=== PATIENT | male | born 1935 | race Caucasian/White ===

== ENCOUNTER 2017-03-29 07:46 | Inpatient (IN) ==
[2017-03-29] MEDS ORDERED: HYDROmorphone 2 MG/ML SYRINGE ONE (08:18)
[2017-03-29] MEDS ORDERED: ONDANSETRON 4 MG/2 ML VIAL ONE (08:19)
--- NOTE | 2017-03-29 08:21 | Emergency Department Note ---
Lower Extremity Injury HPI - General Chief Complaint: Fall Stated Complaint: fall, L hip pain Time Seen by Provider: 03/29/17 08:17 Source: patient, family, EMS Mode of arrival: wheelchair - History of Present Illness HPI Narrative: This patient fell this morning broke his left hip. He has had some dizziness lately. He has chronic Parkinson's disease of the brain stimulator. Recently had bronchitis and apparently does run some low blood pressures at times. The medics thought his systolic blood pressure was in the 70s but here is 125. No other injuries this morning. X-ray shows an intertrochanteric hip fracture without much displacement. complaint: hip injury Onset (ago): minute(s) Injury: Left: hip - Related Data Home Medications Medication Instructions Recorded Confirmed Carbidopa/Levodopa [Carbidopa-Levo 1.5 each PO Q6 06/20/16 03/29/17 25-100 mg Odt] Cholecalciferol (Vitamin D3) 10,000 unit PO DAILY 06/20/16 03/29/17 [Vitamin D3] Entacapone [Comtan] 200 mg PO BID 06/20/16 03/29/17 Gabapentin [Neurontin] 300 mg PO HS 06/20/16 03/29/17 HYDROcodone/ACETAMINOPHEN [Lorcet 1 tab PO TID 06/20/16 03/29/17 Hd 10-325 mg Tablet] Pravastatin [Pravachol] 20 mg PO HS 06/20/16 03/29/17 QUEtiapine [SEROquel] 25 mg PO HS 06/20/16 03/29/17 Silodosin [Rapaflo] 8 mg PO DAILY 06/20/16 03/29/17 Midodrine [Midodrine HCl] 10 mg PO TID@0800,1200,1700 12/09/16 03/29/17 rOPINIRole [Requip] 1 mg PO Q6 12/09/16 03/29/17 clonazePAM [Clonazepam] 0.25 mg SL BID 03/29/17 03/29/17 Previous Rx's Medication Instructions Recorded carBAMazepine [TEGretol] 100 mg PO Q12 #30 tab.chew 11/29/16 Allergies Allergy/AdvReac Type Severity Reaction Status Date / Time No Known Drug Allergies Allergy Verified 03/29/17 07:52 Review of Systems All systems ED: reviewed and negative except as stated. Past Medical History - Past Medical History [facility] Narrative: Medical History (Last Updated 03/11/17 @ 14:07 by Sridhar Cao MD) Dehydration (Acute) Clavicle fracture (Acute) Rib fracture (Acute) Trigeminal neuralgia of left side of face (Acute) Acute vestibular neuronitis (Acute) Orthostatic hypotension (Acute) Viral syndrome (Acute) Pneumonia (Acute) Autonomic dysfunction (Acute) Parkinson disease (Acute) History of aspiration pneumonia (Acute) Medical history: Reports: other (parkinson, trigeminal neuralgia) Surgical history ED: Reports: pacemaker/AICD - Social History Alcohol use: Reports: Rarely Drug use: Reports: none Physical Exam - General Limitations: no limitations General appearance: alert, in no apparent distress - Head Head exam: atraumatic, normocephalic - Eye Eye exam: Present: normal appearance - ENT ENT exam: normal exam - Neck Neck exam: Present: normal inspection - Chest Chest inspection: Present: normal inspection - Respiratory Respiratory exam: Present: normal lung sounds bilaterally - Cardiovascular Cardiovascular exam: Present: regular rate, normal rhythm, normal heart sounds - Abdominal Exam Abdominal exam: Present: soft. Absent: distention, tenderness - Neurological Exam Neurological exam: Present: alert - Psychiatric Psychiatric exam: Present: normal affect, normal mood - Skin Skin exam: Present: warm, dry, intact, normal color Course Vital Signs Temperature 97.8 F 03/29/17 07:47 Pulse Rate 69 03/29/17 07:47 Respiratory Rate 20 03/29/17 07:47 Blood Pressure 112/54 03/29/17 07:47 Pulse Oximetry (%) 95 03/29/17 07:47 Temperature 97.8 F 03/29/17 07:47 Pulse Rate 69 03/29/17 08:23 Respiratory Rate 20 03/29/17 07:47 Blood Pressure 112/54 03/29/17 07:59 Pulse Oximetry (%) 87 L 03/29/17 08:23 Extremity Injury, Lower - MDM Narrative Medical decision making narrative: This patient has a subcapital left hip fracture. Have discussed the case with Dr. Madrigal and Dr. Crowder. Patient will be admitted to the hospital for hip repair. - Radiology Data Radiology results reviewed: Yes I reviewed the patient's radiology results. Disposition Pt seen by THRASHER FEEDER/PA only: No Clinical Impression: Hip fracture, left Disposition: Xfer As Inpt ([facility]) Condition: Good Referrals: Jewels Arambula MD [Primary Care Provider] - Time of Disposition: 08:37
--- NOTE | 2017-03-29 08:27 | XRay Report ---
CLINICAL INFORMATION: Left hip fracture TECHNIQUE: AP supine chest x-ray COMPARISON: Previous chest x-rays dated 03/11/2017 and 01/12/2017 FINDINGS: Lungs are negative. No parenchymal infiltrate or mass. Heart size and vascularity are normal. No pulmonary edema. No pulmonary congestion. Roopa and mediastinum are negative. IMPRESSION: Negative AP, supine chest x-ray Interpreted and Authenticated by: Mitch Beyer 03/29/17
--- NOTE | 2017-03-29 08:27 | XRay Report ---
CLINICAL INFORMATION: Fall. Left hip pain. TECHNIQUE: AP pelvis and bilateral hips. AP and lateral left hip. COMPARISON: Previous AP pelvis and right hip dated 12/04/2009 FINDINGS: Impacted left subcapital hip fracture with mild varus angulation. Pelvis and right hip are negative. IMPRESSION: Left subcapital hip fracture Interpreted and Authenticated by: Mitch Beyer 03/29/17
[2017-03-29] MEDS: HYDROmorphone 2 MG/ML SYRINGE IV PRN ×3 (09:19→10:20)
[2017-03-29 09:33] LABS: Basophils # (Auto) 0 K/mcL (0.0-0.3); Basophils % (Auto) 0.2 % (0.0-2.0); Eosinophils # (Auto) 0.1 K/mcL (0.0-0.7); Eosinophils % (Auto) 0.8 % (0.0-7.0); Granulocytes % (Auto) 84.2 % (38.0-78.0); Lymphocytes % (Auto) 10.7 % (15.5-49.0); Mean Cell Volume 106.9 fL (80.0-100.0); Mean Corpuscular Hemoglobin 36.4 pg (26.0-34.0); Monocytes # (Auto) 0.4 K/mcL (0.1-0.9); Monocytes % (Auto) 4.1 % (1.0-12.0); Platelet Count 207 K/mcL (140-440); RBC 3.02 M/mcL (4.50-5.90); Red Cell Distribution Width 14.8 % (11.5-14.5)
[2017-03-29 09:50] LABS: ALT/SGPT < 5 U/l (0-40); Albumin 3.9 gm/dL (3.2-5.2); Albumin/Globulin Ratio 1.8 (1.0-2.3); Alkaline Phosphatase 74 U/L (39-117); Blood Urea Nitrogen 10 mg/dl (8-23)
[2017-03-29] MEDS ORDERED: HYDROmorphone 2 MG/ML SYRINGE IV PRN ×3 (10:18→17:55)
[2017-03-29] MEDS ORDERED: KETOROLAC 30 MG/ML VIAL IV ONE (10:28)
[2017-03-29] MEDS ORDERED: 0.9 % SODIUM CHLORIDE 1,000 ML IV ONE (10:37)
[2017-03-29] MEDS ORDERED: 0.9 % SODIUM CHLORIDE 1,000 ML IV SCH ×2 (10:45→11:38)
[2017-03-29] MEDS ORDERED: ONDANSETRON 4 MG/2 ML VIAL IV ONE ×2 (10:54→16:30)
[2017-03-29] MEDS ORDERED: cefTRIAXone 2 GM in DEXTROSE 5% IN WATER 50 ML IV SCH (11:38)
[2017-03-29] MEDS ORDERED: traZODone HCL 50 MG TABLET PO PRN (11:38)
[2017-03-29] MEDS ORDERED: ACETAMINOPHEN 1,000 MG/100 ML BOTTLE IV PRN (11:38)
[2017-03-29] MEDS ORDERED: ACETAMINOPHEN 325 MG TABLET PO PRN (11:38)
[2017-03-29] MEDS ORDERED: BISACODYL 10 MG SUPP.RECT PR PRN (11:38)
[2017-03-29] MEDS ORDERED: ONDANSETRON 4 MG/2 ML VIAL IV PRN ×2 (11:38→17:55)
[2017-03-29 13:17] LABS: Appearance,Urine CLEAR; Bilirubin,Urine NEG (NEG); Color,Urine YELLOW; Glucose,Urine (UA) NEGATIVE (NEG); Leukocyte Esterase,Urine NEG /uL (NEG); Nitrate,Urine NEG (NEG); Protein,Urine NEG (NEG); Specific Gravity,Urine 1.011 (1.000-1.035); Urine Blood NEG mg/dL (<0.03); Urobilinogen,Urine NEG (NEG)
[2017-03-29] MEDS ORDERED: 0.9 % SODIUM CHLORIDE 10 ML SYRINGE IV SCH (14:00)
--- NOTE | 2017-03-29 14:21 | Internal Med History&Physical ---
Medical - H&P: [facility] Patient information: Note initiated : 03/29/17 at 2:19 pm Service Date, if different from initiated Date: [] Patient: Oliver Miles 81 y/o M admitted on 03/29/17 for fall, L hip pain. Chief Complaint: fall with left hip injury History of present illness: Mr. Miles is a 81 year old Male comes in to [facility] ER with left hip injury and pain. Patient sustained a trauma after he fell off the bed while attempting to go to the bathroom this morning around 7:15 AM. He was subsequently brought in to [facility] ER. Initial workup was significant for left subcapital hip fracture. Orthopedics was consulted. Patient was scheduled for operative intervention later in the evening. Hospitalist service was consulted for admission and preoperative risk evaluation along with medical issue management. At time examination patient is alert oriented. He is in significant distress from pain at the fracture site. He is accompanied by his . He is under effect of opioids and was unable to provide a detailed history. Per he did not lose consciousness. There is no evidence of incontinence including bladder or bowel. No seizure-like episode. Patient hasn't had a similar even in the past but suffers from debilitating Parkinson's disease with gait instability. He otherwise denies fever chills nausea vomiting headache photophobia diarrhea dysuria or weight loss. 10 point review of system was performed and is negative except for the was discussed above All systems: reviewed and no additional remarkable complaints except as stated Medical - H&P: PMH Medical history: Parkinson's disease hyperlipidemia Anxiety disorder Orthostatic hypotension Family history: reviewed and not pertinent Pertinent family history: nonrelevant given advanced age and presenting symptoms Social history: remote history of smoking but quit 5 years ago. Occasional cigars History of alcoholism No substance abuse and lives in the [place] Functional capacity: uses cane/walker Smoking status: Former smoker Have you smoked in the last 12 months: No Drug use: none Alcohol use: none Medical - H&P: Meds Home Medications Medication Instructions Recorded Confirmed Type Carbidopa/Levodopa [Carbidopa-Levo 1.5 each PO Q6 06/20/16 03/29/17 History 25-100 mg Odt] Cholecalciferol (Vitamin D3) 10,000 unit PO Q48 06/20/16 03/29/17 History [Vitamin D3] Entacapone [Comtan] 200 mg PO BID 06/20/16 03/29/17 History Gabapentin [Neurontin] 300 mg PO HS 06/20/16 03/29/17 History HYDROcodone/ACETAMINOPHEN [Lorcet 1 tab PO BID 06/20/16 03/29/17 History Hd 10-325 mg Tablet] Pravastatin [Pravachol] 20 mg PO DAILY 06/20/16 03/29/17 History QUEtiapine [SEROquel] 25 mg PO HS 06/20/16 03/29/17 History Silodosin [Rapaflo] 8 mg PO DAILY 06/20/16 03/29/17 History carBAMazepine [TEGretol] 100 mg PO Q12 #30 tab.chew 11/29/16 03/29/17 Rx Midodrine [Midodrine HCl] 10 mg PO TID@0800,1200,1700 12/09/16 03/29/17 History rOPINIRole [Requip] 1 mg PO Q6 12/09/16 03/29/17 History Finasteride 5 mg PO DAILY 03/29/17 03/29/17 History Fludrocortisone [Florinef] 0.3 mg PO DAILY 03/29/17 03/29/17 History L.acidoph,Paracasei, B.lactis 1 tab PO DAILY 03/29/17 03/29/17 History [Probiotic] clonazePAM [Clonazepam] 0.25 mg SL BID 03/29/17 03/29/17 History Allergies Allergy/AdvReac Type Severity Reaction Status Date / Time No Known Drug Allergies Allergy Verified 03/29/17 07:52 Medical - H&P: Exam - Constitutional Vitals: Temp Pulse Resp BP Pulse Ox 98.6 F 80 26 H 174/73 91 03/29/17 11:38 03/29/17 11:01 03/29/17 11:38 03/29/17 11:38 03/29/17 11:38 General appearance: average body habitus Exam: Pupils symmetric oral cavity dry No urine was discharge no Lymphadenopathy or bruit S1 and S2 regular rhythm, ESM rate 1 chest clear to auscultation abdomen soft Left lower extremity externally rotated and shortened Pulses normal sedated but no anxiety or agitation Symmetrical upper extremity movement Medical - H&P: Reslt - Labs CBC & Chem 7: 03/29/17 09:07 03/29/17 09:06 Labs: Urine 03/29/17 Range/Units 12:51 Urine Color Yellow Urine Appearance Clear Urine pH 8.0 (5.0-9.0) Ur Specific [place] 1.011 (1.000-1.035) Urine Protein Neg (NEG) mg/dL Urine Glucose (UA) Negative (NEG) mg/dL Medical - H&P: A/P (1) Closed left hip fracture Current visit: Yes Status: Acute * left hip fracture- awaiting operative intervention. Orthopedics consulted. Keep nothing by mouth * pain management on as needed IV opioids * preop risk evaluation-based on RCR I [place] [employer] risk stratification patient would fall under high risk category due to advanced age and history of Parkinson's , poor functional status and surgery specific risk. However anesthesia and surgery specific risks will be discussed by individual care providers. There are no modifiable risk factors at this time and patient can proceed with surgery. Patient and his clearly understands the risk including hemorrhage infection, risk of CVA and acute coronary events * history of Parkinson's disease continue levodopa carbidopa/ropinirole * Orthostatic hypotension continue aggressive PT OT postoperative period * Hyperlipidemia continue statin * Neuropathy Gabapentin * Full CODE STATUS * DVT prophylaxis. Start subcutaneous heparin Plan * review postop * Keep nothing by mouth * Pain management * pre-existing medical condition management as above.
[2017-03-29] MEDS ORDERED: ceFAZolin 1 GM VIAL ONE (16:23)
[2017-03-29] MEDS ORDERED: LIDOCAINE HCL/PF 100 MG/5 ML SYRINGE IV ONE (16:30)
[2017-03-29] MEDS ORDERED: ePHEDrine 50 MG/ML AMPUL IV ONE (16:30)
[2017-03-29] MEDS ORDERED: DEXAMETHASONE 10 MG/ML VIAL IV ONE (16:30)
[2017-03-29] MEDS ORDERED: HETASTARCH 6% 500 ML BAG IV ONE (16:30)
[2017-03-29] MEDS ORDERED: TRANEXAMIC ACID 1,000 MG/10 ML VIAL IV ONE ×2 (16:30→16:42)
[2017-03-29] MEDS ORDERED: ceFAZolin 1 GM VIAL IV SCH (16:30)
[2017-03-29] MEDS ORDERED: fentaNYL 250 MCG/5 ML VIAL IV ONE (16:30)
[2017-03-29] MEDS ORDERED: PROPOFOL 200 MG/20 ML VIAL IV ONE (16:30)
[2017-03-29] MEDS ORDERED: PHENYLEPHRINE 10 MG/ML VIAL IV ONE (16:30)
[2017-03-29] MEDS ORDERED: FLEETS ADULT ENEMA PR PRN (16:42)
[2017-03-29] MEDS ORDERED: MAGNESIUM HYDROXIDE 30 ML ORAL.SUSP PO PRN (16:42)
[2017-03-29] MEDS ORDERED: TEMAZEPAM 15 MG CAPSULE PO PRN (16:42)
[2017-03-29] MEDS ORDERED: BENZOCAINE/MENTHOL 1 LOZENGE PO PRN ×2 (16:42→17:55)
[2017-03-29] MEDS ORDERED: POLYETHYLENE GLYCOL 3350 17 GM PACKET PO PRN (16:42)
--- NOTE | 2017-03-29 16:42 | Brief Operative Note ---
Date of procedure: 03/29/17 Pre-op diagnosis: left hip femoral neck fracture Post-op diagnosis: same Procedure: left hip cemented miryam-arthroplasty Grafts/Implants: Yes Anesthesia: GETA Complications Description: 03/29/17 16:41 none Surgeon: Crispin Roberts [employer] Supervisor: Kevin Abreu Estimated blood loss (cc): 50 Specimens Removed/Pathology: none sent Condition: stable Disposition: PACU
[2017-03-29] MEDS ORDERED: GENTAMICIN SULFATE 800 MG/20 ML VIAL IR ONE (17:11)
[2017-03-29] MEDS ORDERED: METHOCARBAMOL 1,000 MG/10 ML VIAL IV PRN (17:55)
[2017-03-29] MEDS ORDERED: NALOXONE HCL 0.4 MG/ML VIAL IV PRN (17:55)
[2017-03-29] MEDS ORDERED: ePHEDrine 50 MG/ML AMPUL IV PRN (17:55)
[2017-03-29] MEDS ORDERED: FLUMAZENIL 0.1 MG/ML ML IV PRN (17:55)
[2017-03-29] MEDS ORDERED: diphenhydrAMINE 50 MG/ML VIAL IV PRN (17:55)
[2017-03-29] MEDS ORDERED: IPRATROPIUM/ALBUTEROL 3 ML AMPUL.NEB NEB PRN (17:55)
[2017-03-29] MEDS ORDERED: ATROPINE SULFATE 0.4 MG/ML VIAL IV PRN (17:55)
[2017-03-29] MEDS ORDERED: fentaNYL 100 MCG/2 ML VIAL IV PRN (17:55)
[2017-03-29] MEDS ORDERED: METOPROLOL TARTRATE 5 MG/5 ML VIAL IV PRN (17:55)
[2017-03-29] MEDS ORDERED: PROMETHAZINE 25 MG/ML VIAL IV PRN (17:55)
[2017-03-29] MEDS ORDERED: IPRATROPIUM/ALBUTEROL 3 ML AMPUL.NEB NEB ONE (17:58)
[2017-03-29] MEDS ORDERED: LACTATED RINGERS 1,000 ML IV SCH (18:00)
[2017-03-29] MEDS: KETOROLAC 15 MG/ML VIAL IV PRN (18:34)
--- NOTE | 2017-03-29 18:36 | XRay Report ---
CLINICAL INFORMATION: Postsurgical follow-up TECHNIQUE: AP pelvis and bilateral hips. AP and lateral left hip COMPARISON: Previous examination dated 03/29/2017 FINDINGS: Status post left total hip arthroplasty. Acetabular and femoral head complements are in anatomic positions. There is postsurgical soft tissue gas. IMPRESSION: Status post left total hip arthroplasty Interpreted and Authenticated by: Mitch Beyer 03/29/17
[2017-03-29] MEDS: rOPINIRole 1 MG TABLET PO SCH (19:47)
[2017-03-29] MEDS: CARBIDOPA/LEVODOPA 25/100 TABLET PO SCH (19:47)
[2017-03-29] MEDS: 0.45 % SODIUM CHLORIDE 1,000 ML IV SCH ×2 (19:47→19:50)
[2017-03-29] MEDS: MIDODRINE 5 MG TABLET PO SCH (19:50)
[2017-03-29] MEDS ORDERED: SENNOSIDES/DOCUSATE SODIUM 1 TAB TABLET PO SCH (21:00)
[2017-03-29] MEDS ORDERED: DOCUSATE SODIUM 100 MG CAPSULE PO SCH (21:00)
[2017-03-29] MEDS: GABAPENTIN 300 MG CAPSULE PO SCH (21:21)
[2017-03-29] MEDS: ASPIRIN 325 MG ENTERIC COATED TABLET PO SCH (21:21)
[2017-03-29] MEDS: QUEtiapine 25 MG TABLET PO SCH (21:22)
[2017-03-29] MEDS: SIMVASTATIN 10 MG TABLET PO SCH (21:22)
[2017-03-29] MEDS: clonazePAM 0.5 MG TABLET PO SCH (21:22)
[2017-03-29] MEDS: SENNOSIDES 1 TABLET PO SCH (21:23)
[2017-03-29] MEDS: carBAMazepine 100 MG TAB.CHEW PO SCH (21:24)
[2017-03-29] MEDS: ENTACAPONE 200 MG PO SCH (21:54)
[2017-03-29] MEDS: 0.9 % SODIUM CHLORIDE 10 ML SYRINGE IV SCH (21:54)
[2017-03-29] MEDS: ceFAZolin 1 GM VIAL IV SCH (21:54)
[2017-03-30] MEDS: CARBIDOPA/LEVODOPA 25/100 TABLET PO SCH ×4 (00:10→18:08)
[2017-03-30] MEDS: HYDROcodone/APAP 5/325MG TABLET PO PRN ×4 (00:10→23:21)
[2017-03-30] MEDS: rOPINIRole 1 MG TABLET PO SCH ×4 (00:10→18:09)
[2017-03-30] MEDS: 0.45 % SODIUM CHLORIDE 1,000 ML IV SCH ×4 (02:45→18:01)
[2017-03-30] MEDS: 0.9 % SODIUM CHLORIDE 10 ML SYRINGE IV SCH ×3 (04:55→20:02)
[2017-03-30] MEDS: ceFAZolin 1 GM VIAL IV SCH (05:43)
[2017-03-30 06:04] LABS: Mean Cell Volume 110.6 fL (80.0-100.0); Mean Corpuscular HGB Conc 35.1 g/dL (31.0-36.0); Mean Corpuscular Hemoglobin 38.9 pg (26.0-34.0); Platelet Count 158 K/mcL (140-440); RBC 2.36 M/mcL (4.50-5.90); Red Cell Distribution Width 14.4 % (11.5-14.5)
[2017-03-30 06:30] LABS: ALT/SGPT < 5 U/l (0-40); Albumin 2.9 gm/dL (3.2-5.2); Albumin/Globulin Ratio 1.6 (1.0-2.3); Alkaline Phosphatase 56 U/L (39-117); Bilirubin,Direct < 0.2 mg/dL (0.0-0.3); Blood Urea Nitrogen 10 mg/dl (8-23); Gamma Glutamyl Transpeptidase 24 U/L (8-61); Magnesium 2.1 mg/dL (1.6-2.5); Uric Acid 2.2 mg/dL (2.5-8.0)
[2017-03-30] MEDS: MIDODRINE 5 MG TABLET PO SCH ×3 (07:15→18:09)
[2017-03-30] MEDS ORDERED: PANTOPRAZOLE 40 MG TABLET PO SCH (07:30)
--- NOTE | 2017-03-30 07:44 | Orthopedic Progress Note ---
Subjective Patient information: Note initiated : 03/30/17 at 7:43 am Service Date, if different from initiated Date: [] Patient: Oliver Miles 81 y/o M admitted on 03/29/17 for fall, L hip pain. Chief Complaint: [alert with no cp and no sob] Objective Vital signs: Vital Signs Temp Pulse Resp BP Pulse Ox 03/30/17 07:18 98 03/30/17 07:16 97.4 F 67 16 104/60 98 03/30/17 06:00 91 03/30/17 04:15 94 03/30/17 03:25 97.7 F 74 18 130/66 99 03/30/17 02:20 97 03/30/17 00:00 98.7 F 85 18 132/67 94 03/29/17 22:00 91 03/29/17 20:43 96 03/29/17 20:42 96 03/29/17 20:35 92 03/29/17 20:34 72 L 03/29/17 18:44 98.4 F 101 H 16 196/93 87 L 03/29/17 18:40 98.6 F 100 H 17 164/90 92 03/29/17 18:25 98.6 F 101 H 17 169/82 93 03/29/17 18:10 98.6 F 97 H 17 167/78 94 03/29/17 18:05 98.6 F 93 H 16 134/62 94 03/29/17 17:55 98.6 F 92 H 15 113/75 96 03/29/17 17:50 98.6 F 18 130/60 95 03/29/17 16:25 98.6 F 20 163/81 95 03/29/17 11:38 98.6 F 26 H 174/73 91 Intake and Output 03/29/17 03/30/17 03/30/17 21:59 05:59 13:59 Intake Total 771 / 771 1250 / 1250 Output Total 375 / 375 Balance 771 / 771 875 / 875 Intake: IV 271 / 271 1000 / 1000 Sodium Chloride 0.45% 1, 1000 / 1000 000 ml @ 100 mls/hr IV . Q10H [facility] Rx#:[id number] Sodium Chloride 0.9% 1, 271 / 271 000 ml @ 50 mls/hr IV . Q20H [facility] Rx#:[id number] Oral 250 / 250 IV - Manual Only 500 / 500 Output: Urine Catheter Amount 375 / 375 Other: Weight 180 lb Intake & Output: Intake & Output 03/29/17 03/30/17 03/30/17 21:59 05:59 13:59 Intake Total 771 / 771 1250 / 1250 Output Total 375 / 375 Balance 771 / 771 875 / 875 Weight 180 lb Intake: IV 271 / 271 1000 / 1000 Sodium Chloride 0.45% 1, 1000 / 1000 000 ml @ 100 mls/hr IV . Q10H [facility] Rx#:[id number] Sodium Chloride 0.9% 1, 271 / 271 000 ml @ 50 mls/hr IV . Q20H [facility] Rx#:[id number] Oral 250 / 250 IV - Manual Only 500 / 500 Output: Urine Catheter Amount 375 / 375 Incision: Yes healing Incision clean and dry: Yes Dressing: Yes clean Weight bearing status: full Neurological exam IM: Yes altered, Yes oriented X3 Extremities exam IM: Yes Foot pink and warm, Yes neurovascular intact (will need snf or home health) - Labs CBC & BMP: 03/30/17 03:44 03/30/17 03:44 Labs: 03/30/17 03:44 Hgb 9.1 L Hct 26.1 L
--- NOTE | 2017-03-30 07:47 | Internal Med Progress Note ---
Medical - PN: Subj Patient information: Note initiated : 03/30/17 at 7:45 am Service Date, if different from initiated Date: [] Patient: Oliver Miles 81 y/o M admitted on 03/29/17 for fall, L hip pain. Chief Complaint: [] Interval history: 03/29-HPI-Mr. Miles is a 81 year old Male comes in to [place] ER with left hip injury and pain. Patient sustained a trauma after he fell off the bed while attempting to go to the bathroom this morning around 7:15 AM. He was subsequently [facility]. Initial workup was significant for left subcapital hip fracture. Orthopedics was consulted. Patient was scheduled for operative intervention later in the evening. Hospitalist service was consulted for admission and preoperative risk evaluation along with medical issue management. At time examination patient is alert oriented. He is in significant distress from pain at the fracture site. He is accompanied by his . He is under effect of opioids and was unable to provide a detailed history. Per he did not lose consciousness. There is no evidence of incontinence including bladder or bowel. No seizure-like episode. Patient hasn't had a similar even in the past but suffers from debilitating Parkinson's disease with gait instability. He otherwise denies fever chills nausea vomiting headache photophobia diarrhea dysuria or weight loss. 03/30- postop day 2. Patient doing well. No overnight events. Pain well controlled. No fever chills SOB nausea vomiting or bleeding or swelling at surgery site. started physical therapy. Patient has advanced Parkinson's disease limiting his functionality and gait instability. He also carries history of orthostatic hypertension. Continue aggressive physical therapy and and target or male sitting upright in light of high risk Parkinson's related dysphagia. Anticipate SNF transfer in 48 hours. Continue postop management per orthopedics - Constitutional Vitals: Vital Signs Temp Pulse Resp BP Pulse Ox 97.4 F 67 16 104/60 98 03/30/17 07:16 03/30/17 07:16 03/30/17 07:16 03/30/17 07:16 03/30/17 07:18 Period Temp Pulse Resp BP Sys/Garcia Pulse Ox Last 24 Hr 97.4 F-98.7 F 67-101 15-26 104-196/60-93 72-99 Intake and Output 0703/30/17 03/30/17 21:59 05:59 13:59 Intake Total 771 / 771 1250 / 1250 Output Total 375 / 375 Balance 771 / 771 875 / 875 Weight 180 lb Intake & Output: Intake & Output 03/29/17 03/30/17 03/30/17 21:59 05:59 13:59 Intake Total 771 / 771 1250 / 1250 Output Total 375 / 375 Balance 771 / 771 875 / 875 Weight 180 lb Intake: IV 271 / 271 1000 / 1000 Sodium Chloride 0.45% 1, 1000 / 1000 000 ml @ 100 mls/hr IV . Q10H [facility] Rx#:[id number] Sodium Chloride 0.9% 1, 271 / 271 000 ml @ 50 mls/hr IV . Q20H [facility] Rx#:[id number] Oral 250 / 250 IV - Manual Only 500 / 500 Output: Urine Catheter Amount 375 / 375 General appearance: cooperative, no acute distress Exam: advanced Parkinson's Alert and able to verbalize needs nonlabored breathing Left hip covered in sterile dressing Medical - PN: Obj Da - Labs CBC & Chem 7: 03/30/17 03:44 03/30/17 03:44 Labs: Abnormal Lab Results 03/30/17 03/30/17 03:44 03:44 RBC 2.36 L Hgb 9.1 L Hct 26.1 L MCV 110.6 H MCH 38.9 H Glucose 130 H Uric Acid 2.2 L Calcium 7.9 L Total Protein 4.7 L Albumin 2.9 L Globulin 1.8 L Meds: Medications Hydrocodone Bitart/Acetaminophen (Joffre 5/325mg) 0 tab PO Q4HP PRN PRN Reason: Pain Last Admin: 03/30/17 07:24 Dose: 2 tab Aspirin (Ecotrin) 325 mg PO BID [facility] Last Admin: 03/29/17 21:21 Dose: 325 mg Carbamazepine (Tegretol) 100 mg PO Q12 [facility] Last Admin: 03/29/17 21:24 Dose: 100 mg Carbidopa/Levodopa (Sinemet 25/100) 1.5 tab PO Q6 [facility] Last Admin: 03/30/17 05:43 Dose: 1.5 tab Clonazepam (Klonopin) 0.25 mg PO BID [facility] Last Admin: 03/29/17 21:22 Dose: 0.25 mg Finasteride (Proscar) 5 mg PO DAILY [facility] Fludrocortisone Acetate (Florinef) 0.3 mg PO DAILY [facility] Gabapentin (Neurontin) 300 mg PO HS [facility] Last Admin: 03/29/17 21:21 Dose: 300 mg Sodium Chloride (Sodium Chloride 0.45%) 1,000 mls @ 100 mls/hr IV .Q10H [facility] Last Admin: 03/30/17 07:25 Dose: 100 mls/hr Ketorolac Tromethamine (Toradol) 15 mg IV Q6HP PRN PRN Reason: Pain Stop: 03/31/17 16:45 Last Admin: 03/29/17 18:34 Dose: 15 mg Lactobacillus Rhamnosus (Culturelle) 1 cap PO DAILY [facility] Magnesium Hydroxide (Milk Of Magnesia) 30 ml PO BIDP PRN PRN Reason: Constipation Midodrine (Midodrine Hcl) 10 mg PO TID@0800,1200,1700 [facility] Last Admin: 03/30/17 07:15 Dose: Not Given Entacapone [Comtan] (200 Mg) 1 dose PO BID [facility] Last Admin: 03/29/17 21:54 Dose: Not Given Silodosin [Rapaflo] (8 Mg) 1 dose PO DAILY [facility] Polyethylene Glycol (Miralax) 17 gm PO DAILYP PRN PRN Reason: Constipation Quetiapine Fumarate (Seroquel) 25 mg PO [facility] Last Admin: 03/29/17 21:22 Dose: 25 mg Ropinirole HCl (Requip) 1 mg PO Q6 [facility] Last Admin: 03/30/17 05:43 Dose: 1 mg Senna (Senokot) 2 tab PO [facility] Last Admin: 03/29/17 21:23 Dose: 2 tab Simvastatin (Zocor) 10 mg PO [facility] Last Admin: 03/29/17 21:22 Dose: 10 mg Sodium Biphosphate/Sodium Phosphate (Fleets Adult) 1 dose [place] Q3-4DAYS PRN PRN Reason: Constipation Sodium Chloride (Saline Flush) 10 ml IV Q8 [facility] Last Admin: 03/30/17 04:55 Dose: Not Given Temazepam (Restoril) 15 mg PO [facility] PRN PRN Reason: Insomnia Throat Lozenges (Cepacol) 1 lozenge PO PRN PRN PRN Reason: Sore Throat Vitamin D (Vitamin D3) 10,000 unit PO Q48 [facility] Medical - PN: A/P - Time Spent With Patient Total time spent is greater than 50% in coordination of care (as documented) at patient's floor/unit and/or counseling patient: 25 - 35 minutes (1) Closed left hip fracture Status: Acute Current Visit: Yes - Narrative A/P Narrative: * left hip fracture- postop day 2-managed by orthopedics. * pain management well-controlled on as needed IV opioids. Managed by orthopedics issues addressed by hospitalist service * history of Parkinson's disease -Stable on home dose levodopa carbidopa/ ropinirole * Parkinson's related orthostatic hypotension continue aggressive PT OT for gait evaluation and balancing exercise,bed alarms for high risk fall status. * Hyperlipidemia continue statin * Neuropathy Gabapentin * Full CODE STATUS * DVT prophylaxis. start heparin Plan * aggressive PT OT * DVT prophylaxis * pre-existing medical condition management as above * case management to arrange SNF transfer * All meals on chair sitting upright. Patient is a high risk dysphagia * maintain high risk fall status * discontinued Foleys once patient able to transfer to chair
[2017-03-30 07:54] LABS: Band Neutrophils % 2 % (0-10); Lymphocytes % 9 % (15-49); Macrocytosis 3+ (NONE SEEN); Monocytes % (Manual) 1 % (1-12); Platelet Estimate NORMAL (NORMAL); RBC Morphology ABNORM (NORMAL); Segmented Neutrophils % 88 % (38-78)
[2017-03-30] MEDS: clonazePAM 0.5 MG TABLET PO SCH ×2 (07:55→19:59)
[2017-03-30] MEDS: ASPIRIN 325 MG ENTERIC COATED TABLET PO SCH ×2 (07:55→19:59)
[2017-03-30] MEDS: VITAMIN D3 5,000 UNIT CAPSULE PO SCH (07:57)
[2017-03-30] MEDS: FINASTERIDE 5 MG TABLET PO SCH (07:57)
[2017-03-30] MEDS ORDERED: PRAVASTATIN 20 MG TABLET PO SCH (09:00)
[2017-03-30] MEDS ORDERED: MULTIVIT,THER IRON,CA,FA & MIN 1 TABLET PO SCH (09:00)
[2017-03-30] MEDS: carBAMazepine 100 MG TAB.CHEW PO SCH ×2 (09:22→20:01)
[2017-03-30] MEDS: LACTOBACILLUS 1 CAPSULE PO SCH (09:22)
[2017-03-30] MEDS: FLUDROCORTISONE 0.1 MG TABLET PO SCH (09:23)
[2017-03-30] MEDS: ENTACAPONE 200 MG PO SCH ×2 (09:28→19:59)
[2017-03-30] MEDS: KETOROLAC 15 MG/ML VIAL IV PRN (13:36)
[2017-03-30] MEDS: METHOCARBAMOL 500 MG TABLET PO PRN ×2 (14:25→20:02)
[2017-03-30] MEDS: GABAPENTIN 300 MG CAPSULE PO SCH (19:59)
[2017-03-30] MEDS: SENNOSIDES 1 TABLET PO SCH (20:01)
[2017-03-30] MEDS: QUEtiapine 25 MG TABLET PO SCH (20:01)
[2017-03-30] MEDS: SIMVASTATIN 10 MG TABLET PO SCH (20:02)
[2017-03-30] MEDS ORDERED: HEPARIN 5,000 UNIT/ML VIAL SQ SCH (21:00)
[2017-03-30] MEDS ORDERED: LORazepam 2 MG/ML VIAL ONE (23:58)
[2017-03-31] MEDS ORDERED: LORazepam 2 MG/ML VIAL IM PRN (00:04)
[2017-03-31] MEDS: 0.45 % SODIUM CHLORIDE 1,000 ML IV SCH ×3 (00:07→17:06)
[2017-03-31] MEDS: LORazepam 2 MG/ML VIAL ONE ×2 (00:30→04:12)
[2017-03-31] MEDS: rOPINIRole 1 MG TABLET PO SCH ×5 (01:04→23:14)
[2017-03-31] MEDS: CARBIDOPA/LEVODOPA 25/100 TABLET PO SCH ×5 (01:04→23:13)
[2017-03-31] MEDS ORDERED: LORazepam 2 MG/ML VIAL IV PRN (02:19)
[2017-03-31] MEDS ORDERED: HYDROmorphone 2 MG/ML SYRINGE ONE ×2 (02:27→21:22)
--- NOTE | 2017-03-31 04:50 | XRay Report ---
CLINICAL INFORMATION: Fall two days ago with broken hip. No complains of pain in the medial right clavicle TECHNIQUE: Four views of the right clavicle COMPARISON: None. FINDINGS: No right clavicle fracture. The sternoclavicular joint is not well visualized. Apparently there is a question of disruption of this joint. If this is of clinical concern then CT scan would be helpful. Acromioclavicular joint is negative IMPRESSION: No detectable right clavicle fracture Interpreted and Authenticated by: Mitch Beyer 03/31/17
[2017-03-31 05:40] LABS: Mean Cell Volume 110.2 fL (80.0-100.0); Mean Corpuscular HGB Conc 35.1 g/dL (31.0-36.0); Mean Corpuscular Hemoglobin 38.6 pg (26.0-34.0); Platelet Count 163 K/mcL (140-440); RBC 2.61 M/mcL (4.50-5.90); Red Cell Distribution Width 14.8 % (11.5-14.5)
[2017-03-31 06:03] LABS: ALT/SGPT < 5 U/l (0-40); Albumin 3.4 gm/dL (3.2-5.2); Albumin/Globulin Ratio 1.5 (1.0-2.3); Alkaline Phosphatase 69 U/L (39-117); Bilirubin,Direct < 0.2 mg/dL (0.0-0.3); Blood Urea Nitrogen 10 mg/dl (8-23); Gamma Glutamyl Transpeptidase 29 U/L (8-61); Magnesium 2.1 mg/dL (1.6-2.5); Uric Acid 2.8 mg/dL (2.5-8.0)
[2017-03-31] MEDS: 0.9 % SODIUM CHLORIDE 10 ML SYRINGE IV SCH ×3 (07:06→20:36)
[2017-03-31] MEDS: HYDROmorphone 2 MG/ML SYRINGE IV PRN ×5 (07:06→23:22)
--- NOTE | 2017-03-31 07:13 | Internal Med Progress Note ---
Medical - PN: Subj Patient information: Note initiated : 03/31/17 at 7:09 am Service Date, if different from initiated Date: [] Patient: Oliver Miles 81 y/o M admitted on 03/29/17 for Fall, L Hip Pain/ Closed Left Hip Fracture. Chief Complaint: [] Interval history: 03/29-HPI-Mr. Miles is a 81 year old [facility] and pain. Patient sustained a trauma after he fell off the bed while attempting to go to the bathroom this morning around 7:15 AM. He was subsequently brought in to [facility] ER. Initial workup was significant for left subcapital hip fracture. Orthopedics was consulted. Patient was scheduled for operative intervention later in the evening. Hospitalist service was consulted for admission and preoperative risk evaluation along with medical issue management. At time examination patient is alert oriented. He is in significant distress from pain at the fracture site. He is accompanied by his . He is under effect of opioids and was unable to provide a detailed history. Per he did not lose consciousness. There is no evidence of incontinence including bladder or bowel. No seizure-like episode. Patient hasn't had a similar even in the past but suffers from debilitating Parkinson's disease with gait instability. He otherwise denies fever chills nausea vomiting headache photophobia diarrhea dysuria or weight loss. 03/30- postop day 2. Patient doing well. No overnight events. Pain well controlled. No fever chills SOB nausea vomiting or bleeding or swelling at surgery site. started physical therapy. Patient has advanced Parkinson's disease limiting his functionality and gait instability. He also carries history of orthostatic hypertension. Continue aggressive physical therapy and and target or male sitting upright in light of high risk Parkinson's related dysphagia. Anticipate SNF transfer in 48 hours. Continue postop management per orthopedics 03/31: Pt seen examined, acute overnight events noted that patient was more confused and agitated last night, needing use of ativan and some dilaudid, has been refusing his oral medications. Patient this AM was drowsy after the effect of pain meds. The nurse had concern regarding the right clavicle in the patient, it seems that the patient has h/o clavicular fracture (noted on prob list), X ray clavicle is interpreted as negative, but there is an obvious clinical fracture vs dehiscence at the sternoclavicular joint. I called Dr Roberts to evaluate the patient for this and need for any operative intervention. Patient has been placed in the right sling. Will review old CXR images to see if this is new or old injury. Pertinent ROS: unable - Constitutional Vitals: Vital Signs Temp Pulse Resp BP Pulse Ox 98.7 F 83 20 157/61 90 03/31/17 04:00 03/31/17 04:00 03/31/17 04:00 03/31/17 04:00 03/31/17 04:00 Period Temp Pulse Resp BP Sys/Garcia Pulse Ox Last 24 Hr 97.4 F-98.7 F 60-86 16-22 104-189/60-87 87-98 Intake and Output 03/30/17 03/31/17 03/31/17 21:59 05:59 13:59 Intake Total 1000 / 1000 150 / 150 Output Total 450 / 450 1700 / 1700 Balance 550 / 550 -1550 / -1550 Weight 179 lb 8 oz Intake & Output: Intake & Output 03/30/17 03/31/17 03/31/17 21:59 05:59 13:59 Intake Total 1000 / 1000 150 / 150 Output Total 450 / 450 1700 / 1700 Balance 550 / 550 -1550 / -1550 Weight 179 lb 8 oz Intake: IV 1000 / 1000 Sodium Chloride 0.45% 1, 1000 / 1000 000 ml @ 100 mls/hr IV . Q10H [facility] Rx#:[id number] Oral 150 / 150 Output: Urine Catheter Amount 450 / 450 1100 / 1100 Void Amount 600 / 600 Uretheral (Rollins) 600 / 600 Exam: Constitutional; Afebrile,drowsy, not in distress. Eyes- No icterus, , No periorbital swelling Ears- Ext ear normal,. Neck- Midline trachea, supple, right clavicle displaced near the sternoclavicular joint. Respiratory system: Air Entry equal on both sides, No crackles or wheezing, no rhonchi. CVS- Rate rhythm regular, S1,S2 heard, no gallop, no rub. Abdomen- Soft nontender abdomen, no organomegaly, no tenderness, no guarding or rigidity, ACID DIPPER- AOOx0, moving all extremities, no gross focal deficit noted. Medical - PN: Obj Da - Labs CBC & Chem 7: 03/31/17 03:25 03/31/17 03:25 Labs: Abnormal Lab Results 03/31/17 03/31/17 03/30/17 03:25 03:25 03:44 RBC 2.61 L Hgb 10.1 L Hct 28.8 L MCV 110.2 H MCH 38.6 H RDW 14.8 H Seg Neutrophils % Lymphocytes % RBC Morphology Macrocytosis Creatinine 0.6 L Glucose 130 H Uric Acid 2.2 L Calcium 8.5 L 7.9 L Lactate Dehydrogenase 299 H Total Protein 5.6 L 4.7 L Albumin 2.9 L Globulin 1.8 L 03/30/17 03:44 RBC 2.36 L Hgb 9.1 L Hct 26.1 L MCV 110.6 H MCH 38.9 H RDW Seg Neutrophils % 88 H Lymphocytes % 9 L RBC Morphology Abnorm A Macrocytosis 3+ A Creatinine Glucose Uric Acid Calcium Lactate Dehydrogenase Total Protein Albumin Globulin Meds: Medications Hydrocodone Bitart/Acetaminophen ([place] 5/325mg) 0 tab PO Q4HP PRN PRN Reason: Pain Last Admin: 03/30/17 23:21 Dose: 1 tab Aspirin (Ecotrin) 325 mg PO BID [facility] Last Admin: 03/30/17 19:59 Dose: 325 mg Carbamazepine (Tegretol) 100 mg PO Q12 [facility] Last Admin: 03/30/17 20:01 Dose: 100 mg Carbidopa/Levodopa (Sinemet 25/100) 1.5 tab PO Q6 [facility] Last Admin: 03/31/17 01:04 Dose: 1.5 tab Clonazepam (Klonopin) 0.25 mg PO BID [facility] Last Admin: 03/30/17 19:59 Dose: 0.25 mg Finasteride (Proscar) 5 mg PO DAILY [facility] Last Admin: 03/30/17 07:57 Dose: 5 mg Fludrocortisone Acetate (Florinef) 0.3 mg PO DAILY [facility] Last Admin: 03/30/17 09:23 Dose: 0.3 mg Gabapentin (Neurontin) 300 mg PO HS [facility] Last Admin: 03/30/17 19:59 Dose: 300 mg Hydromorphone HCl (Dilaudid) 0.5 - 1 mg IV Q2HP PRN PRN Reason: Pain Last Admin: 03/31/17 07:06 Dose: 0.5 mg Sodium Chloride (Sodium Chloride 0.45%) 1,000 mls @ 100 mls/hr IV .Q10H [facility] Last Admin: 03/31/17 00:07 Dose: Not Given Ketorolac Tromethamine (Toradol) 15 mg IV Q6HP PRN PRN Reason: Pain Stop: 03/31/17 16:45 Last Admin: 03/30/17 13:36 Dose: 15 mg Lactobacillus Rhamnosus (Culturelle) 1 cap PO DAILY [facility] Last Admin: 03/30/17 09:22 Dose: 1 cap Lorazepam (Ativan) 0.5 mg IM Q2HP PRN PRN Reason: Agitation Last Admin: 03/31/17 01:02 Dose: 0.5 mg Lorazepam (Ativan) 0.5 mg IV Q2HP PRN PRN Reason: Agitation Magnesium Hydroxide (Milk Of Magnesia) 30 ml PO BIDP PRN PRN Reason: Constipation Methocarbamol (Robaxin) 500 mg PO TIDP PRN PRN Reason: Muscle Spasm Last Admin: 03/30/17 20:02 Dose: 500 mg Midodrine (Midodrine Hcl) 10 mg PO TID@0800,1200,1700 [facility] Last Admin: 03/30/17 18:09 Dose: 10 mg Entacapone [Comtan] (200 Mg) 1 dose PO BID [facility] Last Admin: 03/30/17 19:59 Dose: 1 dose Silodosin [Rapaflo] (8 Mg) 1 dose PO DAILY [facility] Last Admin: 03/30/17 09:28 Dose: Not Given Polyethylene Glycol (Miralax) 17 gm PO DAILYP PRN PRN Reason: Constipation Quetiapine Fumarate (Seroquel) 25 mg PO [facility] Last Admin: 03/30/17 20:01 Dose: 25 mg Ropinirole HCl (Requip) 1 mg PO Q6 [facility] Last Admin: 03/31/17 01:04 Dose: 1 mg Senna (Senokot) 2 tab PO [facility] Last Admin: 03/30/17 20:01 Dose: 2 tab Simvastatin (Zocor) 10 mg PO [facility] Last Admin: 03/30/17 20:02 Dose: 10 mg Sodium Biphosphate/Sodium Phosphate (Fleets Adult) 1 dose NV Q3-4DAYS PRN PRN Reason: Constipation Sodium Chloride (Saline Flush) 10 ml IV Q8 [facility] Last Admin: 03/31/17 07:06 Dose: 10 ml Temazepam (Restoril) 15 mg PO [facility] PRN PRN Reason: Insomnia Throat Lozenges (Cepacol) 1 lozenge PO PRN PRN PRN Reason: Sore Throat Vitamin D (Vitamin D3) 10,000 unit PO Q48 [facility] Last Admin: 03/30/17 07:57 Dose: 10,000 unit Medical - PN: A/P - Time Spent With Patient Total time spent is greater than 50% in coordination of care (as documented) at patient's floor/unit and/or counseling patient: - Narrative A/P Narrative: A/P Left Hip Fracture: post op day 3 today, Continue PT/ OT as tolerated. Post Op Pain: on prn hydrocodone, pt intermittently delirious and therefore not taking po meds at times. IV diladid prn has been ordered. Delirium: Due to Post op status, pain, likely etiology. Medical management now, ativan prn, dilaudid prn for now. Clavicular fracture Vs Sternoclavicular dislocation: Based on my limited review of CXR done previously, this seems an old injury, will have Dr Roberts evaluate this today to see if any intervention is warranted, patient placed in right arm sling for now. Parkinsons disease: Resumed home doses of levodopa, carbidopa, ropinarole, unfortunately pt misses does due to being delirious and refusing meds. HLD on statin Full Code DVT prophylaxis. ASA 325 BID as per Ortho protocol.
[2017-03-31 08:03] LABS: Band Neutrophils % 5 % (0-10); Eosinophils % (Manual) 4 % (0-7); Lymphocytes % 4 % (15-49); Platelet Estimate NORMAL (NORMAL); RBC Morphology ABNORM (NORMAL); Segmented Neutrophils % 87 % (38-78)
[2017-03-31] MEDS: FLUDROCORTISONE 0.1 MG TABLET PO SCH (11:17)
[2017-03-31] MEDS: LACTOBACILLUS 1 CAPSULE PO SCH (11:17)
[2017-03-31] MEDS: MIDODRINE 5 MG TABLET PO SCH ×3 (11:17→17:22)
[2017-03-31] MEDS: ASPIRIN 325 MG ENTERIC COATED TABLET PO SCH ×2 (11:17→20:21)
[2017-03-31] MEDS: clonazePAM 0.5 MG TABLET PO SCH ×3 (11:18→20:34)
[2017-03-31] MEDS: FINASTERIDE 5 MG TABLET PO SCH (11:18)
[2017-03-31] MEDS: ENTACAPONE 200 MG PO SCH ×2 (11:18→20:20)
[2017-03-31] MEDS: carBAMazepine 100 MG TAB.CHEW PO SCH ×2 (11:18→20:20)
--- NOTE | 2017-03-31 14:44 | Orthopedic Progress Note ---
Subjective Patient information: Note initiated : 03/31/17 at 2:42 pm Service Date, if different from initiated Date: [] Patient: Oliver Miles 81 y/o M admitted on 03/29/17 for Fall, L Hip Pain/ Closed Left Hip Fracture. Chief Complaint: confused and will need to stop narcotics to allow him to clear [] Objective Vital signs: Vital Signs Temp Pulse Pulse Resp BP Pulse Ox 03/31/17 13:57 90 03/31/17 12:00 98.2 F 20 150/84 90 03/31/17 08:00 98.1 F 20 152/77 90 03/31/17 04:00 98.7 F 83 20 157/61 90 03/31/17 02:43 90 03/31/17 00:00 22 189/87 03/30/17 22:00 87 L 03/30/17 20:39 91 03/30/17 20:38 91 03/30/17 20:00 98.0 F 86 20 186/82 90 03/30/17 15:54 64 03/30/17 15:53 91 03/30/17 15:52 98.3 F 79 16 158/78 91 Intake and Output 03/31/17 03/31/17 03/31/17 05:59 13:59 21:59 Intake Total 150 / 150 Output Total 1700 / 1700 Balance -1550 / -1550 Intake: Oral 150 / 150 Output: Urine Catheter Amount 1100 / 1100 Void Amount 600 / 600 Uretheral (Rollins) 600 / 600 Other: Weight 179 lb 8 oz Patient Weight 04/01/17 05:59 Weight 179 lb 8 oz Intake & Output: Intake & Output 03/31/17 03/31/17 03/31/17 05:59 13:59 21:59 Intake Total 150 / 150 Output Total 1700 / 1700 Balance -1550 / -1550 Weight 179 lb 8 oz Intake: Oral 150 / 150 Output: Urine Catheter Amount 1100 / 1100 Void Amount 600 / 600 Uretheral (Rollins) 600 / 600 Incision: Yes healing Incision clean and dry: Yes Dressing: Yes clean Weight bearing status: full Neurological exam IM: Yes abnormal gait Extremities exam IM: Yes Foot pink and warm, Yes neurovascular intact - Labs CBC & BMP: 03/31/17 03:25 03/31/17 03:25 Labs: 03/31/17 03/30/17 03:25 03:44 Hgb 10.1 L 9.1 L Hct 28.8 L 26.1 L
[2017-03-31] MEDS: KETOROLAC 15 MG/ML VIAL IV PRN (16:35)
[2017-03-31] MEDS: METHOCARBAMOL 500 MG TABLET PO PRN (20:20)
[2017-03-31] MEDS: QUEtiapine 25 MG TABLET PO SCH (20:21)
[2017-03-31] MEDS: SIMVASTATIN 10 MG TABLET PO SCH (20:21)
[2017-03-31] MEDS: SENNOSIDES 1 TABLET PO SCH (20:21)
[2017-03-31] MEDS: GABAPENTIN 300 MG CAPSULE PO SCH (20:21)
[2017-04-01] MEDS: HYDROmorphone 2 MG/ML SYRINGE IV PRN ×2 (01:59→04:45)
[2017-04-01] MEDS: 0.45 % SODIUM CHLORIDE 1,000 ML IV SCH ×2 (04:09→17:13)
[2017-04-01] MEDS: 0.9 % SODIUM CHLORIDE 10 ML SYRINGE IV SCH ×4 (05:33→23:09)
[2017-04-01 06:39] LABS: ALT/SGPT 10 U/l (0-40); Albumin 3.3 gm/dL (3.2-5.2); Albumin/Globulin Ratio 1.4 (1.0-2.3); Alkaline Phosphatase 65 U/L (39-117); Bilirubin,Direct < 0.2 mg/dL (0.0-0.3); Blood Urea Nitrogen 12 mg/dl (8-23); Gamma Glutamyl Transpeptidase 31 U/L (8-61); Uric Acid 3.3 mg/dL (2.5-8.0)
[2017-04-01] MEDS: clonazePAM 0.5 MG TABLET PO SCH (08:04)
[2017-04-01] MEDS: ASPIRIN 325 MG ENTERIC COATED TABLET PO SCH ×2 (08:05→22:15)
[2017-04-01] MEDS: VITAMIN D3 5,000 UNIT CAPSULE PO SCH (08:05)
[2017-04-01] MEDS: MIDODRINE 5 MG TABLET PO SCH ×3 (08:05→18:04)
[2017-04-01] MEDS: FINASTERIDE 5 MG TABLET PO SCH (08:06)
[2017-04-01] MEDS: CARBIDOPA/LEVODOPA 25/100 TABLET PO SCH ×3 (08:09→18:04)
[2017-04-01] MEDS: rOPINIRole 1 MG TABLET PO SCH ×3 (08:10→18:04)
[2017-04-01 08:15] LABS: Mean Cell Volume 110.2 fL (80.0-100.0); Mean Corpuscular HGB Conc 35.1 g/dL (31.0-36.0); Mean Corpuscular Hemoglobin 38.6 pg (26.0-34.0); Platelet Count 152 K/mcL (140-440); Red Cell Distribution Width 14.4 % (11.5-14.5)
[2017-04-01 08:23] LABS: Band Neutrophils % 3 % (0-10); Eosinophils % (Manual) 9 % (0-7); Lymphocytes % 17 % (15-49); Macrocytosis 3+ (NONE SEEN); Monocytes % (Manual) 8 % (1-12); Platelet Estimate NORMAL (NORMAL); RBC Morphology ABNORM (NORMAL); Segmented Neutrophils % 63 % (38-78)
--- NOTE | 2017-04-01 08:47 | XRay Report ---
CLINICAL INFORMATION: Left hip fracture. Status post total hip arthroplasty. TECHNIQUE: AP portable chest x-ray COMPARISON: Previous chest x-rays dated 03/29/2017, 03/11/2017, 01/12/2017 FINDINGS: Mild bilateral, bibasilar pulmonary parenchymal density. Findings may be secondary to volume loss but pneumonia is possible. Clinical correlation and follow-up radiograph recommended. No change in heart size or vascularity. IMPRESSION: Mild bibasilar parenchymal density as above. Follow-up radiographs recommended. Interpreted and Authenticated by: Mitch Beyer 04/01/17
[2017-04-01] MEDS ORDERED: VANCOMYCIN PER PHARMACY IV SCH (09:28)
[2017-04-01] MEDS ORDERED: HALOPERIDOL LACTATE 5 MG/ML VIAL ONE (10:20)
[2017-04-01] MEDS ORDERED: HALOPERIDOL LACTATE 5 MG/ML VIAL IM ONE (10:20)
[2017-04-01] MEDS ORDERED: LORazepam 2 MG/ML VIAL IV ONE (10:23)
[2017-04-01] MEDS ORDERED: LORazepam 2 MG/ML VIAL ONE (10:30)
[2017-04-01] MEDS ORDERED: HALOPERIDOL LACTATE 5 MG/ML VIAL IV PRN (10:33)
--- NOTE | 2017-04-01 13:11 | Internal Med Progress Note ---
Medical - PN: Subj Patient information: Note initiated : 04/01/17 at 1:08 pm Service Date, if different from initiated Date: [] Patient: Oliver Miles 81 y/o M admitted on 03/29/17 for Fall, L Hip Pain/ Closed Left Hip Fracture. Chief Complaint: [] Interval history: 03/29-HPI-Mr. Miles is a 81 year old [facility] and pain. Patient sustained a trauma after he fell off the bed while attempting to go to the bathroom this morning around 7:15 AM. He was subsequently brought in to [facility] ER. Initial workup was significant for left subcapital hip fracture. Orthopedics was consulted. Patient was scheduled for operative intervention later in the evening. Hospitalist service was consulted for admission and preoperative risk evaluation along with medical issue management. At time examination patient is alert oriented. He is in significant distress from pain at the fracture site. He is accompanied by his . He is under effect of opioids and was unable to provide a detailed history. Per he did not lose consciousness. There is no evidence of incontinence including bladder or bowel. No seizure-like episode. Patient hasn't had a similar even in the past but suffers from debilitating Parkinson's disease with gait instability. He otherwise denies fever chills nausea vomiting headache photophobia diarrhea dysuria or weight loss. 03/30- postop day 2. Patient doing well. No overnight events. Pain well controlled. No fever chills SOB nausea vomiting or bleeding or swelling at surgery site. started physical therapy. Patient has advanced Parkinson's disease limiting his functionality and gait instability. He also carries history of orthostatic hypertension. Continue aggressive physical therapy and and target or male sitting upright in light of high risk Parkinson's related dysphagia. Anticipate SNF transfer in 48 hours. Continue postop management per orthopedics 03/31: Pt seen examined, acute overnight events noted that patient was more confused and agitated last night, needing use of ativan and some dilaudid, has been refusing his oral medications. Patient this AM was drowsy after the effect of pain meds. The nurse had concern regarding the right clavicle in the patient, it seems that the patient has h/o clavicular fracture (noted on prob list), X ray clavicle is interpreted as negative, but there is an obvious clinical fracture vs dehiscence at the sternoclavicular joint. I called Dr Roberts to evaluate the patient for this and need for any operative intervention. Patient has been placed in the right sling. Will review old CXR images to see if this is new or old injury. 04/01: Pt seen examined, overnight was agitated again needing 1:1 supervision, dilaudid was held by ortho was resumed for pain management. This AM dialaudid and ativan was held. The patient this AM was doing well, but later in the morning became paranoid and agitated, trying to get out of bed and take a swing at the nurses, case management and myself. He was given ativan 0.5mg and 2mg IV haldol to calm him down. the right clavicle fracture is an old fracture wit no active management needed. sling discontinued. Patient has had increased oxygen needs CXR shows possible pna, blood cx and vanco and zosyn started. His dose of seroquel increased to 50mg at bed time. IV tylenol for pain management for now. Pertinent ROS: unable. - Constitutional Vitals: Vital Signs Temp Pulse Resp BP Pulse Ox 98.9 F 74 20 176/81 91 04/01/17 11:56 04/01/17 08:00 04/01/17 11:56 04/01/17 11:56 04/01/17 11:56 Period Temp Pulse Resp BP Sys/Garcia Pulse Ox Last 24 Hr 98.0 F-99.3 F 74-88 16-24 135-176/71-85 90-94 Intake and Output 03/31/17 04/01/17 04/01/17 21:59 05:59 13:59 Intake Total 150 / 150 Output Total Balance -2 / -2 Weight 178 lb 8 oz Intake & Output: Intake & Output 03/31/17 04/01/17 04/01/17 21:59 05:59 13:59 Intake Total 150 / 150 Output Total Balance -2 / -2 Weight 178 lb 8 oz Intake: Oral 150 / 150 Output: Void Amount 50 / 50 # of times incontinent of 2 / 2 urine Other: Meal Lunch Percent of Meal Consumed 25% Feeding Ability Total Assistance # Voids 1 # of times incontinent of 2 Bowels Exam: Constitutional; Afebrile, angry and uncooperative. Eyes- No icterus, , No periorbital swelling Ears- Ext ear normal, hearing hard to converstaion. Neck- Midline trachea, supple Respiratory system: Air Entry equal on both sides, No crackles or wheezing, no rhonchi. CVS- Rate rhythm regular, S1,S2 heard, no gallop, no rub. 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 Medical - PN: Obj Da - Labs CBC & Chem 7: 04/01/17 03:48 04/01/17 03:48 Labs: Abnormal Lab Results 04/01/17 04/01/17 03/31/17 03:48 03:48 03:25 RBC 2.70 L Hgb 10.4 L Hct 29.7 L MCV 110.2 H MCH 38.6 H RDW Seg Neutrophils % Lymphocytes % Eosinophils % (Manual) 9 H RBC Morphology Abnorm A Microcytosis Macrocytosis 3+ A Creatinine 0.6 L 0.6 L Glucose Uric Acid Calcium 8.5 L 8.5 L AST 45 H Lactate Dehydrogenase 328 H 299 H Total Protein 5.6 L 5.6 L Albumin Globulin 03/31/17 03/30/17 03/30/17 03:25 03:44 03:44 RBC 2.61 L 2.36 L Hgb 10.1 L 9.1 L Hct 28.8 L 26.1 L MCV 110.2 H 110.6 H MCH 38.6 H 38.9 H RDW 14.8 H Seg Neutrophils % 87 H 88 H Lymphocytes % 4 L 9 L Eosinophils % (Manual) RBC Morphology Abnorm A Abnorm A Microcytosis 3+ A Macrocytosis 3+ A Creatinine Glucose 130 H Uric Acid 2.2 L Calcium 7.9 L AST Lactate Dehydrogenase Total Protein 4.7 L Albumin 2.9 L Globulin 1.8 L Meds: Medications Aspirin (Ecotrin) 325 mg PO BID [facility] Last Admin: 04/01/17 08:05 Dose: 325 mg Carbamazepine (Tegretol) 100 mg PO Q12 [facility] Last Admin: 03/31/17 20:20 Dose: 100 mg Carbidopa/Levodopa (Sinemet 25/100) 1.5 tab PO Q6 [facility] Last Admin: 04/01/17 12:22 Dose: 1.5 tab Clonazepam (Klonopin) 0.25 mg PO BID [facility] Last Admin: 04/01/17 08:04 Dose: 0.25 mg Finasteride (Proscar) 5 mg PO DAILY [facility] Last Admin: 04/01/17 08:06 Dose: 5 mg Fludrocortisone Acetate (Florinef) 0.3 mg PO DAILY [facility] Last Admin: 03/31/17 11:17 Dose: Not Given Gabapentin (Neurontin) 300 mg PO HS [facility] Last Admin: 03/31/17 20:21 Dose: 300 mg Haloperidol Lactate (Haldol) 2 mg IV Q4HP PRN PRN Reason: ANXIETY/SEDATION Sodium Chloride (Sodium Chloride 0.45%) 1,000 mls @ 100 mls/hr IV .Q10H [facility] Last Admin: 04/01/17 04:09 Dose: Not Given Acetaminophen (Ofirmev) 650 mg in 65 mls @ 130 mls/hr IV Q6HP [facility] Piperacillin Sod/Tazobactam (Sod 3.375 gm/ Dextrose) 50 mls @ 100 mls/hr IV Q6H [facility] Vancomycin HCl 1,000 mg/ (Sodium Chloride) 250 mls @ 250 mls/hr IV Q12H [facility] Lactobacillus Rhamnosus (Culturelle) 1 cap PO DAILY [facility] Last Admin: 03/31/17 11:17 Dose: Not Given Magnesium Hydroxide (Milk Of Magnesia) 30 ml PO BIDP PRN PRN Reason: Constipation Methocarbamol (Robaxin) 500 mg PO TIDP PRN PRN Reason: Muscle Spasm Last Admin: 03/31/17 20:20 Dose: 500 mg Midodrine (Midodrine Hcl) 10 mg PO TID@0800,1200,1700 [facility] Last Admin: 04/01/17 12:23 Dose: 10 mg Entacapone [Comtan] (200 Mg) 1 dose PO BID [facility] Last Admin: 03/31/17 20:20 Dose: 1 dose Silodosin [Rapaflo] (8 Mg) 1 dose PO DAILY [facility] Last Admin: 03/31/17 11:18 Dose: Not Given Polyethylene Glycol (Miralax) 17 gm PO DAILYP PRN PRN Reason: Constipation Quetiapine Fumarate (Seroquel) 50 mg PO HS [facility] Ropinirole HCl (Requip) 1 mg PO Q6 [facility] Last Admin: 04/01/17 12:23 Dose: 1 mg Senna (Senokot) 2 tab PO HS [facility] Last Admin: 03/31/17 20:21 Dose: 2 tab Simvastatin (Zocor) 10 mg PO HS [facility] Last Admin: 03/31/17 20:21 Dose: 10 mg Sodium Biphosphate/Sodium Phosphate (Fleets Adult) 1 dose [place] Q3-4DAYS PRN PRN Reason: Constipation Sodium Chloride (Saline Flush) 10 ml IV Q8 [facility] Last Admin: 04/01/17 05:33 Dose: 10 ml Temazepam (Restoril) 15 mg PO HSP PRN PRN Reason: Insomnia Throat Lozenges (Cepacol) 1 lozenge PO PRN PRN PRN Reason: Sore Throat Vancomycin HCl (Vancomycin Per Pharmacy) 1 order IV UD [facility] Vitamin D (Vitamin D3) 10,000 unit PO Q48 [facility] Last Admin: 04/01/17 08:05 Dose: 10,000 unit Medical - PN: A/P - Time Spent With Patient Total time spent is greater than 50% in coordination of care (as documented) at patient's floor/unit and/or counseling patient: - Narrative A/P Narrative: A/P Left Hip Fracture: post op day 3 today, Continue PT/ OT as tolerated. Post Op Pain: on [facility] tylenol for now to see if opiates is responsible for delirum, will consider toradol if pain not controlled. Delirium: Due to Post op status, pain, likely etiology. Medical management now, increase seroquel to 50, haldol 2mg q4hrs prn for now. Clavicular fracture Vs Sternoclavicular dislocation: Old injury, appreciate ortho input Parkinsons disease: Resumed home doses of levodopa, carbidopa, ropinarole, unfortunately pt misses does due to being delirious and refusing meds intermittently. PNA: Likely aspirational pna, Cover as health care associated Pneumonia with vanco and zosyn HLD on statin Full Code DVT prophylaxis. ASA 325 BID as per Ortho protocol.
[2017-04-01] MEDS: LACTOBACILLUS 1 CAPSULE PO SCH (14:07)
[2017-04-01] MEDS: ENTACAPONE 200 MG PO SCH (14:08)
[2017-04-01] MEDS: carBAMazepine 100 MG TAB.CHEW PO SCH (14:08)
[2017-04-01] MEDS: FLUDROCORTISONE 0.1 MG TABLET PO SCH (14:08)
[2017-04-01] MEDS: VANCOMYCIN 1,000 MG in 0.9 % SODIUM CHLORIDE 250 ML IV SCH ×2 (14:09→22:00)
[2017-04-01] MEDS: PIPERACILLIN SODIUM/TAZOBACTAM 3.375 GM in DEXTROSE 5% IN WATER 50 ML IV SCH ×3 (14:12→18:04)
[2017-04-01] MEDS: HALOPERIDOL LACTATE 5 MG/ML VIAL IV PRN ×2 (19:45→21:50)
[2017-04-01] MEDS: ACETAMINOPHEN 650 MG/65 ML BOTTLE IV SCH (19:58)
[2017-04-01] MEDS ORDERED: OLANZapine 2.5 MG TABLET PO SCH (21:00)
[2017-04-01] MEDS: SIMVASTATIN 10 MG TABLET PO SCH (22:16)
[2017-04-02] MEDS: PIPERACILLIN SODIUM/TAZOBACTAM 3.375 GM in DEXTROSE 5% IN WATER 50 ML IV SCH ×4 (00:18→17:54)
[2017-04-02] MEDS: GABAPENTIN 300 MG CAPSULE PO SCH ×2 (00:21→21:41)
[2017-04-02] MEDS: clonazePAM 0.5 MG TABLET PO SCH ×3 (00:21→21:33)
[2017-04-02] MEDS: SENNOSIDES 1 TABLET PO SCH ×2 (00:21→21:41)
[2017-04-02] MEDS: ENTACAPONE 200 MG PO SCH ×3 (00:21→21:32)
[2017-04-02] MEDS: QUEtiapine 25 MG TABLET PO SCH ×2 (00:22→21:32)
[2017-04-02] MEDS: carBAMazepine 100 MG TAB.CHEW PO SCH ×3 (00:22→23:02)
[2017-04-02] MEDS: CARBIDOPA/LEVODOPA 25/100 TABLET PO SCH ×4 (00:22→17:24)
[2017-04-02] MEDS: rOPINIRole 1 MG TABLET PO SCH ×4 (00:22→17:24)
[2017-04-02] MEDS: 0.45 % SODIUM CHLORIDE 1,000 ML IV SCH ×2 (00:44→16:22)
[2017-04-02] MEDS: HALOPERIDOL LACTATE 5 MG/ML VIAL IV PRN ×4 (00:50→13:32)
[2017-04-02] MEDS: ACETAMINOPHEN 650 MG/65 ML BOTTLE IV SCH (01:27)
[2017-04-02] MEDS ORDERED: metroNIDAZOLE 0 MG/0 ML BAG IV ONE (04:52)
[2017-04-02] MEDS ORDERED: PIPERACILLIN SODIUM/TAZOBACTAM 3.375 GM VIAL IV ONE (04:52)
[2017-04-02] MEDS: 0.9 % SODIUM CHLORIDE 10 ML SYRINGE IV SCH ×3 (05:53→23:02)
[2017-04-02 06:21] LABS: Mean Cell Volume 110.9 fL (80.0-100.0); Mean Corpuscular HGB Conc 35.4 g/dL (31.0-36.0); Mean Corpuscular Hemoglobin 39.3 pg (26.0-34.0); Platelet Count 169 K/mcL (140-440); RBC 2.56 M/mcL (4.50-5.90); Red Cell Distribution Width 14.2 % (11.5-14.5)
[2017-04-02] MEDS: MIDODRINE 5 MG TABLET PO SCH ×3 (07:12→17:24)
[2017-04-02 07:15] LABS: ALT/SGPT 18 U/l (0-40); Albumin 3.4 gm/dL (3.2-5.2); Albumin/Globulin Ratio 1.4 (1.0-2.3); Alkaline Phosphatase 63 U/L (39-117); Bilirubin,Direct 0.2 mg/dL (0.0-0.3); Blood Urea Nitrogen 11 mg/dl (8-23); Gamma Glutamyl Transpeptidase 28 U/L (8-61); Magnesium 2.1 mg/dL (1.6-2.5); Uric Acid 2.4 mg/dL (2.5-8.0)
[2017-04-02] MEDS ORDERED: KETOROLAC 15 MG/ML VIAL IV ONE (07:32)
[2017-04-02 07:38] LABS: Band Neutrophils % 6 % (0-10); Eosinophils % (Manual) 8 % (0-7); Lymphocytes % 22 % (15-49); Macrocytosis 3+ (NONE SEEN); Monocytes % (Manual) 9 % (1-12); Platelet Estimate NORMAL (NORMAL); RBC Morphology ABNORM (NORMAL); Segmented Neutrophils % 57 % (38-78)
--- NOTE | 2017-04-02 08:51 | XRay Report ---
CLINICAL INFORMATION: Status post left hip arthroplasty. Left hip pain TECHNIQUE: AP and crosstable lateral left hip COMPARISON: 03/29/2017 FINDINGS: Prosthetic left femoral head is dislocated superiorly. No detectable acute fracture. IMPRESSION: Acute left hip dislocation. No detectable fracture Interpreted and Authenticated by: Mitch Beyer 04/02/17
[2017-04-02] MEDS: ACETAMINOPHEN 650 MG/65 ML BOTTLE IV PRN (09:43)
[2017-04-02] MEDS: VANCOMYCIN 1,000 MG in 0.9 % SODIUM CHLORIDE 250 ML IV SCH ×2 (10:03→21:41)
[2017-04-02] MEDS ORDERED: LORazepam 2 MG/ML VIAL IV ONE ×2 (10:36)
[2017-04-02] MEDS ORDERED: HYDROmorphone 2 MG/ML SYRINGE IM ONE (11:13)
[2017-04-02] MEDS: HYDROmorphone 2 MG/ML SYRINGE IV PRN ×4 (11:32→23:58)
[2017-04-02] MEDS: LACTOBACILLUS 1 CAPSULE PO SCH (11:38)
[2017-04-02] MEDS: ASPIRIN 325 MG ENTERIC COATED TABLET PO SCH ×2 (11:39→21:41)
[2017-04-02] MEDS: FLUDROCORTISONE 0.1 MG TABLET PO SCH (11:39)
[2017-04-02] MEDS: FINASTERIDE 5 MG TABLET PO SCH (11:39)
[2017-04-02] MEDS ORDERED: PROPOFOL 200 MG/20 ML VIAL IV ONE (11:55)
[2017-04-02] MEDS ORDERED: fentaNYL 100 MCG/2 ML VIAL IV PRN (12:08)
[2017-04-02] MEDS ORDERED: METHOCARBAMOL 1,000 MG/10 ML VIAL IV PRN (12:08)
[2017-04-02] MEDS ORDERED: IPRATROPIUM/ALBUTEROL 3 ML AMPUL.NEB NEB PRN (12:08)
[2017-04-02] MEDS ORDERED: BENZOCAINE/MENTHOL 1 LOZENGE PO PRN (12:08)
[2017-04-02] MEDS ORDERED: ONDANSETRON 4 MG/2 ML VIAL IV PRN (12:08)
[2017-04-02] MEDS ORDERED: ACETAMINOPHEN 1,000 MG/100 ML BOTTLE IV ONE (12:08)
--- NOTE | 2017-04-02 12:14 | Brief Operative Note ---
Date of procedure: 04/02/17 Pre-op diagnosis: Left hip posterior dislocation Post-op diagnosis: same Procedure: left hip closed reduction with anaesthesia Grafts/Implants: Yes Anesthesia: GETA Findings: posterior dislocation Surgeon: Crispin Roberts Specimens Removed/Pathology: none sent Condition: stable Disposition: PACU
--- NOTE | 2017-04-02 13:10 | XRay Report ---
CLINICAL INFORMATION: Post reduction left hip TECHNIQUE: AP and lateral left hip COMPARISON: Prereduction examination dated 04/02/2017 FINDINGS: Anatomic reduction of prosthetic left hip. Femoral head is now in anatomic position with respect to the acetabulum. No acute fracture. IMPRESSION: Anatomic reduction of superior dislocation of prosthetic left femoral head Interpreted and Authenticated by: Mitch Beyer 04/02/17
--- NOTE | 2017-04-02 15:15 | Internal Med Progress Note ---
Medical - PN: Subj Patient information: Note initiated : 04/02/17 at 3:09 pm Service Date, if different from initiated Date: [] Patient: Oliver Miles 81 y/o M admitted on 03/29/17 for Fall, L Hip Pain/ Closed Left Hip Fracture. Chief Complaint: [] Interval history: 03/29-HPI-Mr. Miles is a 81 year old Male [facility] with left hip injury and pain. Patient sustained a trauma after he fell off the bed while attempting to go to the bathroom this morning around 7:15 AM. He was subsequently brought in to [facility] ER. Initial workup was significant for left subcapital hip fracture. Orthopedics was consulted. Patient was scheduled for operative intervention later in the evening. Hospitalist service was consulted for admission and preoperative risk evaluation along with medical issue management. At time examination patient is alert oriented. He is in significant distress from pain at the fracture site. He is accompanied by his . He is under effect of opioids and was unable to provide a detailed history. Per he did not lose consciousness. There is no evidence of incontinence including bladder or bowel. No seizure-like episode. Patient hasn't had a similar even in the past but suffers from debilitating Parkinson's disease with gait instability. He otherwise denies fever chills nausea vomiting headache photophobia diarrhea dysuria or weight loss. 03/30- postop day 2. Patient doing well. No overnight events. Pain well controlled. No fever chills SOB nausea vomiting or bleeding or swelling at surgery site. started physical therapy. Patient has advanced Parkinson's disease limiting his functionality and gait instability. He also carries history of orthostatic hypertension. Continue aggressive physical therapy and and target or male sitting upright in light of high risk Parkinson's related dysphagia. Anticipate SNF transfer in 48 hours. Continue postop management per orthopedics 03/31: Pt seen examined, acute overnight events noted that patient was more confused and agitated last night, needing use of ativan and some dilaudid, has been refusing his oral medications. Patient this AM was drowsy after the effect of pain meds. The nurse had concern regarding the right clavicle in the patient, it seems that the patient has h/o clavicular fracture (noted on prob list), X ray clavicle is interpreted as negative, but there is an obvious clinical fracture vs dehiscence at the sternoclavicular joint. I called Dr Roberts to evaluate the patient for this and need for any operative intervention. Patient has been placed in the right sling. Will review old CXR images to see if this is new or old injury. 04/01: Pt seen examined, overnight was agitated again needing 1:1 supervision, dilaudid was held by ortho was resumed for pain management. This AM dialaudid and ativan was held. The patient this AM was doing well, but later in the morning became paranoid and agitated, trying to get out of bed and take a swing at the nurses, case management and myself. He was given ativan 0.5mg and 2mg IV haldol to calm him down. the right clavicle fracture is an old fracture wit no active management needed. sling discontinued. Patient has had increased oxygen needs CXR shows possible pna, blood cx and vanco and zosyn started. His dose of seroquel increased to 50mg at bed time. IV tylenol for pain management for now. 04/02: Patient seen examined, in restrains with mittens to prevent removal of iv acces, has removed 4-5 so far, aggressive towards nursing and care providers, speech is dysarthric. 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 Ortho made aware I spent 15 mins with family, daughter in law and the , explaining the preset situation. Patient mental condition does not seem to be improving. he remains delirious and aggressive towards care providers. Unable to keep a good IV to maintain hydration nor adequate po intake, pt spits out medications. He remains of D2 of vanco and Zosyn for now. Discussed need for CT head to evaluate if any IC process ongoing If patient does not respond to conservative measures, then it will be difficult to place him, also if he continues to refuse to eat and removes IV access hydration will also be an issue. Over all he has very poor prognosis. Pertinent ROS: unable - Constitutional Vitals: Vital Signs Temp Pulse Resp BP Pulse Ox 98.7 F 77 18 126/60 93 04/02/17 13:15 04/02/17 13:15 04/02/17 13:15 04/02/17 13:15 04/02/17 13:15 Period Temp Pulse Resp BP Sys/Garcia Pulse Ox Last 24 Hr 97.3 F-99.9 F 64-88 16-24 122-181/54-103 85-99 Intake and Output 04/02/17 04/02/17 04/02/17 05:59 13:59 21:59 Intake Total 365 / 365 350 / 350 Output Total Balance 363 / 363 349 / 349 Weight 180 lb Patient Weight 04/03/17 05:59 Weight 180 lb Intake & Output: Intake & Output 04/02/17 04/02/17 04/02/17 05:59 13:59 21:59 Intake Total 365 / 365 350 / 350 Output Total Balance 363 / 363 349 / 349 Weight 180 lb Intake: IV 365 / 365 350 / 350 Zosyn 3.375 gm In 50 / 50 50 / 50 Dextrose 5% in Water 50 ml @ 100 mls/hr IV Q6H [facility] Rx#:[id number] Vancomycin 1,000 mg In 250 / 250 Sodium Chloride 0.9% 250 ml @ 250 mls/hr IV Q12H [facility] Rx#:[id number] Output: # of times incontinent of urine Exam: Constitutional; Afebrile, awake, non cooperative and aggresive. Eyes- No icterus, , No periorbital swelling Ears- Ext ear normal, Neck- Midline trachea, supple Respiratory system: Air Entry equal on both sides, No crackles or wheezing, no rhonchi. CVS- Rate rhythm regular, S1,S2 heard, no gallop, no rub. Abdomen- Soft nontender abdomen, no organomegaly, no tenderness, no guarding or rigidity, [employer]- AOOx1 (self), moving all extremities, no gross focal deficit noted. Medical - PN: Obj Da - Labs CBC & Chem 7: 04/02/17 04:15 04/02/17 04:15 Labs: Abnormal Lab Results 04/02/17 04/02/17 04/01/17 04:15 04:15 03:48 RBC 2.56 L Hgb 10.0 L Hct 28.4 L MCV 110.9 H MCH 39.3 H RDW Seg Neutrophils % Lymphocytes % Eosinophils % (Manual) 8 H RBC Morphology Abnorm A Microcytosis Macrocytosis 3+ A Creatinine 0.6 L Uric Acid 2.4 L Calcium 8.5 L Total Bilirubin 1.1 H AST 74 H 45 H Lactate Dehydrogenase 481 H 328 H Total Protein 5.8 L 5.6 L 04/01/17 03/31/17 03/31/17 03:48 03:25 03:25 RBC 2.70 L 2.61 L Hgb 10.4 L 10.1 L Hct 29.7 L 28.8 L MCV 110.2 H 110.2 H MCH 38.6 H 38.6 H RDW 14.8 H Seg Neutrophils % 87 H Lymphocytes % 4 L Eosinophils % (Manual) 9 H RBC Morphology Abnorm A Abnorm A Microcytosis 3+ A Macrocytosis 3+ A Creatinine 0.6 L Uric Acid Calcium 8.5 L Total Bilirubin AST Lactate Dehydrogenase 299 H Total Protein 5.6 L Meds: Medications Aspirin (Ecotrin) 325 mg PO BID [facility] Last Admin: 04/02/17 11:39 Dose: Not Given Carbamazepine (Tegretol) 100 mg PO Q12 [facility] Last Admin: 04/02/17 00:22 Dose: Not Given Carbidopa/Levodopa (Sinemet 25/100) 1.5 tab PO Q6 [facility] Last Admin: 04/02/17 07:07 Dose: 1.5 tab Clonazepam (Klonopin) 0.25 mg PO BID [facility] Last Admin: 04/02/17 11:39 Dose: Not Given Finasteride (Proscar) 5 mg PO DAILY [facility] Last Admin: 04/02/17 11:39 Dose: Not Given Fludrocortisone Acetate (Florinef) 0.3 mg PO DAILY [facility] Last Admin: 04/02/17 11:39 Dose: Not Given Gabapentin (Neurontin) 300 mg PO HS [facility] Last Admin: 04/02/17 00:21 Dose: Not Given Haloperidol Lactate (Haldol) 2 mg IV Q2HP PRN PRN Reason: ANXIETY/SEDATION Last Admin: 04/02/17 13:32 Dose: 2 mg Hydromorphone HCl (Dilaudid) 0.5 mg IV Q2HP PRN PRN Reason: Pain Last Admin: 04/02/17 13:17 Dose: 0.5 mg Sodium Chloride (Sodium Chloride 0.45%) 1,000 mls @ 100 mls/hr IV .Q10H [facility] Last Admin: 04/02/17 00:44 Dose: Not Given Piperacillin Sod/Tazobactam (Sod 3.375 gm/ Dextrose) 50 mls @ 100 mls/hr IV Q6H [facility] Last Admin: 04/02/17 13:00 Dose: 100 mls/hr Vancomycin HCl 1,000 mg/ (Sodium Chloride) 250 mls @ 250 mls/hr IV Q12H [facility] Last Admin: 04/02/17 10:03 Dose: 250 mls/hr Acetaminophen (Ofirmev) 650 mg in 65 mls @ 130 mls/hr IV Q6HP PRN PRN Reason: Pain Last Admin: 04/02/17 09:43 Dose: 130 mls/hr Lactobacillus Rhamnosus (Culturelle) 1 cap PO DAILY [facility] Last Admin: 04/02/17 11:38 Dose: Not Given Magnesium Hydroxide (Milk Of Magnesia) 30 ml PO BIDP PRN PRN Reason: Constipation Methocarbamol (Robaxin) 500 mg PO TIDP PRN PRN Reason: Muscle Spasm Last Admin: 03/31/17 20:20 Dose: 500 mg Midodrine (Midodrine Hcl) 10 mg PO TID@0800,1200,1700 [facility] Last Admin: 04/02/17 07:12 Dose: 10 mg Entacapone [Comtan] (200 Mg) 1 dose PO BID [facility] Last Admin: 04/02/17 11:39 Dose: Not Given Silodosin [Rapaflo] (8 Mg) 1 dose PO DAILY [facility] Last Admin: 04/01/17 14:08 Dose: Not Given Polyethylene Glycol (Miralax) 17 gm PO DAILYP PRN PRN Reason: Constipation Quetiapine Fumarate (Seroquel) [address] [facility] Last Admin: 04/02/17 00:22 Dose: Not Given Ropinirole HCl (Requip) 1 mg PO Q6 [facility] Last Admin: 04/02/17 07:06 Dose: 1 mg Senna (Senokot) [address] [facility] Last Admin: 04/02/17 00:21 Dose: Not Given Simvastatin (Zocor) [address] [facility] Last Admin: 04/01/17 22:16 Dose: Not Given Sodium Biphosphate/Sodium Phosphate (Fleets Adult) 1 dose [place] Q3-4DAYS PRN PRN Reason: Constipation Sodium Chloride (Saline Flush) 10 ml IV Q8 [facility] Last Admin: 04/02/17 05:53 Dose: 10 ml Temazepam (Restoril) 15 mg PO [facility] PRN PRN Reason: Insomnia Throat Lozenges (Cepacol) 1 lozenge PO PRN PRN PRN Reason: Sore Throat Vancomycin HCl (Vancomycin Per Pharmacy) 1 order IV UD [facility] Vitamin D (Vitamin D3) 10,000 unit PO Q48 [facility] Last Admin: 04/01/17 08:05 Dose: 10,000 unit Medical - PN: A/P - Time Spent With Patient Total time spent is greater than 50% in coordination of care (as documented) at patient's floor/unit and/or counseling patient: - Narrative A/P Narrative: A/P Left Hip Fracture: post op day 3 today, Continue PT/ OT as tolerated. Left hip dislocation: Ortho to follow up and try to reposition. Post Op Pain: on [facility] tylenol , seems that this is not helping, reorder dilaudid for now for pain management. Delirium: Due to Post op status, pain, likely etiology. Medical management now, pt not taking orals, iv haldol for now, CT head to evaluate any IC process Clavicular fracture Vs Sternoclavicular dislocation: Old injury, appreciate ortho input Parkinsons disease: Resumed home doses of levodopa, carbidopa, ropinirole, unfortunately pt misses does due to being delirious and refusing Meds intermittently. PNA: Likely aspirational pna, Cover as health care associated Pneumonia with vanco and zosyn D2 today. HLD on statin Full Code DVT prophylaxis. ASA 325 BID as per Ortho protocol. Discussed with family the overall poor prognosis.
--- NOTE | 2017-04-02 15:47 | Cat Scan Report ---
CLINICAL INFORMATION: Fall. Head injury. COMPARISON: Previous head CT scan dated 11/05/2015 TECHNIQUE: Axial noncontrast-enhanced images through the brain. FINDINGS: No acute intracranial hemorrhage. No subdural hematoma. No subarachnoid hemorrhage. No intra-axial hematoma. No focal attenuation abnormality. No mass effect or midline shift. There are deep brain stimulator leads in place. No calvarial fracture. No lytic lesion. IMPRESSION: No acute abnormality. Interpreted and Authenticated by: Mitch Beyer 04/02/17
[2017-04-02] MEDS: SIMVASTATIN 10 MG TABLET PO SCH (21:41)
[2017-04-03] MEDS: PIPERACILLIN SODIUM/TAZOBACTAM 3.375 GM in DEXTROSE 5% IN WATER 50 ML IV SCH ×5 (00:12→23:42)
[2017-04-03] MEDS: CARBIDOPA/LEVODOPA 25/100 TABLET PO SCH ×6 (00:12→21:34)
[2017-04-03] MEDS: rOPINIRole 1 MG TABLET PO SCH ×5 (00:12→21:32)
[2017-04-03] MEDS: 0.45 % SODIUM CHLORIDE 1,000 ML IV SCH ×4 (00:13→22:33)
[2017-04-03] MEDS: HYDROmorphone 2 MG/ML SYRINGE IV PRN ×5 (04:37→23:48)
[2017-04-03 05:37] LABS: Mean Cell Volume 109.9 fL (80.0-100.0); Mean Corpuscular HGB Conc 35.6 g/dL (31.0-36.0); Mean Corpuscular Hemoglobin 39.2 pg (26.0-34.0); Platelet Count 184 K/mcL (140-440); RBC 2.51 M/mcL (4.50-5.90); Red Cell Distribution Width 14.4 % (11.5-14.5)
[2017-04-03 05:58] LABS: ALT/SGPT 10 U/l (0-40); Albumin 3.2 gm/dL (3.2-5.2); Albumin/Globulin Ratio 1.5 (1.0-2.3); Alkaline Phosphatase 59 U/L (39-117); Bilirubin,Direct < 0.2 mg/dL (0.0-0.3); Blood Urea Nitrogen 10 mg/dl (8-23); Gamma Glutamyl Transpeptidase 27 U/L (8-61); Uric Acid 2.1 mg/dL (2.5-8.0)
[2017-04-03] MEDS: 0.9 % SODIUM CHLORIDE 10 ML SYRINGE IV SCH ×3 (06:06→23:06)
[2017-04-03 09:17] LABS: Band Neutrophils % 3 % (0-10); Eosinophils % (Manual) 13 % (0-7); Lymphocytes % 15 % (15-49); Macrocytosis 2+ (NONE SEEN); Monocytes % (Manual) 7 % (1-12); Platelet Estimate NORMAL (NORMAL); RBC Morphology ABNORM (NORMAL); Segmented Neutrophils % 62 % (38-78)
[2017-04-03] MEDS: MIDODRINE 5 MG TABLET PO SCH ×3 (10:11→17:15)
[2017-04-03] MEDS: VITAMIN D3 5,000 UNIT CAPSULE PO SCH (10:12)
[2017-04-03] MEDS: LACTOBACILLUS 1 CAPSULE PO SCH (10:12)
[2017-04-03] MEDS: ENTACAPONE 200 MG PO SCH ×2 (10:12→21:35)
[2017-04-03] MEDS: carBAMazepine 100 MG TAB.CHEW PO SCH ×2 (10:12→21:36)
[2017-04-03] MEDS: FINASTERIDE 5 MG TABLET PO SCH (10:12)
[2017-04-03] MEDS: clonazePAM 0.5 MG TABLET PO SCH ×2 (10:12→21:33)
[2017-04-03] MEDS: FLUDROCORTISONE 0.1 MG TABLET PO SCH (10:12)
[2017-04-03] MEDS: VANCOMYCIN 1,000 MG in 0.9 % SODIUM CHLORIDE 250 ML IV SCH ×2 (10:12→21:12)
[2017-04-03] MEDS: ASPIRIN 325 MG ENTERIC COATED TABLET PO SCH ×2 (10:13→21:32)
--- NOTE | 2017-04-03 12:17 | Internal Med Progress Note ---
Medical - PN: Subj Patient information: Note initiated : 04/03/17 at 12:15 pm Service Date, if different from initiated Date: [] Patient: Oliver Miles 81 y/o M admitted on 03/29/17 for Fall, L Hip Pain/ Closed Left Hip Fracture. Chief Complaint: confusion Interval history: 03/29-HPI-Mr. Miles is a 81 year old Male comes in to [place] ER with left hip injury and pain. Patient sustained a trauma after he fell off the bed while attempting to go to the bathroom this morning around 7:15 AM. [facility]. Initial workup was significant for left subcapital hip fracture. Orthopedics was consulted. Patient was scheduled for operative intervention later in the evening. Hospitalist service was consulted for admission and preoperative risk evaluation along with medical issue management. At time examination patient is alert oriented. He is in significant distress from pain at the fracture site. He is accompanied by his . He is under effect of opioids and was unable to provide a detailed history. Per he did not lose consciousness. There is no evidence of incontinence including bladder or bowel. No seizure-like episode. Patient hasn't had a similar even in the past but suffers from debilitating Parkinson's disease with gait instability. He otherwise denies fever chills nausea vomiting headache photophobia diarrhea dysuria or weight loss. 03/30- postop day 2. Patient doing well. No overnight events. Pain well controlled. No fever chills SOB nausea vomiting or bleeding or swelling at surgery site. started physical therapy. Patient has advanced Parkinson's disease limiting his functionality and gait instability. He also carries history of orthostatic hypertension. Continue aggressive physical therapy and and target or male sitting upright in light of high risk Parkinson's related dysphagia. Anticipate SNF transfer in 48 hours. Continue postop management per orthopedics 03/31: Pt seen examined, acute overnight events noted that patient was more confused and agitated last night, needing use of ativan and some dilaudid, has been refusing his oral medications. Patient this AM was drowsy after the effect of pain meds. The nurse had concern regarding the right clavicle in the patient, it seems that the patient has h/o clavicular fracture (noted on prob list), X ray clavicle is interpreted as negative, but there is an obvious clinical fracture vs dehiscence at the sternoclavicular joint. I called Dr Jeffries to evaluate the patient for this and need for any operative intervention. Patient has been placed in the right sling. Will review old CXR images to see if this is new or old injury. 04/01: Pt seen examined, overnight was agitated again needing 1:1 supervision, dilaudid was held by ortho was resumed for pain management. This AM dialaudid and ativan was held. The patient this AM was doing well, but later in the morning became paranoid and agitated, trying to get out of bed and take a swing at the nurses, case management and myself. He was given ativan 0.5mg and 2mg IV haldol to calm him down. the right clavicle fracture is an old fracture wit no active management needed. sling discontinued. Patient has had increased oxygen needs CXR shows possible pna, blood cx and vanco and zosyn started. His dose of seroquel increased to 50mg at bed time. IV tylenol for pain management for now. 04/02: Patient seen examined, in restrains with mittens to prevent removal of iv acces, has removed 4-5 so far, aggressive towards nursing and care providers, speech is dysarthric. 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 Ortho made aware Dr. Shukla spent 15 mins with family, daughter in law and the , explaining the preset situation. Patient mental condition does not seem to be improving. he remains delirious and aggressive towards care providers. Unable to keep a good IV to maintain hydration nor adequate po intake, pt spits out medications. He remains of D2 of vanco and Zosyn for now. Discussed need for CT head to evaluate if any IC process ongoing If patient does not respond to conservative measures, then it will be difficult to place him, also if he continues to refuse to eat and removes IV access hydration will also be an issue. Over all he has very poor prognosis. 04/03: Taken to OR yesterday for relocation of hip prosthesis. Head CT neg for acute process. He has dysarthric speech today but is able to have some simple conversations. Stood at EOB with PT while bed was changed. K low and is replaced today. Will adjust Sinemet and Requip dosing schedules today to ensure he is getting them. - Constitutional Vitals: Vital Signs Temp Pulse Resp BP Pulse Ox 98.2 F 76 16 142/75 93 04/03/17 11:32 04/03/17 04:00 04/03/17 11:32 04/03/17 11:32 04/03/17 11:32 Period Temp Pulse Resp BP Sys/Garcia Pulse Ox Last 24 Hr 97.3 F-98.7 F 66-77 14-21 122-181/54-86 93-99 Intake and Output 04/02/17 04/03/17 04/03/17 21:59 05:59 13:59 Intake Total 50 / 50 1350 / 1350 Output Total 2 / 2 2 / 2 52 / 52 Balance 48 / 48 1348 / 1348 -52 / -52 Weight 186 lb Intake & Output: Intake & Output 04/02/17 04/03/17 04/03/17 21:59 05:59 13:59 Intake Total 50 / 50 1350 / 1350 Output Total 2 / 2 2 / 2 52 / 52 Balance 48 / 48 1348 / 1348 -52 / -52 Weight 186 lb Intake: IV 50 / 50 1300 / 1300 Sodium Chloride 0.45% 1, 1000 / 1000 000 ml @ 100 mls/hr IV . Q10H [facility] Rx#:[id number] Zosyn 3.375 gm In 50 / 50 50 / 50 Dextrose 5% in Water 50 ml @ 100 mls/hr IV Q6H [facility] Rx#:[id number] Vancomycin 1,000 mg In 250 / 250 Sodium Chloride 0.9% 250 ml @ 250 mls/hr IV Q12H [facility] Rx#:[id number] Oral 0 / 0 50 / 50 Output: Void Amount 50 / 50 # of times incontinent of 2 / 2 2 / 2 2 / 2 urine Other: Meal Dinner Chocolate Pudding Percent of Meal Consumed 10% 50% Feeding Ability Total Assistance # Bowel Movements 0 Exam: Sleeping, awakens to voice. NAD. - Head Head exam: Present: atraumatic, normal inspection - ENT ENT exam: Present: mucous membranes dry - Respiratory Respiratory exam: Present: normal respiratory exam, CTAB. Absent: respiratory distress - Cardiovascular Cardiovascular exam: Present: normal rate and rhythm, systolic murmur - GI/Abdominal GI/Abdominal exam: Present: normal bowel sounds, soft. Absent: tenderness - Extremities Exam Extremities exam: Present: normal inspection, neurovascular intact - Neurological Exam Additional comments: somnolent, but awakens to voice. Speech is dysarthric but improves with increasing mouth moisture. Requests to sit up more in bed. - Skin Additional comments: scattered ecchymoses Medical - PN: Obj Da - Labs CBC & Chem 7: 04/03/17 04:48 04/03/17 04:48 Labs: Abnormal Lab Results 04/03/17 04/03/17 04/02/17 04:48 04:48 04:15 RBC 2.51 L Hgb 9.8 L Hct 27.6 L MCV 109.9 H MCH 39.2 H Eosinophils % (Manual) 13 H RBC Morphology Abnorm A Macrocytosis 2+ A Potassium 3.2 L Creatinine 0.6 L Uric Acid 2.1 L 2.4 L Calcium 8.3 L Total Bilirubin 1.1 H AST 48 H 74 H Lactate Dehydrogenase 351 H 481 H Total Protein 5.4 L 5.8 L 04/02/17 04/01/17 04/01/17 04:15 03:48 03:48 RBC 2.56 L 2.70 L Hgb 10.0 L 10.4 L Hct 28.4 L 29.7 L MCV 110.9 H 110.2 H MCH 39.3 H 38.6 H Eosinophils % (Manual) 8 H 9 H RBC Morphology Abnorm A Abnorm A Macrocytosis 3+ A 3+ A Potassium Creatinine 0.6 L Uric Acid Calcium 8.5 L Total Bilirubin AST 45 H Lactate Dehydrogenase 328 H Total Protein 5.6 L Meds: Medications Aspirin (Ecotrin) 325 mg PO BID [facility] Last Admin: 04/03/17 10:13 Dose: 325 mg Carbamazepine (Tegretol) 100 mg PO Q12 [facility] Last Admin: 04/03/17 10:12 Dose: 100 mg Carbidopa/Levodopa (Sinemet 25/100) 1.5 tab PO QIDP [facility] Clonazepam (Klonopin) 0.25 mg PO BID [facility] Last Admin: 04/03/17 10:12 Dose: 0.25 mg Finasteride (Proscar) 5 mg PO DAILY [facility] Last Admin: 04/03/17 10:12 Dose: 5 mg Fludrocortisone Acetate (Florinef) 0.3 mg PO DAILY [facility] Last Admin: 04/03/17 10:12 Dose: 0.3 mg Gabapentin (Neurontin) 300 mg PO HS [facility] Last Admin: 04/02/17 21:41 Dose: 300 mg Haloperidol Lactate (Haldol) 2 mg IV Q2HP PRN PRN Reason: ANXIETY/SEDATION Last Admin: 04/02/17 13:32 Dose: 2 mg Hydromorphone HCl (Dilaudid) 0.5 mg IV Q2HP PRN PRN Reason: Pain Last Admin: 04/03/17 07:30 Dose: 0.5 mg Sodium Chloride (Sodium Chloride 0.45%) 1,000 mls @ 100 mls/hr IV .Q10H [facility] Last Admin: 04/03/17 04:33 Dose: 100 mls/hr Piperacillin Sod/Tazobactam (Sod 3.375 gm/ Dextrose) 50 mls @ 100 mls/hr IV Q6H [facility] Last Admin: 04/03/17 06:06 Dose: 100 mls/hr Vancomycin HCl 1,000 mg/ (Sodium Chloride) 250 mls @ 250 mls/hr IV Q12H [facility] Last Admin: 04/03/17 10:12 Dose: 250 mls/hr Acetaminophen (Ofirmev) 650 mg in 65 mls @ 130 mls/hr IV Q6HP PRN PRN Reason: Pain Last Infusion: 04/02/17 10:15 Dose: Infused Potassium Chloride 40 meq/ (Dextrose) 520 mls @ 130 mls/hr IV ONCE ONE Stop: 04/03/17 16:07 Lactobacillus Rhamnosus (Culturelle) 1 cap PO DAILY [facility] Last Admin: 04/03/17 10:12 Dose: 1 cap Magnesium Hydroxide (Milk Of Magnesia) 30 ml PO BIDP PRN PRN Reason: Constipation Methocarbamol (Robaxin) 500 mg PO TIDP PRN PRN Reason: Muscle Spasm Last Admin: 03/31/17 20:20 Dose: 500 mg Midodrine (Midodrine Hcl) 10 mg PO TID@0800,1200,1700 [facility] Last Admin: 04/03/17 10:11 Dose: 10 mg Entacapone [Comtan] (200 Mg) 1 dose PO BID [facility] Last Admin: 04/03/17 10:12 Dose: 1 dose Silodosin [Rapaflo] (8 Mg) 1 dose PO DAILY [facility] Last Admin: 04/03/17 10:13 Dose: Not Given Polyethylene Glycol (Miralax) 17 gm PO DAILYP PRN PRN Reason: Constipation Quetiapine Fumarate (Seroquel) 50 mg PO [facility] Last Admin: 04/02/17 21:32 Dose: 50 mg Senna (Senokot) 2 tab PO HS [facility] Last Admin: 04/02/17 21:41 Dose: 2 tab Simvastatin (Zocor) 10 mg PO [facility] Last Admin: 04/02/17 21:41 Dose: 10 mg Sodium Biphosphate/Sodium Phosphate (Fleets Adult) 1 dose [place] Q3-4DAYS PRN PRN Reason: Constipation Sodium Chloride (Saline Flush) 10 ml IV Q8 [facility] Last Admin: 04/03/17 06:06 Dose: 10 ml Temazepam (Restoril) 15 mg PO [facility] PRN PRN Reason: Insomnia Throat Lozenges (Cepacol) 1 lozenge PO PRN PRN PRN Reason: Sore Throat Vancomycin HCl (Vancomycin Per Pharmacy) 1 order IV UD [facility] Vitamin D (Vitamin D3) 10,000 unit PO Q48 [facility] Last Admin: 04/03/17 10:12 Dose: 10,000 unit Medical - PN: A/P - Time Spent With Patient Total time spent is greater than 50% in coordination of care (as documented) at patient's floor/unit and/or counseling patient: 25 - 35 minutes - Narrative A/P Narrative: A/P Left Hip Fracture: post op day 4 today, Continue PT/ OT as tolerated. Left hip dislocation: s/p reduction 04/[address] jeffries Post Op Pain: on [facility] tylenol , seems that this is not helping, cont PRN dilaudid for now for pain management. Delirium: Due to Post op status, pain, likely etiology. Medical management now, pt not consistently taking orals, iv haldol for now, CT head to evaluate any IC process Clavicular fracture Vs Sternoclavicular dislocation: Old injury, appreciate ortho input Parkinsons disease: Resumed home doses of levodopa, carbidopa, ropinirole, unfortunately pt misses does due to being delirious and refusing Meds intermittently. Will change schedule from Q6H to QID and TID to help w sx. PNA: Likely aspirational pna, Cover as health care associated Pneumonia with vanco and zosyn D3 today. Not hypoxic, no leukocytosis. Consider narrowing if cont to improve. Speech eval ordered HLD on statin HypoK--replace IV. Mg normal. Likely 2/2 poor po intake Full Code DVT prophylaxis. ASA 325 BID as per Ortho protocol. Discussed with family the overall poor prognosis 04/02.
[2017-04-03] MEDS ORDERED: POTASSIUM CHLORIDE 40 MEQ in DEXTROSE 5% IN WATER 500 ML IV ONE (13:30)
[2017-04-03] MEDS ORDERED: ACETAMINOPHEN 650 MG/65 ML BOTTLE IV ONE (16:45)
[2017-04-03] MEDS: QUEtiapine 25 MG TABLET PO SCH (21:32)
[2017-04-03] MEDS: GABAPENTIN 300 MG CAPSULE PO SCH (21:32)
[2017-04-03] MEDS: SENNOSIDES 1 TABLET PO SCH (21:39)
[2017-04-03] MEDS: SIMVASTATIN 10 MG TABLET PO SCH (21:39)
[2017-04-04] MEDS: ACETAMINOPHEN 650 MG/65 ML BOTTLE IV PRN (00:35)
[2017-04-04] MEDS: 0.45 % SODIUM CHLORIDE 1,000 ML IV SCH ×3 (02:33→22:30)
[2017-04-04] MEDS: PIPERACILLIN SODIUM/TAZOBACTAM 3.375 GM in DEXTROSE 5% IN WATER 50 ML IV SCH ×4 (05:32→23:40)
[2017-04-04 06:09] LABS: Basophils # (Auto) 0 K/mcL (0.0-0.3); Basophils % (Auto) 0.4 % (0.0-2.0); Eosinophils # (Auto) 0.4 K/mcL (0.0-0.7); Eosinophils % (Auto) 6.4 % (0.0-7.0); Granulocytes % (Auto) 72.8 % (38.0-78.0); Lymphocytes # (Auto) 0.6 K/mcL (1.5-4.8); Lymphocytes % (Auto) 11.2 % (15.5-49.0); Mean Cell Volume 108.1 fL (80.0-100.0); Mean Corpuscular HGB Conc 34.8 g/dL (31.0-36.0); Mean Corpuscular Hemoglobin 37.6 pg (26.0-34.0); Monocytes # (Auto) 0.5 K/mcL (0.1-0.9); Monocytes % (Auto) 9.2 % (1.0-12.0); Platelet Count 205 K/mcL (140-440); RBC 2.53 M/mcL (4.50-5.90); Red Cell Distribution Width 14.3 % (11.5-14.5)
[2017-04-04] MEDS: 0.9 % SODIUM CHLORIDE 10 ML SYRINGE IV SCH ×3 (06:12→23:01)
[2017-04-04 06:55] LABS: Blood Urea Nitrogen 7 mg/dl (8-23)
[2017-04-04] MEDS: MIDODRINE 5 MG TABLET PO SCH ×4 (07:29→17:01)
--- NOTE | 2017-04-04 08:00 | Internal Med Progress Note ---
Medical - PN: Subj Patient information: Note initiated : 04/04/17 at 7:53 am Service Date, if different from initiated Date: [] Patient: Oliver Miles 81 y/o M admitted on 03/29/17 for Fall, L Hip Pain/ Closed Left Hip Fracture. Chief Complaint: delirium Interval history: 03/29-HPI-Mr. Miles is a 81 year old Male comes in to [place] ER with left hip injury and pain. Patient sustained a trauma after he fell off the bed while attempting to go to the bathroom this morning around 7:15 AM. He was subsequently brought in to [facility] ER. Initial workup was significant for left subcapital hip fracture. Orthopedics was consulted. Patient was scheduled for operative intervention later in the evening. Hospitalist service was consulted for admission and preoperative risk evaluation along with medical issue management. At time examination patient is alert oriented. He is in significant distress from pain at the fracture site. He is accompanied by his . He is under effect of opioids and was unable to provide a detailed history. Per he did not lose consciousness. There is no evidence of incontinence including bladder or bowel. No seizure-like episode. Patient hasn't had a similar even in the past but suffers from debilitating Parkinson's disease with gait instability. He otherwise denies fever chills nausea vomiting headache photophobia diarrhea dysuria or weight loss. 03/30- postop day 2. Patient doing well. No overnight events. Pain well controlled. No fever chills SOB nausea vomiting or bleeding or swelling at surgery site. started physical therapy. Patient has advanced Parkinson's disease limiting his functionality and gait instability. He also carries history of orthostatic hypertension. Continue aggressive physical therapy and and target or male sitting upright in light of high risk Parkinson's related dysphagia. Anticipate SNF transfer in 48 hours. Continue postop management per orthopedics 03/31: Pt seen examined, acute overnight events noted that patient was more confused and agitated last night, needing use of ativan and some dilaudid, has been refusing his oral medications. Patient this AM was drowsy after the effect of pain meds. The nurse had concern regarding the right clavicle in the patient, it seems that the patient has h/o clavicular fracture (noted on prob list), X ray clavicle is interpreted as negative, but there is an obvious clinical fracture vs dehiscence at the sternoclavicular joint. I called Dr Jeffries to evaluate the patient for this and need for any operative intervention. Patient has been placed in the right sling. Will review old CXR images to see if this is new or old injury. 04/01: Pt seen examined, overnight was agitated again needing 1:1 supervision, dilaudid was held by ortho was resumed for pain management. This AM dialaudid and ativan was held. The patient this AM was doing well, but later in the morning became paranoid and agitated, trying to get out of bed and take a swing at the nurses, case management and myself. He was given ativan 0.5mg and 2mg IV haldol to calm him down. the right clavicle fracture is an old fracture wit no active management needed. sling discontinued. Patient has had increased oxygen needs CXR shows possible pna, blood cx and vanco and zosyn started. His dose of seroquel increased to 50mg at bed time. IV tylenol for pain management for now. 04/02: Patient seen examined, in restrains with mittens to prevent removal of iv acces, has removed 4-5 so far, aggressive towards nursing and care providers, speech is dysarthric. 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 Ortho made aware Dr. Shukla spent 15 mins with family, daughter in law and the , explaining the preset situation. Patient mental condition does not seem to be improving. he remains delirious and aggressive towards care providers. Unable to keep a good IV to maintain hydration nor adequate po intake, pt spits out medications. He remains of D2 of vanco and Zosyn for now. Discussed need for CT head to evaluate if any IC process ongoing If patient does not respond to conservative measures, then it will be difficult to place him, also if he continues to refuse to eat and removes IV access hydration will also be an issue. Over all he has very poor prognosis. 04/03: Taken to OR yesterday for relocation of hip prosthesis. Head CT neg for acute process. He has dysarthric speech today but is able to have some simple conversations. Stood at EOB with PT while bed was changed. K low and is replaced today. Will adjust Sinemet and Requip dosing schedules today to ensure he is getting them. 04/04: Walked with PT today. Still uncooperative; tried to leave and is still requiring hand mitts as restraints. Having supine hypertension with BP 188 last night--on midodrine and Florinef for OH. K still low at 3.2 despite replacement yesterday. Eating a little better today and complaining of hip pain that is unrelieved by Tylenol or dilaudid. Will try Tramadol and increase Seroquel to 100 HS. Had long discussion with at bedside regarding goals of care and prognosis. She is aware that any future insult to his body will result in likely severe delirium with paranoia and combative behavior as he has had this admission and that, at best, he will likely need SNF care long-term. With his slow but steady progress over the weekend, she would like to continue current care but voices interest in pursuing comfort measures only if he worsens. Pertinent ROS: No fevers. Pt complains of hip pain. - Constitutional Vitals: Vital Signs Temp Pulse Resp BP Pulse Ox 97.5 F 71 20 165/74 93 04/04/17 07:34 04/04/17 07:34 04/04/17 07:34 04/04/17 07:34 04/04/17 07:34 Period Temp Pulse Resp BP Sys/Garcia Pulse Ox Last 24 Hr 97.4 F-98.2 F 71-77 16-20 142-188/71-84 91-94 Intake and Output 04/03/17 04/04/17 04/04/17 21:59 05:59 13:59 Intake Total 1050 / 1050 100 / 100 Output Total 53 / 53 202 / 202 Balance 997 / 997 -102 / -102 Weight 184 lb Intake & Output: Intake & Output 04/03/17 04/04/17 04/04/17 21:59 05:59 13:59 Intake Total 1050 / 1050 100 / 100 Output Total 53 / 53 202 / 202 Balance 997 / 997 -102 / -102 Weight 184 lb Intake: IV 1050 / 1050 50 / 50 Sodium Chloride 0.45% 1, 1000 / 1000 000 ml @ 100 mls/hr IV . Q10H [facility] Rx#:[id number] Zosyn 3.375 gm In 50 / 50 50 / 50 Dextrose 5% in Water 50 ml @ 100 mls/hr IV Q6H [facility] Rx#:[id number] Oral 50 / 50 Output: Void Amount 50 / 50 200 / 200 # of times incontinent of 3 / 3 2 / 2 urine Other: Meal Nourishment/Supplement Percent of Meal Consumed Pudding # Voids 1 General appearance: no acute distress - Head Head exam: Present: atraumatic, normal inspection - Respiratory Respiratory exam: Present: normal respiratory exam, CTAB - Cardiovascular Cardiovascular exam: Present: normal rate and rhythm, systolic murmur - GI/Abdominal GI/Abdominal exam: Present: soft, hypoactive bowel sounds. Absent: tenderness - Extremities Exam Additional comments: no c/c/e - Neurological Exam Additional comments: alert. dysarthric speech. Able to tell me he is in the hospital and that his hip hurts but speech is still very difficult to understand. Once while eating pudding, he coughed after a bite. No focal deficits. - Psychiatric Psychiatric exam: Present: agitated Medical - PN: Obj Da - Labs CBC & Chem 7: 04/04/17 04:30 04/04/17 04:30 Labs: Abnormal Lab Results 04/04/17 04/04/17 04/03/17 04:30 04:30 04:48 RBC 2.53 L Hgb 9.5 L Hct 27.3 L MCV 108.1 H MCH 37.6 H Lymph % (Auto) 11.2 L Lymph # (Auto) 0.6 L Eosinophils % (Manual) RBC Morphology Macrocytosis Potassium 3.2 L 3.2 L BUN 7 L Creatinine 0.6 L Uric Acid 2.1 L Calcium 8.3 L 8.3 L Total Bilirubin AST 48 H Lactate Dehydrogenase 351 H Total Protein 5.4 L 04/03/17 04/02/17 04/02/17 04:48 04:15 04:15 RBC 2.51 L 2.56 L Hgb 9.8 L 10.0 L Hct 27.6 L 28.4 L MCV 109.9 H 110.9 H MCH 39.2 H 39.3 H Lymph % (Auto) Lymph # (Auto) Eosinophils % (Manual) 13 H 8 H RBC Morphology Abnorm A Abnorm A Macrocytosis 2+ A 3+ A Potassium BUN Creatinine Uric Acid 2.4 L Calcium Total Bilirubin 1.1 H AST 74 H Lactate Dehydrogenase 481 H Total Protein 5.8 L 04/01/17 03:48 RBC 2.70 L Hgb 10.4 L Hct 29.7 L MCV 110.2 H MCH 38.6 H Lymph % (Auto) Lymph # (Auto) Eosinophils % (Manual) 9 H RBC Morphology Abnorm A Macrocytosis 3+ A Potassium BUN Creatinine Uric Acid Calcium Total Bilirubin AST Lactate Dehydrogenase Total Protein Meds: Medications Aspirin (Ecotrin) 325 mg PO BID [facility] Last Admin: 04/03/17 21:32 Dose: 325 mg Carbamazepine (Tegretol) 100 mg PO Q12 [facility] Last Admin: 04/03/17 21:36 Dose: 100 mg Carbidopa/Levodopa (Sinemet 25/100) 1.5 tab PO QID [facility] Last Admin: 04/03/17 21:34 Dose: 1.5 tab Clonazepam (Klonopin) 0.25 mg PO BID [facility] Last Admin: 04/03/17 21:33 Dose: 0.25 mg Finasteride (Proscar) 5 mg PO DAILY [facility] Last Admin: 04/03/17 10:12 Dose: 5 mg Fludrocortisone Acetate (Florinef) 0.3 mg PO DAILY [facility] Last Admin: 04/03/17 10:12 Dose: 0.3 mg Gabapentin (Neurontin) 300 mg PO HS [facility] Last Admin: 04/03/17 21:32 Dose: 300 mg Haloperidol Lactate (Haldol) 2 mg IV Q2HP PRN PRN Reason: ANXIETY/SEDATION Last Admin: 04/02/17 13:32 Dose: 2 mg Hydromorphone HCl (Dilaudid) 0.5 mg IV Q2HP PRN PRN Reason: Pain Last Admin: 04/03/17 23:48 Dose: 0.5 mg Sodium Chloride (Sodium Chloride 0.45%) 1,000 mls @ 100 mls/hr IV .Q10H [facility] Last Admin: 04/04/17 02:33 Dose: 100 mls/hr Piperacillin Sod/Tazobactam (Sod 3.375 gm/ Dextrose) 50 mls @ 100 mls/hr IV Q6H [facility] Last Admin: 04/04/17 05:32 Dose: 100 mls/hr Vancomycin HCl 1,000 mg/ (Sodium Chloride) 250 mls @ 250 mls/hr IV Q12H [facility] Last Admin: 04/03/17 21:12 Dose: 250 mls/hr Acetaminophen (Ofirmev) 650 mg in 65 mls @ 130 mls/hr IV Q6HP PRN PRN Reason: Pain Last Admin: 04/04/17 00:35 Dose: 130 mls/hr Lactobacillus Rhamnosus (Culturelle) 1 cap PO DAILY [facility] Last Admin: 04/03/17 10:12 Dose: 1 cap Magnesium Hydroxide (Milk Of Magnesia) 30 ml PO BIDP PRN PRN Reason: Constipation Methocarbamol (Robaxin) 500 mg PO TIDP PRN PRN Reason: Muscle Spasm Last Admin: 03/31/17 20:20 Dose: 500 mg Midodrine (Midodrine Hcl) 10 mg PO TID@0800,1200,1700 [facility] Last Admin: 04/04/17 07:29 Dose: Not Given Entacapone [Comtan] (200 Mg) 1 dose PO BID [facility] Last Admin: 04/03/17 21:35 Dose: 1 dose Silodosin [Rapaflo] (8 Mg) 1 dose PO DAILY [facility] Last Admin: 04/03/17 10:13 Dose: Not Given Polyethylene Glycol (Miralax) 17 gm PO DAILYP PRN PRN Reason: Constipation Quetiapine Fumarate (Seroquel) 50 mg PO HS [facility] Last Admin: 04/03/17 21:32 Dose: 50 mg Ropinirole HCl (Requip) 1 mg PO TID [facility] Last Admin: 04/03/17 21:32 Dose: 1 mg Senna (Senokot) 2 tab PO HS [facility] Last Admin: 04/03/17 21:39 Dose: 2 tab Simvastatin (Zocor) 10 mg PO HS [facility] Last Admin: 04/03/17 21:39 Dose: 10 mg Sodium Biphosphate/Sodium Phosphate (Fleets Adult) 1 dose MA Q3-4DAYS PRN PRN Reason: Constipation Sodium Chloride (Saline Flush) 10 ml IV Q8 [facility] Last Admin: 04/04/17 06:12 Dose: Not Given Temazepam (Restoril) 15 mg PO HSP PRN PRN Reason: Insomnia Throat Lozenges (Cepacol) 1 lozenge PO PRN PRN PRN Reason: Sore Throat Vancomycin HCl (Vancomycin Per Pharmacy) 1 order IV [facility] [place] Vitamin D (Vitamin D3) 10,000 unit PO Q48 [facility] Last Admin: 04/03/17 10:12 Dose: 10,000 unit Medical - PN: A/P - Time Spent With Patient Total time spent is greater than 50% in coordination of care (as documented) at patient's floor/unit and/or counseling patient: Greater than 35 minutes - Narrative A/P Narrative: A/P Left Hip Fracture: post op day 4 today, Continue PT/ OT as tolerated. Left hip dislocation: s/p reduction 04/[address] jeffries Post Op Pain: on neela tylenol , seems that this is not helping, cont PRN dilaudid for now for pain management. Add tramadol. No h/o seizure. Watch BG given possible sulfonylurea effect w tramadol. Delirium: Due to Post op status, pain, likely etiology. Medical management now, pt not consistently taking orals, IV haldol D/C'd 04/01, CT head neg for acute process. Still requiring hand mitts as restraints. Goals of care: see subjective note from 04/04. Cont current tx plan, but if declines, would likely choose comfort measures only. Clavicular fracture Vs Sternoclavicular dislocation: Old injury, appreciate ortho input Parkinsons disease: Resumed home doses of levodopa, carbidopa, ropinirole, unfortunately pt misses does due to being delirious and refusing Meds intermittently. Changed schedule from Q6H to QID and TID to help w sx. Orthostatic hypotension: on midodrine and Florinef at home. Now w supine HTN; decreased midodrine to 5 TID with hold parameters. This will need to be titrated up as he increases mobility. PNA: Likely aspirational pna, Cover as health care associated Pneumonia with vanco and zosyn D3 today. Not hypoxic, no leukocytosis. Consider narrowing if cont to improve. Speech eval ordered HLD on statin HypoK--replace IV again today. Mg normal. Likely 2/2 poor po intake Full Code DVT prophylaxis. ASA 325 BID as per Ortho protocol. Discussed with family the overall poor prognosis 04/02.
[2017-04-04] MEDS ORDERED: POTASSIUM CHLORIDE 40 MEQ in DEXTROSE 5% IN WATER 500 ML IV ONE (08:01)
[2017-04-04] MEDS: CARBIDOPA/LEVODOPA 25/100 TABLET PO SCH ×5 (09:41→20:02)
[2017-04-04] MEDS: clonazePAM 0.5 MG TABLET PO SCH ×2 (09:41→19:57)
[2017-04-04] MEDS: ENTACAPONE 200 MG PO SCH ×2 (09:41→20:25)
[2017-04-04] MEDS: rOPINIRole 1 MG TABLET PO SCH ×3 (09:45→20:02)
[2017-04-04] MEDS: FINASTERIDE 5 MG TABLET PO SCH (09:45)
[2017-04-04] MEDS: ASPIRIN 325 MG ENTERIC COATED TABLET PO SCH ×2 (09:45→20:22)
[2017-04-04] MEDS: carBAMazepine 100 MG TAB.CHEW PO SCH ×2 (09:46→20:02)
[2017-04-04] MEDS: LACTOBACILLUS 1 CAPSULE PO SCH (09:46)
[2017-04-04] MEDS: VANCOMYCIN 1,000 MG in 0.9 % SODIUM CHLORIDE 250 ML IV SCH ×2 (09:46→21:12)
[2017-04-04] MEDS: FLUDROCORTISONE 0.1 MG TABLET PO SCH (09:46)
[2017-04-04] MEDS: GABAPENTIN 300 MG CAPSULE PO SCH (19:58)
[2017-04-04] MEDS: QUEtiapine 100 MG TABLET PO SCH (19:58)
[2017-04-04] MEDS: SENNOSIDES 1 TABLET PO SCH (20:21)
[2017-04-04] MEDS: SIMVASTATIN 10 MG TABLET PO SCH (20:24)
[2017-04-05] MEDS: PIPERACILLIN SODIUM/TAZOBACTAM 3.375 GM in DEXTROSE 5% IN WATER 50 ML IV SCH ×3 (05:26→18:02)
[2017-04-05] MEDS: 0.9 % SODIUM CHLORIDE 10 ML SYRINGE IV SCH ×3 (05:34→23:55)
[2017-04-05 05:55] LABS: Basophils # (Auto) 0 K/mcL (0.0-0.3); Basophils % (Auto) 0.8 % (0.0-2.0); Blood Urea Nitrogen 6 mg/dl (8-23); Eosinophils # (Auto) 0.4 K/mcL (0.0-0.7); Eosinophils % (Auto) 7.8 % (0.0-7.0); Granulocytes % (Auto) 58.8 % (38.0-78.0); Lymphocytes # (Auto) 1.1 K/mcL (1.5-4.8); Lymphocytes % (Auto) 22.9 % (15.5-49.0); Mean Cell Volume 107.7 fL (80.0-100.0); Mean Corpuscular HGB Conc 35.7 g/dL (31.0-36.0); Mean Corpuscular Hemoglobin 38.4 pg (26.0-34.0); Monocytes # (Auto) 0.5 K/mcL (0.1-0.9); Monocytes % (Auto) 9.7 % (1.0-12.0); Platelet Count 222 K/mcL (140-440); RBC 2.37 M/mcL (4.50-5.90); Red Cell Distribution Width 13.6 % (11.5-14.5)
[2017-04-05] MEDS: MIDODRINE 5 MG TABLET PO SCH ×3 (07:21→18:01)
[2017-04-05] MEDS: 0.45 % SODIUM CHLORIDE 1,000 ML IV SCH ×3 (07:49→23:53)
[2017-04-05] MEDS: VANCOMYCIN 1,000 MG in 0.9 % SODIUM CHLORIDE 250 ML IV SCH ×2 (10:30→10:48)
[2017-04-05] MEDS: rOPINIRole 1 MG TABLET PO SCH ×3 (11:08→20:32)
[2017-04-05] MEDS: FINASTERIDE 5 MG TABLET PO SCH (11:08)
[2017-04-05] MEDS: clonazePAM 0.5 MG TABLET PO SCH ×2 (11:08→20:32)
[2017-04-05] MEDS: CARBIDOPA/LEVODOPA 25/100 TABLET PO SCH ×4 (11:09→20:33)
[2017-04-05] MEDS: VITAMIN D3 5,000 UNIT CAPSULE PO SCH (11:09)
[2017-04-05] MEDS: ASPIRIN 325 MG ENTERIC COATED TABLET PO SCH ×2 (11:10→20:32)
[2017-04-05] MEDS: carBAMazepine 100 MG TAB.CHEW PO SCH ×2 (11:11→21:05)
[2017-04-05] MEDS: FLUDROCORTISONE 0.1 MG TABLET PO SCH (11:12)
[2017-04-05] MEDS: LACTOBACILLUS 1 CAPSULE PO SCH (11:12)
[2017-04-05] MEDS: ENTACAPONE 200 MG PO SCH ×2 (11:17→20:35)
--- NOTE | 2017-04-05 11:52 | Internal Med Progress Note ---
Medical - PN: Subj Patient information: Note initiated : 04/05/17 at 11:45 am Service Date, if different from initiated Date: [] Patient: Oliver Miles 81 y/o M admitted on 03/29/17 for Fall, L Hip Pain/ Closed Left Hip Fracture. Chief Complaint: [] Interval history: 03/29-HPI-Mr. Miles is a 81 year old Male [facility] with left hip injury and pain. Patient sustained a trauma after he fell off the bed while attempting to go to the bathroom this morning around 7:15 AM. He was subsequently brought in to [facility] ER. Initial workup was significant for left subcapital hip fracture. Orthopedics was consulted. Patient was scheduled for operative intervention later in the evening. Hospitalist service was consulted for admission and preoperative risk evaluation along with medical issue management. At time examination patient is alert oriented. He is in significant distress from pain at the fracture site. He is accompanied by his . He is under effect of opioids and was unable to provide a detailed history. Per he did not lose consciousness. There is no evidence of incontinence including bladder or bowel. No seizure-like episode. Patient hasn't had a similar even in the past but suffers from debilitating Parkinson's disease with gait instability. He otherwise denies fever chills nausea vomiting headache photophobia diarrhea dysuria or weight loss. 03/30- postop day 2. Patient doing well. No overnight events. Pain well controlled. No fever chills SOB nausea vomiting or bleeding or swelling at surgery site. started physical therapy. Patient has advanced Parkinson's disease limiting his functionality and gait instability. He also carries history of orthostatic hypertension. Continue aggressive physical therapy and and target or male sitting upright in light of high risk Parkinson's related dysphagia. Anticipate SNF transfer in 48 hours. Continue postop management per orthopedics 03/31: Pt seen examined, acute overnight events noted that patient was more confused and agitated last night, needing use of ativan and some dilaudid, has been refusing his oral medications. Patient this AM was drowsy after the effect of pain meds. The nurse had concern regarding the right clavicle in the patient, it seems that the patient has h/o clavicular fracture (noted on prob list), X ray clavicle is interpreted as negative, but there is an obvious clinical fracture vs dehiscence at the sternoclavicular joint. I called Dr Jeffries to evaluate the patient for this and need for any operative intervention. Patient has been placed in the right sling. Will review old CXR images to see if this is new or old injury. 04/01: Pt seen examined, overnight was agitated again needing 1:1 supervision, dilaudid was held by ortho was resumed for pain management. This AM dialaudid and ativan was held. The patient this AM was doing well, but later in the morning became paranoid and agitated, trying to get out of bed and take a swing at the nurses, case management and myself. He was given ativan 0.5mg and 2mg IV haldol to calm him down. the right clavicle fracture is an old fracture wit no active management needed. sling discontinued. Patient has had increased oxygen needs CXR shows possible pna, blood cx and vanco and zosyn started. His dose of seroquel increased to 50mg at bed time. IV tylenol for pain management for now. 04/02: Patient seen examined, in restrains with mittens to prevent removal of iv acces, has removed 4-5 so far, aggressive towards nursing and care providers, speech is dysarthric. 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 Ortho made aware Dr. Shukla spent 15 mins with family, daughter in law and the , explaining the preset situation. Patient mental condition does not seem to be improving. he remains delirious and aggressive towards care providers. Unable to keep a good IV to maintain hydration nor adequate po intake, pt spits out medications. He remains of D2 of vanco and Zosyn for now. Discussed need for CT head to evaluate if any IC process ongoing If patient does not respond to conservative measures, then it will be difficult to place him, also if he continues to refuse to eat and removes IV access hydration will also be an issue. Over all he has very poor prognosis. 04/03: Taken to OR yesterday for relocation of hip prosthesis. Head CT neg for acute process. He has dysarthric speech today but is able to have some simple conversations. Stood at EOB with PT while bed was changed. K low and is replaced today. Will adjust Sinemet and Requip dosing schedules today to ensure he is getting them. 04/04: Walked with PT today. Still uncooperative; tried to leave and is still requiring hand mitts as restraints. Having supine hypertension with BP 188 last night--on midodrine and Florinef for OH. K still low at 3.2 despite replacement yesterday. Eating a little better today and complaining of hip pain that is unrelieved by Tylenol or dilaudid. Will try Tramadol and increase Seroquel to 100 HS. Had long discussion with at bedside regarding goals of care and prognosis. She is aware that any future insult to his body will result in likely severe delirium with paranoia and combative behavior as he has had this admission and that, at best, he will likely need SNF care long-term. With his slow but steady progress over the weekend, she would like to continue current care but voices interest in pursuing comfort measures only if he worsens. 04/05: Patient seen examined this AM, was more cooperative today, had stable night, his speech remains garbled but at baseline does not have good speech. He is not aggressive today, and did seem to follow commands and ask some appropriate questions. did not need haldol yesterday, will d/c hand mittens today and see how he does. Hopefully he will continue to improve. He will likely need to be 24 hrs without restraints before he can be safely discharged. Pertinent ROS: unable , speech garbled. - Constitutional Vitals: Vital Signs Temp Pulse Resp BP Pulse Ox 97.3 F 73 20 167/81 92 04/05/17 10:58 04/05/17 08:27 04/05/17 10:58 04/05/17 10:58 04/05/17 10:58 Period Temp Pulse Resp BP Sys/Garcia Pulse Ox Last 24 Hr 97.3 F-98.9 F 71-88 18-24 120-170/59-89 89-93 Intake and Output 04/04/17 04/05/17 04/05/17 21:59 05:59 13:59 Intake Total 1250 / 1250 300 / 300 1030 / 1030 Output Total 1 / 1 2 / 2 2 / 2 Balance 1249 / 1249 298 / 298 1028 / 1028 Weight 186 lb 186 lb Patient Weight 04/06/17 05:59 Weight 186 lb Intake & Output: Intake & Output 04/04/17 04/05/17 04/05/17 21:59 05:59 13:59 Intake Total 1250 / 1250 300 / 300 1030 / 1030 Output Total 1 / 1 2 / 2 2 / 2 Balance 1249 / 1249 298 / 298 1028 / 1028 Weight 186 lb 186 lb Intake: IV 1050 / 1050 300 / 300 1000 / 1000 Sodium Chloride 0.45% 1, 1000 / 1000 1000 / 1000 000 ml @ 100 mls/hr IV . Q10H [facility] Rx#:[id number] Zosyn 3.375 gm In 50 / 50 50 / 50 Dextrose 5% in Water 50 ml @ 100 mls/hr IV Q6H [facility] Rx#:[id number] Vancomycin 1,000 mg In 250 / 250 Sodium Chloride 0.9% 250 ml @ 250 mls/hr IV Q12H [facility] Rx#:[id number] Oral 200 / 200 30 / 30 Output: # of times incontinent of 1 / 1 2 / 2 2 / 2 urine Other: Meal Breakfast Percent of Meal Consumed 25% Feeding Ability Total Assistance # Voids 2 1 # Bowel Movements 1 # of times incontinent of 1 Bowels Exam: Constitutional; Afebrile, cooperative, not in distress, awake Eyes- No icterus, , No periorbital swelling Ears- Ext ear normal, hearing hard to converstation. Neck- Midline trachea, supple Respiratory system: Air Entry equal on both sides, No crackles or wheezing, no rhonchi. CVS- Rate rhythm regular, S1,S2 heard, no gallop, no rub. Abdomen- Soft nontender abdomen, no organomegaly, no tenderness, no guarding or rigidity, [employer]- AOOx1, moving all extremities, no gross focal deficit noted. Medical - PN: Obj Da - Labs CBC & Chem 7: 04/05/17 04:30 04/05/17 04:30 Labs: Abnormal Lab Results 04/05/17 04/05/17 04/05/17 08:04 04:30 04:30 RBC 2.37 L Hgb 9.1 L Hct 25.5 L MCV 107.7 H MCH 38.4 H Lymph % (Auto) Eos % (Auto) 7.8 H Lymph # (Auto) 1.1 L Eosinophils % (Manual) RBC Morphology Macrocytosis Potassium BUN 6 L Creatinine Uric Acid Calcium 8.1 L AST Lactate Dehydrogenase Total Protein Vancomycin Trough 16.5 H 04/04/17 04/04/17 04/03/17 04:30 04:30 04:48 RBC 2.53 L Hgb 9.5 L Hct 27.3 L MCV 108.1 H MCH 37.6 H Lymph % (Auto) 11.2 L Eos % (Auto) Lymph # (Auto) 0.6 L Eosinophils % (Manual) RBC Morphology Macrocytosis Potassium 3.2 L 3.2 L BUN 7 L Creatinine 0.6 L Uric Acid 2.1 L Calcium 8.3 L 8.3 L AST 48 H Lactate Dehydrogenase 351 H Total Protein 5.4 L Vancomycin Trough 04/03/17 04:48 RBC 2.51 L Hgb 9.8 L Hct 27.6 L MCV 109.9 H MCH 39.2 H Lymph % (Auto) Eos % (Auto) Lymph # (Auto) Eosinophils % (Manual) 13 H RBC Morphology Abnorm A Macrocytosis 2+ A Potassium BUN Creatinine Uric Acid Calcium AST Lactate Dehydrogenase Total Protein Vancomycin Trough Meds: Medications Aspirin (Ecotrin) 325 mg PO BID [facility] Last Admin: 04/05/17 11:10 Dose: 325 mg Carbamazepine (Tegretol) 100 mg PO Q12 [facility] Last Admin: 04/05/17 11:11 Dose: 100 mg Carbidopa/Levodopa (Sinemet 25/100) 1.5 tab PO QID [facility] Last Admin: 04/05/17 11:09 Dose: 1.5 tab Clonazepam (Klonopin) 0.25 mg PO BID [facility] Last Admin: 04/05/17 11:08 Dose: 0.25 mg Finasteride (Proscar) 5 mg PO DAILY [facility] Last Admin: 04/05/17 11:08 Dose: 5 mg Fludrocortisone Acetate (Florinef) 0.3 mg PO DAILY [facility] Last Admin: 04/05/17 11:12 Dose: 0.3 mg Gabapentin (Neurontin) 300 mg PO HS [facility] Last Admin: 04/04/17 19:58 Dose: 300 mg Sodium Chloride (Sodium Chloride 0.45%) 1,000 mls @ 100 mls/hr IV .Q10H [facility] Last Admin: 04/05/17 11:40 Dose: 100 mls/hr Piperacillin Sod/Tazobactam (Sod 3.375 gm/ Dextrose) 50 mls @ 100 mls/hr IV Q6H [facility] Last Admin: 04/05/17 05:26 Dose: 100 mls/hr Vancomycin HCl 1,000 mg/ (Sodium Chloride) 250 mls @ 250 mls/hr IV Q12H [facility] Stop: 04/05/17 11:59 Last Admin: 04/05/17 10:48 Dose: 250 mls/hr Acetaminophen (Ofirmev) 650 mg in 65 mls @ 130 mls/hr IV Q6HP PRN PRN Reason: Pain Last Admin: 04/04/17 00:35 Dose: 130 mls/hr Vancomycin HCl 1,500 mg/ (Sodium Chloride) 500 mls @ 333.3 mls/hr IV Q24H [facility] Lactobacillus Rhamnosus (Culturelle) 1 cap PO DAILY [facility] Last Admin: 04/05/17 11:12 Dose: 1 cap Magnesium Hydroxide (Milk Of Magnesia) 30 ml PO BIDP PRN PRN Reason: Constipation Last Admin: 04/04/17 08:21 Dose: 30 ml Methocarbamol (Robaxin) 500 mg PO TIDP PRN PRN Reason: Muscle Spasm Last Admin: 03/31/17 20:20 Dose: 500 mg Midodrine (Midodrine Hcl) 5 mg PO TID@0800,1200,1700 [facility] Last Admin: 04/05/17 07:21 Dose: Not Given Entacapone [Comtan] (200 Mg) 1 dose PO BID [facility] Last Admin: 04/05/17 11:17 Dose: 1 dose Silodosin [Rapaflo] (8 Mg) 1 dose PO DAILY [facility] Last Admin: 04/05/17 11:14 Dose: Not Given Polyethylene Glycol (Miralax) 17 gm PO DAILYP PRN PRN Reason: Constipation Quetiapine Fumarate (Seroquel) 100 mg PO HS [facility] Last Admin: 04/04/17 19:58 Dose: 100 mg Ropinirole HCl (Requip) 1 mg PO TID [facility] Last Admin: 04/05/17 11:08 Dose: 1 mg Senna (Senokot) 2 tab PO [facility] Last Admin: 04/04/17 20:21 Dose: 2 tab Simvastatin (Zocor) 10 mg PO [facility] Last Admin: 04/04/17 20:24 Dose: 10 mg Sodium Biphosphate/Sodium Phosphate (Fleets Adult) 1 dose PA Q3-4DAYS PRN PRN Reason: Constipation Sodium Chloride (Saline Flush) 10 ml IV Q8 [facility] Last Admin: 04/05/17 05:34 Dose: Not Given Throat Lozenges (Cepacol) 1 lozenge PO PRN PRN PRN Reason: Sore Throat Tramadol HCl (Ultram) 50 mg PO Q6HP PRN PRN Reason: Pain Vancomycin HCl (Vancomycin Per Pharmacy) 1 order IV UD [facility] Vitamin D (Vitamin D3) 10,000 unit PO Q48 [facility] Last Admin: 04/05/17 11:09 Dose: 10,000 unit Medical - PN: A/P - Time Spent With Patient Total time spent is greater than 50% in coordination of care (as documented) at patient's floor/unit and/or counseling patient: - Narrative A/P Narrative: A/P Left Hip Fracture: post op day 4 today, Continue PT/ OT as tolerated. Left hip dislocation: s/p reduction 04/[address] jeffries Post Op Pain: on [facility] tylenol , seems that this is not helping, cont PRN dilaudid for now for pain management. Add tramadol. No h/o seizure. Watch BG given possible sulfonylurea effect w tramadol. Delirium: Due to Post op status, pain, likely etiology. Medical management now, pt not consistently taking orals, IV haldol D/C'd 04/01, CT head neg for acute process. D/C Hand mittens today. Goals of care: see subjective note from 04/04. Cont current tx plan, but if declines, would likely choose comfort measures only. Clavicular fracture Vs Sternoclavicular dislocation: Old injury, appreciate ortho input Parkinsons disease: Resumed home doses of levodopa, carbidopa, ropinirole, unfortunately pt misses does due to being delirious and refusing Meds intermittently. Changed schedule from Q6H to QID and TID to help w sx. Orthostatic hypotension: on midodrine and Florinef at home. Now w supine HTN; decreased midodrine to 5 TID with hold parameters. This will need to be titrated up as he increases mobility. PNA: Likely aspirational pna, Cover as health care associated Pneumonia with vanco and zosyn D4 today. Not hypoxic, no leukocytosis. Consider narrowing if cont to improve. Speech eval ordered HLD on statin HypoK--replace IV again today. Mg normal. Likely 2/2 poor po intake Full Code DVT prophylaxis. ASA 325 BID as per Ortho protocol.
--- NOTE | 2017-04-05 17:04 | Orthopedic Progress Note ---
Subjective Patient information: Note initiated : 04/05/17 at 5:01 pm Service Date, if different from initiated Date: [] Patient: Oliver Miles 81 y/o M admitted on 03/29/17 for Fall, L Hip Pain/ Closed Left Hip Fracture. Chief Complaint: [walking better but has had problems with confusion but even this has improved and ok to dc per ortho hip problem] Objective Vital signs: Vital Signs Temp Pulse Pulse Resp BP Pulse Ox 04/05/17 15:34 97.1 F 20 162/80 93 04/05/17 10:58 97.3 F 20 167/81 92 04/05/17 08:27 73 92 04/05/17 08:13 98.5 F 20 168/77 92 04/05/17 07:22 75 168/77 04/05/17 04:00 98.7 F 71 20 160/89 93 04/04/17 23:35 98.6 F 72 18 120/59 89 L 04/04/17 20:00 98.9 F 88 18 152/80 92 Intake and Output 04/05/17 04/05/17 04/05/17 05:59 13:59 21:59 Intake Total 350 / 350 1150 / 1150 100 / 100 Output Total 2 / 2 2 / 2 Balance 348 / 348 1148 / 1148 99 / 99 Intake: IV 350 / 350 1000 / 1000 Sodium Chloride 0.45% 1, 1000 / 1000 000 ml @ 100 mls/hr IV . Q10H [facility] Rx#:[id number] Zosyn 3.375 gm In 100 / 100 Dextrose 5% in Water 50 ml @ 100 mls/hr IV Q6H [facility] Rx#:[id number] Vancomycin 1,000 mg In 250 / 250 Sodium Chloride 0.9% 250 ml @ 250 mls/hr IV Q12H [facility] Rx#:[id number] Oral 150 / 150 100 / 100 Output: # of times incontinent of 2 / 2 2 / 2 urine Other: Meal Lunch Percent of Meal Consumed 100% Feeding Ability Total Assistance # Voids 2 1 # Bowel Movements 1 # of times incontinent of 1 Bowels Weight 186 lb Patient Weight 04/06/17 05:59 Weight 186 lb Intake & Output: Intake & Output 04/05/17 04/05/17 04/05/17 05:59 13:59 21:59 Intake Total 350 / 350 1150 / 1150 100 / 100 Output Total 2 / 2 2 / 2 Balance 348 / 348 1148 / 1148 99 / 99 Weight 186 lb Intake: IV 350 / 350 1000 / 1000 Sodium Chloride 0.45% 1, 1000 / 1000 000 ml @ 100 mls/hr IV . Q10H [facility] Rx#:[id number] Zosyn 3.375 gm In 100 / 100 Dextrose 5% in Water 50 ml @ 100 mls/hr IV Q6H [facility] Rx#:[id number] Vancomycin 1,000 mg In 250 / 250 Sodium Chloride 0.9% 250 ml @ 250 mls/hr IV Q12H [facility] Rx#:[id number] Oral 150 / 150 100 / 100 Output: # of times incontinent of 2 / 2 2 / 2 urine Other: Meal Lunch Percent of Meal Consumed 100% Feeding Ability Total Assistance # Voids 2 1 # Bowel Movements 1 # of times incontinent of 1 Bowels Incision: Yes healing Incision clean and dry: Yes Dressing: Yes clean Weight bearing status: full Extremities exam IM: Yes normal inspection (walking better and may dc to care center as needed and pt. weight bearing as tolerated), Yes Foot pink and warm - Labs CBC & BMP: 04/05/17 04:30 04/05/17 04:30 Labs: 04/05/17 04/04/17 04/03/17 04:30 04:30 04:48 Hgb 9.1 L 9.5 L 9.8 L Hct 25.5 L 27.3 L 27.6 L 04/02/17 04/01/17 03/31/17 04:15 03:48 03:25 Hgb 10.0 L 10.4 L 10.1 L Hct 28.4 L 29.7 L 28.8 L 03/30/17 03:44 Hgb 9.1 L Hct 26.1 L
[2017-04-05] MEDS: traMADol 50 MG TABLET PO PRN (19:37)
[2017-04-05] MEDS: SENNOSIDES 1 TABLET PO SCH (20:32)
[2017-04-05] MEDS: QUEtiapine 100 MG TABLET PO SCH (20:32)
[2017-04-05] MEDS: GABAPENTIN 300 MG CAPSULE PO SCH (20:33)
[2017-04-05] MEDS: SIMVASTATIN 10 MG TABLET PO SCH (20:33)
[2017-04-06] MEDS: PIPERACILLIN SODIUM/TAZOBACTAM 3.375 GM in DEXTROSE 5% IN WATER 50 ML IV SCH ×4 (00:05→19:00)
[2017-04-06] MEDS: traMADol 50 MG TABLET PO PRN ×2 (00:59→20:47)
[2017-04-06] MEDS: 0.45 % SODIUM CHLORIDE 1,000 ML IV SCH ×2 (05:09→16:23)
[2017-04-06] MEDS: 0.9 % SODIUM CHLORIDE 10 ML SYRINGE IV SCH ×3 (05:10→23:32)
[2017-04-06 07:03] LABS: Basophils # (Auto) 0 K/mcL (0.0-0.3); Basophils % (Auto) 0.6 % (0.0-2.0); Eosinophils # (Auto) 0.2 K/mcL (0.0-0.7); Eosinophils % (Auto) 4.5 % (0.0-7.0); Granulocytes % (Auto) 66.1 % (38.0-78.0); Lymphocytes % (Auto) 18.2 % (15.5-49.0); Mean Cell Volume 109.5 fL (80.0-100.0); Mean Corpuscular HGB Conc 34.9 g/dL (31.0-36.0); Mean Corpuscular Hemoglobin 38.3 pg (26.0-34.0); Monocytes # (Auto) 0.6 K/mcL (0.1-0.9); Monocytes % (Auto) 10.6 % (1.0-12.0); Platelet Count 240 K/mcL (140-440); Red Cell Distribution Width 14.8 % (11.5-14.5)
[2017-04-06 07:49] LABS: Blood Urea Nitrogen 11 mg/dl (8-23)
[2017-04-06] MEDS: MIDODRINE 5 MG TABLET PO SCH ×3 (08:33→18:26)
[2017-04-06] MEDS ORDERED: 0.9 % SODIUM CHLORIDE 1,000 ML IV ONE (08:33)
[2017-04-06] MEDS: rOPINIRole 1 MG TABLET PO SCH ×3 (09:03→20:48)
[2017-04-06] MEDS: clonazePAM 0.5 MG TABLET PO SCH ×2 (09:03→20:46)
[2017-04-06] MEDS: ASPIRIN 325 MG ENTERIC COATED TABLET PO SCH ×2 (09:04→21:23)
[2017-04-06] MEDS: CARBIDOPA/LEVODOPA 25/100 TABLET PO SCH ×4 (09:04→20:51)
[2017-04-06] MEDS: carBAMazepine 100 MG TAB.CHEW PO SCH ×2 (09:05→20:59)
[2017-04-06] MEDS: FLUDROCORTISONE 0.1 MG TABLET PO SCH (09:06)
[2017-04-06] MEDS: ENTACAPONE 200 MG PO SCH ×2 (09:06→21:13)
[2017-04-06] MEDS: FINASTERIDE 5 MG TABLET PO SCH (09:07)
[2017-04-06] MEDS: LACTOBACILLUS 1 CAPSULE PO SCH (09:07)
[2017-04-06] MEDS: VANCOMYCIN 1,500 MG in 0.9 % SODIUM CHLORIDE 500 ML IV SCH (10:00)
[2017-04-06 14:25] LABS: Blood Urea Nitrogen 11 mg/dl (8-23)
--- NOTE | 2017-04-06 14:35 | Internal Med Progress Note ---
Medical - PN: Subj Patient information: Note initiated : 04/06/17 at 2:33 pm Service Date, if different from initiated Date: [] Patient: Oliver Miles 81 y/o M admitted on 03/29/17 for Fall, L Hip Pain/ Closed Left Hip Fracture. Chief Complaint: [] Interval history: 03/29-HPI-Mr. Miles is a 81 year old Male [facility] with left hip injury and pain. Patient sustained a trauma after he fell off the bed while attempting to go to the bathroom this morning around 7:15 AM. He was subsequently brought in to [facility] ER. Initial workup was significant for left subcapital hip fracture. Orthopedics was consulted. Patient was scheduled for operative intervention later in the evening. Hospitalist service was consulted for admission and preoperative risk evaluation along with medical issue management. At time examination patient is alert oriented. He is in significant distress from pain at the fracture site. He is accompanied by his . He is under effect of opioids and was unable to provide a detailed history. Per he did not lose consciousness. There is no evidence of incontinence including bladder or bowel. No seizure-like episode. Patient hasn't had a similar even in the past but suffers from debilitating Parkinson's disease with gait instability. He otherwise denies fever chills nausea vomiting headache photophobia diarrhea dysuria or weight loss. 03/30- postop day 2. Patient doing well. No overnight events. Pain well controlled. No fever chills SOB nausea vomiting or bleeding or swelling at surgery site. started physical therapy. Patient has advanced Parkinson's disease limiting his functionality and gait instability. He also carries history of orthostatic hypertension. Continue aggressive physical therapy and and target or male sitting upright in light of high risk Parkinson's related dysphagia. Anticipate SNF transfer in 48 hours. Continue postop management per orthopedics 03/31: Pt seen examined, acute overnight events noted that patient was more confused and agitated last night, needing use of ativan and some dilaudid, has been refusing his oral medications. Patient this AM was drowsy after the effect of pain meds. The nurse had concern regarding the right clavicle in the patient, it seems that the patient has h/o clavicular fracture (noted on prob list), X ray clavicle is interpreted as negative, but there is an obvious clinical fracture vs dehiscence at the sternoclavicular joint. I called Dr Jeffries to evaluate the patient for this and need for any operative intervention. Patient has been placed in the right sling. Will review old CXR images to see if this is new or old injury. 04/01: Pt seen examined, overnight was agitated again needing 1:1 supervision, dilaudid was held by ortho was resumed for pain management. This AM dialaudid and ativan was held. The patient this AM was doing well, but later in the morning became paranoid and agitated, trying to get out of bed and take a swing at the nurses, case management and myself. He was given ativan 0.5mg and 2mg IV haldol to calm him down. the right clavicle fracture is an old fracture wit no active management needed. sling discontinued. Patient has had increased oxygen needs CXR shows possible pna, blood cx and vanco and zosyn started. His dose of seroquel increased to 50mg at bed time. IV tylenol for pain management for now. 04/02: Patient seen examined, in restrains with mittens to prevent removal of iv acces, has removed 4-5 so far, aggressive towards nursing and care providers, speech is dysarthric. 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 Ortho made aware Dr. Shukla spent 15 mins with family, daughter in law and the , explaining the preset situation. Patient mental condition does not seem to be improving. he remains delirious and aggressive towards care providers. Unable to keep a good IV to maintain hydration nor adequate po intake, pt spits out medications. He remains of D2 of vanco and Zosyn for now. Discussed need for CT head to evaluate if any IC process ongoing If patient does not respond to conservative measures, then it will be difficult to place him, also if he continues to refuse to eat and removes IV access hydration will also be an issue. Over all he has very poor prognosis. 04/03: Taken to OR yesterday for relocation of hip prosthesis. Head CT neg for acute process. He has dysarthric speech today but is able to have some simple conversations. Stood at EOB with PT while bed was changed. K low and is replaced today. Will adjust Sinemet and Requip dosing schedules today to ensure he is getting them. 04/04: Walked with PT today. Still uncooperative; tried to leave and is still requiring hand mitts as restraints. Having supine hypertension with BP 188 last night--on midodrine and Florinef for OH. K still low at 3.2 despite replacement yesterday. Eating a little better today and complaining of hip pain that is unrelieved by Tylenol or dilaudid. Will try Tramadol and increase Seroquel to 100 HS. Had long discussion with at bedside regarding goals of care and prognosis. She is aware that any future insult to his body will result in likely severe delirium with paranoia and combative behavior as he has had this admission and that, at best, he will likely need SNF care long-term. With his slow but steady progress over the weekend, she would like to continue current care but voices interest in pursuing comfort measures only if he worsens. 04/05: Patient seen examined this AM, was more cooperative today, had stable night, his speech remains garbled but at baseline does not have good speech. He is not aggressive today, and did seem to follow commands and ask some appropriate questions. did not need haldol yesterday, will d/c hand mittens today and see how he does. Hopefully he will continue to improve. He will likely need to be 24 hrs without restraints before he can be safely discharged. 04/06 patient seen examined he was somewhat confused at night, but otherwise no acute issues, speech garbled, but seems to be at baseline. He did not need any haldol and is donig well without restrains, unfortunately his renal function is worse today, creat jumped rom 0.6 to 1.4, he received 1L salien bolus and his creat still went up to 1.6, At this time, will initiate workup for renal failure , ua, urine lyes, eosinophil levels and renal sonogram, continue gentle hydration and monitor renal function, consider renal consult if patient kidney function worsens. Pertinent ROS: unable - Constitutional Vitals: Vital Signs Temp Pulse Resp BP Pulse Ox 98.4 F 72 20 185/89 91 04/06/17 11:50 04/06/17 13:00 04/06/17 11:50 04/06/17 11:50 04/06/17 11:50 Period Temp Pulse Resp BP Sys/Garcia Pulse Ox Last 24 Hr 97.1 F-98.4 F 64-77 18-24 127-189/63-89 91-96 Intake and Output 04/06/17 04/06/17 04/06/17 05:59 13:59 21:59 Intake Total 300 / 300 Output Total Balance 300 / 300 -1 / -1 Intake & Output: Intake & Output 04/06/17 04/06/17 04/06/17 05:59 13:59 21:59 Intake Total 300 / 300 Output Total Balance 300 / 300 -1 / -1 Intake: IV 100 / 100 Zosyn 3.375 gm In 100 / 100 Dextrose 5% in Water 50 ml @ 100 mls/hr IV Q6H [facility] Rx#:[id number] Oral 200 / 200 Output: # of times incontinent of urine Exam: Constitutional; Afebrile, cooperative, awake Eyes- No icterus, , No periorbital swelling Ears- Ext ear normal, hearing moderate hard to conversation. Neck- Midline trachea, supple Respiratory system: Air Entry equal on both sides, No crackles or wheezing, no rhonchi. CVS- Rate rhythm regular, S1,S2 heard, no gallop, no rub. Abdomen- Soft nontender abdomen, no organomegaly, no tenderness, no guarding or rigidity, C++ PROFESSOR- AOOx1, moving all extremities, no gross focal deficit noted. Medical - PN: Obj Da - Labs CBC & Chem 7: 04/06/17 04:07 04/06/17 13:40 Labs: Abnormal Lab Results 04/06/17 04/06/17 04/06/17 13:40 04:07 04:07 RBC 2.40 L Hgb 9.2 L Hct 26.3 L MCV 109.5 H MCH 38.3 H RDW 14.8 H Lymph % (Auto) Eos % (Auto) Lymph # (Auto) 1.0 L Sodium 146 H Potassium BUN Creatinine 1.6 H 1.4 H Glucose 137 H Calcium 8.2 L 8.4 L Vancomycin Trough 04/05/17 04/05/17 04/05/17 08:04 04:30 04:30 RBC 2.37 L Hgb 9.1 L Hct 25.5 L MCV 107.7 H MCH 38.4 H RDW Lymph % (Auto) Eos % (Auto) 7.8 H Lymph # (Auto) 1.1 L Sodium Potassium BUN 6 L Creatinine Glucose Calcium 8.1 L Vancomycin Trough 16.5 H 04/04/17 04/04/17 04:30 04:30 RBC 2.53 L Hgb 9.5 L Hct 27.3 L MCV 108.1 H MCH 37.6 H RDW Lymph % (Auto) 11.2 L Eos % (Auto) Lymph # (Auto) 0.6 L Sodium Potassium 3.2 L BUN 7 L Creatinine Glucose Calcium 8.3 L Vancomycin Trough Meds: Medications Aspirin (Ecotrin) 325 mg PO BID [facility] Last Admin: 04/06/17 09:04 Dose: 325 mg Carbamazepine (Tegretol) 100 mg PO Q12 [facility] Last Admin: 04/06/17 09:05 Dose: 100 mg Carbidopa/Levodopa (Sinemet 25/100) 1.5 tab PO QID [facility] Last Admin: 04/06/17 12:23 Dose: 1.5 tab Clonazepam (Klonopin) 0.25 mg PO BID [facility] Last Admin: 04/06/17 09:03 Dose: 0.25 mg Finasteride (Proscar) 5 mg PO DAILY [facility] Last Admin: 04/06/17 09:07 Dose: 5 mg Fludrocortisone Acetate (Florinef) 0.3 mg PO DAILY [facility] Last Admin: 04/06/17 09:06 Dose: 0.3 mg Gabapentin (Neurontin) 300 mg PO HS [facility] Last Admin: 04/05/17 20:33 Dose: 300 mg Sodium Chloride (Sodium Chloride 0.45%) 1,000 mls @ 100 mls/hr IV .Q10H [facility] Last Admin: 04/06/17 05:09 Dose: Not Given Piperacillin Sod/Tazobactam (Sod 3.375 gm/ Dextrose) 50 mls @ 100 mls/hr IV Q6H [facility] Last Admin: 04/06/17 12:24 Dose: 100 mls/hr Acetaminophen (Ofirmev) 650 mg in 65 mls @ 130 mls/hr IV Q6HP PRN PRN Reason: Pain Last Admin: 04/04/17 00:35 Dose: 130 mls/hr Vancomycin HCl 1,500 mg/ (Sodium Chloride) 500 mls @ 333.3 mls/hr IV Q24H [facility] Last Admin: 04/06/17 10:00 Dose: 333.3 mls/hr Lactobacillus Rhamnosus (Culturelle) 1 cap PO DAILY [facility] Last Admin: 04/06/17 09:07 Dose: 1 cap Magnesium Hydroxide (Milk Of Magnesia) 30 ml PO BIDP PRN PRN Reason: Constipation Last Admin: 04/04/17 08:21 Dose: 30 ml Methocarbamol (Robaxin) 500 mg PO TIDP PRN PRN Reason: Muscle Spasm Last Admin: 03/31/17 20:20 Dose: 500 mg Midodrine (Midodrine Hcl) 5 mg PO TID@0800,1200,1700 [facility] Last Admin: 04/06/17 12:23 Dose: 5 mg Entacapone [Comtan] (200 Mg) 1 dose PO BID [facility] Last Admin: 04/06/17 09:06 Dose: 1 dose Silodosin [Rapaflo] (8 Mg) 1 dose PO DAILY [facility] Last Admin: 04/06/17 09:22 Dose: Not Given Polyethylene Glycol (Miralax) 17 gm PO DAILYP PRN PRN Reason: Constipation Last Admin: 04/05/17 20:43 Dose: 17 gm Quetiapine Fumarate (Seroquel) 100 mg PO HS [facility] Last Admin: 04/05/17 20:32 Dose: 100 mg Ropinirole HCl (Requip) 1 mg PO TID [facility] Last Admin: 04/06/17 09:03 Dose: 1 mg Senna (Senokot) 2 tab PO HS [facility] Last Admin: 04/05/17 20:32 Dose: 2 tab Simvastatin (Zocor) 10 mg PO HS [facility] Last Admin: 04/05/17 20:33 Dose: 10 mg Sodium Biphosphate/Sodium Phosphate (Fleets Adult) 1 dose [place] Q3-4DAYS PRN PRN Reason: Constipation Sodium Chloride (Saline Flush) 10 ml IV Q8 [facility] Last Admin: 04/06/17 05:10 Dose: Not Given Throat Lozenges (Cepacol) 1 lozenge PO PRN PRN PRN Reason: Sore Throat Tramadol HCl (Ultram) 50 mg PO Q6HP PRN PRN Reason: Pain Last Admin: 04/06/17 00:59 Dose: 50 mg Vancomycin HCl (Vancomycin Per Pharmacy) 1 order [place] [facility] [place] D (Vitamin D3) 10,000 unit PO Q48 [facility] Last Admin: 04/05/17 11:09 Dose: 10,000 unit Medical - PN: A/P - Time Spent With Patient Total time spent is greater than 50% in coordination of care (as documented) at patient's floor/unit and/or counseling patient: - Narrative A/P Narrative: A/P Left Hip Fracture: , Continue PT/ OT as tolerated. Left hip dislocation: s/p reduction 04/[address] jeffries , pt doing well at present Post Op Pain: tramadol prn, methacarbamol prn, doing well so far with same. Delirium: improving, still has some ing, but better than before, off restrains since yesterday. Goals of care: see subjective note from 04/04. Cont current tx plan, but if declines, would likely choose comfort measures only. Clavicular fracture Vs Sternoclavicular dislocation: Old injury, appreciate ortho input Parkinsons disease: Resumed home doses of levodopa, carbidopa, ropinirole, unfortunately pt misses does due to being delirious and refusing Meds intermittently. Changed schedule from Q6H to QID and TID to help w sx. Orthostatic hypotension: on midodrine and Florinef at home. Now w supine HTN; decreased midodrine to 5 TID with hold parameters. This will need to be titrated up as he increases mobility. PNA: Likely aspirational pna, Cover as health care associated Pneumonia with vanco and zosyn D4 today. Not hypoxic, no leukocytosis. Consider narrowing if cont to improve. Speech eval appreciatd, regular diet with thin liq ordered Acute kidney injury: etiology: renal scan negative, no hydro, ua neg, monitor for now, if worsens get nephrology opinion. HLD on statin Full Code DVT prophylaxis. ASA 325 BID as per Ortho protocol.
[2017-04-06 15:01] LABS: Vancomycin,Random 38.8 ug/ml
[2017-04-06 16:27] LABS: Appearance,Urine CLEAR; Bacteria,Urine 0 /hpf (0); Bilirubin,Urine NEG (NEG); Color,Urine YELLOW; Glucose,Urine (UA) NEGATIVE (NEG); Leukocyte Esterase,Urine NEG /uL (NEG); Mucus,Urine FEW /hpf (0); Nitrate,Urine NEG (NEG); Protein,Urine NEG (NEG); Specific Gravity,Urine 1.006 (1.000-1.035); Urine Blood 0.03 mg/dL (<0.03); Urine RBC 1 /hpf (0-1); Urine Squamous Epithelial Cell 0 /hpf (0-4); Urine WBC 1 /hpf (0-4); Urobilinogen,Urine NEG (NEG)
--- NOTE | 2017-04-06 17:01 | Ultrasound Report ---
History: Renal failure Findings: The right kidney is normal and measures 5.0 x 6.5 x 12.3 cm. The cortex is normal in thickness and echogenicity and there is no hydronephrosis. Left kidney was more difficult to visualize since the patient has a recent hip fracture and was unable to roll and was also having labored breathing. Left kidney is 6.2 x 6.2 x 13.0 cm. There may be mild increased echogenicity of the cortex in the left kidney. Based upon a prior CT done in 2010 there are two simple cysts in the left kidney. These cannot be clearly identified on today's ultrasound. There is no hydronephrosis in the left kidney and there is also no evidence of a solid mass or calculus. There is prominence of the renal sinus fat. Doppler shows good blood flow to both kidneys. The patient had emptied his bladder prior to the examination. Therefore we were unable to document flow of urine through either ureter into the bladder. Prostate appears normal in size. Impression: Anatomically normal right kidney. Mildly echogenic cortex in the left kidney which may be due to chronic medical renal disease. No acute abnormality is seen in either kidney. Interpreted and Authenticated by: Dennis Beckford 04/06/17
[2017-04-06] MEDS ORDERED: LORazepam 2 MG/ML VIAL ONE (19:35)
[2017-04-06] MEDS: QUEtiapine 100 MG TABLET PO SCH (20:52)
[2017-04-06] MEDS: GABAPENTIN 300 MG CAPSULE PO SCH (21:00)
[2017-04-06] MEDS: TAMSULOSIN 0.4 MG CAPSULE PO SCH (21:14)
[2017-04-06] MEDS: SIMVASTATIN 10 MG TABLET PO SCH (21:14)
[2017-04-06] MEDS: SENNOSIDES 1 TABLET PO SCH (21:23)
[2017-04-07] MEDS: 0.45 % SODIUM CHLORIDE 1,000 ML IV SCH ×4 (00:47→23:58)
[2017-04-07] MEDS: PIPERACILLIN SODIUM/TAZOBACTAM 3.375 GM in DEXTROSE 5% IN WATER 50 ML IV SCH ×4 (00:48→18:13)
[2017-04-07] MEDS: 0.9 % SODIUM CHLORIDE 10 ML SYRINGE IV SCH ×3 (05:29→20:33)
--- NOTE | 2017-04-07 08:01 | XRay Report ---
HISTORY: Reason for Exam:hip pain, ? dislocation after recurrent fall FINDINGS: Patient has a well-positioned left hip prosthesis. There is no dislocation or fracture. The alignment is unchanged since 04/02/17. There are surgical skin chris lateral to the hip. IMPRESSION: No fracture or dislocation Interpreted and Authenticated by: Dennis Beckford 04/07/17
[2017-04-07 08:20] LABS: Basophils # (Auto) 0 K/mcL (0.0-0.3); Basophils % (Auto) 0.1 % (0.0-2.0); Eosinophils # (Auto) 0 K/mcL (0.0-0.7); Eosinophils % (Auto) 0.1 % (0.0-7.0); Granulocytes % (Auto) 90.4 % (38.0-78.0); Lymphocytes # (Auto) 0.6 K/mcL (1.5-4.8); Lymphocytes % (Auto) 5.4 % (15.5-49.0); Mean Cell Volume 105.4 fL (80.0-100.0); Mean Corpuscular HGB Conc 33.8 g/dL (31.0-36.0); Mean Corpuscular Hemoglobin 35.6 pg (26.0-34.0); Monocytes # (Auto) 0.5 K/mcL (0.1-0.9); Platelet Count 245 K/mcL (140-440); RBC 2.23 M/mcL (4.50-5.90); Red Cell Distribution Width 14.8 % (11.5-14.5)
[2017-04-07] MEDS: PANTOPRAZOLE 40 MG VIAL IV SCH (08:27)
[2017-04-07 08:39] LABS: ALT/SGPT < 5 U/l (0-40); Albumin 2.7 gm/dL (3.2-5.2); Albumin/Globulin Ratio 1.4 (1.0-2.3); Alkaline Phosphatase 60 U/L (39-117); Bilirubin,Direct < 0.2 mg/dL (0.0-0.3); Blood Urea Nitrogen 13 mg/dl (8-23); Gamma Glutamyl Transpeptidase 30 U/L (8-61); Uric Acid 3.4 mg/dL (2.5-8.0)
[2017-04-07] MEDS ORDERED: GLYCERIN, ADULT 1 SUPP.RECT PR ONE (08:58)
--- NOTE | 2017-04-07 09:42 | XRay Report ---
HISTORY: Reason for Exam:pneumonia FINDINGS: There is a moderate-sized alveolar infiltrate in the left lower lobe which has enlarged since 04/01/17. There is a milder infiltrate medially in the right lower lobe which is unchanged. Mildly prominent increased interstitial lung markings are present in the right upper lobe. No pleural effusion is detected. The heart size is normal. IMPRESSION: Worsening pneumonia in the left lower lobe Interpreted and Authenticated by: Dennis Beckford 04/07/17
--- NOTE | 2017-04-07 09:43 | XRay Report ---
HISTORY: Reason for Exam:abdominal pain/ constipation FINDINGS: The bowel pattern is normal without evidence of obstruction, ileus or fecal impaction. There is no free intra-abdominal air. No abnormal soft tissue calcification is present. There is a well-positioned left hip prosthesis. Alveolar infiltrate is noted in the left lower lobe. Arthritis is seen in the thoracic and lumbar spine at multiple levels. IMPRESSION: Normal bowel pattern Interpreted and Authenticated by: Dennis Beckford 04/07/17
[2017-04-07] MEDS: VITAMIN D3 5,000 UNIT CAPSULE PO SCH (09:48)
[2017-04-07] MEDS: rOPINIRole 1 MG TABLET PO SCH ×3 (09:48→20:31)
[2017-04-07] MEDS: clonazePAM 0.5 MG TABLET PO SCH ×2 (09:48→20:32)
[2017-04-07] MEDS: TAMSULOSIN 0.4 MG CAPSULE PO SCH ×2 (09:48→20:34)
[2017-04-07] MEDS: CARBIDOPA/LEVODOPA 25/100 TABLET PO SCH ×4 (09:48→20:31)
[2017-04-07] MEDS: FINASTERIDE 5 MG TABLET PO SCH (09:48)
[2017-04-07] MEDS: ASPIRIN 325 MG ENTERIC COATED TABLET PO SCH ×2 (09:49→20:36)
[2017-04-07] MEDS: THIAMINE 100 MG in 0.9 % SODIUM CHLORIDE 50 ML IV SCH (09:49)
[2017-04-07] MEDS: LACTOBACILLUS 1 CAPSULE PO SCH (09:49)
[2017-04-07] MEDS: FLUDROCORTISONE 0.1 MG TABLET PO SCH (09:49)
[2017-04-07] MEDS: carBAMazepine 100 MG TAB.CHEW PO SCH ×2 (09:49→20:38)
[2017-04-07] MEDS: ENTACAPONE 200 MG PO SCH ×2 (09:49→20:40)
[2017-04-07] MEDS: MIDODRINE 5 MG TABLET PO SCH ×3 (09:53→18:09)
[2017-04-07] MEDS: HYDROcodone/APAP 5/325MG TABLET PO PRN ×2 (10:27→20:36)
--- NOTE | 2017-04-07 10:34 | Internal Med Progress Note ---
Medical - PN: Subj Patient information: Note initiated : 04/07/17 at 10:29 am Service Date, if different from initiated Date: [] Patient: Oliver Miles 81 y/o M admitted on 03/29/17 for Fall, L Hip Pain/ Closed Left Hip Fracture. Chief Complaint: [] Interval history: 03/29-HPI-Mr. Miles is a 81 year old Male [facility] with left hip injury and pain. Patient sustained a trauma after he fell off the bed while attempting to go to the bathroom this morning around 7:15 AM. He was subsequently brought in to [facility] ER. Initial workup was significant for left subcapital hip fracture. Orthopedics was consulted. Patient was scheduled for operative intervention later in the evening. Hospitalist service was consulted for admission and preoperative risk evaluation along with medical issue management. At time examination patient is alert oriented. He is in significant distress from pain at the fracture site. He is accompanied by his . He is under effect of opioids and was unable to provide a detailed history. Per he did not lose consciousness. There is no evidence of incontinence including bladder or bowel. No seizure-like episode. Patient hasn't had a similar even in the past but suffers from debilitating Parkinson's disease with gait instability. He otherwise denies fever chills nausea vomiting headache photophobia diarrhea dysuria or weight loss. 03/30- postop day 2. Patient doing well. No overnight events. Pain well controlled. No fever chills SOB nausea vomiting or bleeding or swelling at surgery site. started physical therapy. Patient has advanced Parkinson's disease limiting his functionality and gait instability. He also carries history of orthostatic hypertension. Continue aggressive physical therapy and and target or male sitting upright in light of high risk Parkinson's related dysphagia. Anticipate SNF transfer in 48 hours. Continue postop management per orthopedics 03/31: Pt seen examined, acute overnight events noted that patient was more confused and agitated last night, needing use of ativan and some dilaudid, has been refusing his oral medications. Patient this AM was drowsy after the effect of pain meds. The nurse had concern regarding the right clavicle in the patient, it seems that the patient has h/o clavicular fracture (noted on prob list), X ray clavicle is interpreted as negative, but there is an obvious clinical fracture vs dehiscence at the sternoclavicular joint. I called Dr Jeffries to evaluate the patient for this and need for any operative intervention. Patient has been placed in the right sling. Will review old CXR images to see if this is new or old injury. 04/01: Pt seen examined, overnight was agitated again needing 1:1 supervision, dilaudid was held by ortho was resumed for pain management. This AM dialaudid and ativan was held. The patient this AM was doing well, but later in the morning became paranoid and agitated, trying to get out of bed and take a swing at the nurses, case management and myself. He was given ativan 0.5mg and 2mg IV haldol to calm him down. the right clavicle fracture is an old fracture wit no active management needed. sling discontinued. Patient has had increased oxygen needs CXR shows possible pna, blood cx and vanco and zosyn started. His dose of seroquel increased to 50mg at bed time. IV tylenol for pain management for now. 04/02: Patient seen examined, in restrains with mittens to prevent removal of iv acces, has removed 4-5 so far, aggressive towards nursing and care providers, speech is dysarthric. 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 Ortho made aware Dr. Shukla spent 15 mins with family, daughter in law and the , explaining the preset situation. Patient mental condition does not seem to be improving. he remains delirious and aggressive towards care providers. Unable to keep a good IV to maintain hydration nor adequate po intake, pt spits out medications. He remains of D2 of vanco and Zosyn for now. Discussed need for CT head to evaluate if any IC process ongoing If patient does not respond to conservative measures, then it will be difficult to place him, also if he continues to refuse to eat and removes IV access hydration will also be an issue. Over all he has very poor prognosis. 04/03: Taken to OR yesterday for relocation of hip prosthesis. Head CT neg for acute process. He has dysarthric speech today but is able to have some simple conversations. Stood at EOB with PT while bed was changed. K low and is replaced today. Will adjust Sinemet and Requip dosing schedules today to ensure he is getting them. 04/04: Walked with PT today. Still uncooperative; tried to leave and is still requiring hand mitts as restraints. Having supine hypertension with BP 188 last night--on midodrine and Florinef for OH. K still low at 3.2 despite replacement yesterday. Eating a little better today and complaining of hip pain that is unrelieved by Tylenol or dilaudid. Will try Tramadol and increase Seroquel to 100 HS. Had long discussion with at bedside regarding goals of care and prognosis. She is aware that any future insult to his body will result in likely severe delirium with paranoia and combative behavior as he has had this admission and that, at best, he will likely need SNF care long-term. With his slow but steady progress over the weekend, she would like to continue current care but voices interest in pursuing comfort measures only if he worsens. 04/05: Patient seen examined this AM, was more cooperative today, had stable night, his speech remains garbled but at baseline does not have good speech. He is not aggressive today, and did seem to follow commands and ask some appropriate questions. did not need haldol yesterday, will d/c hand mittens today and see how he does. Hopefully he will continue to improve. He will likely need to be 24 hrs without restraints before he can be safely discharged. 04/06 patient seen examined he was somewhat confused at night, but otherwise no acute issues, speech garbled, but seems to be at baseline. He did not need any haldol and is donig well without restrains, unfortunately his renal function is worse today, creat jumped rom 0.6 to 1.4, he received 1L salien bolus and his creat still went up to 1.6, At this time, will initiate workup for renal failure , ua, urine lyes, eosinophil levels and renal sonogram, continue gentle hydration and monitor renal function, consider renal consult if patient kidney function worsens. 04/07: patient seen and examined, he was acutely confused yesterday evening with aggressive behavior, was given Ativan with resolution of symptoms. Since around 9:00 yesterday. He has not had any issues. His speech is garbled, but does obey commands, responding. His labs show worsening WBC count worsening renal function with a creatinine of 1.7 he is still making urine. His bladder scan shows urine of around 230 mL, any side effect diapers. His urine studies and renal sonogram have been reviewed Nephrology has been consulted for evaluation of acute kidney injury. Pertinent ROS: unable - Constitutional Vitals: Vital Signs Temp Pulse Resp BP Pulse Ox 98.6 F 78 24 H 107/56 90 04/07/17 07:50 04/07/17 07:50 04/07/17 07:50 04/07/17 04:00 04/07/17 07:50 Period Temp Pulse Resp BP Sys/Garcia Pulse Ox Last 24 Hr 97.6 F-98.9 F 72-92 16-28 107-185/56-96 90-95 Intake and Output 04/06/17 04/07/17 04/07/17 21:59 05:59 13:59 Intake Total 1090 / 1090 1090 / 1090 Output Total 803 / 803 1 Balance 287 / 287 1089 / 1089 Weight 186 lb Intake & Output: Intake & Output 04/06/17 04/07/17 04/07/17 21:59 05:59 13:59 Intake Total 1090 / 1090 1090 / 1090 Output Total 803 / 803 Balance 287 / 287 1089 / 1089 Weight 186 lb Intake: IV 50 / 50 890 / 890 Sodium Chloride 0.45% 1, 840 / 840 000 ml @ 100 mls/hr IV . Q10H [facility] Rx#:[id number] Zosyn 3.375 gm In 50 / 50 50 / 50 Dextrose 5% in Water 50 ml @ 100 mls/hr IV Q6H [facility] Rx#:[id number] Oral 1040 / 1040 200 / 200 Output: Urine Catheter Amount 400 / 400 Void Amount 400 / 400 Straight 400 / 400 # of times incontinent of 3 / 3 urine Other: Meal jello cup Percent of Meal Consumed 100% Feeding Ability Needs Supervision # Bowel Movements 1 Exam: Constitutional; Afebrile, cooperative awake Eyes- No icterus, , No periorbital swelling Ears- Ext ear normal, hearing normal to conversation. Neck- Midline trachea, supple Respiratory system: Air Entry equal on both sides, No crackles or wheezing, no rhonchi. (ant exam) CVS- Rate rhythm regular, S1,S2 heard, no gallop, no rub. Abdomen- Soft nontender abdomen, no organomegaly, no tenderness, no guarding or rigidity, CLOTH REELER- AOOx1, moving all extremities, no gross focal deficit noted. Medical - PN: Obj Da - Labs CBC & Chem 7: 04/07/17 07:36 04/07/17 07:36 Labs: Abnormal Lab Results 04/07/17 04/07/17 04/06/17 07:36 07:36 16:02 WBC 11.2 H RBC 2.23 L Hgb 7.9 L Hct 23.5 L MCV 105.4 H MCH 35.6 H RDW 14.8 H Gran % 90.4 H Lymph % (Auto) 5.4 L Eos % (Auto) Gran # 10.1 H Lymph # (Auto) 0.6 L Sodium Potassium 3.2 L BUN Creatinine 1.7 H Glucose Calcium 7.8 L Lactate Dehydrogenase 302 H Total Protein 4.6 L Albumin 2.7 L Globulin 1.9 L Urine Occult Blood U [place] Prot/Creat Ratio 0.53 H Vancomycin Trough 04/06/17 04/06/17 04/06/17 16:01 13:40 04:07 WBC RBC Hgb Hct MCV MCH RDW Gran % Lymph % (Auto) Eos % (Auto) Gran # Lymph # (Auto) Sodium 146 H Potassium BUN Creatinine 1.6 H 1.4 H Glucose 137 H Calcium 8.2 L 8.4 L Lactate Dehydrogenase Total Protein Albumin Globulin Urine Occult Blood 0.03 A U [place] Prot/Creat Ratio Vancomycin Trough 04/06/17 04/05/17 04/05/17 04:07 08:04 04:30 WBC RBC 2.40 L Hgb 9.2 L Hct 26.3 L MCV 109.5 H MCH 38.3 H RDW 14.8 H Gran % Lymph % (Auto) Eos % (Auto) Gran # Lymph # (Auto) 1.0 L Sodium Potassium BUN 6 L Creatinine Glucose Calcium 8.1 L Lactate Dehydrogenase Total Protein Albumin Globulin Urine Occult Blood U [place] Prot/Creat Ratio Vancomycin Trough 16.5 H 04/05/17 04:30 WBC RBC 2.37 L Hgb 9.1 L Hct 25.5 L MCV 107.7 H MCH 38.4 H RDW Gran % Lymph % (Auto) Eos % (Auto) 7.8 H Gran # Lymph # (Auto) 1.1 L Sodium Potassium BUN Creatinine Glucose Calcium Lactate Dehydrogenase Total Protein Albumin Globulin Urine Occult Blood U [place] Prot/Creat Ratio Vancomycin Trough Meds: Medications Hydrocodone Bitart/Acetaminophen ([place] 5/325mg) 1 tab PO Q4-6HP PRN PRN Reason: Pain Last Admin: 04/07/17 10:27 Dose: 1 tab Aspirin (Ecotrin) 325 mg PO BID [facility] Last Admin: 04/07/17 09:49 Dose: 325 mg Carbamazepine (Tegretol) 100 mg PO Q12 [facility] Last Admin: 04/07/17 09:49 Dose: 100 mg Carbidopa/Levodopa (Sinemet 25/100) 1.5 tab PO QID [facility] Last Admin: 04/07/17 09:48 Dose: 1.5 tab Clonazepam (Klonopin) 0.25 mg PO BID [facility] Last Admin: 04/07/17 09:48 Dose: 0.25 mg Finasteride (Proscar) 5 mg PO DAILY [facility] Last Admin: 04/07/17 09:48 Dose: 5 mg Fludrocortisone Acetate (Florinef) 0.3 mg PO DAILY [facility] Last Admin: 04/07/17 09:49 Dose: 0.3 mg Gabapentin (Neurontin) 300 mg PO HS [facility] Last Admin: 04/06/17 21:00 Dose: 300 mg Hydromorphone HCl (Dilaudid) 1 mg IV Q4-6HP PRN PRN Reason: Pain Sodium Chloride (Sodium Chloride 0.45%) 1,000 mls @ 100 mls/hr IV .Q10H [facility] Last Admin: 04/07/17 00:47 Dose: 100 mls/hr Piperacillin Sod/Tazobactam (Sod 3.375 gm/ Dextrose) 50 mls @ 100 mls/hr IV Q6H [facility] Last Admin: 04/07/17 05:29 Dose: 100 mls/hr Acetaminophen (Ofirmev) 650 mg in 65 mls @ 130 mls/hr IV Q6HP PRN PRN Reason: Pain Last Admin: 04/04/17 00:35 Dose: 130 mls/hr Vancomycin HCl 1,500 mg/ (Sodium Chloride) 500 mls @ 333.3 mls/hr IV Q24H [facility] Last Admin: 04/06/17 10:00 Dose: 333.3 mls/hr Thiamine HCl 100 mg/ Sodium (Chloride) 51 mls @ 50 mls/hr IV DAILY [facility] Stop: 04/09/17 10:02 Last Admin: 04/07/17 09:49 Dose: 50 mls/hr Lactobacillus Rhamnosus (Culturelle) 1 cap PO DAILY [facility] Last Admin: 04/07/17 09:49 Dose: 1 cap Lorazepam (Ativan) 1 mg IV Q2HP PRN PRN Reason: ANXIETY/SEDATION Magnesium Hydroxide (Milk Of Magnesia) 30 ml PO BIDP PRN PRN Reason: Constipation Last Admin: 04/04/17 08:21 Dose: 30 ml Methocarbamol (Robaxin) 500 mg PO TIDP PRN PRN Reason: Muscle Spasm Last Admin: 03/31/17 20:20 Dose: 500 mg Midodrine (Midodrine Hcl) 5 mg PO TID@0800,1200,1700 [facility] Last Admin: 04/07/17 09:53 Dose: 5 mg Pantoprazole Sodium (Protonix) 40 mg IV QAMAC [facility] Last Admin: 04/07/17 08:27 Dose: 40 mg Entacapone [Comtan] (200 Mg) 1 dose PO BID [facility] Last Admin: 04/07/17 09:49 Dose: 1 dose Silodosin [Rapaflo] (8 Mg) 1 dose PO DAILY [facility] Last Admin: 04/07/17 09:50 Dose: Not Given Polyethylene Glycol (Miralax) 17 gm PO DAILYP PRN PRN Reason: Constipation Last Admin: 04/05/17 20:43 Dose: 17 gm Potassium [facility] ([facility]Con) [facility] Quetiapine Fumarate (Seroquel) 100 mg PO [facility] Ropinirole HCl (Requip) 1 mg PO TID [facility] Last Admin: 04/07/17 09:48 Dose: 1 mg Senna (Senokot) 2 tab PO [facility] Last Admin: 04/06/17 21:23 Dose: Not Given Simvastatin (Zocor) 10 mg PO [facility] Last Admin: 04/06/17 21:14 Dose: Not Given Sodium Biphosphate/Sodium Phosphate (Fleets Adult) 1 dose SD Q3-4DAYS PRN PRN Reason: Constipation Sodium Chloride (Saline Flush) 10 ml IV Q8 [facility] Last Admin: 04/07/17 05:29 Dose: Not Given Tamsulosin HCl (Flomax) 0.4 mg PO BID [facility] Last Admin: 04/07/17 09:48 Dose: 0.4 mg Throat Lozenges (Cepacol) 1 lozenge PO PRN PRN PRN Reason: Sore Throat Tramadol HCl (Ultram) 50 mg PO Q6HP PRN PRN Reason: Pain Last Admin: 04/06/17 20:47 Dose: 50 mg Vancomycin HCl (Vancomycin Per Pharmacy) 1 order IV UD [facility] Vitamin D (Vitamin D3) 10,000 unit PO Q48 [facility] Last Admin: 04/07/17 09:48 Dose: 10,000 unit Medical - PN: A/P - Time Spent With Patient Total time spent is greater than 50% in coordination of care (as documented) at patient's floor/unit and/or counseling patient: - Narrative A/P Narrative: A/P Left Hip Fracture: , Continue PT/ OT as tolerated. Left hip dislocation: s/p reduction 04/[address] jeffries , pt doing well at present , repeat X ray 04/06 is normal Post Op Pain: tramadol prn, methacarbamol prn, added hydrocodone as his home dose. Delirium: improving, still has some sundowning, waxing and waning situation, IV thiamine added. Anemia: drop in hb, not sure if dilutional, anemia workup sent, iron studies, vit b12 and folate. Monitor for now, Goals of care: see subjective note from 04/04. Cont current tx plan, but if declines, would likely choose comfort measures only. Clavicular fracture Vs Sternoclavicular dislocation: Old injury, appreciate ortho input Parkinsons disease: Resumed home doses of levodopa, carbidopa, ropinirole, unfortunately pt misses does due to being delirious and refusing Meds intermittently. Changed schedule from Q6H to QID and TID to help w sx. Orthostatic hypotension: on midodrine and Florinef at home. Now w supine HTN; decreased midodrine to 5 TID with hold parameters. This will need to be titrated up as he increases mobility. PNA: Likely aspirational pna, continue vanco and zosyn, repeat CXR shows worsening pna. Acute kidney injury: etiology: renal scan negative, no hydro, ua neg, fena is 2.5, patient is making urine, nephrology consulted. CK is normal , likely ATN due to BP fluctuations? vs PNA / sepsis related ATN vs Vanco toxicity, check vanco trough today, due to nsaids? on ASA 325 BID? HLD on statin Full Code DVT prophylaxis. ASA 325 BID as per Ortho protocol.
[2017-04-07] MEDS: LORazepam 2 MG/ML VIAL IV PRN (10:42)
[2017-04-07 11:04] LABS: Iron 26 mcg/dl (61-157); Transferrin % Saturation 17 % (20-50); Unsaturated Iron Binding 124 mcg/dL (112-346)
[2017-04-07] MEDS: VANCOMYCIN 1,500 MG in 0.9 % SODIUM CHLORIDE 500 ML IV SCH (11:05)
[2017-04-07 11:16] LABS: Ferritin 484.2 ng/ml (30-400)
[2017-04-07 11:23] LABS: Vitamin B12 574.8 pg/ml (243-894)
[2017-04-07] MEDS: QUEtiapine 100 MG TABLET PO SCH (14:34)
[2017-04-07] MEDS ORDERED: QUEtiapine 100 MG TABLET PO SCH ×2 (15:00→16:30)
--- NOTE | 2017-04-07 17:25 | Nephrology Consult Note ---
History of Present Illness - Reason for Consult Patient information: Note initiated : 04/07/17 at 5:22 pm Service Date, if different from initiated Date: [] Patient: Oliver Miles 81 y/o M admitted on 03/29/17 for Fall, L Hip Pain/ Closed Left Hip Fracture. Chief Complaint: [] - Chief Complaint Patient confused, unable to report any complaints - History of Present Illness 81 years old male, s/p reduction of hip fracture about 1 week back. I was asked to see him for ARF/SOPHIE. Baseline SCr was 0.6-0.7 mg/dl at time of admission. He has been receiving IV Vancomycin and IV Zosyn. Review of available data showed normal CK and evidence of urinary retention or obstructive uropathy. Notably, his BP has fluctuated widely over last few days. Nursing staff reported that he incontinent of urine. SCr was noted to be 1.4-1.6 on 04-06-17 and 1.7 mg/dl today. He is receiving IV hydration with 0.45 saline 100 ml/hr. Serum vancomycin trough level was just over 16 on last check, level is pending for today. Also noted to have mild hypokalemia. he is not on NSAIDs, ACEI, ARB, diuretics Review of Systems ROS unobtainable: due to mental status Past History Past medical history: Parkinson's. Orthostatic hypotension Past social history: Remote h/o smoking and alcohol use. No known h/o drug abuse. Medications and Allergies Home Medications Medication Instructions Recorded Confirmed Type Carbidopa/Levodopa [Carbidopa-Levo 1.5 each PO Q6 06/20/16 03/29/17 History 25-100 mg Odt] Cholecalciferol (Vitamin D3) 10,000 unit PO Q48 06/20/16 03/29/17 History [Vitamin D3] Entacapone [Comtan] 200 mg PO BID 06/20/16 03/29/17 History Gabapentin [Neurontin] 300 mg PO HS 06/20/16 03/29/17 History HYDROcodone/ACETAMINOPHEN [[place] 1 tab PO BID 06/20/16 03/29/17 History Hd 10-325 mg Tablet] Pravastatin [Pravachol] 20 mg PO DAILY 06/20/16 03/29/17 History QUEtiapine [SEROquel] 25 mg PO HS 06/20/16 03/29/17 History Silodosin [Rapaflo] 8 mg PO DAILY 06/20/16 03/29/17 History carBAMazepine [TEGretol] 100 mg PO Q12 #30 tab.chew 11/29/16 03/29/17 Rx Midodrine [Midodrine HCl] 10 mg PO TID@0800,1200,1700 12/09/16 03/29/17 History rOPINIRole [Requip] 1 mg PO Q6 12/09/16 03/29/17 History Finasteride 5 mg PO DAILY 03/29/17 03/29/17 History Fludrocortisone [Florinef] 0.3 mg PO DAILY 03/29/17 03/29/17 History L.acidoph,Paracasei, B.lactis 1 tab PO DAILY 03/29/17 03/29/17 History [Probiotic] clonazePAM [Clonazepam] 0.25 mg SL BID 03/29/17 03/29/17 History Allergies Allergy/AdvReac Type Severity Reaction Status Date / Time No Known Drug Allergies Allergy Verified 03/29/17 07:52 Exam - Vital Signs Vital signs: Temp Pulse Resp BP Pulse Ox 98.6 F 73 24 H 111/58 94 04/07/17 07:50 04/07/17 14:13 04/07/17 12:00 04/07/17 12:00 04/07/17 12:00 Results - Lab Results 04/07/17 07:36 04/07/17 07:36 Most recent lab results Calcium 7.8 mg/dl (8.6-10.4) L 04/07/17 07:36 Phosphorus 4.4 mg/dL (2.7-4.5) 04/07/17 07:36 Magnesium 2.0 mg/dL (1.6-2.5) 04/07/17 07:36 Assessment and Plan (1) SOPHIE (acute kidney injury) SOPHIE/ARF, non-oliguric, likely hemodynamic injury due to relative hypotension. There are reports of higher incidence of SOPHIE/ARF with concomitant use of Vancomycin and Zosyn. Follow serum Vancomycin trough level to guide dosing. Reasonable to pursue gentle IV hydration. Follow urine output. Avoid nephrotoxins. Potassium repletion prn. Follow BMP Status: Acute
[2017-04-07] MEDS: IPRATROPIUM/ALBUTEROL 3 ML AMPUL.NEB NEB SCH (18:02)
[2017-04-07] MEDS: GABAPENTIN 300 MG CAPSULE PO SCH (20:34)
[2017-04-07] MEDS: SIMVASTATIN 10 MG TABLET PO SCH (20:39)
[2017-04-07] MEDS: SENNOSIDES 1 TABLET PO SCH (20:40)
[2017-04-08] MEDS: PIPERACILLIN SODIUM/TAZOBACTAM 3.375 GM in DEXTROSE 5% IN WATER 50 ML IV SCH ×4 (00:10→17:12)
[2017-04-08] MEDS: IPRATROPIUM/ALBUTEROL 3 ML AMPUL.NEB NEB SCH ×4 (00:11→19:32)
[2017-04-08] MEDS: 0.45 % SODIUM CHLORIDE 1,000 ML IV SCH ×3 (04:45→21:28)
[2017-04-08] MEDS: 0.9 % SODIUM CHLORIDE 10 ML SYRINGE IV SCH ×3 (05:16→20:32)
[2017-04-08 08:00] LABS: Basophils # (Auto) 0 K/mcL (0.0-0.3); Basophils % (Auto) 0.8 % (0.0-2.0); Eosinophils # (Auto) 0.2 K/mcL (0.0-0.7); Eosinophils % (Auto) 4.2 % (0.0-7.0); Granulocytes % (Auto) 71.6 % (38.0-78.0); Lymphocytes # (Auto) 0.8 K/mcL (1.5-4.8); Lymphocytes % (Auto) 14.9 % (15.5-49.0); Mean Cell Volume 107.5 fL (80.0-100.0); Mean Corpuscular HGB Conc 33.9 g/dL (31.0-36.0); Mean Corpuscular Hemoglobin 36.5 pg (26.0-34.0); Monocytes # (Auto) 0.5 K/mcL (0.1-0.9); Monocytes % (Auto) 8.5 % (1.0-12.0); Platelet Count 269 K/mcL (140-440); RBC 2.55 M/mcL (4.50-5.90); Red Cell Distribution Width 15.1 % (11.5-14.5)
[2017-04-08 08:20] LABS: Vancomycin,Random 15.7 ug/ml
[2017-04-08] MEDS: POTASSIUM CHLORIDE 20 MEQ PACKET PO SCH (08:21)
[2017-04-08] MEDS: PANTOPRAZOLE 40 MG VIAL IV SCH (08:21)
[2017-04-08] MEDS: MIDODRINE 5 MG TABLET PO SCH ×3 (08:25→17:12)
[2017-04-08 08:27] LABS: ALT/SGPT < 5 U/l (0-40); Albumin/Globulin Ratio 1.3 (1.0-2.3); Alkaline Phosphatase 64 U/L (39-117); Bilirubin,Direct < 0.2 mg/dL (0.0-0.3); Blood Urea Nitrogen 14 mg/dl (8-23); Gamma Glutamyl Transpeptidase 32 U/L (8-61); Magnesium 2.2 mg/dL (1.6-2.5); Uric Acid 3.1 mg/dL (2.5-8.0)
--- NOTE | 2017-04-08 09:15 | Nephrology Progress Note ---
Subjective Patient information: Note initiated : 04/08/17 at 9:10 am Service Date, if different from initiated Date: [] Patient: Oliver Miles 81 y/o M admitted on 03/29/17 for Fall, L Hip Pain/ Closed Left Hip Fracture. Chief Complaint: [] Interval history: Oliver appears more alert. Speech is still incomprehensible. He does appear to be in distress. Objective - Vital Signs Vital signs: Vital Signs Temp Pulse Pulse Resp BP Pulse Ox 04/08/17 07:49 74 16 92 04/08/17 07:47 76 16 04/08/17 07:12 97.3 F 20 168/83 95 04/08/17 04:00 97.5 F 67 20 153/78 94 04/08/17 00:00 97.4 F 74 24 H 160/84 95 04/07/17 20:00 98.1 F 74 18 142/62 94 04/07/17 18:10 72 24 H 91 04/07/17 16:00 96.8 F L 20 101/52 92 04/07/17 14:13 73 04/07/17 12:00 69 24 H 111/58 94 04/07/17 10:00 82 Intake and Output 04/07/17 04/08/17 04/08/17 21:59 05:59 13:59 Intake Total 70 / 70 1150 / 1150 360 / 360 Output Total 3 / 3 2 / 2 Balance 1150 / 1150 358 / 358 Intake: IV 50 / 50 1050 / 1050 Sodium Chloride 0.45% 1, 1000 / 1000 000 ml @ 100 mls/hr IV . Q10H [facility] Rx#:[id number] Zosyn 3.375 gm In 50 / 50 50 / 50 Dextrose 5% in Water 50 ml @ 100 mls/hr IV Q6H [facility] Rx#:[id number] Oral 20 / 20 100 / 100 360 / 360 Output: # of times incontinent of 3 / 3 2 / 2 urine Other: Meal Nourishment/Supplement Percent of Meal Consumed 75% # of times incontinent of 1 Bowels Weight 187 lb 8 oz Intake & Output: Intake & Output 04/07/17 04/08/17 04/08/17 21:59 05:59 13:59 Intake Total 70 / 70 1150 / 1150 360 / 360 Output Total 3 / 3 2 / 2 Balance 67 / 67 1150 / 1150 358 / 358 Weight 187 lb 8 oz Intake: IV 50 / 50 1050 / 1050 Sodium Chloride 0.45% 1, 1000 / 1000 000 ml @ 100 mls/hr IV . Q10H [facility] Rx#:[id number] Zosyn 3.375 gm In 50 / 50 50 / 50 Dextrose 5% in Water 50 ml @ 100 mls/hr IV Q6H [facility] Rx#:[id number] Oral 20 / 20 100 / 100 360 / 360 Output: # of times incontinent of 3 / 3 2 / 2 urine Other: Meal Nourishment/Supplement Percent of Meal Consumed 75% # of times incontinent of 1 Bowels - Lab 04/08/17 07:20 04/08/17 07:20 Most recent lab results Calcium 8.5 mg/dl (8.6-10.4) L 04/08/17 07:20 Phosphorus 4.2 mg/dL (2.7-4.5) 04/08/17 07:20 Magnesium 2.2 mg/dL (1.6-2.5) 04/08/17 07:20 Assessment and Plan (1) SOPHIE (acute kidney injury) SOPHIE/ARF - likely hemodynamic injury, non-oliguric, no evidence of urinary obstruction. SCr has stabilized. Keep intake and output even. Dose IV Vancomycin for trough 15-20, consider stopping if deemed to have received sufficient doses over the past few days. Expect renal function to gradually recover to baseline. Follow I/O, BMP Blood pressure has been variable, higher this am. IV hydralazine could be used prn if SBP persistently over 160 mmHg baseline SCr 0.6-0.7 mg/dl Status: Acute
[2017-04-08] MEDS: carBAMazepine 100 MG TAB.CHEW PO SCH ×2 (10:37→20:30)
[2017-04-08] MEDS: CARBIDOPA/LEVODOPA 25/100 TABLET PO SCH ×4 (10:37→20:29)
[2017-04-08] MEDS: FINASTERIDE 5 MG TABLET PO SCH (10:39)
[2017-04-08] MEDS: LACTOBACILLUS 1 CAPSULE PO SCH (10:39)
[2017-04-08] MEDS: THIAMINE 100 MG in 0.9 % SODIUM CHLORIDE 50 ML IV SCH (10:39)
[2017-04-08] MEDS: ASPIRIN 325 MG ENTERIC COATED TABLET PO SCH ×2 (10:39→20:31)
[2017-04-08] MEDS: ENTACAPONE 200 MG PO SCH ×2 (10:39→20:31)
[2017-04-08] MEDS: TAMSULOSIN 0.4 MG CAPSULE PO SCH ×2 (10:39→20:31)
[2017-04-08] MEDS: FLUDROCORTISONE 0.1 MG TABLET PO SCH (10:40)
[2017-04-08] MEDS: rOPINIRole 1 MG TABLET PO SCH ×3 (10:44→20:31)
[2017-04-08] MEDS: clonazePAM 0.5 MG TABLET PO SCH ×2 (10:44→20:30)
--- NOTE | 2017-04-08 11:57 | Internal Med Progress Note ---
Medical - PN: Subj Patient information: Note initiated : 04/08/17 at 11:55 am Service Date, if different from initiated Date: [] Patient: Oliver Miles 81 y/o M admitted on 03/29/17 for Fall, L Hip Pain/ Closed Left Hip Fracture. Chief Complaint: [] Interval history: 03/29-HPI-Mr. Miles is a 81 year old Male [facility] with left hip injury and pain. Patient sustained a trauma after he fell off the bed while attempting to go to the bathroom this morning around 7:15 AM. He was subsequently brought in to [facility] ER. Initial workup was significant for left subcapital hip fracture. Orthopedics was consulted. Patient was scheduled for operative intervention later in the evening. Hospitalist service was consulted for admission and preoperative risk evaluation along with medical issue management. At time examination patient is alert oriented. He is in significant distress from pain at the fracture site. He is accompanied by his . He is under effect of opioids and was unable to provide a detailed history. Per he did not lose consciousness. There is no evidence of incontinence including bladder or bowel. No seizure-like episode. Patient hasn't had a similar even in the past but suffers from debilitating Parkinson's disease with gait instability. He otherwise denies fever chills nausea vomiting headache photophobia diarrhea dysuria or weight loss. 03/30- postop day 2. Patient doing well. No overnight events. Pain well controlled. No fever chills SOB nausea vomiting or bleeding or swelling at surgery site. started physical therapy. Patient has advanced Parkinson's disease limiting his functionality and gait instability. He also carries history of orthostatic hypertension. Continue aggressive physical therapy and and target or male sitting upright in light of high risk Parkinson's related dysphagia. Anticipate SNF transfer in 48 hours. Continue postop management per orthopedics 03/31: Pt seen examined, acute overnight events noted that patient was more confused and agitated last night, needing use of ativan and some dilaudid, has been refusing his oral medications. Patient this AM was drowsy after the effect of pain meds. The nurse had concern regarding the right clavicle in the patient, it seems that the patient has h/o clavicular fracture (noted on prob list), X ray clavicle is interpreted as negative, but there is an obvious clinical fracture vs dehiscence at the sternoclavicular joint. I called Dr Jeffries to evaluate the patient for this and need for any operative intervention. Patient has been placed in the right sling. Will review old CXR images to see if this is new or old injury. 04/01: Pt seen examined, overnight was agitated again needing 1:1 supervision, dilaudid was held by ortho was resumed for pain management. This AM dialaudid and ativan was held. The patient this AM was doing well, but later in the morning became paranoid and agitated, trying to get out of bed and take a swing at the nurses, case management and myself. He was given ativan 0.5mg and 2mg IV haldol to calm him down. the right clavicle fracture is an old fracture wit no active management needed. sling discontinued. Patient has had increased oxygen needs CXR shows possible pna, blood cx and vanco and zosyn started. His dose of seroquel increased to 50mg at bed time. IV tylenol for pain management for now. 04/02: Patient seen examined, in restrains with mittens to prevent removal of iv acces, has removed 4-5 so far, aggressive towards nursing and care providers, speech is dysarthric. 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 Ortho made aware Dr. Shukla spent 15 mins with family, daughter in law and the , explaining the preset situation. Patient mental condition does not seem to be improving. he remains delirious and aggressive towards care providers. Unable to keep a good IV to maintain hydration nor adequate po intake, pt spits out medications. He remains of D2 of vanco and Zosyn for now. Discussed need for CT head to evaluate if any IC process ongoing If patient does not respond to conservative measures, then it will be difficult to place him, also if he continues to refuse to eat and removes IV access hydration will also be an issue. Over all he has very poor prognosis. 04/03: Taken to OR yesterday for relocation of hip prosthesis. Head CT neg for acute process. He has dysarthric speech today but is able to have some simple conversations. Stood at EOB with PT while bed was changed. K low and is replaced today. Will adjust Sinemet and Requip dosing schedules today to ensure he is getting them. 04/04: Walked with PT today. Still uncooperative; tried to leave and is still requiring hand mitts as restraints. Having supine hypertension with BP 188 last night--on midodrine and Florinef for OH. K still low at 3.2 despite replacement yesterday. Eating a little better today and complaining of hip pain that is unrelieved by Tylenol or dilaudid. Will try Tramadol and increase Seroquel to 100 HS. Had long discussion with at bedside regarding goals of care and prognosis. She is aware that any future insult to his body will result in likely severe delirium with paranoia and combative behavior as he has had this admission and that, at best, he will likely need SNF care long-term. With his slow but steady progress over the weekend, she would like to continue current care but voices interest in pursuing comfort measures only if he worsens. 04/05: Patient seen examined this AM, was more cooperative today, had stable night, his speech remains garbled but at baseline does not have good speech. He is not aggressive today, and did seem to follow commands and ask some appropriate questions. did not need haldol yesterday, will d/c hand mittens today and see how he does. Hopefully he will continue to improve. He will likely need to be 24 hrs without restraints before he can be safely discharged. 04/06 patient seen examined he was somewhat confused at night, but otherwise no acute issues, speech garbled, but seems to be at baseline. He did not need any haldol and is donig well without restrains, unfortunately his renal function is worse today, creat jumped rom 0.6 to 1.4, he received 1L salien bolus and his creat still went up to 1.6, At this time, will initiate workup for renal failure , ua, urine lyes, eosinophil levels and renal sonogram, continue gentle hydration and monitor renal function, consider renal consult if patient kidney function worsens. 04/07: patient seen and examined, he was acutely confused yesterday evening with aggressive behavior, was given Ativan with resolution of symptoms. Since around 9:00 yesterday. He has not had any issues. His speech is garbled, but does obey commands, responding. His labs show worsening WBC count worsening renal function with a creatinine of 1.7 he is still making urine. His bladder scan shows urine of around 230 mL, any side effect diapers. His urine studies and renal sonogram have been reviewed Nephrology has been consulted for evaluation of acute kidney injury. 04/08: Pt seen examined, no acute overnight events. He did not have any episode of sundowning last night. It seems that the dose of Seroquel given late in the afternoon has helped. The patient's kidney function is more stable now. Is still making urine. The blood pressure remains high in the supine position. But he has history of orthostatic hypotension and he is on midodrine as well as fludrocort for same. or now, continue IV antibiotics. Given that the x-ray showed worsening pneumonia. The patient likely has aspiration pneumonia given his clinical picture. Microbiology is negative so far. the patient may likely be changed to oral antibiotics. If continues to improve. this morning when I saw him, he was sitting in his bed comfortably, wearing glasses, and trying to read magazine His speech is still garbled but it seems this is baseline. Pertinent ROS: unable. - Constitutional Vitals: Vital Signs Temp Pulse Resp BP Pulse Ox 97.9 F 74 20 163/81 95 04/08/17 11:52 04/08/17 07:49 04/08/17 11:52 04/08/17 11:52 04/08/17 11:52 Period Temp Pulse Resp BP Sys/Garcia Pulse Ox Last 24 Hr 96.8 F-98.1 F 67-76 16-24 101-168/52-84 91-95 Intake and Output 04/07/17 04/08/17 04/08/17 21:59 05:59 13:59 Intake Total 70 / 70 1200 / 1200 600 / 600 Output Total 3 / 3 2 / 2 Balance 1200 / 1200 598 / 598 Weight 187 lb 8 oz 187 lb 8 oz Patient Weight 04/09/17 05:59 Weight 187 lb 8 oz Intake & Output: Intake & Output 04/07/17 04/08/17 04/08/17 21:59 05:59 13:59 Intake Total 70 / 70 1200 / 1200 600 / 600 Output Total 3 / 3 2 / 2 Balance 1200 / 1200 598 / 598 Weight 187 lb 8 oz 187 lb 8 oz Intake: IV 50 / 50 1100 / 1100 Sodium Chloride 0.45% 1, 1000 / 1000 000 ml @ 100 mls/hr IV . Q10H [facility] Rx#:[id number] Zosyn 3.375 gm In 50 / 50 100 / 100 Dextrose 5% in Water 50 ml @ 100 mls/hr IV Q6H [facility] Rx#:[id number] Oral 20 / 20 100 / 100 600 / 600 Output: # of times incontinent of 3 / 3 2 / 2 urine Other: Meal Nourishment/Supplement Breakfast Percent of Meal Consumed 75% 50% Feeding Ability Assist with Tray Set Up # of times incontinent of 1 Bowels Exam: Constitutional; Afebrile, cooperative, awake Eyes- No icterus, , No periorbital swelling Ears- Ext ear normal, hearing normal to conversation. Neck- Midline trachea, supple Respiratory system: Air Entry equal on both sides, No crackles or wheezing, no rhonchi. CVS- Rate rhythm regular, S1,S2 heard, no gallop, no rub. Abdomen- Soft nontender abdomen, no organomegaly, no tenderness, no guarding or rigidity, DRAFTER DIRECTIONAL SURVEY- AOOx1, moving all extremities, no gross focal deficit noted. Medical - PN: Obj Da - Labs CBC & Chem 7: 04/08/17 07:20 04/08/17 07:20 Labs: Abnormal Lab Results 04/08/17 04/08/17 04/07/17 07:20 07:20 09:50 WBC RBC 2.55 L Hgb 9.3 L Hct 27.4 L MCV 107.5 H MCH 36.5 H RDW 15.1 H MPV 7.3 L Gran % Lymph % (Auto) 14.9 L Gran # Lymph # (Auto) 0.8 L Sodium Potassium Creatinine 1.6 H Glucose Calcium 8.5 L Iron TIBC Transferrin % Sat Ferritin Lactate Dehydrogenase 304 H Total Protein 5.4 L Albumin 3.0 L Globulin Urine Occult Blood U Cornelius Prot/Creat Ratio Vancomycin Trough 21.5 H* 04/07/17 04/07/17 04/07/17 09:50 07:36 07:36 WBC 11.2 H RBC 2.23 L Hgb 7.9 L Hct 23.5 L MCV 105.4 H MCH 35.6 H RDW 14.8 H MPV Gran % 90.4 H Lymph % (Auto) 5.4 L Gran # 10.1 H Lymph # (Auto) 0.6 L Sodium Potassium 3.2 L Creatinine 1.7 H Glucose Calcium 7.8 L Iron 26 L TIBC 150 L Transferrin % Sat 17 L Ferritin 484.2 H Lactate Dehydrogenase 302 H Total Protein 4.6 L Albumin 2.7 L Globulin 1.9 L Urine Occult Blood U Cornelius Prot/Creat Ratio Vancomycin Trough 04/06/17 04/06/17 04/06/17 16:02 16:01 13:40 WBC RBC Hgb Hct MCV MCH RDW MPV Gran % Lymph % (Auto) Gran # Lymph # (Auto) Sodium Potassium Creatinine 1.6 H Glucose 137 H Calcium 8.2 L Iron TIBC Transferrin % Sat Ferritin Lactate Dehydrogenase Total Protein Albumin Globulin Urine Occult Blood 0.03 A U Cornelius Prot/Creat Ratio 0.53 H Vancomycin Trough 04/06/17 04/06/17 04:07 04:07 WBC RBC 2.40 L Hgb 9.2 L Hct 26.3 L MCV 109.5 H MCH 38.3 H RDW 14.8 H MPV Gran % Lymph % (Auto) Gran # Lymph # (Auto) 1.0 L Sodium 146 H Potassium Creatinine 1.4 H Glucose Calcium 8.4 L Iron TIBC Transferrin % Sat Ferritin Lactate Dehydrogenase Total Protein Albumin Globulin Urine Occult Blood U Cornelius Prot/Creat Ratio Vancomycin Trough Meds: Medications Hydrocodone Bitart/Acetaminophen ([place] 5/325mg) 1 tab PO Q4-6HP PRN PRN Reason: Pain Last Admin: 04/07/17 20:36 Dose: 1 tab Albuterol/Ipratropium (Duoneb) 3 ml NEB Q6HRT [facility] Last Admin: 04/08/17 07:10 Dose: 3 ml Aspirin (Ecotrin) 325 mg PO BID [facility] Last Admin: 04/08/17 10:39 Dose: 325 mg Carbamazepine (Tegretol) 100 mg PO Q12 [facility] Last Admin: 04/08/17 10:37 Dose: 100 mg Carbidopa/Levodopa (Sinemet 25/100) 1.5 tab PO QID [facility] Last Admin: 04/08/17 10:37 Dose: 1.5 tab Clonazepam (Klonopin) 0.25 mg PO BID [facility] Last Admin: 04/08/17 10:44 Dose: 0.25 mg Finasteride (Proscar) 5 mg PO DAILY [facility] Last Admin: 04/08/17 10:39 Dose: 5 mg Fludrocortisone Acetate (Florinef) 0.3 mg PO DAILY [facility] Last Admin: 04/08/17 10:40 Dose: 0.3 mg Gabapentin (Neurontin) 300 mg PO HS [facility] Last Admin: 04/07/17 20:34 Dose: 300 mg Hydromorphone HCl (Dilaudid) 1 mg IV Q4-6HP PRN PRN Reason: Pain Sodium Chloride (Sodium Chloride 0.45%) 1,000 mls @ 100 mls/hr IV .Q10H [facility] Last Admin: 04/08/17 04:45 Dose: 100 mls/hr Piperacillin Sod/Tazobactam (Sod 3.375 gm/ Dextrose) 50 mls @ 100 mls/hr IV Q6H [facility] Last Admin: 04/08/17 11:47 Dose: 100 mls/hr Acetaminophen (Ofirmev) 650 mg in 65 mls @ 130 mls/hr IV Q6HP PRN PRN Reason: Pain Last Admin: 04/04/17 00:35 Dose: 130 mls/hr Thiamine HCl 100 mg/ Sodium (Chloride) 51 mls @ 50 mls/hr IV DAILY [facility] Stop: 04/09/17 10:02 Last Admin: 04/08/17 10:39 Dose: 50 mls/hr Vancomycin HCl 1,500 mg/ (Sodium Chloride) 500 mls @ 333.3 mls/hr IV Q48H [facility] Lactobacillus Rhamnosus (Culturelle) 1 cap PO DAILY [facility] Last Admin: 04/08/17 10:39 Dose: 1 cap Lorazepam (Ativan) 1 mg IV Q2HP PRN PRN Reason: ANXIETY/SEDATION Last Admin: 04/07/17 10:42 Dose: 1 mg Magnesium Hydroxide (Milk Of Magnesia) 30 ml PO BIDP PRN PRN Reason: Constipation Last Admin: 04/04/17 08:21 Dose: 30 ml Methocarbamol (Robaxin) 500 mg PO TIDP PRN PRN Reason: Muscle Spasm Last Admin: 03/31/17 20:20 Dose: 500 mg Midodrine (Midodrine Hcl) 5 mg PO TID@0800,1200,1700 [facility] Last Admin: 04/08/17 08:25 Dose: Not Given Pantoprazole Sodium (Protonix) 40 mg IV QAMAC [facility] Last Admin: 04/08/17 08:21 Dose: 40 mg Entacapone [Comtan] (200 Mg) 1 dose PO BID [facility] Last Admin: 04/08/17 10:39 Dose: 1 dose Silodosin [Rapaflo] (8 Mg) 1 dose PO DAILY [facility] Last Admin: 04/07/17 09:50 Dose: Not Given Polyethylene Glycol (Miralax) 17 gm PO DAILYP PRN PRN Reason: Constipation Last Admin: 04/05/17 20:43 Dose: 17 gm Potassium Chloride (Klor-Con) 40 meq PO QAC [facility] Last Admin: 04/08/17 08:21 Dose: 40 meq Quetiapine Fumarate (Seroquel) 100 mg PO DAILY@1500 [facility] Last Admin: 04/07/17 14:34 Dose: 100 mg Ropinirole HCl (Requip) 1 mg PO TID [facility] Last Admin: 04/08/17 10:44 Dose: 1 mg Senna (Senokot) 2 tab PO [facility] Last Admin: 04/07/17 20:40 Dose: 2 tab Simvastatin (Zocor) 10 mg PO [facility] Last Admin: 04/07/17 20:39 Dose: 10 mg Sodium Biphosphate/Sodium Phosphate (Fleets Adult) 1 dose MT Q3-4DAYS PRN PRN Reason: Constipation Sodium Chloride (Saline Flush) 10 ml IV Q8 [facility] Last Admin: 04/08/17 05:16 Dose: Not Given Tamsulosin HCl (Flomax) 0.4 mg PO BID [facility] Last Admin: 04/08/17 10:39 Dose: 0.4 mg Throat Lozenges (Cepacol) 1 lozenge PO PRN PRN PRN Reason: Sore Throat Tramadol HCl (Ultram) 50 mg PO Q6HP PRN PRN Reason: Pain Last Admin: 04/06/17 20:47 Dose: 50 mg Vancomycin HCl (Vancomycin Per Pharmacy) 1 order IV [facility] Vitamin D (Vitamin D3) 10,000 unit PO Q48 [facility] Last Admin: 04/07/17 09:48 Dose: 10,000 unit Medical - PN: A/P - Time Spent With Patient Total time spent is greater than 50% in coordination of care (as documented) at patient's floor/unit and/or counseling patient: - Narrative A/P Narrative: A/P Left Hip Fracture: , Continue PT/ OT as tolerated. Left hip dislocation: s/p reduction 04/[address] jeffries , pt doing well at present , repeat X ray 04/06 is normal Post Op Pain: tramadol prn, methacarbamol prn, added hydrocodone aand dilaudid prn for now. Delirium: improving, still has some sundowning, waxing and waning situation, IV thiamine added for 3 doses, today is day 2 Anemia: seems chr, hb back to baseline today. wbc improved again. Clavicular fracture Vs Sternoclavicular dislocation: Old injury, appreciate ortho input Parkinsons disease: Resumed home doses of levodopa, carbidopa, ropinirole, unfortunately pt misses does due to being delirious and refusing Meds intermittently. Changed schedule from Q6H to QID and TID to help w sx. Orthostatic hypotension: on midodrine and Florinef at home. Now w supine HTN; decreased midodrine to 5 TID with hold parameters. This will need to be titrated up as he increases mobility.for now I am accepting the supine hypertension to avoid significant postural drop. PNA: Likely aspirational pna, continue vanco and zosyn, repeat CXR shows worsening pna. clnically stable, consider switching to augmentin at discharge. Acute kidney injury: etiology: nephrolgoy input appreciated, creat stable at 1.6 , making urine. monitor forn ow. HLD on statin Full Code DVT prophylaxis. ASA 325 BID as per Ortho protocol.
[2017-04-08] MEDS: VANCOMYCIN 1,500 MG in 0.9 % SODIUM CHLORIDE 500 ML IV SCH (12:14)
[2017-04-08] MEDS: QUEtiapine 100 MG TABLET PO SCH (15:32)
[2017-04-08] MEDS: HYDROcodone/APAP 5/325MG TABLET PO PRN (15:34)
[2017-04-08] MEDS: GABAPENTIN 300 MG CAPSULE PO SCH (20:31)
[2017-04-08] MEDS: SIMVASTATIN 10 MG TABLET PO SCH (20:32)
[2017-04-08] MEDS: SENNOSIDES 1 TABLET PO SCH (20:32)
[2017-04-08] MEDS: traMADol 50 MG TABLET PO PRN (22:05)
[2017-04-08] MEDS: LORazepam 2 MG/ML VIAL IV PRN (22:53)
[2017-04-09] MEDS: PIPERACILLIN SODIUM/TAZOBACTAM 3.375 GM in DEXTROSE 5% IN WATER 50 ML IV SCH ×4 (00:25→20:13)
[2017-04-09] MEDS: HYDROmorphone 2 MG/ML SYRINGE IV PRN ×3 (01:32→20:11)
[2017-04-09] MEDS: IPRATROPIUM/ALBUTEROL 3 ML AMPUL.NEB NEB SCH ×4 (01:32→19:48)
[2017-04-09] MEDS: 0.45 % SODIUM CHLORIDE 1,000 ML IV SCH ×2 (05:35→11:35)
[2017-04-09] MEDS: 0.9 % SODIUM CHLORIDE 10 ML SYRINGE IV SCH ×2 (05:36→13:37)
[2017-04-09 06:15] LABS: ALT/SGPT < 5 U/l (0-40); Albumin 2.8 gm/dL (3.2-5.2); Albumin/Globulin Ratio 1.3 (1.0-2.3); Alkaline Phosphatase 57 U/L (39-117); Bilirubin,Direct < 0.2 mg/dL (0.0-0.3); Blood Urea Nitrogen 13 mg/dl (8-23); Gamma Glutamyl Transpeptidase 27 U/L (8-61); Magnesium 2.1 mg/dL (1.6-2.5); Uric Acid 3.2 mg/dL (2.5-8.0)
[2017-04-09 06:37] LABS: Basophils # (Auto) 0 K/mcL (0.0-0.3); Basophils % (Auto) 0.5 % (0.0-2.0); Eosinophils # (Auto) 0.3 K/mcL (0.0-0.7); Eosinophils % (Auto) 3.4 % (0.0-7.0); Granulocytes % (Auto) 80.5 % (38.0-78.0); Lymphocytes # (Auto) 0.7 K/mcL (1.5-4.8); Mean Corpuscular HGB Conc 35.4 g/dL (31.0-36.0); Mean Corpuscular Hemoglobin 37.6 pg (26.0-34.0); Monocytes # (Auto) 0.5 K/mcL (0.1-0.9); Monocytes % (Auto) 6.6 % (1.0-12.0); Platelet Count 281 K/mcL (140-440); RBC 2.33 M/mcL (4.50-5.90); Red Cell Distribution Width 13.8 % (11.5-14.5)
[2017-04-09] MEDS: PANTOPRAZOLE 40 MG VIAL IV SCH (09:52)
[2017-04-09] MEDS: LACTOBACILLUS 1 CAPSULE PO SCH (09:53)
[2017-04-09] MEDS: MIDODRINE 5 MG TABLET PO SCH ×4 (10:24→17:29)
[2017-04-09] MEDS: TAMSULOSIN 0.4 MG CAPSULE PO SCH (10:24)
[2017-04-09] MEDS: clonazePAM 0.5 MG TABLET PO SCH (10:24)
[2017-04-09] MEDS: FLUDROCORTISONE 0.1 MG TABLET PO SCH (10:24)
[2017-04-09] MEDS: POTASSIUM CHLORIDE 20 MEQ PACKET PO SCH ×2 (10:24→17:29)
[2017-04-09] MEDS: ASPIRIN 325 MG ENTERIC COATED TABLET PO SCH ×2 (10:24→11:32)
[2017-04-09] MEDS: ENTACAPONE 200 MG PO SCH (10:25)
[2017-04-09] MEDS: FINASTERIDE 5 MG TABLET PO SCH ×2 (10:47→11:32)
[2017-04-09] MEDS: rOPINIRole 1 MG TABLET PO SCH ×2 (10:47→17:04)
[2017-04-09] MEDS: CARBIDOPA/LEVODOPA 25/100 TABLET PO SCH ×7 (10:47→17:04)
[2017-04-09] MEDS: carBAMazepine 100 MG TAB.CHEW PO SCH (10:47)
[2017-04-09] MEDS: VITAMIN D3 5,000 UNIT CAPSULE PO SCH ×2 (10:48→11:32)
[2017-04-09] MEDS: THIAMINE 100 MG in 0.9 % SODIUM CHLORIDE 50 ML IV SCH ×2 (10:48→15:11)
--- NOTE | 2017-04-09 13:53 | Internal Med Progress Note ---
Medical - PN: Subj Patient information: Note initiated : 04/09/17 at 1:52 pm Service Date, if different from initiated Date: [] Patient: Oliver Miles 81 y/o M admitted on 03/29/17 for Fall, L Hip Pain/ Closed Left Hip Fracture. Chief Complaint: [] Interval history: 03/29-HPI-Mr. Miles is a 81 year old Male comes in [facility] ER with left hip injury and pain. Patient sustained a trauma after he fell off the bed while attempting to go to the bathroom this morning around 7:15 AM. He was subsequently brought in to [facility] ER. Initial workup was significant for left subcapital hip fracture. Orthopedics was consulted. Patient was scheduled for operative intervention later in the evening. Hospitalist service was consulted for admission and preoperative risk evaluation along with medical issue management. He otherwise denies fever chills nausea vomiting headache photophobia diarrhea dysuria or weight loss. 03/30- postop day 2. Patient doing well. No overnight events. Pain well controlled. No fever chills SOB nausea vomiting or bleeding or swelling at surgery site. started physical therapy. Patient has advanced Parkinson's disease limiting his functionality and gait instability. He also carries history of orthostatic hypertension. Continue aggressive physical therapy and and target or male sitting upright in light of high risk Parkinson's related dysphagia. Anticipate SNF transfer in 48 hours. Continue postop management per orthopedics 03/31: Pt seen examined, acute overnight events noted that patient was more confused and agitated last night, needing use of ativan and some dilaudid, has been refusing his oral medications. Patient this AM was drowsy after the effect of pain meds. The nurse had concern regarding the right clavicle in the patient, it seems that the patient has h/o clavicular fracture (noted on prob list), X ray clavicle is interpreted as negative, but there is an obvious clinical fracture vs dehiscence at the sternoclavicular joint. I called Dr Jeffries to evaluate the patient for this and need for any operative intervention. Patient has been placed in the right sling. Will review old CXR images to see if this is new or old injury. 04/01: Pt seen examined, overnight was agitated again needing 1:1 supervision, dilaudid was held by ortho was resumed for pain management. This AM dialaudid and ativan was held. The patient this AM was doing well, but later in the morning became paranoid and agitated, trying to get out of bed and take a swing at the nurses, case management and myself. He was given ativan 0.5mg and 2mg IV haldol to calm him down. the right clavicle fracture is an old fracture wit no active management needed. sling discontinued. Patient has had increased oxygen needs CXR shows possible pna, blood cx and vanco and zosyn started. His dose of seroquel increased to 50mg at bed time. IV tylenol for pain management for now. 04/02: Patient seen examined, in restrains with mittens to prevent removal of iv acces, has removed 4-5 so far, aggressive towards nursing and care providers, speech is dysarthric. 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 Ortho made aware Dr. Shukla spent 15 mins with family, daughter in law and the , explaining the preset situation. Patient mental condition does not seem to be improving. he remains delirious and aggressive towards care providers. Unable to keep a good IV to maintain hydration nor adequate po intake, pt spits out medications. He remains of D2 of vanco and Zosyn for now. Discussed need for CT head to evaluate if any IC process ongoing If patient does not respond to conservative measures, then it will be difficult to place him, also if he continues to refuse to eat and removes IV access hydration will also be an issue. Over all he has very poor prognosis. 04/03: Taken to OR yesterday for relocation of hip prosthesis. Head CT neg for acute process. He has dysarthric speech today but is able to have some simple conversations. Stood at EOB with PT while bed was changed. K low and is replaced today. Will adjust Sinemet and Requip dosing schedules today to ensure he is getting them. 04/04: Walked with PT today. Still uncooperative; tried to leave and is still requiring hand mitts as restraints. Having supine hypertension with BP 188 last night--on midodrine and Florinef for OH. K still low at 3.2 despite replacement yesterday. Eating a little better today and complaining of hip pain that is unrelieved by Tylenol or dilaudid. Will try Tramadol and increase Seroquel to 100 HS. Had long discussion with at bedside regarding goals of care and prognosis. She is aware that any future insult to his body will result in likely severe delirium with paranoia and combative behavior as he has had this admission and that, at best, he will likely need SNF care long-term. With his slow but steady progress over the weekend, she would like to continue current care but voices interest in pursuing comfort measures only if he worsens. 04/05: Patient seen examined this AM, was more cooperative today, had stable night, his speech remains garbled but at baseline does not have good speech. He is not aggressive today, and did seem to follow commands and ask some appropriate questions. did not need haldol yesterday, will d/c hand mittens today and see how he does. Hopefully he will continue to improve. He will likely need to be 24 hrs without restraints before he can be safely discharged. 04/06 patient seen examined he was somewhat confused at night, but otherwise no acute issues, speech garbled, but seems to be at baseline. He did not need any haldol and is donig well without restrains, unfortunately his renal function is worse today, creat jumped rom 0.6 to 1.4, he received 1L salien bolus and his creat still went up to 1.6, At this time, will initiate workup for renal failure , ua, urine lyes, eosinophil levels and renal sonogram, continue gentle hydration and monitor renal function, consider renal consult if patient kidney function worsens. 04/07: patient seen and examined, he was acutely confused yesterday evening with aggressive behavior, was given Ativan with resolution of symptoms. Since around 9:00 yesterday. He has not had any issues. His speech is garbled, but does obey commands, responding. His labs show worsening WBC count worsening renal function with a creatinine of 1.7 he is still making urine. His bladder scan shows urine of around 230 mL, any side effect diapers. His urine studies and renal sonogram have been reviewed Nephrology has been consulted for evaluation of acute kidney injury. 04/08: Pt seen examined, no acute overnight events. He did not have any episode of sundowning last night. It seems that the dose of Seroquel given late in the afternoon has helped. The patient's kidney function is more stable now. Is still making urine. The blood pressure remains high in the supine position. But he has history of orthostatic hypotension and he is on midodrine as well as fludrocort for same. or now, continue IV antibiotics. Given that the x-ray showed worsening pneumonia. The patient likely has aspiration pneumonia given his clinical picture. Microbiology is negative so far. the patient may likely be changed to oral antibiotics. If continues to improve. this morning when I saw him, he was sitting in his bed comfortably, wearing glasses, and trying to read magazine His speech is still garbled but it seems this is baseline. April 09: -Today, the patient is awake, although was somewhat sleepy when I first saw him this morning. This afternoon he is more alert. He was able to work with speech therapy a little this morning, and speech is somewhat improved. However , he is still rather difficult to understand. His is in the room with him this afternoon. He denies significant pain, although did apparently have some hip pain last night, for which she received Dilaudid. He denies fever or chills, chest pain or shortness of breath, abdominal pain, but it is not entirely clear how reliable his history is. -He did dislocate his hip, and closed reduction was required. We believe he has not dislocated it again since then. -He carries a diagnosis of pneumonia, but at this time remains afebrile, with normal white blood cell count. -Potassium is rather low today. He remains quite anemic. Creatinine is gradually improving. -Iron studies showed low iron and low TIBC, with low transferrin saturation - Constitutional Vitals: Vital Signs Temp Pulse Resp BP Pulse Ox 97.6 F 71 18 157/76 92 04/09/17 11:38 04/09/17 04:00 04/09/17 11:38 04/09/17 11:38 04/09/17 11:38 Period Temp Pulse Resp BP Sys/Garcia Pulse Ox Last 24 Hr 97.1 F-98.5 F 70-78 14-24 120-157/56-81 89-96 Intake and Output 04/08/17 04/09/17 04/09/17 21:59 05:59 13:59 Intake Total 1370 / 1370 150 / 150 1000 / 1000 Output Total 77 / 77 201 / 201 2 / 2 Balance 1293 / 1293 -51 / -51 998 / 998 Weight 192 lb 8 oz Intake & Output: Intake & Output 04/08/17 04/09/17 04/09/17 21:59 05:59 13:59 Intake Total 1370 / 1370 150 / 150 1000 / 1000 Output Total 77 / 77 201 / 201 2 / 2 Balance 1293 / 1293 -51 / -51 998 / 998 Weight 192 lb 8 oz Intake: IV 1050 / 1050 50 / 50 1000 / 1000 Sodium Chloride 0.45% 1, 1000 / 1000 1000 / 1000 000 ml @ 100 mls/hr IV . Q10H [facility] Rx#:[id number] Zosyn 3.375 gm In 50 / 50 50 / 50 Dextrose 5% in Water 50 ml @ 100 mls/hr IV Q6H [facility] Rx#:[id number] Oral 320 / 320 100 / 100 Output: Void Amount 75 / 75 200 / 200 # of times incontinent of 2 / 2 1 / 1 2 / 2 urine Other: Meal Dinner Percent of Meal Consumed Bites Feeding Ability Needs Supervision # Bowel Movements 1 # of times incontinent of 1 Bowels Patient is awake and alert, but speech remains difficult to understand. His therapy says he needs to be reminded to use his tongue while forming sounds. Neck appears supple, without lymphadenopathy or JVD. Cardiac exam shows regular rate and rhythm. Lungs: Clear to auscultation. Abdomen is soft and nontender. Extremities: Upper extremities have numerous bruises from various blood draws and IVs he has pulled out. Left thigh is still fairly heavily bruised, but overall legs have no significant edema. Neurologic exam: The patient is awake, and is able to follow some commands, but continues to be confused at times, and pull at lines, IVs, etc. He apparently has been eating reasonably well. Medical - PN: Obj Da - Labs CBC & Chem 7: 04/09/17 04:52 04/09/17 04:52 Labs: Abnormal Lab Results 04/09/17 04/09/17 04/08/17 04:52 04:52 07:20 WBC RBC 2.33 L Hgb 8.7 L Hct 24.7 L MCV 106.0 H MCH 37.6 H RDW MPV Gran % 80.5 H Lymph % (Auto) 9.0 L Gran # Lymph # (Auto) 0.7 L Potassium 3.2 L Creatinine 1.5 H 1.6 H Glucose Calcium 8.2 L 8.5 L Iron TIBC Transferrin % Sat Ferritin Lactate Dehydrogenase 321 H 304 H Total Protein 4.9 L 5.4 L Albumin 2.8 L 3.0 L Globulin 2.1 L Urine Occult Blood U [place] Prot/Creat Ratio Vancomycin Trough 04/08/17 04/07/17 04/07/17 07:20 09:50 09:50 WBC RBC 2.55 L Hgb 9.3 L Hct 27.4 L MCV 107.5 H MCH 36.5 H RDW 15.1 H MPV 7.3 L Gran % Lymph % (Auto) 14.9 L Gran # Lymph # (Auto) 0.8 L Potassium Creatinine Glucose Calcium Iron 26 L TIBC 150 L Transferrin % Sat 17 L Ferritin 484.2 H Lactate Dehydrogenase Total Protein Albumin Globulin Urine Occult Blood U [place] Prot/Creat Ratio Vancomycin Trough 21.5 H* 04/07/17 04/07/17 04/06/17 07:36 07:36 16:02 WBC 11.2 H RBC 2.23 L Hgb 7.9 L Hct 23.5 L MCV 105.4 H MCH 35.6 H RDW 14.8 H MPV Gran % 90.4 H Lymph % (Auto) 5.4 L Gran # 10.1 H Lymph # (Auto) 0.6 L Potassium 3.2 L Creatinine 1.7 H Glucose Calcium 7.8 L Iron TIBC Transferrin % Sat Ferritin Lactate Dehydrogenase 302 H Total Protein 4.6 L Albumin 2.7 L Globulin 1.9 L Urine Occult Blood U [place] Prot/Creat Ratio 0.53 H Vancomycin Trough 04/06/17 04/06/17 16:01 13:40 WBC RBC Hgb Hct MCV MCH RDW MPV Gran % Lymph % (Auto) Gran # Lymph # (Auto) Potassium Creatinine 1.6 H Glucose 137 H Calcium 8.2 L Iron TIBC Transferrin % Sat Ferritin Lactate Dehydrogenase Total Protein Albumin Globulin Urine Occult Blood 0.03 A U [place] Prot/Creat Ratio Vancomycin Trough April 07: Moderate sized infiltrate in the left lower lobe, larger than on April 01, 2017. Milder infiltrate medially in the right lower lobe which is unchanged. Abdominal x-ray: Normal. Next April 06: Left hip x-ray: No fracture or dislocation P Renal ultrasound: Shows anatomically normal right kidney. Left kidney has mildly echogenic cortex possibly due to medical renal disease. April 02: Head CT: Shows no acute abnormality. Deep brain stimulator leads are in place. Meds: Medications Hydrocodone Bitart/Acetaminophen ([place] 5/325mg) 1 tab PO Q4-6HP PRN PRN Reason: Pain Last Admin: 04/08/17 15:34 Dose: 1 tab Albuterol/Ipratropium (Duoneb) 3 ml NEB Q6HRT [facility] Last Admin: 04/09/17 01:32 Dose: 3 ml Aspirin (Ecotrin) 325 mg PO BID [facility] Last Admin: 04/09/17 11:32 Dose: 325 mg Carbamazepine (Tegretol) 100 mg PO Q12 [facility] Last Admin: 04/09/17 10:47 Dose: Not Given Carbidopa/Levodopa (Sinemet 25/100) 1.5 tab PO QID [facility] Last Admin: 04/09/17 11:36 Dose: Not Given Clonazepam (Klonopin) 0.25 mg PO BID [facility] Last Admin: 04/09/17 10:24 Dose: 0.25 mg Finasteride (Proscar) 5 mg PO DAILY [facility] Last Admin: 04/09/17 11:32 Dose: 5 mg Fludrocortisone Acetate (Florinef) 0.3 mg PO DAILY [facility] Last Admin: 04/09/17 10:24 Dose: 0.3 mg Gabapentin (Neurontin) 300 mg PO HS [facility] Last Admin: 04/08/17 20:31 Dose: 300 mg Hydromorphone HCl (Dilaudid) 1 mg IV Q4-6HP PRN PRN Reason: Pain Last Admin: 04/09/17 04:59 Dose: 1 mg Sodium Chloride (Sodium Chloride 0.45%) 1,000 mls @ 100 mls/hr IV .Q10H [facility] Last Admin: 04/09/17 11:35 Dose: 100 mls/hr Piperacillin Sod/Tazobactam (Sod 3.375 gm/ Dextrose) 50 mls @ 100 mls/hr IV Q6H [facility] Last Admin: 04/09/17 05:36 Dose: 100 mls/hr Acetaminophen (Ofirmev) 650 mg in 65 mls @ 130 mls/hr IV Q6HP PRN PRN Reason: Pain Last Admin: 04/04/17 00:35 Dose: 130 mls/hr Vancomycin HCl 1,500 mg/ (Sodium Chloride) 500 mls @ 333.3 mls/hr IV Q48H [facility] Last Admin: 04/08/17 12:14 Dose: 333.3 mls/hr Lactobacillus Rhamnosus (Culturelle) 1 cap PO DAILY [facility] Last Admin: 04/09/17 09:53 Dose: Not Given Lorazepam (Ativan) 1 mg IV Q2HP PRN PRN Reason: ANXIETY/SEDATION Last Admin: 04/08/17 22:53 Dose: 1 mg Magnesium Hydroxide (Milk Of Magnesia) 30 ml PO BIDP PRN PRN Reason: Constipation Last Admin: 04/04/17 08:21 Dose: 30 ml Methocarbamol (Robaxin) 500 mg PO TIDP PRN PRN Reason: Muscle Spasm Last Admin: 03/31/17 20:20 Dose: 500 mg Midodrine (Midodrine Hcl) 5 mg PO TID@0800,1200,1700 [facility] Last Admin: 04/09/17 13:37 Dose: Not Given [facility]oprazole [facility] ([facility]ix) [facility] Admin: 04/09/17 09:52 Dose: 40 mg Entacapone [Comtan] (200 Mg) 1 dose PO BID [facility] Last Admin: 04/09/17 10:25 Dose: Not Given Silodosin [Rapaflo] (8 Mg) 1 dose PO DAILY [facility] Last Admin: 04/09/17 10:47 Dose: Not Given Polyethylene Glycol (Miralax) 17 gm PO DAILYP PRN PRN Reason: Constipation Last Admin: 04/05/17 20:43 Dose: 17 gm Potassium [facility] ([facility]-Con) [facility] Admin: 04/09/17 10:24 Dose: Not Given Quetiapine Fumarate (Seroquel) 100 mg PO DAILY@1500 [facility] Last Admin: 04/08/17 15:32 Dose: 100 mg Ropinirole HCl (Requip) 1 mg PO TID [facility] Last Admin: 04/09/17 10:47 Dose: Not Given Senna (Senokot) 2 tab PO [facility] Last Admin: 04/08/17 20:32 Dose: Not Given Simvastatin (Zocor) 10 mg PO [facility] Last Admin: 04/08/17 20:32 Dose: 10 mg Sodium Biphosphate/Sodium Phosphate (Fleets Adult) 1 dose UT Q3-4DAYS PRN PRN Reason: Constipation Sodium Chloride (Saline Flush) 10 ml IV Q8 [facility] Last Admin: 04/09/17 13:37 Dose: Not Given Tamsulosin HCl (Flomax) 0.4 mg PO BID [facility] Last Admin: 04/09/17 10:24 Dose: Not Given Throat Lozenges (Cepacol) 1 lozenge PO PRN PRN PRN Reason: Sore Throat Tramadol HCl (Ultram) 50 mg PO Q6HP PRN PRN Reason: Pain Last Admin: 04/08/17 22:05 Dose: 50 mg Vancomycin HCl (Vancomycin Per Pharmacy) 1 order IV UD [facility] Vitamin D (Vitamin D3) 10,000 unit PO Q48 [facility] Last Admin: 04/09/17 11:32 Dose: 10,000 unit Medical - PN: A/P - Time Spent With Patient Total time spent is greater than 50% in coordination of care (as documented) at patient's floor/unit and/or counseling patient: Greater than 35 minutes - Narrative A/P Narrative: A/P #1. Orthopedic. -Left Hip Fracture: , Continue PT/ OT as tolerated. -Left hip dislocation: s/p reduction 04/[address] jeffries , pt doing well at present , repeat X ray 04/06 is normal -Clavicular fracture Vs Sternoclavicular dislocation: Old injury, appreciate ortho input #2. Post Op Pain: tramadol prn, methacarbamol prn, added hydrocodone and dilaudid prn for now. Hopefully needed for pain medication will keep declining , as this may be affecting his mental status. #3. Neurologic. Delirium: improving, still has some sundowning, waxing and waning situation, IV thiamine added for 3 doses,. -Parkinsons disease: Resumed home doses of levodopa, carbidopa, ropinirole, unfortunately pt misses does due to being delirious and refusing Meds intermittently. Changed schedule from Q6H to QID and TID to help w sx. #4. Anemia: seems chr, hb back to baseline today. wbc improved again. #5. Cardiac. -Orthostatic hypotension: on midodrine and Florinef at home. Now w supine HTN; decreased midodrine to 5 TID with hold parameters. This will need to be titrated up as he increases mobility.for now I am accepting the supine hypertension to avoid significant postural drop. #6. Infectious disease. PNA: Likely aspirational pna, continue vanco and zosyn, repeat CXR shows worsening pna. clnically stable, consider switching to augmentin at discharge. #7. Renal. -Acute kidney injury: etiology: nephrology input appreciated, creat stable at 1.6, making urine. monitor for now. -Potassium is low today. Replace. #8. HLD on statin #9. CODE STATUS: Full Code #10. DVT prophylaxis. ASA 325 BID as per Ortho protocol. Approximately 35 minutes has been spent so far today, reviewing the patient's chart and test results, interviewing and examining the patient twice, reviewing plan of care with his , and writing orders. Addendum The patient again became more confused and agitated this afternoon, and pulled out his IV. Nurses note they really cannot seem to keep a line in him, because he just wants to pull on it. We will try switching him over to oral Augmentin.
[2017-04-09] MEDS: QUEtiapine 100 MG TABLET PO SCH (17:04)
[2017-04-09] MEDS: DEXTROSE 5%-1/2NS W/40MEQ KCL 1,000 ML IV SCH (20:15)
[2017-04-10] MEDS: HYDROmorphone 2 MG/ML SYRINGE IV PRN ×4 (00:08→15:05)
[2017-04-10] MEDS: ASPIRIN 325 MG ENTERIC COATED TABLET PO SCH ×4 (01:15→20:05)
[2017-04-10] MEDS: clonazePAM 0.5 MG TABLET PO SCH ×4 (01:15→20:05)
[2017-04-10] MEDS: TAMSULOSIN 0.4 MG CAPSULE PO SCH ×4 (01:15→20:05)
[2017-04-10] MEDS: SIMVASTATIN 10 MG TABLET PO SCH ×3 (01:16→20:06)
[2017-04-10] MEDS: ENTACAPONE 200 MG PO SCH ×3 (01:16→19:02)
[2017-04-10] MEDS: CARBIDOPA/LEVODOPA 25/100 TABLET PO SCH ×6 (01:16→20:06)
[2017-04-10] MEDS: GABAPENTIN 300 MG CAPSULE PO SCH ×3 (01:16→20:06)
[2017-04-10] MEDS: 0.9 % SODIUM CHLORIDE 10 ML SYRINGE IV SCH ×4 (01:16→20:06)
[2017-04-10] MEDS: SENNOSIDES 1 TABLET PO SCH ×3 (01:16→20:06)
[2017-04-10] MEDS: rOPINIRole 1 MG TABLET PO SCH ×5 (01:16→20:06)
[2017-04-10] MEDS: carBAMazepine 100 MG TAB.CHEW PO SCH ×3 (01:16→19:02)
[2017-04-10] MEDS: PIPERACILLIN SODIUM/TAZOBACTAM 3.375 GM in DEXTROSE 5% IN WATER 50 ML IV SCH ×4 (01:19→21:41)
[2017-04-10] MEDS: IPRATROPIUM/ALBUTEROL 3 ML AMPUL.NEB NEB SCH ×4 (01:34→19:05)
[2017-04-10 07:14] LABS: Basophils # (Auto) 0.1 K/mcL (0.0-0.3); Basophils % (Auto) 1.2 % (0.0-2.0); Eosinophils # (Auto) 0.3 K/mcL (0.0-0.7); Eosinophils % (Auto) 5.3 % (0.0-7.0); Granulocytes % (Auto) 71.4 % (38.0-78.0); Lymphocytes # (Auto) 0.7 K/mcL (1.5-4.8); Lymphocytes % (Auto) 14.8 % (15.5-49.0); Mean Cell Volume 109.9 fL (80.0-100.0); Mean Corpuscular HGB Conc 34.5 g/dL (31.0-36.0); Mean Corpuscular Hemoglobin 37.9 pg (26.0-34.0); Monocytes # (Auto) 0.4 K/mcL (0.1-0.9); Monocytes % (Auto) 7.3 % (1.0-12.0); Platelet Count 308 K/mcL (140-440); RBC 2.12 M/mcL (4.50-5.90); Red Cell Distribution Width 14.7 % (11.5-14.5)
[2017-04-10] MEDS: PANTOPRAZOLE 40 MG VIAL IV SCH (07:43)
[2017-04-10] MEDS: FLUDROCORTISONE 0.1 MG TABLET PO SCH (07:44)
[2017-04-10] MEDS: LACTOBACILLUS 1 CAPSULE PO SCH (07:44)
[2017-04-10] MEDS: POTASSIUM CHLORIDE 20 MEQ PACKET PO SCH ×2 (07:47→15:46)
[2017-04-10] MEDS: FINASTERIDE 5 MG TABLET PO SCH (07:48)
[2017-04-10] MEDS: MIDODRINE 5 MG TABLET PO SCH ×3 (07:50→15:46)
[2017-04-10 07:55] LABS: ALT/SGPT < 5 U/l (0-40); Albumin/Globulin Ratio 1.4 (1.0-2.3); Alkaline Phosphatase 64 U/L (39-117); Bilirubin,Direct < 0.2 mg/dL (0.0-0.3); Blood Urea Nitrogen 10 mg/dl (8-23); Gamma Glutamyl Transpeptidase 29 U/L (8-61); Uric Acid 3.7 mg/dL (2.5-8.0)
[2017-04-10] MEDS ORDERED: AMOXICILLIN/POTASSIUM CLAV 875 MG TABLET PO SCH (08:00)
[2017-04-10] MEDS: VANCOMYCIN 1,500 MG in 0.9 % SODIUM CHLORIDE 500 ML IV SCH (09:07)
[2017-04-10] MEDS: DEXTROSE 5%-1/2NS W/40MEQ KCL 1,000 ML IV SCH ×3 (09:18→20:04)
[2017-04-10 11:12] LABS: Blood Urea Nitrogen 9 mg/dl (8-23)
--- NOTE | 2017-04-10 11:30 | Orthopedic Progress Note ---
Subjective Patient information: Note initiated : 04/10/17 at 11:29 am Service Date, if different from initiated Date: [] Patient: Oliver Miles 81 y/o M admitted on 03/29/17 for Fall, L Hip Pain/ Closed Left Hip Fracture. Chief Complaint: [less pain but some confusion continues] Objective Vital signs: Vital Signs Temp Pulse Pulse Resp BP Pulse Ox 04/10/17 10:00 78 04/10/17 08:00 78 04/10/17 07:33 98.2 F 20 174/82 94 04/10/17 04:00 97.9 F 78 20 144/71 95 04/10/17 00:00 97.9 F 62 20 158/73 95 04/09/17 20:00 22 04/09/17 19:49 78 20 04/09/17 17:14 71 04/09/17 15:11 97.9 F 20 166/76 93 04/09/17 14:00 71 04/09/17 11:38 97.6 F 18 157/76 92 Intake and Output 04/09/17 04/10/17 04/10/17 21:59 05:59 13:59 Intake Total 290 / 290 1029 / 1029 Output Total 4 / 4 2 / 2 Balance 286 / 286 -2 / -2 1028 / 1028 Intake: IV 50 / 50 1029 / 1029 Dextrose 5%-1/2Ns W/40Meq 979 / 979 KCl 1,000 ml @ 75 mls/hr IV .[id number] [facility] Rx#: [id number] Zosyn 3.375 gm In 50 / 50 50 / 50 Dextrose 5% in Water 50 ml @ 100 mls/hr IV Q8H [facility] Rx#:[id number] Oral 240 / 240 Output: # of times incontinent of 4 / 4 2 / 2 urine Other: Meal Lunch Percent of Meal Consumed Bites Feeding Ability Total Assistance Weight 189 lb 8 oz Intake & Output: Intake & Output 04/09/17 04/10/17 04/10/17 21:59 05:59 13:59 Intake Total 290 / 290 1029 / 1029 Output Total 4 / 4 2 / 2 Balance 286 / 286 -2 / -2 1028 / 1028 Weight 189 lb 8 oz Intake: IV 50 / 50 1029 / 1029 Dextrose 5%-1/2Ns W/40Meq 979 / 979 KCl 1,000 ml @ 75 mls/hr IV .[id number] [facility] Rx#: [id number] Zosyn 3.375 gm In 50 / 50 50 / 50 Dextrose 5% in Water 50 ml @ 100 mls/hr IV Q8H [facility] Rx#:[id number] Oral 240 / 240 Output: # of times incontinent of 4 / 4 2 / 2 / urine Other: Meal Lunch Percent of Meal Consumed Bites Feeding Ability Total Assistance Incision: Yes healing Incision clean and dry: Yes Dressing: Yes clean Weight bearing status: full Neurological exam IM: Yes altered - Labs CBC & BMP: 04/10/17 04:25 04/10/17 10:05 Labs: 04/10/17 04/09/17 04/08/17 04:25 04:52 07:20 Hgb 8.1 L 8.7 L 9.3 L Hct 23.3 L 24.7 L 27.4 L 04/07/17 04/06/17 04/05/17 07:36 04:07 04:30 Hgb 7.9 L 9.2 L 9.1 L Hct 23.5 L 26.3 L 25.5 L 04/04/17 04/03/17 04/02/17 04:30 04:48 04:15 Hgb 9.5 L 9.8 L 10.0 L Hct 27.3 L 27.6 L 28.4 L 04/01/17 03/31/17 03/30/17 03:48 03:25 03:44 Hgb 10.4 L 10.1 L 9.1 L Hct 29.7 L 28.8 L 26.1 L
--- NOTE | 2017-04-10 13:20 | Internal Med Progress Note ---
Medical - PN: Subj Patient information: Note initiated : 04/10/17 at 1:20 pm Service Date, if different from initiated Date: [] Patient: Oliver Miles 81 y/o M admitted on 03/29/17 for Fall, L Hip Pain/ Closed Left Hip Fracture. Chief Complaint: [] Interval history: 03/29-HPI-Mr. Miles is a 81 year old Male comes in to [facility] ER with left hip injury and pain. Patient sustained a trauma after he fell off the bed while attempting to go to the bathroom this morning around 7:15 AM. He was subsequently brought in to [facility] ER. Initial workup was significant for left subcapital hip fracture. Orthopedics was consulted. Patient was scheduled for operative intervention later in the evening. Hospitalist service was consulted for admission and preoperative risk evaluation along with medical issue management. He otherwise denies fever chills nausea vomiting headache photophobia diarrhea dysuria or weight loss. 03/30- postop day 2. Patient doing well. No overnight events. Pain well controlled. No fever chills SOB nausea vomiting or bleeding or swelling at surgery site. started physical therapy. Patient has advanced Parkinson's disease limiting his functionality and gait instability. He also carries history of orthostatic hypertension. Continue aggressive physical therapy and and target or male sitting upright in light of high risk Parkinson's related dysphagia. Anticipate SNF transfer in 48 hours. Continue postop management per orthopedics 03/31: Pt seen examined, acute overnight events noted that patient was more confused and agitated last night, needing use of ativan and some dilaudid, has been refusing his oral medications. Patient this AM was drowsy after the effect of pain meds. The nurse had concern regarding the right clavicle in the patient, it seems that the patient has h/o clavicular fracture (noted on prob list), X ray clavicle is interpreted as negative, but there is an obvious clinical fracture vs dehiscence at the sternoclavicular joint. I called Dr Jeffries to evaluate the patient for this and need for any operative intervention. Patient has been placed in the right sling. Will review old CXR images to see if this is new or old injury. 04/01: Pt seen examined, overnight was agitated again needing 1:1 supervision, dilaudid was held by ortho was resumed for pain management. This AM dialaudid and ativan was held. The patient this AM was doing well, but later in the morning became paranoid and agitated, trying to get out of bed and take a swing at the nurses, case management and myself. He was given ativan 0.5mg and 2mg IV haldol to calm him down. the right clavicle fracture is an old fracture wit no active management needed. sling discontinued. Patient has had increased oxygen needs CXR shows possible pna, blood cx and vanco and zosyn started. His dose of seroquel increased to 50mg at bed time. IV tylenol for pain management for now. 04/02: Patient seen examined, in restrains with mittens to prevent removal of iv acces, has removed 4-5 so far, aggressive towards nursing and care providers, speech is dysarthric. 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 Ortho made aware Dr. Shukla spent 15 mins with family, daughter in law and the , explaining the preset situation. Patient mental condition does not seem to be improving. he remains delirious and aggressive towards care providers. Unable to keep a good IV to maintain hydration nor adequate po intake, pt spits out medications. He remains of D2 of vanco and Zosyn for now. Discussed need for CT head to evaluate if any IC process ongoing If patient does not respond to conservative measures, then it will be difficult to place him, also if he continues to refuse to eat and removes IV access hydration will also be an issue. Over all he has very poor prognosis. 04/03: Taken to OR yesterday for relocation of hip prosthesis. Head CT neg for acute process. He has dysarthric speech today but is able to have some simple conversations. Stood at EOB with PT while bed was changed. K low and is replaced today. Will adjust Sinemet and Requip dosing schedules today to ensure he is getting them. 04/04: Walked with PT today. Still uncooperative; tried to leave and is still requiring hand mitts as restraints. Having supine hypertension with BP 188 last night--on midodrine and Florinef for OH. K still low at 3.2 despite replacement yesterday. Eating a little better today and complaining of hip pain that is unrelieved by Tylenol or dilaudid. Will try Tramadol and increase Seroquel to 100 HS. Had long discussion with at bedside regarding goals of care and prognosis. She is aware that any future insult to his body will result in likely severe delirium with paranoia and combative behavior as he has had this admission and that, at best, he will likely need SNF care long-term. With his slow but steady progress over the weekend, she would like to continue current care but voices interest in pursuing comfort measures only if he worsens. 04/05: Patient seen examined this AM, was more cooperative today, had stable night, his speech remains garbled but at baseline does not have good speech. He is not aggressive today, and did seem to follow commands and ask some appropriate questions. did not need haldol yesterday, will d/c hand mittens today and see how he does. Hopefully he will continue to improve. He will likely need to be 24 hrs without restraints before he can be safely discharged. 04/06 patient seen examined he was somewhat confused at night, but otherwise no acute issues, speech garbled, but seems to be at baseline. He did not need any haldol and is donig well without restrains, unfortunately his renal function is worse today, creat jumped rom 0.6 to 1.4, he received 1L salien bolus and his creat still went up to 1.6, At this time, will initiate workup for renal failure , ua, urine lyes, eosinophil levels and renal sonogram, continue gentle hydration and monitor renal function, consider renal consult if patient kidney function worsens. 04/07: patient seen and examined, he was acutely confused yesterday evening with aggressive behavior, was given Ativan with resolution of symptoms. Since around 9:00 yesterday. He has not had any issues. His speech is garbled, but does obey commands, responding. His labs show worsening WBC count worsening renal function with a creatinine of 1.7 he is still making urine. His bladder scan shows urine of around 230 mL, any side effect diapers. His urine studies and renal sonogram have been reviewed Nephrology has been consulted for evaluation of acute kidney injury. 04/08: Pt seen examined, no acute overnight events. He did not have any episode of sundowning last night. It seems that the dose of Seroquel given late in the afternoon has helped. The patient's kidney function is more stable now. Is still making urine. The blood pressure remains high in the supine position. But he has history of orthostatic hypotension and he is on midodrine as well as fludrocort for same. or now, continue IV antibiotics. Given that the x-ray showed worsening pneumonia. The patient likely has aspiration pneumonia given his clinical picture. Microbiology is negative so far. the patient may likely be changed to oral antibiotics. If continues to improve. this morning when I saw him, he was sitting in his bed comfortably, wearing glasses, and trying to read magazine His speech is still garbled but it seems this is baseline. April 09: -Today, the patient is awake, although was somewhat sleepy when I first saw him this morning. This afternoon he is more alert. He was able to work with speech therapy a little this morning, and speech is somewhat improved. However , he is still rather difficult to understand. His is in the room with him this afternoon. He denies significant pain, although did apparently have some hip pain last night, for which she received Dilaudid. He denies fever or chills, chest pain or shortness of breath, abdominal pain, but it is not entirely clear how reliable his history is. -He did dislocate his hip, and closed reduction was required. We believe he has not dislocated it again since then. -He carries a diagnosis of pneumonia, but at this time remains afebrile, with normal white blood cell count. -Potassium is rather low today. He remains quite anemic. Creatinine is gradually improving. -Iron studies showed low iron and low TIBC, with low transferrin saturation April 10: The patient continues to have episodes of confusion, consistent with delirium. He pulled out his IV again last night, even though it was wrapped. They replaced one high up in his arm, and put hand mitts on, so that he would be less likely to pull that out. He needs continued IV antibiotics for his pneumonia. He also needs IV fluids, as p.o. intake has been poor, due to his confusion. This morning, he continues to seem mildly agitated, but he does stop and look at me if I talk to him. He is able to follow some commands, but his speech is mostly unintelligible. He gets very upset when the nurses have to change his depends. He seems to indicate he is not having pain or shortness of breath, but history is likely unreliable. - Constitutional Vitals: Vital Signs Temp Pulse Resp BP Pulse Ox 98.0 F 78 20 169/78 95 04/10/17 12:00 04/10/17 10:00 04/10/17 12:00 04/10/17 12:00 04/10/17 12:00 Period Temp Pulse Resp BP Sys/Garcia Pulse Ox Last 24 Hr 97.9 F-98.2 F 62-78 20-22 144-174/71-82 93-95 Intake and Output 04/09/17 04/10/17 04/10/17 21:59 05:59 13:59 Intake Total 290 / 290 2529 / 2529 Output Total 4 / 4 2 / 2 2 / 2 Balance 286 / 286 -2 / -2 2527 / 2527 Weight 189 lb 8 oz Intake & Output: Intake & Output 04/09/17 04/10/17 04/10/17 21:59 05:59 13:59 Intake Total 290 / 290 2529 / 2529 Output Total 4 / 4 2 / 2 2 / 2 Balance 286 / 286 -2 / -2 2527 / 2527 Weight 189 lb 8 oz Intake: IV 50 / 50 2529 / 2529 Dextrose 5%-1/2Ns W/40Meq 1978 KCl 1,000 ml @ 75 mls/hr IV .[id number] [facility] Rx#: [id number] Zosyn 3.375 gm In 50 / 50 50 / 50 Dextrose 5% in Water 50 ml @ 100 mls/hr IV Q8H [facility] Rx#:[id number] Vancomycin 1,500 mg In 500 / 500 Sodium Chloride 0.9% 500 ml @ 333.3 mls/hr IV Q48H [facility] Rx#:[id number] Oral 240 / 240 Output: # of times incontinent of 4 / 4 2 / 2 2 / 2 urine Other: Meal Lunch Percent of Meal Consumed Bites Feeding Ability Total Assistance Patient is awake , but speech remains difficult to understand. . Neck appears supple, without lymphadenopathy or JVD. Cardiac exam shows regular rate and rhythm. Lungs: Clear to auscultation. Abdomen is soft and nontender. Extremities: Upper extremities have numerous bruises from various blood draws and IVs he has pulled out. Left thigh is still fairly heavily bruised, but overall legs have no significant edema. Neurologic exam: The patient is awake, and is able to follow some commands, but continues to be confused at times, and pull at lines, IVs, etc. Medical - PN: Obj Da - Labs CBC & Chem 7: 04/10/17 04:25 04/10/17 10:05 Labs: Abnormal Lab Results 04/10/17 04/10/17 04/10/17 10:05 04:25 04:25 RBC 2.12 L Hgb 8.1 L Hct 23.3 L MCV 109.9 H MCH 37.9 H RDW 14.7 H MPV Gran % Lymph % (Auto) 14.8 L Lymph # (Auto) 0.7 L Sodium 146 H 147 H Potassium 3.2 L Creatinine 1.3 H 1.3 H Calcium 8.5 L 8.4 L Lactate Dehydrogenase 300 H Total Protein 5.1 L Albumin 3.0 L Globulin 2.1 L 04/09/17 04/09/17 04/08/17 04:52 04:52 07:20 RBC 2.33 L Hgb 8.7 L Hct 24.7 L MCV 106.0 H MCH 37.6 H RDW MPV Gran % 80.5 H Lymph % (Auto) 9.0 L Lymph # (Auto) 0.7 L Sodium Potassium 3.2 L Creatinine 1.5 H 1.6 H Calcium 8.2 L 8.5 L Lactate Dehydrogenase 321 H 304 H Total Protein 4.9 L 5.4 L Albumin 2.8 L 3.0 L Globulin 2.1 L 04/08/17 07:20 RBC 2.55 L Hgb 9.3 L Hct 27.4 L MCV 107.5 H MCH 36.5 H RDW 15.1 H MPV 7.3 L Gran % Lymph % (Auto) 14.9 L Lymph # (Auto) 0.8 L Sodium Potassium Creatinine Calcium Lactate Dehydrogenase Total Protein Albumin Globulin April 07: Chest x-ray: Moderate sized infiltrate in the left lower lobe, larger than on April 01, 2017. Milder infiltrate medially in the right lower lobe which is unchanged. Abdominal x-ray: Normal. April 06: Left hip x-ray: No fracture or dislocation P Renal ultrasound: Shows anatomically normal right kidney. Left kidney has mildly echogenic cortex possibly due to medical renal disease. April 02: Head CT: Shows no acute abnormality. Deep brain stimulator leads are in place. April 01: Blood cultures: Negative. Meds: Medications Hydrocodone Bitart/Acetaminophen ([place] 5/325mg) 1 tab PO Q4-6HP PRN PRN Reason: Pain Last Admin: 04/08/17 15:34 Dose: 1 tab Albuterol/Ipratropium (Duoneb) 3 ml NEB Q6HRT [facility] Last Admin: 04/10/17 07:51 Dose: Not Given Aspirin (Ecotrin) 325 mg PO BID [facility] Last Admin: 04/10/17 07:46 Dose: 325 mg Carbamazepine (Tegretol) 100 mg PO Q12 [facility] Last Admin: 04/10/17 07:45 Dose: 100 mg Carbidopa/Levodopa (Sinemet 25/100) 1.5 tab PO QID [facility] Last Admin: 04/10/17 07:47 Dose: 1.5 tab Clonazepam (Klonopin) 0.25 mg PO BID [facility] Last Admin: 04/10/17 07:46 Dose: 0.25 mg Finasteride (Proscar) 5 mg PO DAILY [facility] Last Admin: 04/10/17 07:48 Dose: 5 mg Fludrocortisone Acetate (Florinef) 0.3 mg PO DAILY [facility] Last Admin: 04/10/17 07:44 Dose: 0.3 mg Gabapentin (Neurontin) 300 mg PO HS [facility] Last Admin: 04/10/17 01:16 Dose: Not Given Hydromorphone HCl (Dilaudid) 1 mg IV Q4-6HP PRN PRN Reason: Pain Last Admin: 04/10/17 09:14 Dose: 1 mg Acetaminophen (Ofirmev) 650 mg in 65 mls @ 130 mls/hr IV Q6HP PRN PRN Reason: Pain Last Admin: 04/04/17 00:35 Dose: 130 mls/hr Vancomycin HCl 1,500 mg/ (Sodium Chloride) 500 mls @ 333.3 mls/hr IV Q48H [facility] Last Infusion: 04/10/17 12:07 Dose: Infused Potassium Chloride/Dextrose/Sod Cl (Dextrose 5%-1/2ns W/40meq Kcl) 1,000 mls @ 75 mls/hr IV .[id number] [facility] Last Admin: 04/10/17 12:15 Dose: 75 mls/hr Piperacillin Sod/Tazobactam (Sod 3.375 gm/ Dextrose) 50 mls @ 100 mls/hr IV Q8H [facility] Last Infusion: 04/10/17 06:34 Dose: Infused Lactobacillus Rhamnosus (Culturelle) 1 cap PO DAILY [facility] Last Admin: 04/10/17 07:44 Dose: 1 cap Lorazepam (Ativan) 1 mg IV Q2HP PRN PRN Reason: ANXIETY/SEDATION Last Admin: 04/08/17 22:53 Dose: 1 mg Magnesium Hydroxide (Milk Of Magnesia) 30 ml PO BIDP PRN PRN Reason: Constipation Last Admin: 04/04/17 08:21 Dose: 30 ml Methocarbamol (Robaxin) 500 mg PO TIDP PRN PRN Reason: Muscle Spasm Last Admin: 03/31/17 20:20 Dose: 500 mg Midodrine (Midodrine Hcl) 5 mg PO TID@0800,1200,1700 [facility] Last Admin: 04/10/17 07:50 Dose: Not Given Pantoprazole Sodium (Protonix) 40 mg IV QAMAC [facility] Last Admin: 04/10/17 07:43 Dose: 40 mg Entacapone [Comtan] (200 Mg) 1 dose PO BID [facility] Last Admin: 04/10/17 07:43 Dose: 1 dose Silodosin [Rapaflo] (8 Mg) 1 dose PO DAILY [facility] Last Admin: 04/10/17 07:49 Dose: Not Given Polyethylene Glycol (Miralax) 17 gm PO DAILYP PRN PRN Reason: Constipation Last Admin: 04/05/17 20:43 Dose: 17 gm Potassium Chloride (Klor-Con) 40 meq PO BIDCC [facility] Last Admin: 04/10/17 07:47 Dose: 40 meq Quetiapine Fumarate (Seroquel) 100 mg PO DAILY@1500 [facility] Last Admin: 04/09/17 17:04 Dose: 100 mg Ropinirole HCl (Requip) 1 mg PO TID [facility] Last Admin: 04/10/17 07:48 Dose: 1 mg Senna (Senokot) 2 tab PO [facility] Last Admin: 04/10/17 01:16 Dose: Not Given Simvastatin (Zocor) 10 mg PO HS [facility] Last Admin: 04/10/17 01:16 Dose: Not Given Sodium Chloride (Saline Flush) 10 ml IV Q8 [facility] Last Admin: 04/10/17 06:04 Dose: Not Given Tamsulosin HCl (Flomax) 0.4 mg PO BID [facility] Last Admin: 04/10/17 07:46 Dose: 0.4 mg Throat Lozenges (Cepacol) 1 lozenge PO PRN PRN PRN Reason: Sore Throat Tramadol HCl (Ultram) 50 mg PO Q6HP PRN PRN Reason: Pain Last Admin: 04/08/17 22:05 Dose: 50 mg Vitamin D (Vitamin D3) 10,000 unit PO Q48 [facility] Last Admin: 04/09/17 11:32 Dose: 10,000 unit Medical - PN: A/P - Time Spent With Patient Total time spent is greater than 50% in coordination of care (as documented) at patient's floor/unit and/or counseling patient: 25 - 35 minutes - Narrative A/P Narrative: A/P #1. Orthopedic. -Left Hip Fracture: , Continue PT/ OT as tolerated. -Left hip dislocation: s/p reduction 04/[address] jeffries , pt doing well at present , repeat X ray 04/06 is normal -Clavicular fracture Vs Sternoclavicular dislocation: Old injury, appreciate ortho input #2. Post Op Pain: He has been on tramadol prn, methacarbamol prn, added hydrocodone and dilaudid prn for now. Because his mental status is not clearing, I will discontinue most of these, and just go with IV Tylenol as needed. #3. Neurologic. Delirium: improving, still has some sundowning, waxing and waning situation, IV thiamine added for 3 doses,. -Parkinsons disease: Resumed home doses of levodopa, carbidopa, ropinirole, unfortunately pt misses does due to being delirious and refusing Meds intermittently. Changed schedule from Q6H to QID and TID to help w sx. He did take most of his morning medications today. -I have discontinued most of his as needed pain medications and muscle relaxers , to see if this will help mental status improved #4. Hematologic. Anemia: seems chr, hb back to baseline today. wbc improved again. #5. Cardiac. -Orthostatic hypotension: on midodrine and Florinef at home. Now w supine HTN; decreased midodrine to 5 TID with hold parameters. This will need to be titrated up as he increases mobility.for now I am accepting the supine hypertension to avoid significant postural drop. #6. Infectious disease. PNA: Likely aspiration pna, continue vanco and zosyn, repeat CXR shows worsening pna. clnically stable, consider switching to augmentin at discharge. #7. Renal. -Acute kidney injury: etiology: nephrology input appreciated, creat is improving , now at 1.3., making urine. monitor for now. -Potassium is proved today. -Sodium is running high, and IV fluids were changed to half-normal saline yesterday. Continue to monitor. #8. HLD on statin #9. CODE STATUS: Full Code #10. DVT prophylaxis. ASA 325 BID as per Ortho protocol. Approximately 30 minutes has been spent so far today, reviewing the patient's chart and test results, interviewing and examining the patient twice, reviewing plan of care with his , and writing orders.
[2017-04-10] MEDS: HYDROcodone/APAP 5/325MG TABLET PO PRN (14:52)
[2017-04-10] MEDS: QUEtiapine 100 MG TABLET PO SCH (14:52)
[2017-04-10] MEDS: traMADol 50 MG TABLET PO PRN ×2 (18:46→23:51)
--- NOTE | 2017-04-10 20:11 | Nephrology Progress Note ---
Subjective Patient information: Note initiated : 04/10/17 at 8:09 pm Service Date, if different from initiated Date: [] Patient: Oliver Miles 81 y/o M admitted on 03/29/17 for Fall, L Hip Pain/ Closed Left Hip Fracture. Chief Complaint: [] Principal diagnosis: hip fracture Interval history: Patient seen today he has been delirious and agitated today no other significant events reported patient unable to provide any history Pertinent ROS: unable to obtain Objective - Vital Signs Vital signs: Vital Signs Temp Pulse Pulse Resp BP Pulse Ox 04/10/17 19:58 99.8 F H 87 20 192/89 97 04/10/17 19:07 73 21 94 04/10/17 19:06 74 20 04/10/17 16:28 78 04/10/17 15:47 20 179/86 92 04/10/17 14:00 78 04/10/17 13:54 74 20 04/10/17 12:00 98.0 F 20 169/78 95 04/10/17 10:00 78 04/10/17 08:00 78 04/10/17 07:33 98.2 F 20 174/82 94 04/10/17 04:00 97.9 F 78 20 144/71 95 04/10/17 00:00 97.9 F 62 20 158/73 95 Intake and Output 04/10/17 04/10/17 04/10/17 05:59 13:59 21:59 Intake Total 2528 Output Total 2 / 2 2 / 2 4 / 4 Balance -2 / -2 2526 Intake: IV 2528 Dextrose 5%-1/2Ns W/40Meq 1978 KCl 1,000 ml @ 75 mls/hr IV .[id number] [facility] Rx#: [id number] Zosyn 3.375 gm In 50 / 50 Dextrose 5% in Water 50 ml @ 100 mls/hr IV Q8H [facility] Rx#:[id number] Vancomycin 1,500 mg In 500 / 500 Sodium Chloride 0.9% 500 ml @ 333.3 mls/hr IV Q48H [facility] Rx#:[id number] Output: # of times incontinent of 2 / 2 2 / 2 4 / 4 urine Other: Meal Lunch Percent of Meal Consumed Refused Intake & Output: Intake & Output 07/29/17 07/29/17 07/29/17 05:59 13:59 21:59 Intake Total 2528 Output Total 2 / 2 2 / 2 4 / Balance -2 / -2 2526 Intake: IV 2528 Dextrose 5%-1/2Ns W/40Meq 1978 KCl 1,000 ml @ 75 mls/hr IV .[id number] [facility] Rx#: [id number] Zosyn 3.375 gm In 50 / 50 Dextrose 5% in Water 50 ml @ 100 mls/hr IV Q8H [facility] Rx#:[id number] Vancomycin 1,500 mg In 500 / 500 Sodium Chloride 0.9% 500 ml @ 333.3 mls/hr IV Q48H [facility] Rx#:[id number] Output: # of times incontinent of 2 / 2 2 / 2 4 / 4 urine Other: Meal Lunch Percent of Meal Consumed Refused - General Appearance General appearance: appears started age, chronically ill EENT: mucous membranes moist Neck: no JVD Respiratory: clear Cardiology: no rub, edema (on sacral and thigh region), normal S1, normal S2 Gastrointestinal: no tenderness Integumentary: warm and dry Neurologic: confused, disoriented Musculoskeletal: no erythema, no cyanosis Psychiatric: agitated - Lab 04/10/17 04:25 04/10/17 10:05 Most recent lab results Calcium 8.5 mg/dl (8.6-10.4) L 04/10/17 10:05 Phosphorus 3.3 mg/dL (2.7-4.5) 04/10/17 04:25 Magnesium 2.0 mg/dL (1.6-2.5) 04/10/17 04:25 Assessment and Plan (1) SOPHIE (acute kidney injury) renal function is improving, SOPHIE likely secondary to hemodynamic changes non oliguric will monitor Hypernatremia from lack of free water intake, now on d5 with half normal saline , will follow the rend and switch to only 5dw if hypernatremia worsens hypokalemia from use of fludrocortisone and poor po intake HTN: uncontrolled BP today patient has supine hypertension from use of midodrine, dose already cut back will cut back on IVF to prevent fluidoverload will also cut back on fludrocortisone also to see if helps improve BP, hypokalemia and fluid retention, [pt is recumbent due to his medical issues so hopefully he should be fine, will resume 0.3mg po dose once stable and ready for PT Encourage free water intake, instruction given to nurse avoid nephrotoxic agents monitor labs will follow Status: Acute
[2017-04-10] MEDS: ACETAMINOPHEN 650 MG/65 ML BOTTLE IV PRN (20:54)
[2017-04-11] MEDS: IPRATROPIUM/ALBUTEROL 3 ML AMPUL.NEB NEB SCH ×4 (01:17→19:34)
[2017-04-11] MEDS: DEXTROSE 5%-1/2NS W/40MEQ KCL 1,000 ML IV SCH ×3 (03:19→23:42)
[2017-04-11] MEDS: ACETAMINOPHEN 650 MG/65 ML BOTTLE IV PRN ×3 (03:37→19:07)
[2017-04-11] MEDS: 0.9 % SODIUM CHLORIDE 10 ML SYRINGE IV SCH ×3 (04:49→22:09)
[2017-04-11 05:30] LABS: Basophils # (Auto) 0 K/mcL (0.0-0.3); Basophils % (Auto) 0.6 % (0.0-2.0); Eosinophils # (Auto) 0.2 K/mcL (0.0-0.7); Eosinophils % (Auto) 3.6 % (0.0-7.0); Lymphocytes # (Auto) 0.7 K/mcL (1.5-4.8); Lymphocytes % (Auto) 11.7 % (15.5-49.0); Mean Cell Volume 109.8 fL (80.0-100.0); Mean Corpuscular HGB Conc 34.2 g/dL (31.0-36.0); Mean Corpuscular Hemoglobin 37.6 pg (26.0-34.0); Monocytes # (Auto) 0.5 K/mcL (0.1-0.9); Monocytes % (Auto) 9.1 % (1.0-12.0); Platelet Count 289 K/mcL (140-440); RBC 2.28 M/mcL (4.50-5.90); Red Cell Distribution Width 15.1 % (11.5-14.5)
[2017-04-11] MEDS: PIPERACILLIN SODIUM/TAZOBACTAM 3.375 GM in DEXTROSE 5% IN WATER 50 ML IV SCH ×3 (05:52→22:09)
[2017-04-11] MEDS: traMADol 50 MG TABLET PO PRN ×2 (05:52→11:37)
[2017-04-11 05:59] LABS: ALT/SGPT < 5 U/l (0-40); Albumin 3.2 gm/dL (3.2-5.2); Albumin/Globulin Ratio 1.4 (1.0-2.3); Alkaline Phosphatase 70 U/L (39-117); Bilirubin,Direct < 0.2 mg/dL (0.0-0.3); Blood Urea Nitrogen 7 mg/dl (8-23); Gamma Glutamyl Transpeptidase 38 U/L (8-61); Magnesium 1.9 mg/dL (1.6-2.5); Uric Acid 2.9 mg/dL (2.5-8.0)
[2017-04-11] MEDS: CARBIDOPA/LEVODOPA 25/100 TABLET PO SCH ×5 (09:09→19:15)
[2017-04-11] MEDS: carBAMazepine 100 MG TAB.CHEW PO SCH ×3 (09:10→19:17)
[2017-04-11] MEDS: rOPINIRole 1 MG TABLET PO SCH ×4 (09:10→19:15)
[2017-04-11] MEDS: clonazePAM 0.5 MG TABLET PO SCH ×3 (09:13→19:15)
[2017-04-11] MEDS: VITAMIN D3 5,000 UNIT CAPSULE PO SCH (09:14)
[2017-04-11] MEDS: ASPIRIN 325 MG ENTERIC COATED TABLET PO SCH ×3 (09:15→19:15)
[2017-04-11] MEDS: LACTOBACILLUS 1 CAPSULE PO SCH (09:16)
[2017-04-11] MEDS: FINASTERIDE 5 MG TABLET PO SCH (09:16)
[2017-04-11] MEDS: ENTACAPONE 200 MG PO SCH ×3 (09:17→19:17)
[2017-04-11] MEDS: POTASSIUM CHLORIDE 20 MEQ PACKET PO SCH ×2 (09:18→17:19)
[2017-04-11] MEDS: MIDODRINE 5 MG TABLET PO SCH ×3 (09:18→17:15)
[2017-04-11] MEDS: TAMSULOSIN 0.4 MG CAPSULE PO SCH ×3 (09:18→19:15)
[2017-04-11] MEDS: PANTOPRAZOLE 40 MG VIAL IV SCH (09:20)
[2017-04-11] MEDS: FLUDROCORTISONE 0.1 MG TABLET PO SCH (09:44)
--- NOTE | 2017-04-11 13:57 | Internal Med Progress Note ---
Medical - PN: Subj Patient information: Note initiated : 04/11/17 at 1:57 pm Service Date, if different from initiated Date: [] Patient: Oliver Miles 81 y/o M admitted on 03/29/17 for Fall, L Hip Pain/ Closed Left Hip Fracture. Chief Complaint: [] Interval history: 03/29-HPI-Mr. Miles is a 81 year old Male [facility] with left hip injury and pain. Patient sustained a trauma after he fell off the bed while attempting to go to the bathroom this morning around 7:15 AM. He was subsequently brought in to [facility] ER. Initial workup was significant for left subcapital hip fracture. Orthopedics was consulted. Patient was scheduled for operative intervention later in the evening. Hospitalist service was consulted for admission and preoperative risk evaluation along with medical issue management. He otherwise denies fever chills nausea vomiting headache photophobia diarrhea dysuria or weight loss. 03/30- postop day 2. Patient doing well. No overnight events. Pain well controlled. No fever chills SOB nausea vomiting or bleeding or swelling at surgery site. started physical therapy. Patient has advanced Parkinson's disease limiting his functionality and gait instability. He also carries history of orthostatic hypertension. Continue aggressive physical therapy and and target or male sitting upright in light of high risk Parkinson's related dysphagia. Anticipate SNF transfer in 48 hours. Continue postop management per orthopedics 03/31: Pt seen examined, acute overnight events noted that patient was more confused and agitated last night, needing use of ativan and some dilaudid, has been refusing his oral medications. Patient this AM was drowsy after the effect of pain meds. The nurse had concern regarding the right clavicle in the patient, it seems that the patient has h/o clavicular fracture (noted on prob list), X ray clavicle is interpreted as negative, but there is an obvious clinical fracture vs dehiscence at the sternoclavicular joint. I called Dr Jeffries to evaluate the patient for this and need for any operative intervention. Patient has been placed in the right sling. Will review old CXR images to see if this is new or old injury. 04/01: Pt seen examined, overnight was agitated again needing 1:1 supervision, dilaudid was held by ortho was resumed for pain management. This AM dialaudid and ativan was held. The patient this AM was doing well, but later in the morning became paranoid and agitated, trying to get out of bed and take a swing at the nurses, case management and myself. He was given ativan 0.5mg and 2mg IV haldol to calm him down. the right clavicle fracture is an old fracture wit no active management needed. sling discontinued. Patient has had increased oxygen needs CXR shows possible pna, blood cx and vanco and zosyn started. His dose of seroquel increased to 50mg at bed time. IV tylenol for pain management for now. 04/02: Patient seen examined, in restrains with mittens to prevent removal of iv acces, has removed 4-5 so far, aggressive towards nursing and care providers, speech is dysarthric. 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 Ortho made aware Dr. Shukla spent 15 mins with family, daughter in law and the , explaining the preset situation. Patient mental condition does not seem to be improving. he remains delirious and aggressive towards care providers. Unable to keep a good IV to maintain hydration nor adequate po intake, pt spits out medications. He remains of D2 of vanco and Zosyn for now. Discussed need for CT head to evaluate if any IC process ongoing If patient does not respond to conservative measures, then it will be difficult to place him, also if he continues to refuse to eat and removes IV access hydration will also be an issue. Over all he has very poor prognosis. 04/03: Taken to OR yesterday for relocation of hip prosthesis. Head CT neg for acute process. He has dysarthric speech today but is able to have some simple conversations. Stood at EOB with PT while bed was changed. K low and is replaced today. Will adjust Sinemet and Requip dosing schedules today to ensure he is getting them. 04/04: Walked with PT today. Still uncooperative; tried to leave and is still requiring hand mitts as restraints. Having supine hypertension with BP 188 last night--on midodrine and Florinef for OH. K still low at 3.2 despite replacement yesterday. Eating a little better today and complaining of hip pain that is unrelieved by Tylenol or dilaudid. Will try Tramadol and increase Seroquel to 100 HS. Had long discussion with at bedside regarding goals of care and prognosis. She is aware that any future insult to his body will result in likely severe delirium with paranoia and combative behavior as he has had this admission and that, at best, he will likely need SNF care long-term. With his slow but steady progress over the weekend, she would like to continue current care but voices interest in pursuing comfort measures only if he worsens. 04/05: Patient seen examined this AM, was more cooperative today, had stable night, his speech remains garbled but at baseline does not have good speech. He is not aggressive today, and did seem to follow commands and ask some appropriate questions. did not need haldol yesterday, will d/c hand mittens today and see how he does. Hopefully he will continue to improve. He will likely need to be 24 hrs without restraints before he can be safely discharged. 04/06 patient seen examined he was somewhat confused at night, but otherwise no acute issues, speech garbled, but seems to be at baseline. He did not need any haldol and is donig well without restrains, unfortunately his renal function is worse today, creat jumped rom 0.6 to 1.4, he received 1L salien bolus and his creat still went up to 1.6, At this time, will initiate workup for renal failure , ua, urine lyes, eosinophil levels and renal sonogram, continue gentle hydration and monitor renal function, consider renal consult if patient kidney function worsens. 04/07: patient seen and examined, he was acutely confused yesterday evening with aggressive behavior, was given Ativan with resolution of symptoms. Since around 9:00 yesterday. He has not had any issues. His speech is garbled, but does obey commands, responding. His labs show worsening WBC count worsening renal function with a creatinine of 1.7 he is still making urine. His bladder scan shows urine of around 230 mL, any side effect diapers. His urine studies and renal sonogram have been reviewed Nephrology has been consulted for evaluation of acute kidney injury. 04/08: Pt seen examined, no acute overnight events. He did not have any episode of sundowning last night. It seems that the dose of Seroquel given late in the afternoon has helped. The patient's kidney function is more stable now. Is still making urine. The blood pressure remains high in the supine position. But he has history of orthostatic hypotension and he is on midodrine as well as fludrocort for same. or now, continue IV antibiotics. Given that the x-ray showed worsening pneumonia. The patient likely has aspiration pneumonia given his clinical picture. Microbiology is negative so far. the patient may likely be changed to oral antibiotics. If continues to improve. this morning when I saw him, he was sitting in his bed comfortably, wearing glasses, and trying to read magazine His speech is still garbled but it seems this is baseline. April 09: -Today, the patient is awake, although was somewhat sleepy when I first saw him this morning. This afternoon he is more alert. He was able to work with speech therapy a little this morning, and speech is somewhat improved. However , he is still rather difficult to understand. His is in the room with him this afternoon. He denies significant pain, although did apparently have some hip pain last night, for which she received Dilaudid. He denies fever or chills, chest pain or shortness of breath, abdominal pain, but it is not entirely clear how reliable his history is. -He did dislocate his hip, and closed reduction was required. We believe he has not dislocated it again since then. -He carries a diagnosis of pneumonia, but at this time remains afebrile, with normal white blood cell count. -Potassium is rather low today. He remains quite anemic. Creatinine is gradually improving. -Iron studies showed low iron and low TIBC, with low transferrin saturation April 10: The patient continues to have episodes of confusion, consistent with delirium. He pulled out his IV again last night, even though it was wrapped. They replaced one high up in his arm, and put hand mitts on, so that he would be less likely to pull that out. He needs continued IV antibiotics for his pneumonia. He also needs IV fluids, as p.o. intake has been poor, due to his confusion. This morning, he continues to seem mildly agitated, but he does stop and look at me if I talk to him. He is able to follow some commands, but his speech is mostly unintelligible. He gets very upset when the nurses have to change his depends. He seems to indicate he is not having pain or shortness of breath, but history is likely unreliable. April 11: The patient has been a little less confused today, and has been able to take some food and medications. His meds have been off most of the morning. However , when I went into the room, he was sort of tugging on his IV in his left hand. He does seem more alert. His speech is slightly less garbled. He was able to tell me that he was having some pain in his left hip. He seems to otherwise indicate that he is not having fever or chills, chest pain or shortness of breath, abdominal pain, but speech is very difficult to understand, and he does not seem completely alert. Nurses know he was quite alert early this morning, and has become less so as the day has gone on. He really is not been able to drink or eat much today. His incision continues to look quite good. Was given tramadol and Tylenol for pain control, but I would like to maybe back off on the tramadol to see if that improves his alertness. He did walk a few steps with physical therapy today, but is still extremely limited. - Constitutional Vitals: Vital Signs Temp Pulse Resp BP Pulse Ox 97.4 F 74 20 138/74 94 04/11/17 11:07 04/11/17 12:33 04/11/17 12:33 04/11/17 11:07 04/11/17 11:59 Period Temp Pulse Resp BP Sys/Garcia Pulse Ox Last 24 Hr 97.4 F-99.8 F 69-87 18-21 138-182/74-89 92-97 Intake and Output 04/10/17 04/11/17 04/11/17 21:59 05:59 13:59 Intake Total 115 / 115 475 / 475 25 / 25 Output Total 5 / 5 4 / 4 2 / 2 Balance 110 / 110 471 / 471 Weight 189 lb 5 oz Intake & Output: Intake & Output 04/10/17 04/11/17 04/11/17 21:59 05:59 13:59 Intake Total 115 / 115 475 / 475 25 / 25 Output Total 5 / 5 4 / 4 2 / 2 Balance 110 / 110 471 / 471 Weight 189 lb 5 oz Intake: IV 115 / 115 115 / 115 Zosyn 3.375 gm In 50 / 50 50 / 50 Dextrose 5% in Water 50 ml @ 100 mls/hr IV Q8H [facility] Rx#:[id number] Oral 360 / 360 Output: # of times incontinent of 5 / 5 4 / 4 2 / 2 urine Other: Meal Lunch applesauce Lunch Percent of Meal Consumed Refused 100% 25% Feeding Ability Total Assistance Total Assistance # Voids 1 # of times incontinent of 1 Bowels Patient is awake , but speech remains difficult to understand. . T max is 99.2 at around 330 this morning. Systolic blood pressure is quite variable, ranging from 130s-170s. Neck appears supple, without lymphadenopathy or JVD. Cardiac exam shows regular rate and rhythm. Lungs: Clear to auscultation. Abdomen is soft and nontender. Extremities: Upper extremities have numerous bruises from various blood draws and IVs he has pulled out. Left thigh is still fairly heavily bruised, but overall legs have no significant edema. Neurologic exam: The patient is awake, and is able to follow some commands, but continues to be confused at times, and pull at lines, IVs, etc. he was able to point his left hip when asked where he was having pain. He seems to answer no to other questions on review of systems, but he is not reliably understandable. He did follow some commands, such as trying to deep breathe on command. Medical - PN: Obj Da - Labs CBC & Chem 7: 04/11/17 04:20 04/11/17 04:20 Labs: Abnormal Lab Results 04/11/17 04/11/17 04/10/17 04:20 04:20 10:05 RBC 2.28 L Hgb 8.6 L Hct 25.0 L MCV 109.8 H MCH 37.6 H RDW 15.1 H Gran % Lymph % (Auto) 11.7 L Lymph # (Auto) 0.7 L Sodium 146 H Potassium BUN 7 L Creatinine 1.3 H Calcium 8.5 L 8.5 L Lactate Dehydrogenase 321 H Total Protein 5.5 L Albumin Globulin 04/10/17 04/10/17 04/09/17 04:25 04:25 04:52 RBC 2.12 L Hgb 8.1 L Hct 23.3 L MCV 109.9 H MCH 37.9 H RDW 14.7 H Gran % Lymph % (Auto) 14.8 L Lymph # (Auto) 0.7 L Sodium 147 H Potassium 3.2 L 3.2 L BUN Creatinine 1.3 H 1.5 H Calcium 8.4 L 8.2 L Lactate Dehydrogenase 300 H 321 H Total Protein 5.1 L 4.9 L Albumin 3.0 L 2.8 L Globulin 2.1 L 2.1 L 04/09/17 04:52 RBC 2.33 L Hgb 8.7 L Hct 24.7 L MCV 106.0 H MCH 37.6 H RDW Gran % 80.5 H Lymph % (Auto) 9.0 L Lymph # (Auto) 0.7 L Sodium Potassium BUN Creatinine Calcium Lactate Dehydrogenase Total Protein Albumin Globulin April 07: Chest x-ray: Moderate sized infiltrate in the left lower lobe, larger than on April 01, 2017. Milder infiltrate medially in the right lower lobe which is unchanged. Abdominal x-ray: Normal. April 06: Left hip x-ray: No fracture or dislocation P Renal ultrasound: Shows anatomically normal right kidney. Left kidney has mildly echogenic cortex possibly due to medical renal disease. April 02: Head CT: Shows no acute abnormality. Deep brain stimulator leads are in place. April 01: Blood cultures: Negative. Meds: Medications Albuterol/Ipratropium (Duoneb) 3 ml NEB Q6HRT [facility] Last Admin: 04/11/17 12:33 Dose: 3 ml Aspirin (Ecotrin) 325 mg PO BID [facility] Last Admin: 04/11/17 09:15 Dose: 325 mg Carbamazepine (Tegretol) 100 mg PO Q12 [facility] Last Admin: 04/11/17 09:10 Dose: 100 mg Carbidopa/Levodopa (Sinemet 25/100) 1.5 tab PO QID [facility] Last Admin: 04/11/17 09:09 Dose: 1.5 tab Clonazepam (Klonopin) 0.25 mg PO BID [facility] Last Admin: 04/11/17 09:13 Dose: 0.25 mg Finasteride (Proscar) 5 mg PO DAILY [facility] Last Admin: 04/11/17 09:16 Dose: 5 mg Fludrocortisone Acetate (Florinef) 0.1 mg PO DAILY [facility] Last Admin: 04/11/17 09:44 Dose: 0.1 mg Gabapentin (Neurontin) 300 mg PO HS [facility] Last Admin: 04/10/17 20:06 Dose: Not Given Acetaminophen (Ofirmev) 650 mg in 65 mls @ 130 mls/hr IV Q6HP PRN PRN Reason: Pain Last Admin: 04/11/17 09:43 Dose: 130 mls/hr Vancomycin HCl 1,500 mg/ (Sodium Chloride) 500 mls @ 333.3 mls/hr IV Q48H [facility] Last Infusion: 04/10/17 12:07 Dose: Infused Piperacillin Sod/Tazobactam (Sod 3.375 gm/ Dextrose) 50 mls @ 100 mls/hr IV Q8H [facility] Last Admin: 04/11/17 05:52 Dose: 100 mls/hr Potassium Chloride/Dextrose/Sod Cl (Dextrose 5%-1/2ns W/40meq Kcl) 1,000 mls @ 50 mls/hr IV .Q20H [facility] Last Admin: 04/11/17 03:19 Dose: 50 mls/hr Lactobacillus Rhamnosus (Culturelle) 1 cap PO DAILY [facility] Last Admin: 04/11/17 09:16 Dose: 1 cap Lorazepam (Ativan) 1 mg IV Q2HP PRN PRN Reason: ANXIETY/SEDATION Last Admin: 04/08/17 22:53 Dose: 1 mg Magnesium Hydroxide (Milk Of Magnesia) 30 ml PO BIDP PRN PRN Reason: Constipation Last Admin: 04/04/17 08:21 Dose: 30 ml Midodrine (Midodrine Hcl) 5 mg PO TID@0800,1200,1700 [facility] Last Admin: 04/11/17 11:37 Dose: 5 mg Pantoprazole Sodium (Protonix) 40 mg IV QAMAC [facility] Last Admin: 04/11/17 09:20 Dose: 40 mg Entacapone [Comtan] (200 Mg) 1 dose PO BID [facility] Last Admin: 04/11/17 09:17 Dose: 1 dose Silodosin [Rapaflo] (8 Mg) 1 dose PO DAILY [facility] Last Admin: 04/11/17 09:16 Dose: Not Given Polyethylene Glycol (Miralax) 17 gm PO DAILYP PRN PRN Reason: Constipation Last Admin: 04/05/17 20:43 Dose: 17 gm Potassium Chloride (Klor-Con) 40 meq PO BIDCC [facility] Last Admin: 04/11/17 09:18 Dose: 40 meq Quetiapine Fumarate (Seroquel) 75 mg PO DAILY@1500 [facility] Ropinirole HCl (Requip) 1 mg PO TID [facility] Last Admin: 04/11/17 09:10 Dose: 1 mg Senna (Senokot) 2 tab PO [facility] Last Admin: 04/10/17 20:06 Dose: Not Given Simvastatin (Zocor) 10 mg PO HS [facility] Last Admin: 04/10/17 20:06 Dose: Not Given Sodium Chloride (Saline Flush) 10 ml IV Q8 [facility] Last Admin: 04/11/17 04:49 Dose: Not Given Tamsulosin HCl (Flomax) 0.4 mg PO BID [facility] Last Admin: 04/11/17 09:18 Dose: 0.4 mg Throat Lozenges (Cepacol) 1 lozenge PO PRN PRN PRN Reason: Sore Throat Tramadol HCl (Ultram) 50 mg PO Q6HP PRN PRN Reason: Pain Last Admin: 04/11/17 11:37 Dose: 50 mg Vitamin D (Vitamin D3) 10,000 unit PO Q48 [facility] Last Admin: 04/11/17 09:14 Dose: 10,000 unit Medical - PN: A/P - Time Spent With Patient Total time spent is greater than 50% in coordination of care (as documented) at patient's floor/unit and/or counseling patient: 25 - 35 minutes - Narrative A/P Narrative: #1. Orthopedic. -Left Hip Fracture: , Continue PT/ OT as tolerated. -Left hip dislocation: s/p reduction 04/[address] jeffries , pt doing well at present , repeat X ray 04/06 is normal -Clavicular fracture Vs Sternoclavicular dislocation: Old injury, appreciate ortho input #2. Post Op Pain: He has been on tramadol prn, methacarbamol prn, hydrocodone and dilaudid .. Because his mental status is not clearing, I will discontinue most of these, and just go with IV Tylenol as needed. DC tramadol. #3. Neurologic. Delirium: improving, still has some sundowning, waxing and waning situation, IV thiamine added for 3 doses,. CBC continues to show elevated MCV and RDW. I will add a B complex supplement empirically. -Parkinsons disease: Resumed home doses of levodopa, carbidopa, ropinirole. He seems to be getting his oral medications more consistently now. -I have discontinued most of his as needed pain medications and muscle relaxers , to see if this will help mental status improved #4. Hematologic. Anemia: seems chr, hb back to baseline today. wbc improved again. B complex added. #5. Cardiac. -Orthostatic hypotension: on midodrine and Florinef at home. Now w supine HTN; decreased midodrine to 5 TID with hold parameters. This will need to be titrated up as he increases mobility.for now I am accepting the supine hypertension to avoid significant postural drop. #6. Infectious disease. PNA: Likely aspiration pna, continue vanco and zosyn. clnically stable, consider switching to augmentin at discharge. #7. Renal. -Acute kidney injury: etiology: nephrology input appreciated, creat is improving , now at 1.3., making urine. monitor for now. -Potassium normal today. -Sodium was running high, and IV fluids were changed to half-normal saline, and this looks a little better today. #8. HLD on statin #9. CODE STATUS: Full Code #10. DVT prophylaxis. ASA 325 BID as per Ortho protocol. Approximately 30 minutes has been spent so far today, reviewing the patient's chart and test results, interviewing and examining the patient twice, reviewing plan of care with his , and writing orders.
[2017-04-11] MEDS ORDERED: QUEtiapine 25 MG TABLET PO SCH (15:00)
[2017-04-11] MEDS: VITAMIN B COMPLEX 1 CAPSULE PO SCH ×2 (19:10→23:26)
[2017-04-11] MEDS: GABAPENTIN 300 MG CAPSULE PO SCH ×2 (19:10→19:15)
[2017-04-11] MEDS: SENNOSIDES 1 TABLET PO SCH ×2 (19:11→19:15)
[2017-04-11] MEDS: SIMVASTATIN 10 MG TABLET PO SCH ×2 (19:11→19:15)
[2017-04-11] MEDS: LORazepam 2 MG/ML VIAL IV PRN (23:28)
[2017-04-12] MEDS: IPRATROPIUM/ALBUTEROL 3 ML AMPUL.NEB NEB SCH ×4 (01:33→19:35)
[2017-04-12] MEDS: PIPERACILLIN SODIUM/TAZOBACTAM 3.375 GM in DEXTROSE 5% IN WATER 50 ML IV SCH ×3 (05:41→23:27)
[2017-04-12] MEDS: 0.9 % SODIUM CHLORIDE 10 ML SYRINGE IV SCH ×3 (05:42→23:27)
[2017-04-12 06:04] LABS: Basophils # (Auto) 0 K/mcL (0.0-0.3); Basophils % (Auto) 0.4 % (0.0-2.0); Eosinophils # (Auto) 0.3 K/mcL (0.0-0.7); Eosinophils % (Auto) 4.1 % (0.0-7.0); Granulocytes % (Auto) 73.3 % (38.0-78.0); Lymphocytes % (Auto) 13.3 % (15.5-49.0); Mean Cell Volume 110.8 fL (80.0-100.0); Mean Corpuscular HGB Conc 34.5 g/dL (31.0-36.0); Mean Corpuscular Hemoglobin 38.3 pg (26.0-34.0); Monocytes # (Auto) 0.7 K/mcL (0.1-0.9); Monocytes % (Auto) 8.9 % (1.0-12.0); Platelet Count 341 K/mcL (140-440); RBC 2.24 M/mcL (4.50-5.90); Red Cell Distribution Width 15.3 % (11.5-14.5)
[2017-04-12] MEDS: DEXTROSE 5%-1/2NS W/40MEQ KCL 1,000 ML IV SCH ×2 (07:49→11:58)
[2017-04-12] MEDS: PANTOPRAZOLE 40 MG VIAL IV SCH (09:20)
[2017-04-12 09:48] LABS: ALT/SGPT < 5 U/l (0-40); Albumin 3.5 gm/dL (3.2-5.2); Albumin/Globulin Ratio 1.7 (1.0-2.3); Alkaline Phosphatase 74 U/L (39-117); Bilirubin,Direct < 0.2 mg/dL (0.0-0.3); Blood Urea Nitrogen 9 mg/dl (8-23); Gamma Glutamyl Transpeptidase 40 U/L (8-61); Magnesium 1.8 mg/dL (1.6-2.5); Uric Acid 2.9 mg/dL (2.5-8.0)
[2017-04-12] MEDS: POTASSIUM CHLORIDE 20 MEQ PACKET PO SCH ×2 (10:09→17:12)
[2017-04-12] MEDS: MIDODRINE 5 MG TABLET PO SCH ×3 (10:09→17:12)
[2017-04-12] MEDS: TAMSULOSIN 0.4 MG CAPSULE PO SCH ×2 (10:09→20:16)
[2017-04-12] MEDS: FINASTERIDE 5 MG TABLET PO SCH (10:09)
[2017-04-12] MEDS: clonazePAM 0.5 MG TABLET PO SCH ×2 (10:09→20:12)
[2017-04-12] MEDS: rOPINIRole 1 MG TABLET PO SCH ×3 (10:09→20:16)
[2017-04-12] MEDS: LACTOBACILLUS 1 CAPSULE PO SCH (10:09)
[2017-04-12] MEDS: CARBIDOPA/LEVODOPA 25/100 TABLET PO SCH ×4 (10:09→20:14)
[2017-04-12] MEDS: FLUDROCORTISONE 0.1 MG TABLET PO SCH (10:09)
[2017-04-12] MEDS: ASPIRIN 325 MG ENTERIC COATED TABLET PO SCH ×2 (10:09→20:16)
[2017-04-12] MEDS: ENTACAPONE 200 MG PO SCH ×2 (10:09→20:24)
[2017-04-12] MEDS: carBAMazepine 100 MG TAB.CHEW PO SCH ×2 (10:10→20:24)
[2017-04-12] MEDS: VITAMIN B COMPLEX 1 CAPSULE PO SCH ×2 (10:10→20:18)
[2017-04-12] MEDS: VANCOMYCIN 1,500 MG in 0.9 % SODIUM CHLORIDE 500 ML IV SCH (11:53)
--- NOTE | 2017-04-12 13:59 | Internal Med Progress Note ---
Medical - PN: Subj Patient information: Note initiated : 04/12/17 at 1:58 pm Service Date, if different from initiated Date: [] Patient: Oliver Miles 81 y/o M admitted on 03/29/17 for Fall, L Hip Pain/ Closed Left Hip Fracture. Chief Complaint: [] Interval history: 03/29-HPI-Mr. Miles is a 81 year old Male comes in to [facility] ER with left hip injury and pain. Patient sustained a trauma after he fell off the bed while attempting to go to the bathroom this morning around 7:15 AM. He was subsequently brought in to [facility] ER. Initial workup was significant for left subcapital hip fracture. Orthopedics was consulted. Patient was scheduled for operative intervention later in the evening. Hospitalist service was consulted for admission and preoperative risk evaluation along with medical issue management. He otherwise denies fever chills nausea vomiting headache photophobia diarrhea dysuria or weight loss. 03/30- postop day 2. Patient doing well. No overnight events. Pain well controlled. No fever chills SOB nausea vomiting or bleeding or swelling at surgery site. started physical therapy. Patient has advanced Parkinson's disease limiting his functionality and gait instability. He also carries history of orthostatic hypertension. Continue aggressive physical therapy and and target or male sitting upright in light of high risk Parkinson's related dysphagia. Anticipate SNF transfer in 48 hours. Continue postop management per orthopedics 03/31: Pt seen examined, acute overnight events noted that patient was more confused and agitated last night, needing use of ativan and some dilaudid, has been refusing his oral medications. Patient this AM was drowsy after the effect of pain meds. The nurse had concern regarding the right clavicle in the patient, it seems that the patient has h/o clavicular fracture (noted on prob list), X ray clavicle is interpreted as negative, but there is an obvious clinical fracture vs dehiscence at the sternoclavicular joint. I called Dr Jeffries to evaluate the patient for this and need for any operative intervention. Patient has been placed in the right sling. Will review old CXR images to see if this is new or old injury. 04/01: Pt seen examined, overnight was agitated again needing 1:1 supervision, dilaudid was held by ortho was resumed for pain management. This AM dialaudid and ativan was held. The patient this AM was doing well, but later in the morning became paranoid and agitated, trying to get out of bed and take a swing at the nurses, case management and myself. He was given ativan 0.5mg and 2mg IV haldol to calm him down. the right clavicle fracture is an old fracture wit no active management needed. sling discontinued. Patient has had increased oxygen needs CXR shows possible pna, blood cx and vanco and zosyn started. His dose of seroquel increased to 50mg at bed time. IV tylenol for pain management for now. 04/02: Patient seen examined, in restrains with mittens to prevent removal of iv acces, has removed 4-5 so far, aggressive towards nursing and care providers, speech is dysarthric. 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 Ortho made aware Dr. Shukla spent 15 mins with family, daughter in law and the , explaining the preset situation. Patient mental condition does not seem to be improving. he remains delirious and aggressive towards care providers. Unable to keep a good IV to maintain hydration nor adequate po intake, pt spits out medications. He remains of D2 of vanco and Zosyn for now. Discussed need for CT head to evaluate if any IC process ongoing If patient does not respond to conservative measures, then it will be difficult to place him, also if he continues to refuse to eat and removes IV access hydration will also be an issue. Over all he has very poor prognosis. 04/03: Taken to OR yesterday for relocation of hip prosthesis. Head CT neg for acute process. He has dysarthric speech today but is able to have some simple conversations. Stood at EOB with PT while bed was changed. K low and is replaced today. Will adjust Sinemet and Requip dosing schedules today to ensure he is getting them. 04/04: Walked with PT today. Still uncooperative; tried to leave and is still requiring hand mitts as restraints. Having supine hypertension with BP 188 last night--on midodrine and Florinef for OH. K still low at 3.2 despite replacement yesterday. Eating a little better today and complaining of hip pain that is unrelieved by Tylenol or dilaudid. Will try Tramadol and increase Seroquel to 100 HS. Had long discussion with at bedside regarding goals of care and prognosis. She is aware that any future insult to his body will result in likely severe delirium with paranoia and combative behavior as he has had this admission and that, at best, he will likely need SNF care long-term. With his slow but steady progress over the weekend, she would like to continue current care but voices interest in pursuing comfort measures only if he worsens. 04/05: Patient seen examined this AM, was more cooperative today, had stable night, his speech remains garbled but at baseline does not have good speech. He is not aggressive today, and did seem to follow commands and ask some appropriate questions. did not need haldol yesterday, will d/c hand mittens today and see how he does. Hopefully he will continue to improve. He will likely need to be 24 hrs without restraints before he can be safely discharged. 04/06 patient seen examined he was somewhat confused at night, but otherwise no acute issues, speech garbled, but seems to be at baseline. He did not need any haldol and is donig well without restrains, unfortunately his renal function is worse today, creat jumped rom 0.6 to 1.4, he received 1L salien bolus and his creat still went up to 1.6, At this time, will initiate workup for renal failure , ua, urine lyes, eosinophil levels and renal sonogram, continue gentle hydration and monitor renal function, consider renal consult if patient kidney function worsens. 04/07: patient seen and examined, he was acutely confused yesterday evening with aggressive behavior, was given Ativan with resolution of symptoms. Since around 9:00 yesterday. He has not had any issues. His speech is garbled, but does obey commands, responding. His labs show worsening WBC count worsening renal function with a creatinine of 1.7 he is still making urine. His bladder scan shows urine of around 230 mL, any side effect diapers. His urine studies and renal sonogram have been reviewed Nephrology has been consulted for evaluation of acute kidney injury. 04/08: Pt seen examined, no acute overnight events. He did not have any episode of sundowning last night. It seems that the dose of Seroquel given late in the afternoon has helped. The patient's kidney function is more stable now. Is still making urine. The blood pressure remains high in the supine position. But he has history of orthostatic hypotension and he is on midodrine as well as fludrocort for same. or now, continue IV antibiotics. Given that the x-ray showed worsening pneumonia. The patient likely has aspiration pneumonia given his clinical picture. Microbiology is negative so far. the patient may likely be changed to oral antibiotics. If continues to improve. this morning when I saw him, he was sitting in his bed comfortably, wearing glasses, and trying to read magazine His speech is still garbled but it seems this is baseline. April 09: -Today, the patient is awake, although was somewhat sleepy when I first saw him this morning. This afternoon he is more alert. He was able to work with speech therapy a little this morning, and speech is somewhat improved. However , he is still rather difficult to understand. His is in the room with him this afternoon. He denies significant pain, although did apparently have some hip pain last night, for which she received Dilaudid. He denies fever or chills, chest pain or shortness of breath, abdominal pain, but it is not entirely clear how reliable his history is. -He did dislocate his hip, and closed reduction was required. We believe he has not dislocated it again since then. -He carries a diagnosis of pneumonia, but at this time remains afebrile, with normal white blood cell count. -Potassium is rather low today. He remains quite anemic. Creatinine is gradually improving. -Iron studies showed low iron and low TIBC, with low transferrin saturation April 10: The patient continues to have episodes of confusion, consistent with delirium. He pulled out his IV again last night, even though it was wrapped. They replaced one high up in his arm, and put hand mitts on, so that he would be less likely to pull that out. He needs continued IV antibiotics for his pneumonia. He also needs IV fluids, as p.o. intake has been poor, due to his confusion. This morning, he continues to seem mildly agitated, but he does stop and look at me if I talk to him. He is able to follow some commands, but his speech is mostly unintelligible. He gets very upset when the nurses have to change his depends. He seems to indicate he is not having pain or shortness of breath, but history is likely unreliable. April 11: The patient has been a little less confused today, and has been able to take some food and medications. His meds have been off most of the morning. However , when I went into the room, he was sort of tugging on his IV in his left hand. He does seem more alert. His speech is slightly less garbled. He was able to tell me that he was having some pain in his left hip. He seems to otherwise indicate that he is not having fever or chills, chest pain or shortness of breath, abdominal pain, but speech is very difficult to understand, and he does not seem completely alert. Nurses know he was quite alert early this morning, and has become less so as the day has gone on. He really is not been able to drink or eat much today. His incision continues to look quite good. Was given tramadol and Tylenol for pain control, but I would like to maybe back off on the tramadol to see if that improves his alertness. He did walk a few steps with physical therapy today, but is still extremely limited. April 12: The patient had a difficult night. He developed increasing agitation over the course of the evening. He was given Ativan and morphine, but these did not really seem to relax him. Staff has noted that he becomes much more agitated after his family visits. I met with his this morning, and she agrees with that assessment. Everyone seems to think that the patient expects they will take him home, and when they leave without him he becomes very upset. He also remains paranoid about why he is being kept here. His also mentions that in the past she has had trouble with urinary retention. We did scan his bladder several times today, and the last bladder scan showed greater than 400 mL of urine in his bladder. I am now wondering if that is why he has been so agitated, as he may have retention that is causing him discomfort, and this may actually be aggravated by the morphine we are giving him. We elected to place a Rollins catheter. However, given his tendency to pull everything out, the hand mitts will be replaced. I would like to give him the whole night with bladder decompression, to see if he seems to remain more comfortable. -Also discussed with his the possibility of having family not visit for the next couple of days, to see if he remains calmer without them here. He does seem to do well in the morning when the nurses and physical therapist are working with him, but gets more agitated after his family comes. However, he was apparently complaining of pain in his hip last night. We are still trying to balance giving him pain medications versus the side effects the medicine seem to have for him. - Constitutional Vitals: Vital Signs Temp Pulse Resp BP Pulse Ox 98.9 F 80 20 157/69 95 04/12/17 06:58 04/12/17 13:43 04/12/17 13:43 04/12/17 11:24 04/12/17 11:24 Period Temp Pulse Resp BP Sys/Garcia Pulse Ox Last 24 Hr 97 F-98.9 F 69-87 16-21 155-189/69-95 92-97 Intake and Output 04/11/17 04/12/17 04/12/17 21:59 05:59 13:59 Intake Total 75 / 75 1050 / 1050 456 / 456 Output Total 2 / 2 2 / 2 3 / 3 Balance 73 / 73 1048 / 1048 453 / 453 Weight 185 lb 8 oz 185 lb 8 oz Patient Weight 04/13/17 05:59 Weight 185 lb 8 oz Intake & Output: Intake & Output 04/11/17 04/12/17 04/12/17 21:59 05:59 13:59 Intake Total 75 / 75 1050 / 1050 456 / 456 Output Total 2 / 2 2 / 2 3 / 3 Balance 73 / 73 1048 / 1048 453 / 453 Weight 185 lb 8 oz 185 lb 8 oz Intake: IV 50 / 50 1050 / 1050 406 / 406 Dextrose 5%-1/2Ns W/40Meq 1000 / 1000 406 / 406 KCl 1,000 ml @ 50 mls/hr IV .Q20H [facility] Rx#: [id number] Zosyn 3.375 gm In 50 / 50 50 / 50 Dextrose 5% in Water 50 ml @ 100 mls/hr IV Q8H [facility] Rx#:[id number] Oral 25 / 25 50 / 50 Output: # of times incontinent of 2 / 2 2 / 2 3 / 3 urine Other: Meal Dinner Lunch Percent of Meal Consumed a few bite 25% Feeding Ability Total Assistance # of times incontinent of 1 Bowels The patient is awake when I see him this morning. He does attempt to follow some commands, but speech is still mostly unintelligible. Neck appears supple, without lymphadenopathy or JVD. Cardiac exam shows regular rate and rhythm. Lungs: Clear to auscultation. Abdomen is soft and nontender. Extremities: Upper extremities have numerous bruises from various blood draws and IVs he has pulled out. Left thigh is still fairly heavily bruised, but overall legs have no significant edema. Neurologic exam: The patient is awake, and is able to follow some commands, but continues to be confused at times, and pull at lines, IVs, etc. Medical - PN: Obj Da - Labs CBC & Chem 7: 04/12/17 04:35 04/12/17 09:07 Labs: Abnormal Lab Results 04/12/17 04/12/17 04/11/17 09:07 04:35 04:20 RBC 2.24 L Hgb 8.6 L Hct 24.8 L MCV 110.8 H MCH 38.3 H RDW 15.3 H Lymph % (Auto) 13.3 L Lymph # (Auto) 1.0 L Sodium 146 H Potassium BUN 7 L Creatinine Calcium 8.5 L Phosphorus 2.5 L Lactate Dehydrogenase 334 H 321 H Total Protein 5.6 L 5.5 L Albumin Globulin 2.1 L 04/11/17 04/10/17 04/10/17 04:20 10:05 04:25 RBC 2.28 L Hgb 8.6 L Hct 25.0 L MCV 109.8 H MCH 37.6 H RDW 15.1 H Lymph % (Auto) 11.7 L Lymph # (Auto) 0.7 L Sodium 146 H 147 H Potassium 3.2 L BUN Creatinine 1.3 H 1.3 H Calcium 8.5 L 8.4 L Phosphorus Lactate Dehydrogenase 300 H Total Protein 5.1 L Albumin 3.0 L Globulin 2.1 L 04/10/17 04:25 RBC 2.12 L Hgb 8.1 L Hct 23.3 L MCV 109.9 H MCH 37.9 H RDW 14.7 H Lymph % (Auto) 14.8 L Lymph # (Auto) 0.7 L Sodium Potassium BUN Creatinine Calcium Phosphorus Lactate Dehydrogenase Total Protein Albumin Globulin April 12: Bladder scan at 1800 shows greater than 400 mL. April 07: Chest x-ray: Moderate sized infiltrate in the left lower lobe, larger than on April 01, 2017. Milder infiltrate medially in the right lower lobe which is unchanged. Abdominal x-ray: Normal. April 06: Left hip x-ray: No fracture or dislocation P Renal ultrasound: Shows anatomically normal right kidney. Left kidney has mildly echogenic cortex possibly due to medical renal disease. April 02: Head CT: Shows no acute abnormality. Deep brain stimulator leads are in place. April 01: Blood cultures: Negative. Meds: Medications Albuterol/Ipratropium (Duoneb) 3 ml NEB Q6HRT [facility] Last Admin: 04/12/17 13:42 Dose: 3 ml Aspirin (Ecotrin) 325 mg PO BID [facility] Last Admin: 04/12/17 10:09 Dose: Not Given Carbamazepine (Tegretol) 100 mg PO Q12 [facility] Last Admin: 04/12/17 10:10 Dose: Not Given Carbidopa/Levodopa (Sinemet 25/100) 1.5 tab PO QID [facility] Last Admin: 04/12/17 10:09 Dose: Not Given Clonazepam (Klonopin) 0.25 mg PO BID [facility] Last Admin: 04/12/17 10:09 Dose: Not Given Finasteride (Proscar) 5 mg PO DAILY [facility] Last Admin: 04/12/17 10:09 Dose: Not Given Fludrocortisone Acetate (Florinef) 0.1 mg PO DAILY [facility] Last Admin: 04/12/17 10:09 Dose: Not Given Gabapentin (Neurontin) 300 mg PO HS [facility] Last Admin: 04/11/17 19:15 Dose: Not Given Acetaminophen (Ofirmev) 650 mg in 65 mls @ 130 mls/hr IV Q6HP PRN PRN Reason: Pain Last Admin: 04/11/17 19:07 Dose: 130 mls/hr Vancomycin HCl 1,500 mg/ (Sodium Chloride) 500 mls @ 333.3 mls/hr IV Q48H [facility] Last Admin: 04/12/17 11:53 Dose: 333.3 mls/hr Piperacillin Sod/Tazobactam (Sod 3.375 gm/ Dextrose) 50 mls @ 100 mls/hr IV Q8H [facility] Last Admin: 04/12/17 05:41 Dose: 100 mls/hr Potassium Chloride/Dextrose/Sod Cl (Dextrose 5%-1/2ns W/40meq Kcl) 1,000 mls @ 50 mls/hr IV .Q20H [facility] Last Admin: 04/12/17 11:58 Dose: Not Given Lactobacillus Rhamnosus (Culturelle) 1 cap PO DAILY [facility] Last Admin: 04/12/17 10:09 Dose: Not Given Lorazepam (Ativan) 1 mg IV Q2HP PRN PRN Reason: ANXIETY/SEDATION Last Admin: 04/11/17 23:28 Dose: 1 mg Magnesium Hydroxide (Milk Of Magnesia) 30 ml PO BIDP PRN PRN Reason: Constipation Last Admin: 04/04/17 08:21 Dose: 30 ml Midodrine (Midodrine Hcl) 5 mg PO TID@0800,1200,1700 [facility] Last Admin: 04/12/17 11:56 Dose: 5 mg Morphine Sulfate (Morphine) 2 mg IV Q3HP PRN PRN Reason: Pain Last Admin: 04/12/17 13:56 Dose: 2 mg Pantoprazole Sodium (Protonix) 40 mg IV QAMAC [facility] Last Admin: 04/12/17 09:20 Dose: Not Given Entacapone [Comtan] (200 Mg) 1 dose PO BID [facility] Last Admin: 04/12/17 10:09 Dose: Not Given Polyethylene Glycol (Miralax) 17 gm PO DAILYP PRN PRN Reason: Constipation Last Admin: 04/05/17 20:43 Dose: 17 gm Potassium Chloride (Klor-Con) 40 meq PO BIDCC [facility] Last Admin: 04/12/17 10:09 Dose: Not Given Quetiapine Fumarate (Seroquel) 50 mg PO DAILY@1500 [facility] Ropinirole HCl (Requip) 1 mg PO TID [facility] Last Admin: 04/12/17 10:09 Dose: Not Given Senna (Senokot) 2 tab PO HS [facility] Last Admin: 04/11/17 19:15 Dose: Not Given Simvastatin (Zocor) 10 mg PO HS [facility] Last Admin: 04/11/17 19:15 Dose: Not Given Sodium Chloride (Saline Flush) 10 ml IV Q8 [facility] Last Admin: 04/12/17 05:42 Dose: 10 ml Tamsulosin HCl (Flomax) 0.4 mg PO BID [facility] Last Admin: 04/12/17 10:09 Dose: Not Given Throat Lozenges (Cepacol) 1 lozenge PO PRN PRN PRN Reason: Sore Throat Vitamin B Complex (Vitamin B Complex) 1 cap PO BID [facility] Last Admin: 04/12/17 10:10 Dose: Not Given Vitamin D (Vitamin D3) 10,000 unit PO Q48 [facility] Last Admin: 04/11/17 09:14 Dose: 10,000 unit Medical - PN: A/P - Time Spent With Patient Total time spent is greater than 50% in coordination of care (as documented) at patient's floor/unit and/or counseling patient: Greater than 35 minutes - Narrative A/P Narrative: #1. Orthopedic. -Left Hip Fracture: , Continue PT/ OT as tolerated. -Left hip dislocation: s/p reduction 04/[address] jeffries , pt doing well at present , repeat X ray 04/06 is normal -Clavicular fracture Vs Sternoclavicular dislocation: Old injury, appreciate ortho input #2. Post Op Pain: He was on tramadol prn, methacarbamol prn, hydrocodone and dilaudid .. Because his mental status is not clearing, I discontinued most of these, and just went with IV Tylenol as needed. However he seemed to have more pain last night. He was then given IV Ativan and IV morphine, with what appeared to be only moderate relief. -Oral pain medications are a problem, because he intermittently will not swallow them or will spit them out. #3. Neurologic. Delirium: improving, still has some sundowning, waxing and waning situation, IV thiamine added for 3 doses,. CBC continues to show elevated MCV and RDW. I added a B complex supplement empirically. -Parkinsons disease: Resumed home doses of levodopa, carbidopa, ropinirole. He seems to be getting his oral medications more consistently now. -I have discontinued most of his as needed pain medications and muscle relaxers , to see if this will help mental status improved. However mental status continues to wax and wane. We are now wondering if urine retention might be playing a role in his discomfort. Rollins catheter has been placed, and we will watch to see how he does with bladder decompression. He admits were replaced, to prevent him from pulling out his IV again, and also from pulling out the Rollins catheter with the balloon up. #4. Hematologic. Anemia: seems chr, hb back to baseline today. wbc improved again. B complex added. #5. Cardiac. -Orthostatic hypotension: on midodrine and Florinef at home. Now w supine HTN; decreased midodrine to 5 TID with hold parameters. This will need to be titrated up as he increases mobility.for now I am accepting the supine hypertension to avoid significant postural drop. #6. Infectious disease. PNA: Likely aspiration pna, continue vanco and zosyn. I believe today is day 5 of antibiotics, and we can hopefully discontinue these in another day or 2, or switch to oral. clnically stable, consider switching to augmentin at discharge. #7. Renal. -Acute kidney injury: etiology: nephrology input appreciated, creat is improving , now at 1.3., making urine. monitor for now. -Potassium normal today. -Sodium was running high, and IV fluids were changed to half-normal saline, and this looks a little better today. #8. HLD on statin #9. CODE STATUS: Full Code #10. DVT prophylaxis. ASA 325 BID as per Ortho protocol. I met with his for quite a while today, to review current course of care, and some of the challenges we have had. She is also very frustrated that he is not making quicker improvement. She agrees that having the family stay away for a couple of days might help the patient to stay calm. This situation is very upsetting for all of them. We continue to work on getting his pain control, as well as getting him mobilized with physical therapy. Getting him to maintain hydration orally has been a challenge, and therefore we have continued IV fluids. We will continue to work with him on this. Approximately 40 minutes has been spent so far today, reviewing the patient's chart and test results, interviewing and examining the patient twice, reviewing plan of care with his , and writing orders.
[2017-04-12] MEDS: QUEtiapine 25 MG TABLET PO SCH ×2 (15:22→20:11)
[2017-04-12] MEDS: GABAPENTIN 300 MG CAPSULE PO SCH (20:14)
[2017-04-12] MEDS: SENNOSIDES 1 TABLET PO SCH (20:18)
[2017-04-12] MEDS: SIMVASTATIN 10 MG TABLET PO SCH (20:20)
[2017-04-13] MEDS: IPRATROPIUM/ALBUTEROL 3 ML AMPUL.NEB NEB SCH ×4 (00:58→19:31)
[2017-04-13] MEDS: 0.9 % SODIUM CHLORIDE 10 ML SYRINGE IV SCH ×3 (05:06→22:10)
[2017-04-13] MEDS: PIPERACILLIN SODIUM/TAZOBACTAM 3.375 GM in DEXTROSE 5% IN WATER 50 ML IV SCH ×3 (05:10→22:09)
[2017-04-13] MEDS: DEXTROSE 5%-1/2NS W/40MEQ KCL 1,000 ML IV SCH ×2 (05:22→09:46)
[2017-04-13 06:54] LABS: ALT/SGPT < 5 U/l (0-40); Albumin 3.2 gm/dL (3.2-5.2); Albumin/Globulin Ratio 1.4 (1.0-2.3); Alkaline Phosphatase 75 U/L (39-117); Bilirubin,Direct < 0.2 mg/dL (0.0-0.3); Blood Urea Nitrogen 9 mg/dl (8-23); Gamma Glutamyl Transpeptidase 41 U/L (8-61); Magnesium 1.9 mg/dL (1.6-2.5); Uric Acid 2.8 mg/dL (2.5-8.0)
[2017-04-13] MEDS: PANTOPRAZOLE 40 MG VIAL IV SCH (07:52)
[2017-04-13] MEDS: POTASSIUM CHLORIDE 20 MEQ PACKET PO SCH ×2 (08:44→17:12)
[2017-04-13] MEDS: CARBIDOPA/LEVODOPA 25/100 TABLET PO SCH ×4 (08:46→19:58)
[2017-04-13] MEDS: TAMSULOSIN 0.4 MG CAPSULE PO SCH ×2 (08:47→19:57)
[2017-04-13] MEDS: VITAMIN B COMPLEX 1 CAPSULE PO SCH ×2 (08:47→19:58)
[2017-04-13] MEDS: clonazePAM 0.5 MG TABLET PO SCH ×2 (08:48→19:58)
[2017-04-13] MEDS: rOPINIRole 1 MG TABLET PO SCH ×3 (08:49→19:59)
[2017-04-13] MEDS: ASPIRIN 325 MG ENTERIC COATED TABLET PO SCH ×2 (08:50→19:58)
[2017-04-13] MEDS: FINASTERIDE 5 MG TABLET PO SCH (08:50)
[2017-04-13] MEDS: LACTOBACILLUS 1 CAPSULE PO SCH (08:57)
[2017-04-13] MEDS: MIDODRINE 5 MG TABLET PO SCH ×3 (09:02→17:12)
[2017-04-13 09:24] LABS: Basophils # (Auto) 0 K/mcL (0.0-0.3); Basophils % (Auto) 0.2 % (0.0-2.0); Eosinophils # (Auto) 0.5 K/mcL (0.0-0.7); Eosinophils % (Auto) 6.1 % (0.0-7.0); Granulocytes % (Auto) 70.1 % (38.0-78.0); Lymphocytes # (Auto) 1.3 K/mcL (1.5-4.8); Mean Cell Volume 110.9 fL (80.0-100.0); Mean Corpuscular Hemoglobin 38.8 pg (26.0-34.0); Monocytes # (Auto) 0.6 K/mcL (0.1-0.9); Monocytes % (Auto) 7.6 % (1.0-12.0); Platelet Count 290 K/mcL (140-440); RBC 2.37 M/mcL (4.50-5.90); Red Cell Distribution Width 15.5 % (11.5-14.5)
[2017-04-13] MEDS: FLUDROCORTISONE 0.1 MG TABLET PO SCH (09:28)
[2017-04-13] MEDS: VITAMIN D3 5,000 UNIT CAPSULE PO SCH (09:28)
[2017-04-13] MEDS: ENTACAPONE 200 MG PO SCH ×2 (09:28→20:08)
[2017-04-13] MEDS: carBAMazepine 100 MG TAB.CHEW PO SCH ×2 (09:29→20:08)
--- NOTE | 2017-04-13 13:59 | Internal Med Progress Note ---
Medical - PN: Subj Patient information: Note initiated : 04/13/17 at 1:56 pm Service Date, if different from initiated Date: [] Patient: Oliver Miles 81 y/o M admitted on 03/29/17 for Fall, L Hip Pain/ Closed Left Hip Fracture. Chief Complaint: [] Interval history: 03/29-HPI-Mr. Miles is a 81 year old Male comes in to [facility] ER with left hip injury and pain. Patient sustained a trauma after he fell off the bed while attempting to go to the bathroom this morning around 7:15 AM. He was subsequently brought in to [facility] ER. Initial workup was significant for left subcapital hip fracture. Orthopedics was consulted. Patient was scheduled for operative intervention later in the evening. Hospitalist service was consulted for admission and preoperative risk evaluation along with medical issue management. He otherwise denies fever chills nausea vomiting headache photophobia diarrhea dysuria or weight loss. 03/30- postop day 2. Patient doing well. No overnight events. Pain well controlled. No fever chills SOB nausea vomiting or bleeding or swelling at surgery site. started physical therapy. Patient has advanced Parkinson's disease limiting his functionality and gait instability. He also carries history of orthostatic hypertension. Continue aggressive physical therapy and and target or male sitting upright in light of high risk Parkinson's related dysphagia. Anticipate SNF transfer in 48 hours. Continue postop management per orthopedics 03/31: Pt seen examined, acute overnight events noted that patient was more confused and agitated last night, needing use of ativan and some dilaudid, has been refusing his oral medications. Patient this AM was drowsy after the effect of pain meds. The nurse had concern regarding the right clavicle in the patient, it seems that the patient has h/o clavicular fracture (noted on prob list), X ray clavicle is interpreted as negative, but there is an obvious clinical fracture vs dehiscence at the sternoclavicular joint. I called Dr Jeffries to evaluate the patient for this and need for any operative intervention. Patient has been placed in the right sling. Will review old CXR images to see if this is new or old injury. 04/01: Pt seen examined, overnight was agitated again needing 1:1 supervision, dilaudid was held by ortho was resumed for pain management. This AM dialaudid and ativan was held. The patient this AM was doing well, but later in the morning became paranoid and agitated, trying to get out of bed and take a swing at the nurses, case management and myself. He was given ativan 0.5mg and 2mg IV haldol to calm him down. the right clavicle fracture is an old fracture wit no active management needed. sling discontinued. Patient has had increased oxygen needs CXR shows possible pna, blood cx and vanco and zosyn started. His dose of seroquel increased to 50mg at bed time. IV tylenol for pain management for now. 04/02: Patient seen examined, in restrains with mittens to prevent removal of iv acces, has removed 4-5 so far, aggressive towards nursing and care providers, speech is dysarthric. 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 Ortho made aware Dr. Shukla spent 15 mins with family, daughter in law and the , explaining the preset situation. Patient mental condition does not seem to be improving. he remains delirious and aggressive towards care providers. Unable to keep a good IV to maintain hydration nor adequate po intake, pt spits out medications. He remains of D2 of vanco and Zosyn for now. Discussed need for CT head to evaluate if any IC process ongoing If patient does not respond to conservative measures, then it will be difficult to place him, also if he continues to refuse to eat and removes IV access hydration will also be an issue. Over all he has very poor prognosis. 04/03: Taken to OR yesterday for relocation of hip prosthesis. Head CT neg for acute process. He has dysarthric speech today but is able to have some simple conversations. Stood at EOB with PT while bed was changed. K low and is replaced today. Will adjust Sinemet and Requip dosing schedules today to ensure he is getting them. 04/04: Walked with PT today. Still uncooperative; tried to leave and is still requiring hand mitts as restraints. Having supine hypertension with BP 188 last night--on midodrine and Florinef for OH. K still low at 3.2 despite replacement yesterday. Eating a little better today and complaining of hip pain that is unrelieved by Tylenol or dilaudid. Will try Tramadol and increase Seroquel to 100 HS. Had long discussion with at bedside regarding goals of care and prognosis. She is aware that any future insult to his body will result in likely severe delirium with paranoia and combative behavior as he has had this admission and that, at best, he will likely need SNF care long-term. With his slow but steady progress over the weekend, she would like to continue current care but voices interest in pursuing comfort measures only if he worsens. 04/05: Patient seen examined this AM, was more cooperative today, had stable night, his speech remains garbled but at baseline does not have good speech. He is not aggressive today, and did seem to follow commands and ask some appropriate questions. did not need haldol yesterday, will d/c hand mittens today and see how he does. Hopefully he will continue to improve. He will likely need to be 24 hrs without restraints before he can be safely discharged. 04/06 patient seen examined he was somewhat confused at night, but otherwise no acute issues, speech garbled, but seems to be at baseline. He did not need any haldol and is donig well without restrains, unfortunately his renal function is worse today, creat jumped rom 0.6 to 1.4, he received 1L salien bolus and his creat still went up to 1.6, At this time, will initiate workup for renal failure , ua, urine lyes, eosinophil levels and renal sonogram, continue gentle hydration and monitor renal function, consider renal consult if patient kidney function worsens. 04/07: patient seen and examined, he was acutely confused yesterday evening with aggressive behavior, was given Ativan with resolution of symptoms. Since around 9:00 yesterday. He has not had any issues. His speech is garbled, but does obey commands, responding. His labs show worsening WBC count worsening renal function with a creatinine of 1.7 he is still making urine. His bladder scan shows urine of around 230 mL, any side effect diapers. His urine studies and renal sonogram have been reviewed Nephrology has been consulted for evaluation of acute kidney injury. 04/08: Pt seen examined, no acute overnight events. He did not have any episode of sundowning last night. It seems that the dose of Seroquel given late in the afternoon has helped. The patient's kidney function is more stable now. Is still making urine. The blood pressure remains high in the supine position. But he has history of orthostatic hypotension and he is on midodrine as well as fludrocort for same. or now, continue IV antibiotics. Given that the x-ray showed worsening pneumonia. The patient likely has aspiration pneumonia given his clinical picture. Microbiology is negative so far. the patient may likely be changed to oral antibiotics. If continues to improve. this morning when I saw him, he was sitting in his bed comfortably, wearing glasses, and trying to read magazine His speech is still garbled but it seems this is baseline. April 09: -Today, the patient is awake, although was somewhat sleepy when I first saw him this morning. This afternoon he is more alert. He was able to work with speech therapy a little this morning, and speech is somewhat improved. However , he is still rather difficult to understand. His is in the room with him this afternoon. He denies significant pain, although did apparently have some hip pain last night, for which she received Dilaudid. He denies fever or chills, chest pain or shortness of breath, abdominal pain, but it is not entirely clear how reliable his history is. -He did dislocate his hip, and closed reduction was required. We believe he has not dislocated it again since then. -He carries a diagnosis of pneumonia, but at this time remains afebrile, with normal white blood cell count. -Potassium is rather low today. He remains quite anemic. Creatinine is gradually improving. -Iron studies showed low iron and low TIBC, with low transferrin saturation April 10: The patient continues to have episodes of confusion, consistent with delirium. He pulled out his IV again last night, even though it was wrapped. They replaced one high up in his arm, and put hand mitts on, so that he would be less likely to pull that out. He needs continued IV antibiotics for his pneumonia. He also needs IV fluids, as p.o. intake has been poor, due to his confusion. This morning, he continues to seem mildly agitated, but he does stop and look at me if I talk to him. He is able to follow some commands, but his speech is mostly unintelligible. He gets very upset when the nurses have to change his depends. He seems to indicate he is not having pain or shortness of breath, but history is likely unreliable. April 11: The patient has been a little less confused today, and has been able to take some food and medications. His meds have been off most of the morning. However , when I went into the room, he was sort of tugging on his IV in his left hand. He does seem more alert. His speech is slightly less garbled. He was able to tell me that he was having some pain in his left hip. He seems to otherwise indicate that he is not having fever or chills, chest pain or shortness of breath, abdominal pain, but speech is very difficult to understand, and he does not seem completely alert. Nurses know he was quite alert early this morning, and has become less so as the day has gone on. He really is not been able to drink or eat much today. His incision continues to look quite good. Was given tramadol and Tylenol for pain control, but I would like to maybe back off on the tramadol to see if that improves his alertness. He did walk a few steps with physical therapy today, but is still extremely limited. April 12: The patient had a difficult night. He developed increasing agitation over the course of the evening. He was given Ativan and morphine, but these did not really seem to relax him. Staff has noted that he becomes much more agitated after his family visits. I met with his this morning, and she agrees with that assessment. Everyone seems to think that the patient expects they will take him home, and when they leave without him he becomes very upset. He also remains paranoid about why he is being kept here. His also mentions that in the past she has had trouble with urinary retention. We did scan his bladder several times today, and the last bladder scan showed greater than 400 mL of urine in his bladder. I am now wondering if that is why he has been so agitated, as he may have retention that is causing him discomfort, and this may actually be aggravated by the morphine we are giving him. We elected to place a Rollins catheter. However, given his tendency to pull everything out, the hand mitts will be replaced. I would like to give him the whole night with bladder decompression, to see if he seems to remain more comfortable. -Also discussed with his the possibility of having family not visit for the next couple of days, to see if he remains calmer without them here. He does seem to do well in the morning when the nurses and physical therapist are working with him, but gets more agitated after his family comes. However, he was apparently complaining of pain in his hip last night. We are still trying to balance giving him pain medications versus the side effects the medicine seem to have for him. April 13: The patient had a much better evening. His bladder scan did show urine retention, so Rollins catheter was placed. He seemed to be more comfortable last night, and slept well last night. Today he is more awake and alert, and his speech is easier to understand. He notes he is still having some hip discomfort. He thinks his abdomen feels better. He is asking to change position so that he can get more comfortable. We put mitts on his hands last night to keep him from pulling out his IV or his Rollins catheter, but those have been removed this morning, because he is calm and cooperative so far today. He denies chest pain or shortness of breath or abdominal pain. He is mostly complaining of hip discomfort. -Nursing staff tells me today that his family says he previously took [place] twice a day every day at home. We will try resuming this today. - Constitutional Vitals: Vital Signs Temp Pulse Resp BP Pulse Ox 98.3 F 68 16 134/64 93 04/13/17 11:36 04/13/17 11:36 04/13/17 11:36 04/13/17 11:36 04/13/17 11:36 Period Temp Pulse Resp BP Sys/Garcia Pulse Ox Last 24 Hr 97.2 F-98.3 F 66-80 14-24 100-166/51-80 90-96 Intake and Output 04/12/17 04/13/17 04/13/17 21:59 05:59 13:59 Intake Total 150 / 150 1170 / 1170 Output Total 3 / 3 675 / 675 Balance 147 / 147 495 / 495 Weight 184 lb 8 oz Intake & Output: Intake & Output 04/12/17 04/13/17 04/13/17 21:59 05:59 13:59 Intake Total 150 / 150 1170 / 1170 Output Total 3 / 3 675 / 675 Balance 147 / 147 495 / 495 Weight 184 lb 8 oz Intake: IV 50 / 50 1050 / 1050 Dextrose 5%-1/2Ns W/40Meq 1000 / 1000 KCl 1,000 ml @ 50 mls/hr IV .Q20H [facility] Rx#: [id number] Zosyn 3.375 gm In 50 / 50 50 / 50 Dextrose 5% in Water 50 ml @ 100 mls/hr IV Q8H [facility] Rx#:[id number] Oral 100 / 100 120 / 120 Output: Urine Catheter Amount 675 / 675 # of times incontinent of 3 / 3 urine Other: Meal Breakfast Percent of Meal Consumed 25% Feeding Ability Total Assistance The patient is awake when I see him this morning. He is more alert. He is able to speak in a way that I can mostly understand. He is cooperative and following commands. Neck appears supple, without lymphadenopathy or JVD. Cardiac exam shows regular rate and rhythm. Lungs: Clear to auscultation. Abdomen is soft and nontender. Extremities: Upper extremities have numerous bruises from various blood draws and IVs he has pulled out. Left thigh is still fairly heavily bruised, but overall legs have no significant edema. Neurologic exam: The patient is awake, and is able to follow some commands, and he seems to be more alert and more calm today than yesterday. Medical - PN: Obj Da - Labs CBC & Chem 7: 04/13/17 05:43 04/13/17 05:43 Labs: Abnormal Lab Results 04/13/17 04/13/17 04/12/17 05:43 05:43 09:07 RBC 2.37 L Hgb 9.2 L Hct 26.3 L MCV 110.9 H MCH 38.8 H RDW 15.5 H Lymph % (Auto) Lymph # (Auto) 1.3 L Sodium 146 H BUN Calcium 8.5 L Phosphorus 2.5 L Lactate Dehydrogenase 341 H 334 H Total Protein 5.5 L 5.6 L Globulin 2.1 L 04/12/17 04/11/17 04/11/17 04:35 04:20 04:20 RBC 2.24 L 2.28 L Hgb 8.6 L 8.6 L Hct 24.8 L 25.0 L MCV 110.8 H 109.8 H MCH 38.3 H 37.6 H RDW 15.3 H 15.1 H Lymph % (Auto) 13.3 L 11.7 L Lymph # (Auto) 1.0 L 0.7 L Sodium BUN 7 L Calcium 8.5 L Phosphorus Lactate Dehydrogenase 321 H Total Protein 5.5 L Globulin April 12: Bladder scan at 1800 shows greater than 400 mL. April 07: Chest x-ray: Moderate sized infiltrate in the left lower lobe, larger than on April 01, 2017. Milder infiltrate medially in the right lower lobe which is unchanged. Abdominal x-ray: Normal. April 06: Left hip x-ray: No fracture or dislocation P Renal ultrasound: Shows anatomically normal right kidney. Left kidney has mildly echogenic cortex possibly due to medical renal disease. April 02: Head CT: Shows no acute abnormality. Deep brain stimulator leads are in place. April 01: Blood cultures: Negative. Meds: Medications Albuterol/Ipratropium (Duoneb) 3 ml NEB Q6HRT [facility] Last Admin: 04/13/17 07:13 Dose: 3 ml Aspirin (Ecotrin) 325 mg PO BID [facility] Last Admin: 04/13/17 08:50 Dose: 325 mg Carbamazepine (Tegretol) 100 mg PO Q12 [facility] Last Admin: 04/13/17 09:29 Dose: 100 mg Carbidopa/Levodopa (Sinemet 25/100) 1.5 tab PO QID [facility] Last Admin: 04/13/17 13:10 Dose: 1.5 tab Clonazepam (Klonopin) 0.25 mg PO BID [facility] Last Admin: 04/13/17 08:48 Dose: 0.25 mg Finasteride (Proscar) 5 mg PO DAILY [facility] Last Admin: 04/13/17 08:50 Dose: 5 mg Fludrocortisone Acetate (Florinef) 0.1 mg PO DAILY [facility] Last Admin: 04/13/17 09:28 Dose: 0.1 mg Gabapentin (Neurontin) 300 mg PO HS [facility] Last Admin: 04/12/17 20:14 Dose: 300 mg Acetaminophen (Ofirmev) 650 mg in 65 mls @ 130 mls/hr IV Q6HP PRN PRN Reason: Pain Last Admin: 04/11/17 19:07 Dose: 130 mls/hr Vancomycin HCl 1,500 mg/ (Sodium Chloride) 500 mls @ 333.3 mls/hr IV Q48H [facility] Last Admin: 04/12/17 11:53 Dose: 333.3 mls/hr Piperacillin Sod/Tazobactam (Sod 3.375 gm/ Dextrose) 50 mls @ 100 mls/hr IV Q8H [facility] Last Admin: 04/13/17 05:10 Dose: 100 mls/hr Potassium Chloride/Dextrose/Sod Cl (Dextrose 5%-1/2ns W/40meq Kcl) 1,000 mls @ 50 mls/hr IV .Q20H [facility] Last Admin: 04/13/17 09:46 Dose: Not Given Lactobacillus Rhamnosus (Culturelle) 1 cap PO DAILY [facility] Last Admin: 04/13/17 08:57 Dose: 1 cap Lorazepam (Ativan) 1 mg IV Q2HP PRN PRN Reason: ANXIETY/SEDATION Last Admin: 04/11/17 23:28 Dose: 1 mg Magnesium Hydroxide (Milk Of Magnesia) 30 ml PO BIDP PRN PRN Reason: Constipation Last Admin: 04/04/17 08:21 Dose: 30 ml Midodrine (Midodrine Hcl) 5 mg PO TID@0800,1200,1700 [facility] Last Admin: 04/13/17 11:49 Dose: 5 mg Morphine Sulfate (Morphine) 2 mg IV Q3HP PRN PRN Reason: Pain Last Admin: 04/13/17 09:37 Dose: 2 mg Pantoprazole Sodium (Protonix) 40 mg IV QAMAC [facility] Last Admin: 04/13/17 07:52 Dose: 40 mg Entacapone [Comtan] (200 Mg) 1 dose PO BID [facility] Last Admin: 04/13/17 09:28 Dose: 1 dose Polyethylene Glycol (Miralax) 17 gm PO DAILYP PRN PRN Reason: Constipation Last Admin: 04/05/17 20:43 Dose: 17 gm Potassium Chloride (Klor-Con) 40 meq PO BIDCC [facility] Last Admin: 04/13/17 08:44 Dose: 40 meq Quetiapine Fumarate (Seroquel) 50 mg PO DAILY@1500 [facility] Last Admin: 04/12/17 20:11 Dose: 50 mg Ropinirole HCl (Requip) 1 mg PO TID [facility] Last Admin: 04/13/17 08:49 Dose: 1 mg Senna (Senokot) 2 tab PO [facility] Last Admin: 04/12/17 20:18 Dose: 2 tab Simvastatin (Zocor) 10 mg PO [facility] Last Admin: 04/12/17 20:20 Dose: 10 mg Sodium Chloride (Saline Flush) 10 ml IV Q8 [facility] Last Admin: 04/13/17 05:06 Dose: Not Given Tamsulosin HCl (Flomax) 0.4 mg PO BID [facility] Last Admin: 04/13/17 08:47 Dose: 0.4 mg Throat Lozenges (Cepacol) 1 lozenge PO PRN PRN PRN Reason: Sore Throat Vitamin B Complex (Vitamin B Complex) 1 cap PO BID [facility] Last Admin: 04/13/17 08:47 Dose: 1 cap Vitamin D (Vitamin D3) 10,000 unit PO Q48 [facility] Last Admin: 04/13/17 09:28 Dose: 10,000 unit Medical - PN: A/P - Time Spent With Patient Total time spent is greater than 50% in coordination of care (as documented) at patient's floor/unit and/or counseling patient: 25 - 35 minutes - Narrative A/P Narrative: #1. Orthopedic. -Left Hip Fracture: , Continue PT/ OT as tolerated. -Left hip dislocation: s/p reduction 04/[address] jeffries , pt doing well at present , repeat X ray 04/06 is normal -Clavicular fracture Vs Sternoclavicular dislocation: Old injury, appreciate ortho input #2. Post Op Pain: He was on tramadol prn, methacarbamol prn, hydrocodone and dilaudid .. Because his mental status is not clearing, I discontinued most of these, and just went with IV Tylenol as needed. However he seemed to have more pain last night. He was then given IV Ativan and IV morphine, with what appeared to be only moderate relief. -Oral pain medications are a problem, because he intermittently will not swallow them or will spit them out. As of today, he is mentally clear. We will try adding back his home [place] twice daily today. He seems to be more comfortable since the Rollins catheter was placed. Hopefully his mental status will remain this clear, and he can resume working with physical therapy. #3. Neurologic. Delirium: improving, still has some sundowning, waxing and waning situation, IV thiamine added for 3 doses,. CBC continues to show elevated MCV and RDW. I added a B complex supplement empirically. -Parkinsons disease: Resumed home doses of levodopa, carbidopa, ropinirole. He seems to be getting his oral medications more consistently now. -I have discontinued most of his as needed pain medications and muscle relaxers , to see if this will help mental status improve. Mental status, as noted, seems to be improved so far today. #4. Hematologic. Anemia: seems chr, hb back to baseline today. wbc improved again. B complex added. #5. Cardiac. -Orthostatic hypotension: on midodrine and Florinef at home. Now w supine HTN; decreased midodrine to 5 TID with hold parameters. This will need to be titrated up as he increases mobility.for now I am accepting the supine hypertension to avoid significant postural drop. #6. Infectious disease. PNA: Likely aspiration pna, continue vanco and zosyn. I believe today is day 6 of antibiotics, and we can hopefully discontinue these in another day or 2, or switch to oral. clnically stable, consider switching to augmentin at discharge. #7. Renal. -Acute kidney injury: etiology: nephrology input appreciated, creat is improving , now at 1.3., making urine. monitor for now. -Potassium normal today. -Sodium was running high, and IV fluids were changed to half-normal saline, and this looks a little better today. #8. HLD on statin #9. CODE STATUS: Full Code #10. DVT prophylaxis. ASA 325 BID as per Ortho protocol. I met with his for quite a while yesterday, to review current course of care, and some of the challenges we have had. She is also very frustrated that he is not making quicker improvement. She agrees that having the family stay away for a couple of days might help the patient to stay calm. This situation is very upsetting for all of them. We continue to work on getting his pain control, as well as getting him mobilized with physical therapy. Getting him to maintain hydration orally has been a challenge, and therefore we have continued IV fluids. We will continue to work with him on this. Approximately 30 minutes has been spent so far today, reviewing the patient's chart and test results, interviewing and examining the patient, reviewing plan of care with staff at our multidisciplinary team meeting, as well as nursing staff,, and writing orders.
[2017-04-13] MEDS: QUEtiapine 25 MG TABLET PO SCH (15:18)
[2017-04-13] MEDS: SENNOSIDES 1 TABLET PO SCH (19:58)
[2017-04-13] MEDS: SIMVASTATIN 10 MG TABLET PO SCH (19:58)
[2017-04-13] MEDS: HYDROcodone/APAP 5/325MG TABLET PO SCH (19:59)
[2017-04-13] MEDS: GABAPENTIN 300 MG CAPSULE PO SCH (20:00)
[2017-04-14] MEDS: IPRATROPIUM/ALBUTEROL 3 ML AMPUL.NEB NEB SCH ×5 (00:44→23:10)
[2017-04-14] MEDS: DEXTROSE 5%-1/2NS W/40MEQ KCL 1,000 ML IV SCH ×3 (02:26→23:58)
[2017-04-14 05:37] LABS: Basophils # (Auto) 0 K/mcL (0.0-0.3); Basophils % (Auto) 0.6 % (0.0-2.0); Eosinophils # (Auto) 0.3 K/mcL (0.0-0.7); Eosinophils % (Auto) 6.5 % (0.0-7.0); Granulocytes % (Auto) 65.3 % (38.0-78.0); Lymphocytes # (Auto) 0.9 K/mcL (1.5-4.8); Lymphocytes % (Auto) 17.7 % (15.5-49.0); Mean Corpuscular HGB Conc 34.1 g/dL (31.0-36.0); Mean Corpuscular Hemoglobin 36.8 pg (26.0-34.0); Monocytes # (Auto) 0.5 K/mcL (0.1-0.9); Monocytes % (Auto) 9.9 % (1.0-12.0); Platelet Count 345 K/mcL (140-440); RBC 2.33 M/mcL (4.50-5.90); Red Cell Distribution Width 15.3 % (11.5-14.5)
[2017-04-14] MEDS: PIPERACILLIN SODIUM/TAZOBACTAM 3.375 GM in DEXTROSE 5% IN WATER 50 ML IV SCH (05:57)
[2017-04-14] MEDS: 0.9 % SODIUM CHLORIDE 10 ML SYRINGE IV SCH ×3 (05:58→23:10)
[2017-04-14 06:06] LABS: ALT/SGPT < 5 U/l (0-40); Albumin/Globulin Ratio 1.4 (1.0-2.3); Alkaline Phosphatase 74 U/L (39-117); Bilirubin,Direct < 0.2 mg/dL (0.0-0.3); Blood Urea Nitrogen 8 mg/dl (8-23); Gamma Glutamyl Transpeptidase 42 U/L (8-61); Magnesium 1.8 mg/dL (1.6-2.5); Uric Acid 2.4 mg/dL (2.5-8.0)
--- NOTE | 2017-04-14 07:03 | Internal Med Progress Note ---
Medical - PN: Subj Patient information: Note initiated : 04/14/17 at 6:59 am Service Date, if different from initiated Date: [] Patient: Oliver Miles 81 y/o M admitted on 03/29/17 for Fall, L Hip Pain/ Closed Left Hip Fracture. Chief Complaint: [] Interval history: 03/29-HPI-Mr. Miles is a 81 year old Male [facility] with left hip injury and pain. Patient sustained a trauma after he fell off the bed while attempting to go to the bathroom this morning around 7:15 AM. He was subsequently brought in to [facility] ER. Initial workup was significant for left subcapital hip fracture. Orthopedics was consulted. Patient was scheduled for operative intervention later in the evening. Hospitalist service was consulted for admission and preoperative risk evaluation along with medical issue management. He otherwise denies fever chills nausea vomiting headache photophobia diarrhea dysuria or weight loss. 03/30- postop day 2. Patient doing well. No overnight events. Pain well controlled. No fever chills SOB nausea vomiting or bleeding or swelling at surgery site. started physical therapy. Patient has advanced Parkinson's disease limiting his functionality and gait instability. He also carries history of orthostatic hypertension. Continue aggressive physical therapy and and target or male sitting upright in light of high risk Parkinson's related dysphagia. Anticipate SNF transfer in 48 hours. Continue postop management per orthopedics 03/31: Pt seen examined, acute overnight events noted that patient was more confused and agitated last night, needing use of ativan and some dilaudid, has been refusing his oral medications. Patient this AM was drowsy after the effect of pain meds. The nurse had concern regarding the right clavicle in the patient, it seems that the patient has h/o clavicular fracture (noted on prob list), X ray clavicle is interpreted as negative, but there is an obvious clinical fracture vs dehiscence at the sternoclavicular joint. I called Dr Jeffries to evaluate the patient for this and need for any operative intervention. Patient has been placed in the right sling. Will review old CXR images to see if this is new or old injury. 04/01: Pt seen examined, overnight was agitated again needing 1:1 supervision, dilaudid was held by ortho was resumed for pain management. This AM dialaudid and ativan was held. The patient this AM was doing well, but later in the morning became paranoid and agitated, trying to get out of bed and take a swing at the nurses, case management and myself. He was given ativan 0.5mg and 2mg IV haldol to calm him down. the right clavicle fracture is an old fracture wit no active management needed. sling discontinued. Patient has had increased oxygen needs CXR shows possible pna, blood cx and vanco and zosyn started. His dose of seroquel increased to 50mg at bed time. IV tylenol for pain management for now. 04/02: Patient seen examined, in restrains with mittens to prevent removal of iv acces, has removed 4-5 so far, aggressive towards nursing and care providers, speech is dysarthric. 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 Ortho made aware Dr. Shukla spent 15 mins with family, daughter in law and the , explaining the preset situation. Patient mental condition does not seem to be improving. he remains delirious and aggressive towards care providers. Unable to keep a good IV to maintain hydration nor adequate po intake, pt spits out medications. He remains of D2 of vanco and Zosyn for now. Discussed need for CT head to evaluate if any IC process ongoing If patient does not respond to conservative measures, then it will be difficult to place him, also if he continues to refuse to eat and removes IV access hydration will also be an issue. Over all he has very poor prognosis. 04/03: Taken to OR yesterday for relocation of hip prosthesis. Head CT neg for acute process. He has dysarthric speech today but is able to have some simple conversations. Stood at EOB with PT while bed was changed. K low and is replaced today. Will adjust Sinemet and Requip dosing schedules today to ensure he is getting them. 04/04: Walked with PT today. Still uncooperative; tried to leave and is still requiring hand mitts as restraints. Having supine hypertension with BP 188 last night--on midodrine and Florinef for OH. K still low at 3.2 despite replacement yesterday. Eating a little better today and complaining of hip pain that is unrelieved by Tylenol or dilaudid. Will try Tramadol and increase Seroquel to 100 HS. Had long discussion with at bedside regarding goals of care and prognosis. She is aware that any future insult to his body will result in likely severe delirium with paranoia and combative behavior as he has had this admission and that, at best, he will likely need SNF care long-term. With his slow but steady progress over the weekend, she would like to continue current care but voices interest in pursuing comfort measures only if he worsens. 04/05: Patient seen examined this AM, was more cooperative today, had stable night, his speech remains garbled but at baseline does not have good speech. He is not aggressive today, and did seem to follow commands and ask some appropriate questions. did not need haldol yesterday, will d/c hand mittens today and see how he does. Hopefully he will continue to improve. He will likely need to be 24 hrs without restraints before he can be safely discharged. 04/06 patient seen examined he was somewhat confused at night, but otherwise no acute issues, speech garbled, but seems to be at baseline. He did not need any haldol and is donig well without restrains, unfortunately his renal function is worse today, creat jumped rom 0.6 to 1.4, he received 1L salien bolus and his creat still went up to 1.6, At this time, will initiate workup for renal failure , ua, urine lyes, eosinophil levels and renal sonogram, continue gentle hydration and monitor renal function, consider renal consult if patient kidney function worsens. 04/07: patient seen and examined, he was acutely confused yesterday evening with aggressive behavior, was given Ativan with resolution of symptoms. Since around 9:00 yesterday. He has not had any issues. His speech is garbled, but does obey commands, responding. His labs show worsening WBC count worsening renal function with a creatinine of 1.7 he is still making urine. His bladder scan shows urine of around 230 mL, any side effect diapers. His urine studies and renal sonogram have been reviewed Nephrology has been consulted for evaluation of acute kidney injury. 04/08: Pt seen examined, no acute overnight events. He did not have any episode of sundowning last night. It seems that the dose of Seroquel given late in the afternoon has helped. The patient's kidney function is more stable now. Is still making urine. The blood pressure remains high in the supine position. But he has history of orthostatic hypotension and he is on midodrine as well as fludrocort for same. or now, continue IV antibiotics. Given that the x-ray showed worsening pneumonia. The patient likely has aspiration pneumonia given his clinical picture. Microbiology is negative so far. the patient may likely be changed to oral antibiotics. If continues to improve. this morning when I saw him, he was sitting in his bed comfortably, wearing glasses, and trying to read magazine His speech is still garbled but it seems this is baseline. April 09: -Today, the patient is awake, although was somewhat sleepy when I first saw him this morning. This afternoon he is more alert. He was able to work with speech therapy a little this morning, and speech is somewhat improved. However , he is still rather difficult to understand. His is in the room with him this afternoon. He denies significant pain, although did apparently have some hip pain last night, for which she received Dilaudid. He denies fever or chills, chest pain or shortness of breath, abdominal pain, but it is not entirely clear how reliable his history is. -He did dislocate his hip, and closed reduction was required. We believe he has not dislocated it again since then. -He carries a diagnosis of pneumonia, but at this time remains afebrile, with normal white blood cell count. -Potassium is rather low today. He remains quite anemic. Creatinine is gradually improving. -Iron studies showed low iron and low TIBC, with low transferrin saturation April 10: The patient continues to have episodes of confusion, consistent with delirium. He pulled out his IV again last night, even though it was wrapped. They replaced one high up in his arm, and put hand mitts on, so that he would be less likely to pull that out. He needs continued IV antibiotics for his pneumonia. He also needs IV fluids, as p.o. intake has been poor, due to his confusion. This morning, he continues to seem mildly agitated, but he does stop and look at me if I talk to him. He is able to follow some commands, but his speech is mostly unintelligible. He gets very upset when the nurses have to change his depends. He seems to indicate he is not having pain or shortness of breath, but history is likely unreliable. April 11: The patient has been a little less confused today, and has been able to take some food and medications. His meds have been off most of the morning. However , when I went into the room, he was sort of tugging on his IV in his left hand. He does seem more alert. His speech is slightly less garbled. He was able to tell me that he was having some pain in his left hip. He seems to otherwise indicate that he is not having fever or chills, chest pain or shortness of breath, abdominal pain, but speech is very difficult to understand, and he does not seem completely alert. Nurses know he was quite alert early this morning, and has become less so as the day has gone on. He really is not been able to drink or eat much today. His incision continues to look quite good. Was given tramadol and Tylenol for pain control, but I would like to maybe back off on the tramadol to see if that improves his alertness. He did walk a few steps with physical therapy today, but is still extremely limited. April 12: The patient had a difficult night. He developed increasing agitation over the course of the evening. He was given Ativan and morphine, but these did not really seem to relax him. Staff has noted that he becomes much more agitated after his family visits. I met with his this morning, and she agrees with that assessment. Everyone seems to think that the patient expects they will take him home, and when they leave without him he becomes very upset. He also remains paranoid about why he is being kept here. His also mentions that in the past she has had trouble with urinary retention. We did scan his bladder several times today, and the last bladder scan showed greater than 400 mL of urine in his bladder. I am now wondering if that is why he has been so agitated, as he may have retention that is causing him discomfort, and this may actually be aggravated by the morphine we are giving him. We elected to place a Rollins catheter. However, given his tendency to pull everything out, the hand mitts will be replaced. I would like to give him the whole night with bladder decompression, to see if he seems to remain more comfortable. -Also discussed with his the possibility of having family not visit for the next couple of days, to see if he remains calmer without them here. He does seem to do well in the morning when the nurses and physical therapist are working with him, but gets more agitated after his family comes. However, he was apparently complaining of pain in his hip last night. We are still trying to balance giving him pain medications versus the side effects the medicine seem to have for him. April 13: The patient had a much better evening. His bladder scan did show urine retention, so Rollins catheter was placed. He seemed to be more comfortable last night, and slept well last night. Today he is more awake and alert, and his speech is easier to understand. He notes he is still having some hip discomfort. He thinks his abdomen feels better. He is asking to change position so that he can get more comfortable. We put mitts on his hands last night to keep him from pulling out his IV or his Rollins catheter, but those have been removed this morning, because he is calm and cooperative so far today. He denies chest pain or shortness of breath or abdominal pain. He is mostly complaining of hip discomfort. -Nursing staff tells me today that his family says he previously took [place] twice a day every day at home. We will try resuming this today. 04/14: Still having supine hypertension. About 50% of his midodrine doses have been held and he has had no episodes of hypotension. Will DC midodrine today and continue the Florinef. PO intake remains poor and still requiring IVF. Mitt restraints have been off since yesterday AM at 0930. He has frequent requests to call his but is currently redirectable. Pertinent ROS: no fever or cp. +cough - Constitutional Vitals: Vital Signs Temp Pulse Resp BP Pulse Ox 98.5 F 76 22 172/82 93 04/14/17 03:41 04/14/17 03:41 04/14/17 03:41 04/14/17 03:41 04/14/17 03:41 Period Temp Pulse Resp BP Sys/Garcia Pulse Ox Last 24 Hr 97.6 F-98.5 F 68-78 14-22 134-188/64-83 92-95 Intake and Output 04/13/17 04/14/17 04/14/17 21:59 05:59 13:59 Intake Total 200 / 200 1100 / 1100 Output Total 600 / 600 425 / 425 Balance -400 / -400 675 / 675 Weight 185 lb Intake & Output: Intake & Output 04/13/17 04/14/17 04/14/17 21:59 05:59 13:59 Intake Total 200 / 200 1100 / 1100 Output Total 600 / 600 425 / 425 Balance -400 / -400 675 / 675 Weight 185 lb Intake: IV 50 / 50 1050 / 1050 Dextrose 5%-1/2Ns W/40Meq 1000 / 1000 KCl 1,000 ml @ 50 mls/hr IV .Q20H [facility] Rx#: [id number] Zosyn 3.375 gm In 50 / 50 50 / 50 Dextrose 5% in Water 50 ml @ 100 mls/hr IV Q8H [facility] Rx#:[id number] Oral 150 / 150 50 / 50 Output: Urine Catheter Amount 600 / 600 425 / 425 Other: # Bowel Movements 1 # of times incontinent of 1 Bowels Exam: General: Sitting up in chair, he is requesting that the nurses give him the phone number to call his . He is refusing to take medications until this is done. Respiratory: Lungs are clear to auscultation bilaterally. He has some upper airway congestion and dry cough. CV: Regular rate and rhythm Abdomen: Soft, nondistended, nontender. Positive bowel tones Neuro: He is alert and conversant. Speech remains dysarthric. Medical - PN: Obj Da - Labs CBC & Chem 7: 04/14/17 04:38 04/14/17 04:38 Labs: Abnormal Lab Results 04/14/17 04/14/17 04/13/17 04:38 04:38 05:43 RBC 2.33 L Hgb 8.6 L Hct 25.2 L MCV 108.0 H MCH 36.8 H RDW 15.3 H Lymph % (Auto) Lymph # (Auto) 0.9 L Sodium Uric Acid 2.4 L Calcium 8.4 L 8.5 L Phosphorus Lactate Dehydrogenase 280 H 341 H Total Protein 5.1 L 5.5 L Albumin 3.0 L Globulin 2.1 L 04/13/17 04/12/17 04/12/17 05:43 09:07 04:35 RBC 2.37 L 2.24 L Hgb 9.2 L 8.6 L Hct 26.3 L 24.8 L MCV 110.9 H 110.8 H MCH 38.8 H 38.3 H RDW 15.5 H 15.3 H Lymph % (Auto) 13.3 L Lymph # (Auto) 1.3 L 1.0 L Sodium 146 H Uric Acid Calcium Phosphorus 2.5 L Lactate Dehydrogenase 334 H Total Protein 5.6 L Albumin Globulin 2.1 L Meds: Medications Hydrocodone Bitart/Acetaminophen ([place] 5/325mg) 1 tab PO BID [facility] Last Admin: 04/13/17 19:59 Dose: 1 tab Albuterol/Ipratropium (Duoneb) 3 ml NEB Q6HRT [facility] Last Admin: 04/14/17 00:44 Dose: Not Given Aspirin (Ecotrin) 325 mg PO BID [facility] Last Admin: 04/13/17 19:58 Dose: 325 mg Carbamazepine (Tegretol) 100 mg PO Q12 [facility] Last Admin: 04/13/17 20:08 Dose: 100 mg Carbidopa/Levodopa (Sinemet 25/100) 1.5 tab PO QID [facility] Last Admin: 04/13/17 19:58 Dose: 1.5 tab Clonazepam (Klonopin) 0.25 mg PO BID [facility] Last Admin: 04/13/17 19:58 Dose: 0.25 mg Finasteride (Proscar) 5 mg PO DAILY [facility] Last Admin: 04/13/17 08:50 Dose: 5 mg Fludrocortisone Acetate (Florinef) 0.1 mg PO DAILY [facility] Last Admin: 04/13/17 09:28 Dose: 0.1 mg Gabapentin (Neurontin) 300 mg PO HS [facility] Last Admin: 04/13/17 20:00 Dose: 300 mg Acetaminophen (Ofirmev) 650 mg in 65 mls @ 130 mls/hr IV Q6HP PRN PRN Reason: Pain Last Admin: 04/11/17 19:07 Dose: 130 mls/hr Vancomycin HCl 1,500 mg/ (Sodium Chloride) 500 mls @ 333.3 mls/hr IV Q48H [facility] Last Admin: 04/12/17 11:53 Dose: 333.3 mls/hr Piperacillin Sod/Tazobactam (Sod 3.375 gm/ Dextrose) 50 mls @ 100 mls/hr IV Q8H [facility] Last Admin: 04/14/17 05:57 Dose: 100 mls/hr Potassium Chloride/Dextrose/Sod Cl (Dextrose 5%-1/2ns W/40meq Kcl) 1,000 mls @ 50 mls/hr IV .Q20H [facility] Last Admin: 04/14/17 02:26 Dose: 50 mls/hr Lactobacillus Rhamnosus (Culturelle) 1 cap PO DAILY [facility] Last Admin: 04/13/17 08:57 Dose: 1 cap Lorazepam (Ativan) 1 mg IV Q2HP PRN PRN Reason: ANXIETY/SEDATION Last Admin: 04/11/17 23:28 Dose: 1 mg Magnesium Hydroxide (Milk Of Magnesia) 30 ml PO BIDP PRN PRN Reason: Constipation Last Admin: 04/04/17 08:21 Dose: 30 ml Midodrine (Midodrine Hcl) 5 mg PO TID@0800,1200,1700 [facility] Last Admin: 04/13/17 17:12 Dose: 5 mg Morphine Sulfate (Morphine) 2 mg IV Q3HP PRN PRN Reason: Pain Last Admin: 04/14/17 02:23 Dose: 2 mg Pantoprazole Sodium (Protonix) 40 mg IV QAMAC [facility] Last Admin: 04/13/17 07:52 Dose: 40 mg Entacapone [Comtan] (200 Mg) 1 dose PO BID [facility] Last Admin: 04/13/17 20:08 Dose: 1 dose Polyethylene Glycol (Miralax) 17 gm PO DAILYP PRN PRN Reason: Constipation Last Admin: 04/05/17 20:43 Dose: 17 gm Potassium Chloride (Klor-Con) 40 meq PO BIDCC [facility] Last Admin: 04/13/17 17:12 Dose: 40 meq Quetiapine Fumarate (Seroquel) 50 mg PO DAILY@1500 [facility] Last Admin: 04/13/17 15:18 Dose: 50 mg Ropinirole HCl (Requip) 1 mg PO TID [facility] Last Admin: 04/13/17 19:59 Dose: 1 mg Senna (Senokot) 2 tab PO HS [facility] Last Admin: 04/13/17 19:58 Dose: 2 tab Simvastatin (Zocor) 10 mg PO HS [facility] Last Admin: 04/13/17 19:58 Dose: 10 mg Sodium Chloride (Saline Flush) 10 ml IV Q8 [facility] Last Admin: 04/14/17 05:58 Dose: Not Given Tamsulosin HCl (Flomax) 0.4 mg PO BID [facility] Last Admin: 04/13/17 19:57 Dose: 0.4 mg Throat Lozenges (Cepacol) 1 lozenge PO PRN PRN PRN Reason: Sore Throat Vitamin B Complex (Vitamin B Complex) 1 cap PO BID [facility] Last Admin: 04/13/17 19:58 Dose: 1 cap Vitamin D (Vitamin D3) 10,000 unit PO Q48 [facility] Last Admin: 04/13/17 09:28 Dose: 10,000 unit Medical - PN: A/P - Time Spent With Patient Total time spent is greater than 50% in coordination of care (as documented) at patient's floor/unit and/or counseling patient: 25 - 35 minutes - Narrative A/P Narrative: #1. Orthopedic. -Left Hip Fracture: , Continue PT/ OT as tolerated. -Left hip dislocation: s/p reduction 04/[address] jeffries , pt doing well at present , repeat X ray 04/06 is normal -Clavicular fracture Vs Sternoclavicular dislocation: Old injury, appreciate ortho input #2. Post Op Pain: He was on tramadol prn, methacarbamol prn, hydrocodone and dilaudid--most DC'd d/t delirium. Requiring occasional morphine. Home hydrocodone was added back 04/13. #3. Neurologic. Delirium: improving, still has some sundowning, waxing and waning situation, IV thiamine added for 3 doses,. CBC continues to show elevated MCV and RDW. B complex supplement empirically. Urinary retention was playing a role in delirium; improved w Rollins placement. Seems to be more agitated when family visits d/t frustration they are not taking him home. Family will reduce visits and see if it can calm patient. -Parkinsons disease: Resumed home doses of levodopa, carbidopa, ropinirole. He seems to be getting his oral medications more consistently now. #4. Hematologic. Anemia: seems chr, hb stable. . B complex added. #5. Cardiac. -Orthostatic hypotension: on midodrine and Florinef at home. Still w supine HTN despite decrease of midodrine to 5 TID with hold parameters; will DC completely. If he has any orthostatic hypotension, would resume at 2.5 TID. #6. Infectious disease. PNA: Likely aspiration pna, continue vanco and zosyn. He has been on Abx since 04/02. Will DC all Abx today. #7. Renal. -Acute kidney injury: etiology: nephrology input appreciated, creat is improving , now at 1.1, making urine. monitor for now. -Potassium normal today. -Sodium was running high, and IV fluids were changed to half-normal saline. Na better. #8. HLD on statin #9. CODE STATUS: Full Code #10. DVT prophylaxis. ASA 325 BID as per Ortho protocol.
[2017-04-14] MEDS: PANTOPRAZOLE 40 MG VIAL IV SCH (07:40)
[2017-04-14] MEDS: POTASSIUM CHLORIDE 20 MEQ PACKET PO SCH ×2 (08:53→16:57)
[2017-04-14] MEDS: VITAMIN B COMPLEX 1 CAPSULE PO SCH ×2 (08:58→23:11)
[2017-04-14] MEDS: HYDROcodone/APAP 5/325MG TABLET PO SCH ×2 (08:58→22:11)
[2017-04-14] MEDS: clonazePAM 0.5 MG TABLET PO SCH ×2 (09:04→22:11)
[2017-04-14] MEDS: CARBIDOPA/LEVODOPA 25/100 TABLET PO SCH ×4 (09:05→22:11)
[2017-04-14] MEDS: carBAMazepine 100 MG TAB.CHEW PO SCH ×2 (09:06→22:11)
[2017-04-14] MEDS: LACTOBACILLUS 1 CAPSULE PO SCH (09:06)
[2017-04-14] MEDS: FINASTERIDE 5 MG TABLET PO SCH (09:06)
[2017-04-14] MEDS: ASPIRIN 325 MG ENTERIC COATED TABLET PO SCH ×2 (09:06→23:10)
[2017-04-14] MEDS: FLUDROCORTISONE 0.1 MG TABLET PO SCH (09:07)
[2017-04-14] MEDS: TAMSULOSIN 0.4 MG CAPSULE PO SCH ×2 (09:08→22:11)
[2017-04-14] MEDS: rOPINIRole 1 MG TABLET PO SCH ×3 (09:08→23:10)
[2017-04-14] MEDS: ENTACAPONE 200 MG PO SCH ×2 (09:32→22:12)
[2017-04-14] MEDS: QUEtiapine 25 MG TABLET PO SCH (14:44)
[2017-04-14] MEDS: LORazepam 2 MG/ML VIAL IV PRN ×2 (16:37→21:16)
[2017-04-14] MEDS ORDERED: QUEtiapine 25 MG TABLET PO ONE (17:56)
[2017-04-14] MEDS ORDERED: QUEtiapine 25 MG TABLET PO SCH (21:00)
[2017-04-14] MEDS: SENNOSIDES 1 TABLET PO SCH (23:10)
[2017-04-14] MEDS: GABAPENTIN 300 MG CAPSULE PO SCH (23:10)
[2017-04-14] MEDS: SIMVASTATIN 10 MG TABLET PO SCH (23:11)
[2017-04-15] MEDS: 0.9 % SODIUM CHLORIDE 10 ML SYRINGE IV SCH ×3 (05:01→23:09)
[2017-04-15 05:46] LABS: Basophils # (Auto) 0 K/mcL (0.0-0.3); Basophils % (Auto) 0 % (0.0-2.0); Eosinophils # (Auto) 0 K/mcL (0.0-0.7); Eosinophils % (Auto) 0.2 % (0.0-7.0); Granulocytes % (Auto) 92.6 % (38.0-78.0); Lymphocytes # (Auto) 0.4 K/mcL (1.5-4.8); Lymphocytes % (Auto) 3.3 % (15.5-49.0); Mean Cell Volume 108.8 fL (80.0-100.0); Mean Corpuscular HGB Conc 33.9 g/dL (31.0-36.0); Mean Corpuscular Hemoglobin 36.9 pg (26.0-34.0); Monocytes # (Auto) 0.5 K/mcL (0.1-0.9); Monocytes % (Auto) 3.9 % (1.0-12.0); Platelet Count 334 K/mcL (140-440); RBC 2.29 M/mcL (4.50-5.90); Red Cell Distribution Width 15.7 % (11.5-14.5)
[2017-04-15 06:13] LABS: Blood Urea Nitrogen 9 mg/dl (8-23)
[2017-04-15] MEDS: IPRATROPIUM/ALBUTEROL 3 ML AMPUL.NEB NEB SCH ×3 (07:23→19:06)
[2017-04-15] MEDS: clonazePAM 0.5 MG TABLET PO SCH ×2 (09:33→21:18)
[2017-04-15] MEDS: CARBIDOPA/LEVODOPA 25/100 TABLET PO SCH ×4 (09:33→21:19)
[2017-04-15] MEDS: rOPINIRole 1 MG TABLET PO SCH ×3 (09:36→21:18)
[2017-04-15] MEDS: carBAMazepine 100 MG TAB.CHEW PO SCH ×2 (09:36→23:07)
[2017-04-15] MEDS: HYDROcodone/APAP 5/325MG TABLET PO SCH (09:37)
[2017-04-15] MEDS: POTASSIUM CHLORIDE 20 MEQ PACKET PO SCH ×3 (09:39→17:07)
[2017-04-15] MEDS: PANTOPRAZOLE 40 MG VIAL IV SCH (09:39)
[2017-04-15] MEDS: VITAMIN B COMPLEX 1 CAPSULE PO SCH ×2 (09:42→23:08)
[2017-04-15] MEDS: TAMSULOSIN 0.4 MG CAPSULE PO SCH ×2 (09:42→21:19)
[2017-04-15] MEDS: FINASTERIDE 5 MG TABLET PO SCH (09:42)
[2017-04-15] MEDS: VITAMIN D3 5,000 UNIT CAPSULE PO SCH (09:42)
[2017-04-15] MEDS: ASPIRIN 325 MG ENTERIC COATED TABLET PO SCH ×2 (09:42→23:07)
[2017-04-15 09:49] LABS: Basophils # (Auto) 0 K/mcL (0.0-0.3); Basophils % (Auto) 0 % (0.0-2.0); Eosinophils # (Auto) 0 K/mcL (0.0-0.7); Eosinophils % (Auto) 0.2 % (0.0-7.0); Granulocytes % (Auto) 92.1 % (38.0-78.0); Lymphocytes # (Auto) 0.8 K/mcL (1.5-4.8); Lymphocytes % (Auto) 5.9 % (15.5-49.0); Mean Cell Volume 107.5 fL (80.0-100.0); Mean Corpuscular HGB Conc 33.5 g/dL (31.0-36.0); Mean Corpuscular Hemoglobin 36.1 pg (26.0-34.0); Monocytes # (Auto) 0.2 K/mcL (0.1-0.9); Monocytes % (Auto) 1.8 % (1.0-12.0); Platelet Count 317 K/mcL (140-440); RBC 2.51 M/mcL (4.50-5.90); Red Cell Distribution Width 15.5 % (11.5-14.5)
--- NOTE | 2017-04-15 09:55 | XRay Report ---
CLINICAL INFORMATION: Hypoxia and elevated white blood cell count COMPARISON: 04/07/2017. FINDINGS: The heart is mildly enlarged but unchanged. Mediastinum and pulmonary vessels are normal. Moderate size bibasilar infiltrates have worsened. Small bilateral pleural effusions noted IMPRESSION: Moderate bibasilar infiltrates - worsening. Interpreted and Authenticated by: Mitch Pinedo 04/15/17
[2017-04-15] MEDS: LACTOBACILLUS 1 CAPSULE PO SCH (11:35)
[2017-04-15] MEDS: LORazepam 2 MG/ML VIAL IV PRN ×2 (12:20→23:25)
[2017-04-15] MEDS: AMOXICILLIN/POTASSIUM CLAV 875 MG TABLET PO SCH ×2 (13:25→23:06)
[2017-04-15] MEDS: FLUDROCORTISONE 0.1 MG TABLET PO SCH (13:26)
[2017-04-15] MEDS ORDERED: morphine 15 MG TABLET PO PRN (13:27)
[2017-04-15] MEDS: ENTACAPONE 200 MG PO SCH ×2 (13:43→23:09)
--- NOTE | 2017-04-15 13:55 | Internal Med Progress Note ---
Medical - PN: Subj Patient information: Note initiated : 04/15/17 at 1:51 pm Service Date, if different from initiated Date: [] Patient: Oliver Miles 81 y/o M admitted on 03/29/17 for Fall, L Hip Pain/ Closed Left Hip Fracture. Chief Complaint: [] Interval history: 03/29-HPI-Mr. Miles is a 81 year old Male comes in to [facility] ER with left hip injury and pain. Patient sustained a trauma after he fell off the bed while attempting to go to the bathroom this morning around 7:15 AM. He was subsequently brought in to [facility] ER. Initial workup was significant for left subcapital hip fracture. Orthopedics was consulted. Patient was scheduled for operative intervention later in the evening. Hospitalist service was consulted for admission and preoperative risk evaluation along with medical issue management. He otherwise denies fever chills nausea vomiting headache photophobia diarrhea dysuria or weight loss. 03/30- postop day 2. Patient doing well. No overnight events. Pain well controlled. No fever chills SOB nausea vomiting or bleeding or swelling at surgery site. started physical therapy. Patient has advanced Parkinson's disease limiting his functionality and gait instability. He also carries history of orthostatic hypertension. Continue aggressive physical therapy and and target or male sitting upright in light of high risk Parkinson's related dysphagia. Anticipate SNF transfer in 48 hours. Continue postop management per orthopedics 03/31: Pt seen examined, acute overnight events noted that patient was more confused and agitated last night, needing use of ativan and some dilaudid, has been refusing his oral medications. Patient this AM was drowsy after the effect of pain meds. The nurse had concern regarding the right clavicle in the patient, it seems that the patient has h/o clavicular fracture (noted on prob list), X ray clavicle is interpreted as negative, but there is an obvious clinical fracture vs dehiscence at the sternoclavicular joint. I called Dr Roberts to evaluate the patient for this and need for any operative intervention. Patient has been placed in the right sling. Will review old CXR images to see if this is new or old injury. 04/01: Pt seen examined, overnight was agitated again needing 1:1 supervision, dilaudid was held by ortho was resumed for pain management. This AM dialaudid and ativan was held. The patient this AM was doing well, but later in the morning became paranoid and agitated, trying to get out of bed and take a swing at the nurses, case management and myself. He was given ativan 0.5mg and 2mg IV haldol to calm him down. the right clavicle fracture is an old fracture wit no active management needed. sling discontinued. Patient has had increased oxygen needs CXR shows possible pna, blood cx and vanco and zosyn started. His dose of seroquel increased to 50mg at bed time. IV tylenol for pain management for now. 04/02: Patient seen examined, in restrains with mittens to prevent removal of iv acces, has removed 4-5 so far, aggressive towards nursing and care providers, speech is dysarthric. 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 Ortho made aware Dr. Shukla spent 15 mins with family, daughter in law and the , explaining the preset situation. Patient mental condition does not seem to be improving. he remains delirious and aggressive towards care providers. Unable to keep a good IV to maintain hydration nor adequate po intake, pt spits out medications. He remains of D2 of vanco and Zosyn for now. Discussed need for CT head to evaluate if any IC process ongoing If patient does not respond to conservative measures, then it will be difficult to place him, also if he continues to refuse to eat and removes IV access hydration will also be an issue. Over all he has very poor prognosis. 04/03: Taken to OR yesterday for relocation of hip prosthesis. Head CT neg for acute process. He has dysarthric speech today but is able to have some simple conversations. Stood at EOB with PT while bed was changed. K low and is replaced today. Will adjust Sinemet and Requip dosing schedules today to ensure he is getting them. 04/04: Walked with PT today. Still uncooperative; tried to leave and is still requiring hand mitts as restraints. Having supine hypertension with BP 188 last night--on midodrine and Florinef for OH. K still low at 3.2 despite replacement yesterday. Eating a little better today and complaining of hip pain that is unrelieved by Tylenol or dilaudid. Will try Tramadol and increase Seroquel to 100 HS. Had long discussion with at bedside regarding goals of care and prognosis. She is aware that any future insult to his body will result in likely severe delirium with paranoia and combative behavior as he has had this admission and that, at best, he will likely need SNF care long-term. With his slow but steady progress over the weekend, she would like to continue current care but voices interest in pursuing comfort measures only if he worsens. 04/05: Patient seen examined this AM, was more cooperative today, had stable night, his speech remains garbled but at baseline does not have good speech. He is not aggressive today, and did seem to follow commands and ask some appropriate questions. did not need haldol yesterday, will d/c hand mittens today and see how he does. Hopefully he will continue to improve. He will likely need to be 24 hrs without restraints before he can be safely discharged. 04/06 patient seen examined he was somewhat confused at night, but otherwise no acute issues, speech garbled, but seems to be at baseline. He did not need any haldol and is donig well without restrains, unfortunately his renal function is worse today, creat jumped rom 0.6 to 1.4, he received 1L salien bolus and his creat still went up to 1.6, At this time, will initiate workup for renal failure , ua, urine lyes, eosinophil levels and renal sonogram, continue gentle hydration and monitor renal function, consider renal consult if patient kidney function worsens. 04/07: patient seen and examined, he was acutely confused yesterday evening with aggressive behavior, was given Ativan with resolution of symptoms. Since around 9:00 yesterday. He has not had any issues. His speech is garbled, but does obey commands, responding. His labs show worsening WBC count worsening renal function with a creatinine of 1.7 he is still making urine. His bladder scan shows urine of around 230 mL, any side effect diapers. His urine studies and renal sonogram have been reviewed Nephrology has been consulted for evaluation of acute kidney injury. 04/08: Pt seen examined, no acute overnight events. He did not have any episode of sundowning last night. It seems that the dose of Seroquel given late in the afternoon has helped. The patient's kidney function is more stable now. Is still making urine. The blood pressure remains high in the supine position. But he has history of orthostatic hypotension and he is on midodrine as well as fludrocort for same. or now, continue IV antibiotics. Given that the x-ray showed worsening pneumonia. The patient likely has aspiration pneumonia given his clinical picture. Microbiology is negative so far. the patient may likely be changed to oral antibiotics. If continues to improve. this morning when I saw him, he was sitting in his bed comfortably, wearing glasses, and trying to read magazine His speech is still garbled but it seems this is baseline. April 09: -Today, the patient is awake, although was somewhat sleepy when I first saw him this morning. This afternoon he is more alert. He was able to work with speech therapy a little this morning, and speech is somewhat improved. However , he is still rather difficult to understand. His is in the room with him this afternoon. He denies significant pain, although did apparently have some hip pain last night, for which she received Dilaudid. He denies fever or chills, chest pain or shortness of breath, abdominal pain, but it is not entirely clear how reliable his history is. -He did dislocate his hip, and closed reduction was required. We believe he has not dislocated it again since then. -He carries a diagnosis of pneumonia, but at this time remains afebrile, with normal white blood cell count. -Potassium is rather low today. He remains quite anemic. Creatinine is gradually improving. -Iron studies showed low iron and low TIBC, with low transferrin saturation April 10: The patient continues to have episodes of confusion, consistent with delirium. He pulled out his IV again last night, even though it was wrapped. They replaced one high up in his arm, and put hand mitts on, so that he would be less likely to pull that out. He needs continued IV antibiotics for his pneumonia. He also needs IV fluids, as p.o. intake has been poor, due to his confusion. This morning, he continues to seem mildly agitated, but he does stop and look at me if I talk to him. He is able to follow some commands, but his speech is mostly unintelligible. He gets very upset when the nurses have to change his depends. He seems to indicate he is not having pain or shortness of breath, but history is likely unreliable. April 11: The patient has been a little less confused today, and has been able to take some food and medications. His meds have been off most of the morning. However , when I went into the room, he was sort of tugging on his IV in his left hand. He does seem more alert. His speech is slightly less garbled. He was able to tell me that he was having some pain in his left hip. He seems to otherwise indicate that he is not having fever or chills, chest pain or shortness of breath, abdominal pain, but speech is very difficult to understand, and he does not seem completely alert. Nurses know he was quite alert early this morning, and has become less so as the day has gone on. He really is not been able to drink or eat much today. His incision continues to look quite good. Was given tramadol and Tylenol for pain control, but I would like to maybe back off on the tramadol to see if that improves his alertness. He did walk a few steps with physical therapy today, but is still extremely limited. April 12: The patient had a difficult night. He developed increasing agitation over the course of the evening. He was given Ativan and morphine, but these did not really seem to relax him. Staff has noted that he becomes much more agitated after his family visits. I met with his this morning, and she agrees with that assessment. Everyone seems to think that the patient expects they will take him home, and when they leave without him he becomes very upset. He also remains paranoid about why he is being kept here. His also mentions that in the past she has had trouble with urinary retention. We did scan his bladder several times today, and the last bladder scan showed greater than 400 mL of urine in his bladder. I am now wondering if that is why he has been so agitated, as he may have retention that is causing him discomfort, and this may actually be aggravated by the morphine we are giving him. We elected to place a Pimentel catheter. However, given his tendency to pull everything out, the hand mitts will be replaced. I would like to give him the whole night with bladder decompression, to see if he seems to remain more comfortable. -Also discussed with his the possibility of having family not visit for the next couple of days, to see if he remains calmer without them here. He does seem to do well in the morning when the nurses and physical therapist are working with him, but gets more agitated after his family comes. However, he was apparently complaining of pain in his hip last night. We are still trying to balance giving him pain medications versus the side effects the medicine seem to have for him. April 13: The patient had a much better evening. His bladder scan did show urine retention, so Pimentel catheter was placed. He seemed to be more comfortable last night, and slept well last night. Today he is more awake and alert, and his speech is easier to understand. He notes he is still having some hip discomfort. He thinks his abdomen feels better. He is asking to change position so that he can get more comfortable. We put mitts on his hands last night to keep him from pulling out his IV or his Pimentel catheter, but those have been removed this morning, because he is calm and cooperative so far today. He denies chest pain or shortness of breath or abdominal pain. He is mostly complaining of hip discomfort. -Nursing staff tells me today that his family says he previously took Franklin twice a day every day at home. We will try resuming this today. 04/14: Still having supine hypertension. About 50% of his midodrine doses have been held and he has had no episodes of hypotension. Will DC midodrine today and continue the Florinef. PO intake remains poor and still requiring IVF. Mitt restraints have been off since yesterday AM at 0930. He has frequent requests to call his but is currently redirectable. 04/15: Pt seen examined, some agitaiton overnight, untill midnight and then slept ok, his dose of seroquel was being cut down, there is also rise in WBC count again this AM and his CXR shows worsening infiltrates, his procalcitonin is elevated. He will be started on augmentin for aspiration pna, if he does not respond will broaden antibiotics to vanco and zosyn Patient home meds reviewed, noted that he seems to be taking a higher dose of hydrocodone at home, and seems to do somewhat better with morphine. Will d/c hydrocodone and try morhine oral to see if this works better for him. Patient is at high risk of aspiration pneumonia and will likely continue to aspirate given his poor swallowing as well as mental status issues. he likely has underlying dementia although has not been formally diagnosed with same. Clinicaly behaving like a patient with dementia and likely behavorial issues secondary to same. His bp is stable, he is off midodrine at this time. Pertinent ROS: unable. - Constitutional Vitals: Vital Signs Temp Pulse Resp BP Pulse Ox 98.1 F 82 20 136/78 93 04/15/17 11:38 04/15/17 12:37 04/15/17 12:37 04/15/17 11:38 04/15/17 11:38 Period Temp Pulse Resp BP Sys/Garcia Pulse Ox Last 24 Hr 98.1 F-100.6 F 66-90 18-30 120-142/63-78 86-93 Intake and Output 04/14/17 04/15/17 04/15/17 21:59 05:59 13:59 Intake Total 933 / 933 150 / 150 200 / 200 Output Total 550 / 550 525 / 525 Balance 383 / 383 -375 / -375 200 / 200 Weight 186 lb Intake & Output: Intake & Output 04/14/17 04/15/17 04/15/17 21:59 05:59 13:59 Intake Total 933 / 933 150 / 150 200 / 200 Output Total 550 / 550 525 / 525 Balance 383 / 383 -375 / -375 200 / 200 Weight 186 lb Intake: IV 933 / 933 Dextrose 5%-1/2Ns W/40Meq 933 / 933 KCl 1,000 ml @ 50 mls/hr IV .Q20H [facility] Rx#: [id number] Oral 150 / 150 200 / 200 Output: Urine Catheter Amount 550 / 550 525 / 525 Other: Meal Breakfast Percent of Meal Consumed 25% Feeding Ability Total Assistance # Bowel Movements 1 # of times incontinent of 1 Bowels Exam: Constitutional; Afebrile, cooperative at times, not in distress Eyes- No icterus, , No periorbital swelling Ears- Ext ear normal, hearing normal to conversation. Neck- Midline trachea, supple Respiratory system: Air Entry equal on both sides, basilar crackles mild. no wheezing. CVS- Rate rhythm regular, S1,S2 heard, no gallop, no rub. Abdomen- Soft nontender abdomen, no organomegaly, no tenderness, no guarding or rigidity, [employer]- AOOx0, moving all extremities, no gross focal deficit noted. Medical - PN: Obj Da - Labs CBC & Chem 7: 04/15/17 09:17 04/15/17 04:46 Labs: Abnormal Lab Results 04/15/17 04/15/17 04/15/17 09:17 04:46 04:46 WBC 13.6 H 12.3 H RBC 2.51 L 2.29 L Hgb 9.1 L 8.5 L Hct 27.0 L 24.9 L MCV 107.5 H 108.8 H MCH 36.1 H 36.9 H RDW 15.5 H 15.7 H Gran % 92.1 H 92.6 H Lymph % (Auto) 5.9 L 3.3 L Gran # 12.5 H 11.4 H Lymph # (Auto) 0.8 L 0.4 L Glucose 108 H Uric Acid Calcium 8.4 L Lactate Dehydrogenase Total Protein Albumin Globulin 04/14/17 04/14/17 04/13/17 04:38 04:38 05:43 WBC RBC 2.33 L Hgb 8.6 L Hct 25.2 L MCV 108.0 H MCH 36.8 H RDW 15.3 H Gran % Lymph % (Auto) Gran # Lymph # (Auto) 0.9 L Glucose Uric Acid 2.4 L Calcium 8.4 L 8.5 L Lactate Dehydrogenase 280 H 341 H Total Protein 5.1 L 5.5 L Albumin 3.0 L Globulin 2.1 L 04/13/17 05:43 WBC RBC 2.37 L Hgb 9.2 L Hct 26.3 L MCV 110.9 H MCH 38.8 H RDW 15.5 H Gran % Lymph % (Auto) Gran # Lymph # (Auto) 1.3 L Glucose Uric Acid Calcium Lactate Dehydrogenase Total Protein Albumin Globulin Meds: Medications Albuterol/Ipratropium (Duoneb) 3 ml NEB Q6HRT [facility] Last Admin: 04/15/17 12:36 Dose: 3 ml Amoxicillin/Clavulanate [facility] Last Admin: 04/15/17 13:25 Dose: 875 mg Aspirin (Ecotrin) 325 mg PO BID [facility] Last Admin: 04/15/17 09:42 Dose: Not Given Carbamazepine (Tegretol) 100 mg PO Q12 [facility] Last Admin: 04/15/17 09:36 Dose: 100 mg Carbidopa/Levodopa (Sinemet 25/100) 1.5 tab PO QID [facility] Last Admin: 04/15/17 13:25 Dose: 1.5 tab Clonazepam (Klonopin) 0.25 mg PO BID [facility] Last Admin: 04/15/17 09:33 Dose: 0.25 mg Finasteride (Proscar) 5 mg PO DAILY [facility] Last Admin: 04/15/17 09:42 Dose: Not Given Fludrocortisone Acetate (Florinef) 0.1 mg PO DAILY [facility] Last Admin: 04/15/17 13:26 Dose: 0.1 mg Gabapentin (Neurontin) 300 mg PO HS [facility] [place] Last Admin: 04/14/17 23:10 Dose: Not Given Acetaminophen (Ofirmev) 650 mg in 65 mls @ 130 mls/hr IV Q6HP PRN PRN Reason: Pain Last Admin: 04/11/17 19:07 Dose: 130 mls/hr Lactobacillus Rhamnosus (Culturelle) 1 cap PO DAILY [facility] [place] Last Admin: 04/15/17 11:35 Dose: Not Given Lorazepam (Ativan) 1 mg IV Q2HP PRN PRN Reason: ANXIETY/SEDATION Last Admin: 04/15/17 12:20 Dose: 1 mg Magnesium Hydroxide (Milk Of Magnesia) 30 ml PO BIDP PRN PRN Reason: Constipation Last Admin: 04/04/17 08:21 Dose: 30 ml Morphine Sulfate (Morphine) 2 mg IV Q3HP PRN PRN Reason: Pain Last Admin: 04/14/17 19:54 Dose: 2 mg Morphine Sulfate (Morphine) 15 mg PO Q4-6HP PRN PRN Reason: Pain Pantoprazole Sodium (Protonix) 40 mg IV QAMAC [facility] [place] Last Admin: 04/15/17 09:39 Dose: 40 mg Entacapone [Comtan] (200 Mg) 1 dose PO BID [facility] Last Admin: 04/15/17 13:43 Dose: Not Given Polyethylene Glycol (Miralax) 17 gm PO DAILYP PRN PRN Reason: Constipation Last Admin: 04/05/17 20:43 Dose: 17 gm Potassium Chloride (Klor-Con) 40 meq PO BIDCC [facility] Last Admin: 04/15/17 09:39 Dose: 40 meq Quetiapine Fumarate (Seroquel) 100 mg PO DAILY@1500 [facility] Ropinirole HCl (Requip) 1 mg PO TID [facility] Last Admin: 04/15/17 09:36 Dose: 1 mg Senna (Senokot) 2 tab PO HS [facility] [place] Last Admin: 04/14/17 23:10 Dose: Not Given Simvastatin (Zocor) 10 mg PO HS [facility] Last Admin: 04/14/17 23:11 Dose: Not Given Sodium Chloride (Saline Flush) 10 ml IV Q8 [facility] Last Admin: 04/15/17 05:01 Dose: Not Given Tamsulosin HCl (Flomax) 0.4 mg PO BID [facility] Last Admin: 04/15/17 09:42 Dose: Not Given Throat Lozenges (Cepacol) 1 lozenge PO PRN PRN PRN Reason: Sore Throat Vitamin B Complex (Vitamin B Complex) 1 cap PO BID [facility] Last Admin: 04/15/17 09:42 Dose: Not Given Vitamin D (Vitamin D3) 10,000 unit PO Q48 [facility] Last Admin: 04/15/17 09:42 Dose: Not Given Medical - PN: A/P - Time Spent With Patient Total time spent is greater than 50% in coordination of care (as documented) at patient's floor/unit and/or counseling patient: - Narrative A/P Narrative: A/P Left Hip fracture: s/p replacement, doing well at this time Left hip dislocation s/p reduction on 04/[address] salazar, repeat CXR on 04/06 was ok Post Op Pain Treat with morphine oral solution to see if this helps, not sure if this is the source of agitation, but will give it a try today. 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 His aggresive behaviour intermittently warrants use of antipsychotic medication. Seroquel 100mg at 1500 to avoid aggressive behavoir in PM, he continues to be on clonzepam bid Parkinsons disease: ON [employer] stimulator, ropinarole and levodopa and carbidopa, continue same. Anemia: Anemia of chr disease monitor, h/h stable Orthostatic hypotension: BP stable at this time, supine normotensive, off midodrine, on flurdrocort. monitor. SOPHIE: s/p SOPHIE now resolved, BPH: ON flomax and finasteroid, pimentel in place, monitor, will give voiding trial in future if he is able to follow commands. D/c IVF today and monitor DVT ASA 325 BID as per ortho protocol. Diet mec soft dysphagia diet Full code.
[2017-04-15] MEDS ORDERED: QUEtiapine 25 MG TABLET PO SCH (15:00)
[2017-04-15] MEDS: GABAPENTIN 300 MG CAPSULE PO SCH (21:19)
[2017-04-15] MEDS: SENNOSIDES 1 TABLET PO SCH (23:07)
[2017-04-15] MEDS: SIMVASTATIN 10 MG TABLET PO SCH (23:08)
[2017-04-16] MEDS: IPRATROPIUM/ALBUTEROL 3 ML AMPUL.NEB NEB SCH ×4 (01:20→21:13)
[2017-04-16] MEDS: LORazepam 2 MG/ML VIAL IV PRN ×5 (01:24→22:29)
[2017-04-16] MEDS: 0.9 % SODIUM CHLORIDE 10 ML SYRINGE IV SCH ×3 (04:59→20:19)
[2017-04-16 06:43] LABS: Basophils # (Auto) 0 K/mcL (0.0-0.3); Basophils % (Auto) 0.1 % (0.0-2.0); Eosinophils # (Auto) 0 K/mcL (0.0-0.7); Eosinophils % (Auto) 0.5 % (0.0-7.0); Granulocytes % (Auto) 85.5 % (38.0-78.0); Lymphocytes # (Auto) 0.6 K/mcL (1.5-4.8); Lymphocytes % (Auto) 8.6 % (15.5-49.0); Mean Corpuscular HGB Conc 34.2 g/dL (31.0-36.0); Mean Corpuscular Hemoglobin 37.7 pg (26.0-34.0); Monocytes # (Auto) 0.4 K/mcL (0.1-0.9); Monocytes % (Auto) 5.3 % (1.0-12.0); Platelet Count 287 K/mcL (140-440); RBC 2.15 M/mcL (4.50-5.90); Red Cell Distribution Width 15.7 % (11.5-14.5)
[2017-04-16 07:00] LABS: Blood Urea Nitrogen 14 mg/dl (8-23)
[2017-04-16] MEDS: AMOXICILLIN/POTASSIUM CLAV 875 MG TABLET PO SCH ×2 (08:03→17:36)
[2017-04-16] MEDS: PANTOPRAZOLE 40 MG VIAL IV SCH (08:03)
[2017-04-16] MEDS: POTASSIUM CHLORIDE 20 MEQ PACKET PO SCH (08:03)
[2017-04-16] MEDS ORDERED: morphine 20 MG/ML ORAL.CONC PO PRN (09:38)
[2017-04-16] MEDS: LACTOBACILLUS 1 CAPSULE PO SCH (10:38)
[2017-04-16] MEDS: ASPIRIN 325 MG ENTERIC COATED TABLET PO SCH ×2 (10:38→20:18)
[2017-04-16] MEDS: clonazePAM 0.5 MG TABLET PO SCH (10:39)
[2017-04-16] MEDS: FLUDROCORTISONE 0.1 MG TABLET PO SCH (10:39)
[2017-04-16] MEDS: TAMSULOSIN 0.4 MG CAPSULE PO SCH ×2 (10:39→20:18)
[2017-04-16] MEDS: CARBIDOPA/LEVODOPA 25/100 TABLET PO SCH ×5 (10:39→20:19)
[2017-04-16] MEDS: VITAMIN B COMPLEX 1 CAPSULE PO SCH (10:39)
[2017-04-16] MEDS: ENTACAPONE 200 MG PO SCH ×2 (10:39→20:19)
[2017-04-16] MEDS: carBAMazepine 100 MG TAB.CHEW PO SCH ×2 (10:39→20:19)
[2017-04-16] MEDS: FINASTERIDE 5 MG TABLET PO SCH (10:39)
[2017-04-16] MEDS: risperiDONE 0.25 MG TABLET PO SCH ×2 (10:39→20:19)
[2017-04-16] MEDS: rOPINIRole 1 MG TABLET PO SCH ×3 (10:39→20:19)
--- NOTE | 2017-04-16 13:39 | Internal Med Progress Note ---
Medical - PN: Subj Patient information: Note initiated : 04/16/17 at 1:30 pm Service Date, if different from initiated Date: [] Patient: Oliver Miles 81 y/o M admitted on 03/29/17 for Fall, L Hip Pain/ Closed Left Hip Fracture. Chief Complaint: [] Interval history: 03/29-HPI-Mr. Miles is a 81 year old Male comes in to [facility] ER with left hip injury and pain. Patient sustained a trauma after he fell off the bed while attempting to go to the bathroom this morning around 7:15 AM. He was subsequently brought in to [facility] ER. Initial workup was significant for left subcapital hip fracture. Orthopedics was consulted. Patient was scheduled for operative intervention later in the evening. Hospitalist service was consulted for admission and preoperative risk evaluation along with medical issue management. He otherwise denies fever chills nausea vomiting headache photophobia diarrhea dysuria or weight loss. 03/30- postop day 2. Patient doing well. No overnight events. Pain well controlled. No fever chills SOB nausea vomiting or bleeding or swelling at surgery site. started physical therapy. Patient has advanced Parkinson's disease limiting his functionality and gait instability. He also carries history of orthostatic hypertension. Continue aggressive physical therapy and and target or male sitting upright in light of high risk Parkinson's related dysphagia. Anticipate SNF transfer in 48 hours. Continue postop management per orthopedics 03/31: Pt seen examined, acute overnight events noted that patient was more confused and agitated last night, needing use of ativan and some dilaudid, has been refusing his oral medications. Patient this AM was drowsy after the effect of pain meds. The nurse had concern regarding the right clavicle in the patient, it seems that the patient has h/o clavicular fracture (noted on prob list), X ray clavicle is interpreted as negative, but there is an obvious clinical fracture vs dehiscence at the sternoclavicular joint. I called Dr Roberts to evaluate the patient for this and need for any operative intervention. Patient has been placed in the right sling. Will review old CXR images to see if this is new or old injury. 04/01: Pt seen examined, overnight was agitated again needing 1:1 supervision, dilaudid was held by ortho was resumed for pain management. This AM dialaudid and ativan was held. The patient this AM was doing well, but later in the morning became paranoid and agitated, trying to get out of bed and take a swing at the nurses, case management and myself. He was given ativan 0.5mg and 2mg IV haldol to calm him down. the right clavicle fracture is an old fracture wit no active management needed. sling discontinued. Patient has had increased oxygen needs CXR shows possible pna, blood cx and vanco and zosyn started. His dose of seroquel increased to 50mg at bed time. IV tylenol for pain management for now. 04/02: Patient seen examined, in restrains with mittens to prevent removal of iv acces, has removed 4-5 so far, aggressive towards nursing and care providers, speech is dysarthric. 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 Ortho made aware Dr. Shukla spent 15 mins with family, daughter in law and the , explaining the preset situation. Patient mental condition does not seem to be improving. he remains delirious and aggressive towards care providers. Unable to keep a good IV to maintain hydration nor adequate po intake, pt spits out medications. He remains of D2 of vanco and Zosyn for now. Discussed need for CT head to evaluate if any IC process ongoing If patient does not respond to conservative measures, then it will be difficult to place him, also if he continues to refuse to eat and removes IV access hydration will also be an issue. Over all he has very poor prognosis. 04/03: Taken to OR yesterday for relocation of hip prosthesis. Head CT neg for acute process. He has dysarthric speech today but is able to have some simple conversations. Stood at EOB with PT while bed was changed. K low and is replaced today. Will adjust Sinemet and Requip dosing schedules today to ensure he is getting them. 04/04: Walked with PT today. Still uncooperative; tried to leave and is still requiring hand mitts as restraints. Having supine hypertension with BP 188 last night--on midodrine and Florinef for OH. K still low at 3.2 despite replacement yesterday. Eating a little better today and complaining of hip pain that is unrelieved by Tylenol or dilaudid. Will try Tramadol and increase Seroquel to 100 HS. Had long discussion with at bedside regarding goals of care and prognosis. She is aware that any future insult to his body will result in likely severe delirium with paranoia and combative behavior as he has had this admission and that, at best, he will likely need SNF care long-term. With his slow but steady progress over the weekend, she would like to continue current care but voices interest in pursuing comfort measures only if he worsens. 04/05: Patient seen examined this AM, was more cooperative today, had stable night, his speech remains garbled but at baseline does not have good speech. He is not aggressive today, and did seem to follow commands and ask some appropriate questions. did not need haldol yesterday, will d/c hand mittens today and see how he does. Hopefully he will continue to improve. He will likely need to be 24 hrs without restraints before he can be safely discharged. 04/06 patient seen examined he was somewhat confused at night, but otherwise no acute issues, speech garbled, but seems to be at baseline. He did not need any haldol and is donig well without restrains, unfortunately his renal function is worse today, creat jumped rom 0.6 to 1.4, he received 1L salien bolus and his creat still went up to 1.6, At this time, will initiate workup for renal failure , ua, urine lyes, eosinophil levels and renal sonogram, continue gentle hydration and monitor renal function, consider renal consult if patient kidney function worsens. 04/07: patient seen and examined, he was acutely confused yesterday evening with aggressive behavior, was given Ativan with resolution of symptoms. Since around 9:00 yesterday. He has not had any issues. His speech is garbled, but does obey commands, responding. His labs show worsening WBC count worsening renal function with a creatinine of 1.7 he is still making urine. His bladder scan shows urine of around 230 mL, any side effect diapers. His urine studies and renal sonogram have been reviewed Nephrology has been consulted for evaluation of acute kidney injury. 04/08: Pt seen examined, no acute overnight events. He did not have any episode of sundowning last night. It seems that the dose of Seroquel given late in the afternoon has helped. The patient's kidney function is more stable now. Is still making urine. The blood pressure remains high in the supine position. But he has history of orthostatic hypotension and he is on midodrine as well as fludrocort for same. or now, continue IV antibiotics. Given that the x-ray showed worsening pneumonia. The patient likely has aspiration pneumonia given his clinical picture. Microbiology is negative so far. the patient may likely be changed to oral antibiotics. If continues to improve. this morning when I saw him, he was sitting in his bed comfortably, wearing glasses, and trying to read magazine His speech is still garbled but it seems this is baseline. April 09: -Today, the patient is awake, although was somewhat sleepy when I first saw him this morning. This afternoon he is more alert. He was able to work with speech therapy a little this morning, and speech is somewhat improved. However , he is still rather difficult to understand. His is in the room with him this afternoon. He denies significant pain, although did apparently have some hip pain last night, for which she received Dilaudid. He denies fever or chills, chest pain or shortness of breath, abdominal pain, but it is not entirely clear how reliable his history is. -He did dislocate his hip, and closed reduction was required. We believe he has not dislocated it again since then. -He carries a diagnosis of pneumonia, but at this time remains afebrile, with normal white blood cell count. -Potassium is rather low today. He remains quite anemic. Creatinine is gradually improving. -Iron studies showed low iron and low TIBC, with low transferrin saturation April 10: The patient continues to have episodes of confusion, consistent with delirium. He pulled out his IV again last night, even though it was wrapped. They replaced one high up in his arm, and put hand mitts on, so that he would be less likely to pull that out. He needs continued IV antibiotics for his pneumonia. He also needs IV fluids, as p.o. intake has been poor, due to his confusion. This morning, he continues to seem mildly agitated, but he does stop and look at me if I talk to him. He is able to follow some commands, but his speech is mostly unintelligible. He gets very upset when the nurses have to change his depends. He seems to indicate he is not having pain or shortness of breath, but history is likely unreliable. April 11: The patient has been a little less confused today, and has been able to take some food and medications. His meds have been off most of the morning. However , when I went into the room, he was sort of tugging on his IV in his left hand. He does seem more alert. His speech is slightly less garbled. He was able to tell me that he was having some pain in his left hip. He seems to otherwise indicate that he is not having fever or chills, chest pain or shortness of breath, abdominal pain, but speech is very difficult to understand, and he does not seem completely alert. Nurses know he was quite alert early this morning, and has become less so as the day has gone on. He really is not been able to drink or eat much today. His incision continues to look quite good. Was given tramadol and Tylenol for pain control, but I would like to maybe back off on the tramadol to see if that improves his alertness. He did walk a few steps with physical therapy today, but is still extremely limited. April 12: The patient had a difficult night. He developed increasing agitation over the course of the evening. He was given Ativan and morphine, but these did not really seem to relax him. Staff has noted that he becomes much more agitated after his family visits. I met with his this morning, and she agrees with that assessment. Everyone seems to think that the patient expects they will take him home, and when they leave without him he becomes very upset. He also remains paranoid about why he is being kept here. His also mentions that in the past she has had trouble with urinary retention. We did scan his bladder several times today, and the last bladder scan showed greater than 400 mL of urine in his bladder. I am now wondering if that is why he has been so agitated, as he may have retention that is causing him discomfort, and this may actually be aggravated by the morphine we are giving him. We elected to place a Rollins catheter. However, given his tendency to pull everything out, the hand mitts will be replaced. I would like to give him the whole night with bladder decompression, to see if he seems to remain more comfortable. -Also discussed with his the possibility of having family not visit for the next couple of days, to see if he remains calmer without them here. He does seem to do well in the morning when the nurses and physical therapist are working with him, but gets more agitated after his family comes. However, he was apparently complaining of pain in his hip last night. We are still trying to balance giving him pain medications versus the side effects the medicine seem to have for him. April 13: The patient had a much better evening. His bladder scan did show urine retention, so Rollins catheter was placed. He seemed to be more comfortable last night, and slept well last night. Today he is more awake and alert, and his speech is easier to understand. He notes he is still having some hip discomfort. He thinks his abdomen feels better. He is asking to change position so that he can get more comfortable. We put mitts on his hands last night to keep him from pulling out his IV or his Rollins catheter, but those have been removed this morning, because he is calm and cooperative so far today. He denies chest pain or shortness of breath or abdominal pain. He is mostly complaining of hip discomfort. -Nursing staff tells me today that his family says he previously took [place] twice a day every day at home. We will try resuming this today. 04/14: Still having supine hypertension. About 50% of his midodrine doses have been held and he has had no episodes of hypotension. Will DC midodrine today and continue the Florinef. PO intake remains poor and still requiring IVF. Mitt restraints have been off since yesterday AM at 0930. He has frequent requests to call his but is currently redirectable. 04/15: Pt seen examined, some agitaiton overnight, untill midnight and then slept ok, his dose of seroquel was being cut down, there is also rise in WBC count again this AM and his CXR shows worsening infiltrates, his procalcitonin is elevated. He will be started on augmentin for aspiration pna, if he does not respond will broaden antibiotics to vanco and zosyn Patient home meds reviewed, noted that he seems to be taking a higher dose of hydrocodone at home, and seems to do somewhat better with morphine. Will d/c hydrocodone and try morhine oral to see if this works better for him. Patient is at high risk of aspiration pneumonia and will likely continue to aspirate given his poor swallowing as well as mental status issues. he likely has underlying dementia although has not been formally diagnosed with same. Clinicaly behaving like a patient with dementia and likely behavorial issues secondary to same. His bp is stable, he is off midodrine at this time. 04/16: patient seen and examined this morning. at bedside, I had extensive discussion with the family yesterday with regards to patient's overall prognosis. In light of the new pneumonia. His poor oral intake and aggressive delerious behavior which is not responding to conservative management. It is unlikely that the patient will improve going further. , I discussed with the patient's as well as the [id number] with regards to consideration of palliative care. This morning they let me know that the patient daughter as well as his are all in agreement for comfort care measures. Plan for comfort care going forward, continue po antibiotics and anti agitatino meds, continue ativan as well as oral meds for now. Pertinent ROS: unable. - Constitutional Vitals: Vital Signs Temp Pulse Resp BP Pulse Ox 98.0 F 68 20 150/73 91 04/16/17 12:00 04/16/17 07:20 04/16/17 12:00 04/16/17 12:00 04/16/17 12:00 Period Temp Pulse Resp BP Sys/Garcia Pulse Ox Last 24 Hr 97.9 F-98.4 F 68-82 16-22 149-182/71-79 90-95 Intake and Output 04/15/17 04/16/17 04/16/17 21:59 05:59 13:59 Intake Total 500 / 500 50 / 50 Output Total 227 / 227 2 / 2 3 / 3 Balance 273 / 273 48 / 48 - / -3 Weight 185 lb Intake & Output: Intake & Output 04/15/17 04/16/17 04/16/17 21:59 05:59 13:59 Intake Total 500 / 500 50 / 50 Output Total 227 / 227 2 / 2 3 / 3 Balance 273 / 273 48 / 48 -3 / -3 Weight 185 lb Intake: IV 500 / 500 Oral 0 / 0 50 / 50 Output: Urine Catheter Amount 225 / 225 # of times incontinent of 2 / 2 2 / 2 3 / 3 urine Other: Meal Lunch Percent of Meal Consumed 25% bites X 4 Feeding Ability Total Assistance # Voids 2 1 # Bowel Movements 0 # of times incontinent of 1 1 Bowels Exam: Constitutional; Afebrile, confused, followed some commands today. Eyes- No icterus, , No periorbital swelling Ears- Ext ear normal, Neck- Midline trachea, supple Respiratory system: Air Entry equal on both sides, bibasilar crackles. CVS- Rate rhythm regular, S1,S2 heard, no gallop, no rub. Abdomen- Soft nontender abdomen, no organomegaly, no tenderness, no guarding or rigidity, [employer]- AOOx0, moving all extremities, no gross focal deficit noted. Medical - PN: Obj Da - Labs CBC & Chem 7: 04/16/17 05:33 04/16/17 05:33 Labs: Abnormal Lab Results 04/16/17 04/16/17 04/15/17 08:40 05:33 09:17 WBC 13.6 H RBC 2.15 L 2.51 L Hgb 8.1 L 9.1 L Hct 23.6 L 27.0 L MCV 110.0 H 107.5 H MCH 37.7 H 36.1 H RDW 15.7 H 15.5 H Gran % 85.5 H 92.1 H Lymph % (Auto) 8.6 L 5.9 L Gran # 12.5 H Lymph # (Auto) 0.6 L 0.8 L Glucose Uric Acid Calcium Lactate Dehydrogenase Total Protein Albumin Globulin Vancomycin Trough 4.6 L 04/15/17 04/15/17 04/14/17 04:46 04:46 04:38 WBC 12.3 H RBC 2.29 L Hgb 8.5 L Hct 24.9 L MCV 108.8 H MCH 36.9 H RDW 15.7 H Gran % 92.6 H Lymph % (Auto) 3.3 L Gran # 11.4 H Lymph # (Auto) 0.4 L Glucose 108 H Uric Acid 2.4 L Calcium 8.4 L 8.4 L Lactate Dehydrogenase 280 H Total Protein 5.1 L Albumin 3.0 L Globulin 2.1 L Vancomycin Trough 04/14/17 04:38 WBC RBC 2.33 L Hgb 8.6 L Hct 25.2 L MCV 108.0 H MCH 36.8 H RDW 15.3 H Gran % Lymph % (Auto) Gran # Lymph # (Auto) 0.9 L Glucose Uric Acid Calcium Lactate Dehydrogenase Total Protein Albumin Globulin Vancomycin Trough Meds: Medications Albuterol/Ipratropium (Duoneb) 3 ml NEB Q6HRT [facility] Last Admin: 04/16/17 07:11 Dose: 3 ml Amoxicillin/Clavulanate Potassium (Augmentin) 875 mg PO BIDCC [facility] Last Admin: 04/16/17 08:03 Dose: 875 mg Aspirin (Ecotrin) 325 mg PO BID [facility] Last Admin: 04/16/17 10:38 Dose: Not Given Carbamazepine (Tegretol) 100 mg PO Q12 [facility] Last Admin: 04/16/17 10:39 Dose: Not Given Carbidopa/Levodopa (Sinemet 25/100) 1.5 tab PO QID [facility] Last Admin: 04/16/17 12:27 Dose: Not Given Clonazepam (Klonopin) 0.25 mg PO BID [facility] Last Admin: 04/16/17 10:39 Dose: Not Given Finasteride (Proscar) 5 mg PO DAILY [facility] Last Admin: 04/16/17 10:39 Dose: Not Given Fludrocortisone Acetate (Florinef) 0.1 mg PO DAILY [facility] Last Admin: 04/16/17 10:39 Dose: Not Given Gabapentin (Neurontin) 300 mg PO HS [facility] Last Admin: 04/15/17 21:19 Dose: 300 mg Acetaminophen (Ofirmev) 650 mg in 65 mls @ 130 mls/hr IV Q6HP PRN PRN Reason: Pain Last Admin: 04/11/17 19:07 Dose: 130 mls/hr Lactobacillus Rhamnosus (Culturelle) 1 cap PO DAILY [facility] Last Admin: 04/16/17 10:38 Dose: Not Given Lorazepam (Ativan) 1 mg IV Q2HP PRN PRN Reason: ANXIETY/SEDATION Last Admin: 04/16/17 01:24 Dose: 1 mg Magnesium Hydroxide (Milk Of Magnesia) 30 ml PO BIDP PRN PRN Reason: Constipation Last Admin: 04/04/17 08:21 Dose: 30 ml Morphine Sulfate (Morphine) 2 mg IV Q3HP PRN PRN Reason: Pain Last Admin: 04/16/17 11:07 Dose: 2 mg Morphine Sulfate (Morphine) 5 mg PO Q4-6HP PRN PRN Reason: Pain Pantoprazole Sodium (Protonix) 40 mg IV QAMAC [facility] Last Admin: 04/16/17 08:03 Dose: 40 mg Entacapone [Comtan] (200 Mg) 1 dose PO BID [facility] Last Admin: 04/16/17 10:39 Dose: Not Given Polyethylene Glycol (Miralax) 17 gm PO DAILYP PRN PRN Reason: Constipation Last Admin: 04/05/17 20:43 Dose: 17 gm Potassium Chloride (Klor-Con) 40 meq PO BIDCC [facility] Last Admin: 04/16/17 08:03 Dose: 40 meq Risperidone (Risperdal) 0.5 mg PO BID [facility] Last Admin: 04/16/17 10:39 Dose: Not Given Ropinirole HCl (Requip) 1 mg PO TID [facility] Last Admin: 04/16/17 10:39 Dose: Not Given Senna (Senokot) 2 tab PO [facility] Last Admin: 04/15/17 23:07 Dose: Not Given Simvastatin (Zocor) 10 mg PO HS [facility] Last Admin: 04/15/17 23:08 Dose: Not Given Sodium Chloride (Saline Flush) 10 ml IV Q8 [facility] Last Admin: 04/16/17 04:59 Dose: 10 ml Tamsulosin HCl (Flomax) 0.4 mg PO BID [facility] Last Admin: 04/16/17 10:39 Dose: Not Given Throat Lozenges (Cepacol) 1 lozenge PO PRN PRN PRN Reason: Sore Throat Vitamin B Complex (Vitamin B Complex) 1 cap PO BID [facility] Last Admin: 04/16/17 10:39 Dose: Not Given Vitamin D (Vitamin D3) 10,000 unit PO Q48 [facility] Last Admin: 04/15/17 09:42 Dose: Not Given Medical - PN: A/P - Time Spent With Patient Total time spent is greater than 50% in coordination of care (as documented) at patient's floor/unit and/or counseling patient: - Narrative A/P Narrative: A/P Left Hip fracture: s/p replacement, doing well at this time Left hip dislocation s/p reduction on 04/[address] salazar, repeat CXR on 04/06 was ok Post op pain Delerium Recurrent Aspiration pneumonia Renal failure Orthostatic Hypotension BPH Parkinsons disease Dementia with behavorial issue Plan After through review with family they are agreeable for comfort care continue antibiotics for aspiration pna continue parkinson meds as tolerated PO morphine for now, add fentanyl if needed ativan prn for agitation Renal function is better will discontinue labs now. DNR comfort care Diet as tolerated.
[2017-04-16] MEDS: morphine 20 MG/ML ORAL.CONC PO PRN ×2 (16:06→20:16)
[2017-04-16] MEDS: GABAPENTIN 300 MG CAPSULE PO SCH (20:08)
[2017-04-16] MEDS: SENNOSIDES 1 TABLET PO SCH (20:19)
[2017-04-17] MEDS: morphine 20 MG/ML ORAL.CONC PO PRN (00:16)
[2017-04-17] MEDS: IPRATROPIUM/ALBUTEROL 3 ML AMPUL.NEB NEB SCH ×3 (00:21→13:43)
[2017-04-17] MEDS: LORazepam 2 MG/ML VIAL IV PRN ×4 (01:30→19:00)
[2017-04-17 05:41] LABS: Basophils # (Auto) 0 K/mcL (0.0-0.3); Basophils % (Auto) 0.4 % (0.0-2.0); Eosinophils # (Auto) 0.2 K/mcL (0.0-0.7); Lymphocytes # (Auto) 0.7 K/mcL (1.5-4.8); Lymphocytes % (Auto) 8.5 % (15.5-49.0); Mean Cell Volume 109.4 fL (80.0-100.0); Mean Corpuscular HGB Conc 33.6 g/dL (31.0-36.0); Mean Corpuscular Hemoglobin 36.8 pg (26.0-34.0); Monocytes # (Auto) 0.4 K/mcL (0.1-0.9); Monocytes % (Auto) 5.1 % (1.0-12.0); Platelet Count 304 K/mcL (140-440); RBC 2.15 M/mcL (4.50-5.90); Red Cell Distribution Width 15.8 % (11.5-14.5)
[2017-04-17] MEDS: 0.9 % SODIUM CHLORIDE 10 ML SYRINGE IV SCH ×4 (05:43→22:05)
[2017-04-17 05:49] LABS: Blood Urea Nitrogen 15 mg/dl (8-23)
[2017-04-17] MEDS ORDERED: ALBUTEROL SULFATE 2.5 MG/3 ML NEBULIZER NEB PRN (07:33)
[2017-04-17] MEDS ORDERED: ONDANSETRON 4 MG/2 ML VIAL IV PRN (07:33)
[2017-04-17] MEDS ORDERED: LACTOPEROXI/GLUC OXID/POT THIO 1 EACH GEL..EA. TOPICAL PRN (07:33)
[2017-04-17] MEDS: AMOXICILLIN/POTASSIUM CLAV 875 MG TABLET PO SCH (07:52)
[2017-04-17] MEDS ORDERED: IPRATROPIUM/ALBUTEROL 3 ML AMPUL.NEB NEB ONE (08:00)
--- NOTE | 2017-04-17 12:41 | Internal Med Progress Note ---
Medical - PN: Subj Patient information: Note initiated : 04/17/17 at 12:39 pm Service Date, if different from initiated Date: [] Patient: Oliver Miles 81 y/o M admitted on 03/29/17 for Fall, L Hip Pain/ Closed Left Hip Fracture. Chief Complaint: [] Interval history: 03/29-HPI-Mr. Miles is a 81 year old Male comes in to [facility] ER with left hip injury and pain. Patient sustained a trauma after he fell off the bed while attempting to go to the bathroom this morning around 7:15 AM. He was subsequently brought in to [facility] ER. Initial workup was significant for left subcapital hip fracture. Orthopedics was consulted. Patient was scheduled for operative intervention later in the evening. Hospitalist service was consulted for admission and preoperative risk evaluation along with medical issue management. He otherwise denies fever chills nausea vomiting headache photophobia diarrhea dysuria or weight loss. 03/30- postop day 2. Patient doing well. No overnight events. Pain well controlled. No fever chills SOB nausea vomiting or bleeding or swelling at surgery site. started physical therapy. Patient has advanced Parkinson's disease limiting his functionality and gait instability. He also carries history of orthostatic hypertension. Continue aggressive physical therapy and and target or male sitting upright in light of high risk Parkinson's related dysphagia. Anticipate SNF transfer in 48 hours. Continue postop management per orthopedics 03/31: Pt seen examined, acute overnight events noted that patient was more confused and agitated last night, needing use of ativan and some dilaudid, has been refusing his oral medications. Patient this AM was drowsy after the effect of pain meds. The nurse had concern regarding the right clavicle in the patient, it seems that the patient has h/o clavicular fracture (noted on prob list), X ray clavicle is interpreted as negative, but there is an obvious clinical fracture vs dehiscence at the sternoclavicular joint. I called Dr Roberts to evaluate the patient for this and need for any operative intervention. Patient has been placed in the right sling. Will review old CXR images to see if this is new or old injury. 04/01: Pt seen examined, overnight was agitated again needing 1:1 supervision, dilaudid was held by ortho was resumed for pain management. This AM dialaudid and ativan was held. The patient this AM was doing well, but later in the morning became paranoid and agitated, trying to get out of bed and take a swing at the nurses, case management and myself. He was given ativan 0.5mg and 2mg IV haldol to calm him down. the right clavicle fracture is an old fracture wit no active management needed. sling discontinued. Patient has had increased oxygen needs CXR shows possible pna, blood cx and vanco and zosyn started. His dose of seroquel increased to 50mg at bed time. IV tylenol for pain management for now. 04/02: Patient seen examined, in restrains with mittens to prevent removal of iv acces, has removed 4-5 so far, aggressive towards nursing and care providers, speech is dysarthric. 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 Ortho made aware Dr. Shukla spent 15 mins with family, daughter in law and the , explaining the preset situation. Patient mental condition does not seem to be improving. he remains delirious and aggressive towards care providers. Unable to keep a good IV to maintain hydration nor adequate po intake, pt spits out medications. He remains of D2 of vanco and Zosyn for now. Discussed need for CT head to evaluate if any IC process ongoing If patient does not respond to conservative measures, then it will be difficult to place him, also if he continues to refuse to eat and removes IV access hydration will also be an issue. Over all he has very poor prognosis. 04/03: Taken to OR yesterday for relocation of hip prosthesis. Head CT neg for acute process. He has dysarthric speech today but is able to have some simple conversations. Stood at EOB with PT while bed was changed. K low and is replaced today. Will adjust Sinemet and Requip dosing schedules today to ensure he is getting them. 04/04: Walked with PT today. Still uncooperative; tried to leave and is still requiring hand mitts as restraints. Having supine hypertension with BP 188 last night--on midodrine and Florinef for OH. K still low at 3.2 despite replacement yesterday. Eating a little better today and complaining of hip pain that is unrelieved by Tylenol or dilaudid. Will try Tramadol and increase Seroquel to 100 HS. Had long discussion with at bedside regarding goals of care and prognosis. She is aware that any future insult to his body will result in likely severe delirium with paranoia and combative behavior as he has had this admission and that, at best, he will likely need SNF care long-term. With his slow but steady progress over the weekend, she would like to continue current care but voices interest in pursuing comfort measures only if he worsens. 04/05: Patient seen examined this AM, was more cooperative today, had stable night, his speech remains garbled but at baseline does not have good speech. He is not aggressive today, and did seem to follow commands and ask some appropriate questions. did not need haldol yesterday, will d/c hand mittens today and see how he does. Hopefully he will continue to improve. He will likely need to be 24 hrs without restraints before he can be safely discharged. 04/06 patient seen examined he was somewhat confused at night, but otherwise no acute issues, speech garbled, but seems to be at baseline. He did not need any haldol and is donig well without restrains, unfortunately his renal function is worse today, creat jumped rom 0.6 to 1.4, he received 1L salien bolus and his creat still went up to 1.6, At this time, will initiate workup for renal failure , ua, urine lyes, eosinophil levels and renal sonogram, continue gentle hydration and monitor renal function, consider renal consult if patient kidney function worsens. 04/07: patient seen and examined, he was acutely confused yesterday evening with aggressive behavior, was given Ativan with resolution of symptoms. Since around 9:00 yesterday. He has not had any issues. His speech is garbled, but does obey commands, responding. His labs show worsening WBC count worsening renal function with a creatinine of 1.7 he is still making urine. His bladder scan shows urine of around 230 mL, any side effect diapers. His urine studies and renal sonogram have been reviewed Nephrology has been consulted for evaluation of acute kidney injury. 04/08: Pt seen examined, no acute overnight events. He did not have any episode of sundowning last night. It seems that the dose of Seroquel given late in the afternoon has helped. The patient's kidney function is more stable now. Is still making urine. The blood pressure remains high in the supine position. But he has history of orthostatic hypotension and he is on midodrine as well as fludrocort for same. or now, continue IV antibiotics. Given that the x-ray showed worsening pneumonia. The patient likely has aspiration pneumonia given his clinical picture. Microbiology is negative so far. the patient may likely be changed to oral antibiotics. If continues to improve. this morning when I saw him, he was sitting in his bed comfortably, wearing glasses, and trying to read magazine His speech is still garbled but it seems this is baseline. April 09: -Today, the patient is awake, although was somewhat sleepy when I first saw him this morning. This afternoon he is more alert. He was able to work with speech therapy a little this morning, and speech is somewhat improved. However , he is still rather difficult to understand. His is in the room with him this afternoon. He denies significant pain, although did apparently have some hip pain last night, for which she received Dilaudid. He denies fever or chills, chest pain or shortness of breath, abdominal pain, but it is not entirely clear how reliable his history is. -He did dislocate his hip, and closed reduction was required. We believe he has not dislocated it again since then. -He carries a diagnosis of pneumonia, but at this time remains afebrile, with normal white blood cell count. -Potassium is rather low today. He remains quite anemic. Creatinine is gradually improving. -Iron studies showed low iron and low TIBC, with low transferrin saturation April 10: The patient continues to have episodes of confusion, consistent with delirium. He pulled out his IV again last night, even though it was wrapped. They replaced one high up in his arm, and put hand mitts on, so that he would be less likely to pull that out. He needs continued IV antibiotics for his pneumonia. He also needs IV fluids, as p.o. intake has been poor, due to his confusion. This morning, he continues to seem mildly agitated, but he does stop and look at me if I talk to him. He is able to follow some commands, but his speech is mostly unintelligible. He gets very upset when the nurses have to change his depends. He seems to indicate he is not having pain or shortness of breath, but history is likely unreliable. April 11: The patient has been a little less confused today, and has been able to take some food and medications. His meds have been off most of the morning. However , when I went into the room, he was sort of tugging on his IV in his left hand. He does seem more alert. His speech is slightly less garbled. He was able to tell me that he was having some pain in his left hip. He seems to otherwise indicate that he is not having fever or chills, chest pain or shortness of breath, abdominal pain, but speech is very difficult to understand, and he does not seem completely alert. Nurses know he was quite alert early this morning, and has become less so as the day has gone on. He really is not been able to drink or eat much today. His incision continues to look quite good. Was given tramadol and Tylenol for pain control, but I would like to maybe back off on the tramadol to see if that improves his alertness. He did walk a few steps with physical therapy today, but is still extremely limited. April 12: The patient had a difficult night. He developed increasing agitation over the course of the evening. He was given Ativan and morphine, but these did not really seem to relax him. Staff has noted that he becomes much more agitated after his family visits. I met with his this morning, and she agrees with that assessment. Everyone seems to think that the patient expects they will take him home, and when they leave without him he becomes very upset. He also remains paranoid about why he is being kept here. His also mentions that in the past she has had trouble with urinary retention. We did scan his bladder several times today, and the last bladder scan showed greater than 400 mL of urine in his bladder. I am now wondering if that is why he has been so agitated, as he may have retention that is causing him discomfort, and this may actually be aggravated by the morphine we are giving him. We elected to place a Rollins catheter. However, given his tendency to pull everything out, the hand mitts will be replaced. I would like to give him the whole night with bladder decompression, to see if he seems to remain more comfortable. -Also discussed with his the possibility of having family not visit for the next couple of days, to see if he remains calmer without them here. He does seem to do well in the morning when the nurses and physical therapist are working with him, but gets more agitated after his family comes. However, he was apparently complaining of pain in his hip last night. We are still trying to balance giving him pain medications versus the side effects the medicine seem to have for him. April 13: The patient had a much better evening. His bladder scan did show urine retention, so Rollins catheter was placed. He seemed to be more comfortable last night, and slept well last night. Today he is more awake and alert, and his speech is easier to understand. He notes he is still having some hip discomfort. He thinks his abdomen feels better. He is asking to change position so that he can get more comfortable. We put mitts on his hands last night to keep him from pulling out his IV or his Rollins catheter, but those have been removed this morning, because he is calm and cooperative so far today. He denies chest pain or shortness of breath or abdominal pain. He is mostly complaining of hip discomfort. -Nursing staff tells me today that his family says he previously took Mayer twice a day every day at home. We will try resuming this today. 04/14: Still having supine hypertension. About 50% of his midodrine doses have been held and he has had no episodes of hypotension. Will DC midodrine today and continue the Florinef. PO intake remains poor and still requiring IVF. Mitt restraints have been off since yesterday AM at 0930. He has frequent requests to call his but is currently redirectable. 04/15: Pt seen examined, some agitaiton overnight, untill midnight and then slept ok, his dose of seroquel was being cut down, there is also rise in WBC count again this AM and his CXR shows worsening infiltrates, his procalcitonin is elevated. He will be started on augmentin for aspiration pna, if he does not respond will broaden antibiotics to vanco and zosyn Patient home meds reviewed, noted that he seems to be taking a higher dose of hydrocodone at home, and seems to do somewhat better with morphine. Will d/c hydrocodone and try morhine oral to see if this works better for him. Patient is at high risk of aspiration pneumonia and will likely continue to aspirate given his poor swallowing as well as mental status issues. he likely has underlying dementia although has not been formally diagnosed with same. Clinicaly behaving like a patient with dementia and likely behavorial issues secondary to same. His bp is stable, he is off midodrine at this time. 04/16: patient seen and examined this morning. at bedside, I had extensive discussion with the family yesterday with regards to patient's overall prognosis. In light of the new pneumonia. His poor oral intake and aggressive delerious behavior which is not responding to conservative management. It is unlikely that the patient will improve going further. , I discussed with the patient's as well as the [id number] with regards to consideration of palliative care. This morning they let me know that the patient daughter as well as his are all in agreement for comfort care measures. Plan for comfort care going forward, continue po antibiotics and anti agitatino meds, continue ativan as well as oral meds for now. 04/17: Pt seen examined, family at bedside, patient is presenly on comfort care only, patient this AM became hypoxic requring 9 L oxygen, drowsy. LIkely secondary to aspiration pna, family explained that this is despite him being on medications. Family seems to understand and ready to accept the outcome. Goals of treatment are now to keep patient comfortable as much as possible. Pertinent ROS: unable. - Constitutional Vitals: Vital Signs Temp Pulse Resp BP Pulse Ox 98.5 F 88 26 H 124/56 97 04/17/17 06:42 04/17/17 09:30 04/17/17 10:45 04/17/17 06:42 04/17/17 10:45 Period Temp Pulse Resp BP Sys/Garcia Pulse Ox Last 24 Hr 97.0 F-98.8 F 66-88 20-28 124-179/56-85 90-97 Intake and Output 04/16/17 04/17/17 04/17/17 21:59 05:59 13:59 Output Total Balance - / -1 - / - Weight 182 lb 8 oz Intake & Output: Intake & Output 04/16/17 04/17/17 04/17/17 21:59 05:59 13:59 Output Total Balance - - Weight 182 lb 8 oz Output: # of times incontinent of urine Other: # Voids 1 # Bowel Movements 0 Exam: Constitutional; Afebrile,drowsy, sleeping, not in distress Eyes- No periorbital swelling Ears- Ext ear normal, Neck- Midline trachea, supple Respiratory system: Air Entry equal on both sides, but poor air entry, patient breathing via mouth, agonal breath sounds. CVS- Rate tachycardic. rhythm regular, S1,S2 heard, no gallop, no rub. Abdomen- Soft nontender abdomen, no organomegaly, no tenderness, no guarding or rigidity, PSYCHOLOG[employer]ING- AOOx0,drowsy, did no try to wake him up today. Medical - PN: Obj Da - Labs CBC & Chem 7: 04/17/17 04:28 04/17/17 04:28 Labs: Abnormal Lab Results 04/17/17 04/17/17 04/16/17 04:28 04:28 08:40 WBC RBC 2.15 L Hgb 7.9 L Hct 23.5 L MCV 109.4 H MCH 36.8 H RDW 15.8 H Gran % 83.0 H Lymph % (Auto) 8.5 L Gran # Lymph # (Auto) 0.7 L Sodium 146 H Glucose Calcium 8.4 L Vancomycin Trough 4.6 L 04/16/17 04/15/17 04/15/17 05:33 09:17 04:46 WBC 13.6 H RBC 2.15 L 2.51 L Hgb 8.1 L 9.1 L Hct 23.6 L 27.0 L MCV 110.0 H 107.5 H MCH 37.7 H 36.1 H RDW 15.7 H 15.5 H Gran % 85.5 H 92.1 H Lymph % (Auto) 8.6 L 5.9 L Gran # 12.5 H Lymph # (Auto) 0.6 L 0.8 L Sodium Glucose 108 H Calcium 8.4 L Vancomycin Trough 04/15/17 04:46 WBC 12.3 H RBC 2.29 L Hgb 8.5 L Hct 24.9 L MCV 108.8 H MCH 36.9 H RDW 15.7 H Gran % 92.6 H Lymph % (Auto) 3.3 L Gran # 11.4 H Lymph # (Auto) 0.4 L Sodium Glucose Calcium Vancomycin Trough Meds: Medications Albuterol Sulfate (Ventolin) 2.5 mg NEB Q2HP PRN PRN Reason: Shortness Of Breath Albuterol/Ipratropium (Duoneb) 3 ml NEB Q6HRT DOLORES Last Admin: 04/17/17 05:18 Dose: 3 ml Glucose Oxid/Lactoperoxid/Muramidas (Biotene) 1 each TOPICAL PRN PRN PRN Reason: Dry Mouth Acetaminophen (Ofirmev) 650 mg in 65 mls @ 130 mls/hr IV Q6HP PRN PRN Reason: Pain Last Admin: 04/11/17 19:07 Dose: 130 mls/hr Lorazepam (Ativan) 2 mg IV Q2HP PRN PRN Reason: ANXIETY/SEDATION Last Admin: 04/17/17 05:05 Dose: 2 mg Morphine Sulfate (Morphine) 10 mg PO Q4-6HP PRN PRN Reason: Pain Last Admin: 04/17/17 00:16 Dose: 10 mg Morphine Sulfate (Morphine) 4 mg NEB Q4HP PRN PRN Reason: Shortness Of Breath Last Admin: 04/17/17 08:20 Dose: 4 mg Morphine Sulfate (Morphine) 2 mg IV Q1HP PRN PRN Reason: Pain Last Admin: 04/17/17 10:28 Dose: 2 mg Ondansetron HCl (Zofran) 4 mg IV Q4HP PRN PRN Reason: Nausea And Vomiting Sodium Chloride (Saline Flush) 10 ml IV Q8 [facility] Last Admin: 04/17/17 05:43 Dose: 10 ml Sodium Chloride (Saline Flush) 10 ml IV Q8 [facility] Throat Lozenges (Cepacol) 1 lozenge PO PRN PRN PRN Reason: Sore Throat Medical - PN: A/P - Time Spent With Patient Total time spent is greater than 50% in coordination of care (as documented) at patient's floor/unit and/or counseling patient: - Narrative A/P Narrative: A/P Left Hip fracture: s/p replacement, doing well at this time Left hip dislocation s/p reduction on 04/[address] salazar, repeat CXR on 04/06 was ok Post op pain Delerium Recurrent Aspiration pneumonia Renal failure Orthostatic Hypotension BPH Parkinsons disease Dementia with behavorial issue Palliative care. Plan d/c non essential meds, d/c antibiotics given unable to swallow at this time. d/c labs and investigations IV morphine, PO morphien and morphine nebs for comfort prn ativan eye lubrication prn skin care . DNR comfort care anticipated within 24 hrs given acute worsenig of patients condition.
[2017-04-18] MEDS: LORazepam 2 MG/ML VIAL IV PRN ×4 (00:12→21:42)
[2017-04-18] MEDS: 0.9 % SODIUM CHLORIDE 10 ML SYRINGE IV SCH ×3 (05:32→21:42)
[2017-04-18] MEDS: diphenhydrAMINE 50 MG/ML VIAL IV PRN ×3 (10:58→23:59)
--- NOTE | 2017-04-18 13:03 | Internal Med Progress Note ---
Medical - PN: Subj Patient information: Note initiated : 04/18/17 at 1:01 pm Service Date, if different from initiated Date: [] Patient: Oliver Miles 81 y/o M admitted on 03/29/17 for Fall, L Hip Pain/ Closed Left Hip Fracture. Chief Complaint: [] Interval history: 03/29-HPI-Mr. Miles is a 81 year old Male [facility] with left hip injury and pain. Patient sustained a trauma after he fell off the bed while attempting to go to the bathroom this morning around 7:15 AM. He was subsequently brought in to [facility] ER. Initial workup was significant for left subcapital hip fracture. Orthopedics was consulted. Patient was scheduled for operative intervention later in the evening. Hospitalist service was consulted for admission and preoperative risk evaluation along with medical issue management. He otherwise denies fever chills nausea vomiting headache photophobia diarrhea dysuria or weight loss. 03/30- postop day 2. Patient doing well. No overnight events. Pain well controlled. No fever chills SOB nausea vomiting or bleeding or swelling at surgery site. started physical therapy. Patient has advanced Parkinson's disease limiting his functionality and gait instability. He also carries history of orthostatic hypertension. Continue aggressive physical therapy and and target or male sitting upright in light of high risk Parkinson's related dysphagia. Anticipate SNF transfer in 48 hours. Continue postop management per orthopedics 03/31: Pt seen examined, acute overnight events noted that patient was more confused and agitated last night, needing use of ativan and some dilaudid, has been refusing his oral medications. Patient this AM was drowsy after the effect of pain meds. The nurse had concern regarding the right clavicle in the patient, it seems that the patient has h/o clavicular fracture (noted on prob list), X ray clavicle is interpreted as negative, but there is an obvious clinical fracture vs dehiscence at the sternoclavicular joint. I called Dr Roberts to evaluate the patient for this and need for any operative intervention. Patient has been placed in the right sling. Will review old CXR images to see if this is new or old injury. 04/01: Pt seen examined, overnight was agitated again needing 1:1 supervision, dilaudid was held by ortho was resumed for pain management. This AM dialaudid and ativan was held. The patient this AM was doing well, but later in the morning became paranoid and agitated, trying to get out of bed and take a swing at the nurses, case management and myself. He was given ativan 0.5mg and 2mg IV haldol to calm him down. the right clavicle fracture is an old fracture wit no active management needed. sling discontinued. Patient has had increased oxygen needs CXR shows possible pna, blood cx and vanco and zosyn started. His dose of seroquel increased to 50mg at bed time. IV tylenol for pain management for now. 04/02: Patient seen examined, in restrains with mittens to prevent removal of iv acces, has removed 4-5 so far, aggressive towards nursing and care providers, speech is dysarthric. 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 Ortho made aware Dr. Shukla spent 15 mins with family, daughter in law and the , explaining the preset situation. Patient mental condition does not seem to be improving. he remains delirious and aggressive towards care providers. Unable to keep a good IV to maintain hydration nor adequate po intake, pt spits out medications. He remains of D2 of vanco and Zosyn for now. Discussed need for CT head to evaluate if any IC process ongoing If patient does not respond to conservative measures, then it will be difficult to place him, also if he continues to refuse to eat and removes IV access hydration will also be an issue. Over all he has very poor prognosis. 04/03: Taken to OR yesterday for relocation of hip prosthesis. Head CT neg for acute process. He has dysarthric speech today but is able to have some simple conversations. Stood at EOB with PT while bed was changed. K low and is replaced today. Will adjust Sinemet and Requip dosing schedules today to ensure he is getting them. 04/04: Walked with PT today. Still uncooperative; tried to leave and is still requiring hand mitts as restraints. Having supine hypertension with BP 188 last night--on midodrine and Florinef for OH. K still low at 3.2 despite replacement yesterday. Eating a little better today and complaining of hip pain that is unrelieved by Tylenol or dilaudid. Will try Tramadol and increase Seroquel to 100 HS. Had long discussion with at bedside regarding goals of care and prognosis. She is aware that any future insult to his body will result in likely severe delirium with paranoia and combative behavior as he has had this admission and that, at best, he will likely need SNF care long-term. With his slow but steady progress over the weekend, she would like to continue current care but voices interest in pursuing comfort measures only if he worsens. 04/05: Patient seen examined this AM, was more cooperative today, had stable night, his speech remains garbled but at baseline does not have good speech. He is not aggressive today, and did seem to follow commands and ask some appropriate questions. did not need haldol yesterday, will d/c hand mittens today and see how he does. Hopefully he will continue to improve. He will likely need to be 24 hrs without restraints before he can be safely discharged. 04/06 patient seen examined he was somewhat confused at night, but otherwise no acute issues, speech garbled, but seems to be at baseline. He did not need any haldol and is donig well without restrains, unfortunately his renal function is worse today, creat jumped rom 0.6 to 1.4, he received 1L salien bolus and his creat still went up to 1.6, At this time, will initiate workup for renal failure , ua, urine lyes, eosinophil levels and renal sonogram, continue gentle hydration and monitor renal function, consider renal consult if patient kidney function worsens. 04/07: patient seen and examined, he was acutely confused yesterday evening with aggressive behavior, was given Ativan with resolution of symptoms. Since around 9:00 yesterday. He has not had any issues. His speech is garbled, but does obey commands, responding. His labs show worsening WBC count worsening renal function with a creatinine of 1.7 he is still making urine. His bladder scan shows urine of around 230 mL, any side effect diapers. His urine studies and renal sonogram have been reviewed Nephrology has been consulted for evaluation of acute kidney injury. 04/08: Pt seen examined, no acute overnight events. He did not have any episode of sundowning last night. It seems that the dose of Seroquel given late in the afternoon has helped. The patient's kidney function is more stable now. Is still making urine. The blood pressure remains high in the supine position. But he has history of orthostatic hypotension and he is on midodrine as well as fludrocort for same. or now, continue IV antibiotics. Given that the x-ray showed worsening pneumonia. The patient likely has aspiration pneumonia given his clinical picture. Microbiology is negative so far. the patient may likely be changed to oral antibiotics. If continues to improve. this morning when I saw him, he was sitting in his bed comfortably, wearing glasses, and trying to read magazine His speech is still garbled but it seems this is baseline. April 09: -Today, the patient is awake, although was somewhat sleepy when I first saw him this morning. This afternoon he is more alert. He was able to work with speech therapy a little this morning, and speech is somewhat improved. However , he is still rather difficult to understand. His is in the room with him this afternoon. He denies significant pain, although did apparently have some hip pain last night, for which she received Dilaudid. He denies fever or chills, chest pain or shortness of breath, abdominal pain, but it is not entirely clear how reliable his history is. -He did dislocate his hip, and closed reduction was required. We believe he has not dislocated it again since then. -He carries a diagnosis of pneumonia, but at this time remains afebrile, with normal white blood cell count. -Potassium is rather low today. He remains quite anemic. Creatinine is gradually improving. -Iron studies showed low iron and low TIBC, with low transferrin saturation April 10: The patient continues to have episodes of confusion, consistent with delirium. He pulled out his IV again last night, even though it was wrapped. They replaced one high up in his arm, and put hand mitts on, so that he would be less likely to pull that out. He needs continued IV antibiotics for his pneumonia. He also needs IV fluids, as p.o. intake has been poor, due to his confusion. This morning, he continues to seem mildly agitated, but he does stop and look at me if I talk to him. He is able to follow some commands, but his speech is mostly unintelligible. He gets very upset when the nurses have to change his depends. He seems to indicate he is not having pain or shortness of breath, but history is likely unreliable. April 11: The patient has been a little less confused today, and has been able to take some food and medications. His meds have been off most of the morning. However , when I went into the room, he was sort of tugging on his IV in his left hand. He does seem more alert. His speech is slightly less garbled. He was able to tell me that he was having some pain in his left hip. He seems to otherwise indicate that he is not having fever or chills, chest pain or shortness of breath, abdominal pain, but speech is very difficult to understand, and he does not seem completely alert. Nurses know he was quite alert early this morning, and has become less so as the day has gone on. He really is not been able to drink or eat much today. His incision continues to look quite good. Was given tramadol and Tylenol for pain control, but I would like to maybe back off on the tramadol to see if that improves his alertness. He did walk a few steps with physical therapy today, but is still extremely limited. April 12: The patient had a difficult night. He developed increasing agitation over the course of the evening. He was given Ativan and morphine, but these did not really seem to relax him. Staff has noted that he becomes much more agitated after his family visits. I met with his this morning, and she agrees with that assessment. Everyone seems to think that the patient expects they will take him home, and when they leave without him he becomes very upset. He also remains paranoid about why he is being kept here. His also mentions that in the past she has had trouble with urinary retention. We did scan his bladder several times today, and the last bladder scan showed greater than 400 mL of urine in his bladder. I am now wondering if that is why he has been so agitated, as he may have retention that is causing him discomfort, and this may actually be aggravated by the morphine we are giving him. We elected to place a Rollins catheter. However, given his tendency to pull everything out, the hand mitts will be replaced. I would like to give him the whole night with bladder decompression, to see if he seems to remain more comfortable. -Also discussed with his the possibility of having family not visit for the next couple of days, to see if he remains calmer without them here. He does seem to do well in the morning when the nurses and physical therapist are working with him, but gets more agitated after his family comes. However, he was apparently complaining of pain in his hip last night. We are still trying to balance giving him pain medications versus the side effects the medicine seem to have for him. April 13: The patient had a much better evening. His bladder scan did show urine retention, so Rollins catheter was placed. He seemed to be more comfortable last night, and slept well last night. Today he is more awake and alert, and his speech is easier to understand. He notes he is still having some hip discomfort. He thinks his abdomen feels better. He is asking to change position so that he can get more comfortable. We put mitts on his hands last night to keep him from pulling out his IV or his Rollins catheter, but those have been removed this morning, because he is calm and cooperative so far today. He denies chest pain or shortness of breath or abdominal pain. He is mostly complaining of hip discomfort. -Nursing staff tells me today that his family says he previously took Marston twice a day every day at home. We will try resuming this today. 04/14: Still having supine hypertension. About 50% of his midodrine doses have been held and he has had no episodes of hypotension. Will DC midodrine today and continue the Florinef. PO intake remains poor and still requiring IVF. Mitt restraints have been off since yesterday AM at 0930. He has frequent requests to call his but is currently redirectable. 04/15: Pt seen examined, some agitaiton overnight, untill midnight and then slept ok, his dose of seroquel was being cut down, there is also rise in WBC count again this AM and his CXR shows worsening infiltrates, his procalcitonin is elevated. He will be started on augmentin for aspiration pna, if he does not respond will broaden antibiotics to vanco and zosyn Patient home meds reviewed, noted that he seems to be taking a higher dose of hydrocodone at home, and seems to do somewhat better with morphine. Will d/c hydrocodone and try morhine oral to see if this works better for him. Patient is at high risk of aspiration pneumonia and will likely continue to aspirate given his poor swallowing as well as mental status issues. he likely has underlying dementia although has not been formally diagnosed with same. Clinicaly behaving like a patient with dementia and likely behavorial issues secondary to same. His bp is stable, he is off midodrine at this time. 04/16: patient seen and examined this morning. at bedside, I had extensive discussion with the family yesterday with regards to patient's overall prognosis. In light of the new pneumonia. His poor oral intake and aggressive delerious behavior which is not responding to conservative management. It is unlikely that the patient will improve going further. , I discussed with the patient's as well as the [id number] with regards to consideration of palliative care. This morning they let me know that the patient daughter as well as his are all in agreement for comfort care measures. Plan for comfort care going forward, continue po antibiotics and anti agitatino meds, continue ativan as well as oral meds for now. 04/17: Pt seen examined, family at bedside, patient is presenly on comfort care only, patient this AM became hypoxic requring 9 L oxygen, drowsy. LIkely secondary to aspiration pna, family explained that this is despite him being on medications. Family seems to understand and ready to accept the outcome. Goals of treatment are now to keep patient comfortable as much as possible. 04/18: Pt seen exained, pt had some agitation overnight ,but this AM was sleeping , has some gasping for air intermittently, his oxyen requirement is better, but mental status remains poor. He has new onset rash on this skin, will give IV benadryl for same. Family at bedside. No further needs or concerns voiced by family. Pertinent ROS: unable - Constitutional Vitals: Vital Signs Temp Pulse Resp BP Pulse Ox 98.7 F 76 26 H 183/71 96 04/17/17 20:00 04/17/17 20:00 04/18/17 07:00 04/17/17 20:00 04/17/17 20:00 Period Temp Pulse Resp BP Sys/Garcia Pulse Ox Last 24 Hr 98.7 F 76 22-26 183/71 96 Intake and Output 04/17/17 04/18/17 04/18/17 21:59 05:59 13:59 Intake Total 0 / 0 Output Total 2 / 2 3 / 3 Balance -2 / -2 -3 / -3 -1 Weight 182 lb Intake & Output: Intake & Output 04/17/17 04/18/17 04/18/17 21:59 05:59 13:59 Intake Total 0 / 0 Output Total 2 / 2 3 / 3 Balance -2 / -2 -3 / -3 - Weight 182 lb Intake: Oral 0 / 0 Output: # of times incontinent of 2 / 2 3 / 3 urine Other: # Voids 1 # Bowel Movements 0 Exam: Constitutional; Afebrile, drowsy, Ears- Ext ear normal, Neck- Midline trachea, Respiratory system: Air Entry equal on both sides, irregualr breathing pattern. CVS- Rate tachycardic rhythm regular, S1,S2 heard, no gallop, no rub. Abdomen- Soft nontender abdomen, no organomegaly, no tenderness, no guarding or rigidity, MEDICAL CODER- [id number], Medical - PN: Obj Da - Labs CBC & Chem 7: 04/17/17 04:28 04/17/17 04:28 Labs: Abnormal Lab Results 04/17/17 04/17/17 04/16/17 04:28 04:28 08:40 RBC 2.15 L Hgb 7.9 L Hct 23.5 L MCV 109.4 H MCH 36.8 H RDW 15.8 H Gran % 83.0 H Lymph % (Auto) 8.5 L Lymph # (Auto) 0.7 L Sodium 146 H Calcium 8.4 L Vancomycin Trough 4.6 L 04/16/17 05:33 RBC 2.15 L Hgb 8.1 L Hct 23.6 L MCV 110.0 H MCH 37.7 H RDW 15.7 H Gran % 85.5 H Lymph % (Auto) 8.6 L Lymph # (Auto) 0.6 L Sodium Calcium Vancomycin Trough Meds: Medications Albuterol Sulfate (Ventolin) 2.5 mg NEB Q2HP PRN PRN Reason: Shortness Of Breath Diphenhydramine HCl (Benadryl) 25 mg IV Q4-6HP PRN PRN Reason: Allergic Symptoms Last Admin: 04/18/17 10:58 Dose: 25 mg Glucose Oxid/Lactoperoxid/Muramidas (Biotene) 1 each TOPICAL PRN PRN PRN Reason: Dry Mouth Acetaminophen (Ofirmev) 650 mg in 65 mls @ 130 mls/hr IV Q6HP PRN PRN Reason: Pain Last Admin: 04/11/17 19:07 Dose: 130 mls/hr Lorazepam (Ativan) 2 mg IV Q2HP PRN PRN Reason: ANXIETY/SEDATION Last Admin: 04/18/17 00:12 Dose: 2 mg Morphine Sulfate (Morphine) 10 mg PO Q4-6HP PRN PRN Reason: Pain Last Admin: 04/17/17 00:16 Dose: 10 mg Morphine Sulfate (Morphine) 4 mg NEB Q4HP PRN PRN Reason: Shortness Of Breath Last Admin: 04/17/17 08:20 Dose: 4 mg Morphine Sulfate (Morphine) 2 mg IV Q1HP PRN PRN Reason: Pain Last Admin: 04/18/17 12:33 Dose: 2 mg Ondansetron HCl (Zofran) 4 mg IV Q4HP PRN PRN Reason: Nausea And Vomiting Sodium Chloride (Saline Flush) 10 ml IV Q8 DOLORES Last Admin: 04/18/17 05:32 Dose: 10 ml Throat Lozenges (Cepacol) 1 lozenge PO PRN PRN PRN Reason: Sore Throat Medical - PN: A/P - Time Spent With Patient Total time spent is greater than 50% in coordination of care (as documented) at patient's floor/unit and/or counseling patient: - Narrative A/P Narrative: A/P Left Hip fracture: s/p replacement, doing well at this time Left hip dislocation s/p reduction on 04/[address] salazar, repeat CXR on 04/06 was ok Post op pain Delerium Recurrent Aspiration pneumonia Renal failure Orthostatic Hypotension BPH Parkinsons disease Dementia with behavorial issue Palliative care. Skin rash Plan palliative care at this time IV morphine and ativan for pain IV benadryl for rash FOllow comfort care protocol for skin/ oral/ eye car family at bedside. . DNR comfort care anticipated within 24 hrs given acute worsening of patients condition.
[2017-04-19] MEDS: LORazepam 2 MG/ML VIAL IV PRN ×4 (02:26→13:47)
[2017-04-19] MEDS: diphenhydrAMINE 50 MG/ML VIAL IV PRN (04:43)
[2017-04-19] MEDS ORDERED: diphenhydrAMINE 50 MG/ML VIAL IV PRN (07:23)
[2017-04-19] MEDS: 0.9 % SODIUM CHLORIDE 10 ML SYRINGE IV SCH ×2 (08:17→12:55)
--- NOTE | 2017-04-19 16:03 | Discharge Summary ---
Medical - DS: Prov Patient information: Note initiated : 04/19/17 at 4:01 pm Service Date, if different from initiated Date: [] Patient: Oliver Miles 81 y/o M admitted on 03/29/17 for Fall, L Hip Pain/ Closed Left Hip Fracture. Chief Complaint: [] Date of admission: 03/29/17 11:35 Discharge date: 04/19/17 Primary care physician: Jewels Arambula MD Admitting clinician: Regan Cornelius Consults: 04/05/17 14:59 Consult to Physician [CONS] Routine Comment: Consulting Provider: [facility] Reason For Exam: Physician to Consult 04/07/17 09:09 Consult to Physician [CONS] Routine Comment: SOPHIE, Consulting Provider: Vikas Martinez Reason For Exam: Physician to Consult Discharging clinician: Go Shukla Medical - DS: Meds - Discharge Medications Active and Home Medications: Home Medications Carbidopa/Levodopa [Carbidopa-Levo 25-100 mg Odt] 1.5 each PO Q6 06/20/16 [ History Confirmed 03/29/17 Last Taken 03/29/17 09:00] Cholecalciferol (Vitamin D3) [Vitamin D3] 10,000 unit PO Q48 06/20/16 [History Confirmed 03/29/17 Last Taken 03/28/17 09:00] Entacapone [Comtan] 200 mg PO BID 06/20/16 [History Confirmed 03/29/17 Last Taken 03/28/17 21:00] Gabapentin [Neurontin] 300 mg PO HS 06/20/16 [History Confirmed 03/29/17 Last Taken 03/28/17 21:00] HYDROcodone/ACETAMINOPHEN [Lorcet Hd 10-325 mg Tablet] 1 tab PO BID 06/20/16 [ History Confirmed 03/29/17 Last Taken 03/28/17 21:00] Pravastatin [Pravachol] 20 mg PO DAILY 06/20/16 [History Confirmed 03/29/17 Last Taken 03/28/17 11:30] QUEtiapine [SEROquel] 25 mg PO HS 06/20/16 [History Confirmed 03/29/17 Last Taken 03/28/17 21:00] carBAMazepine [TEGretol] 100 mg PO Q12 #30 tab.chew 11/29/16 [Rx Confirmed 03/29 Last Taken 03/28/17 21:00] Midodrine [Midodrine HCl] 10 mg PO TID@0800,1200,1700 12/09/16 [History Confirmed 03/29/17 Last Taken 03/28/17 17:00] rOPINIRole [Requip] 1 mg PO Q6 12/09/16 [History Confirmed 03/29/17 Last Taken 03/29/17 09:00] Finasteride 5 mg PO DAILY 03/29/17 [History Confirmed 03/29/17 Last Taken 11:30] Fludrocortisone [Florinef] 0.3 mg PO DAILY 03/29/17 [History Confirmed 03/29/17 Last Taken 03/28/17 14:00] L.acidoph,Paracasei, B.lactis [Probiotic] 1 tab PO DAILY 03/29/17 [History Confirmed 03/29/17 Last Taken 03/28/17 09:00] clonazePAM [Clonazepam] 0.25 mg SL BID 03/29/17 [History Confirmed 03/29/17 Last Taken 03/28/17 21:00] Medical - DS: Hosp Hospital course: Mr. Miles is a 81 year old male with multiple medical issues, including parkinsons disease, presented to E after a mechanical fall, He had a left hip injury and was admitted to the hospitalist service for further management. Ortho evaluated the patient and patient underwent Hip replacement Surgery, the patient in the post op period was very delirious, and remained agitated. The patient developed aspiration pneumonia which was treated with IV antibiotics. He also had brief episode of Acute kidney injury, nephrology consulted and the patients kidney function normalized. The patient throughout the stay in the hospital remained altered, aggressive and difficult to care for. He did not take much of his oral medications, for his parkinson disease and this made it more difficult for him to control his movements. During his bout of agitation ,he developed hip dilocation which was reduced by Ortho under anesthesia. The patient had intermittent episodes of lucidity, but most of the hospital stay he was confused, agitated, and aggressive, being non compliant with his care, CT head was negative for any acute process He was medically managed for his delirium, and agitation, adequate pain control achielved, good bowel bladder care provided, but this did not help much in changing the patients condition. On discussing with family it seems he has been on a slow decline in his mental status over the last few months and was difficult to understand even before he presented to the hospital. After a prolonged hospital stay, after reviewing the overall prognosis, the patients family decided to place patient under comfort care. his non essentail medications have been stopped. He is presently on ativan and morphine for pain and anxiety. At the time of discharge he is drowsy and sedated, and kept comfortable. Plan for him is to be under swing bed status for palliative care. Discharge diagnosis: Hip fracture, aspiraton pneumonia, Parkinsons disease. - Time Spent with Patient Total time spent providing and/or coordinating discharge services: Greater than 30 minutes Medical - DS: Exam - Constitutional Vitals: Vital Signs Temp Pulse Pulse Resp BP Pulse Ox 04/19/17 08:00 24 H 89 L 04/19/17 07:54 79 16 89 L 04/18/17 20:00 99.0 F H 81 32 H 115/57 85 L Intake and Output 04/19/17 04/19/17 04/19/17 05:59 13:59 21:59 Intake Total 0 / 0 Output Total Balance - -1 - Intake: Oral 0 / 0 Output: # of times incontinent of urine Additional comments: Constitutional; Afebrile, drowsy, not in distress Eyes- No icterus, , Neck- Midline trachea, supple Respiratory system: Air Entry equal on both sides, No crackles or wheezing, but poor and irregular breathing pattern. CVS- Rate rhythm regular, S1,S2 heard, no gallop, no rub. 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 Medical - DS: A/P - Patient/Caregiver Discharge Instructions Activity: other (bed rest. ) Diet: Dysphagia Advanced Additional Instructions: Discharge Instructions: Do the exercises at home that physical therapy gave you. Take your prescription, photo ID, insurance cards, and current medication list with you to your first physical therapy appointment. Take your prescription to belt picker any medication or equipment (such as walker, crutches, toilet riser or C.P.M.) Wear comfortable clothing for your physical therapy. Weight bearing as tolerated. You have the GTRANel Ag dressing, leave in place for 7 days then remove. If dressing becomes soiled (turns black), remove and use gauze 4x4 dressing and silvasorb ointment and change daily. Keep incision clean and dry. You may start showering on post op day #2. To avoid constipation while taking any narcotic pain medication, take an over the counter stool softener/laxative. Use ice packs as directed, on for 20 minutes at a time throughout the day. This and elevation will help with pain and swelling. Call your physician for fevers above 100.5 or pain not controlled by medication. Your prescriptions are with your discharge information. Some medications were electronically transmitted to your pharmacy of choice. - Follow up Plan Follow up with: Crispin Roberts MD [Physician] - Jewels Arambula MD [Primary Care Provider] - Disposition: [facility] Swing Bed Prognosis: Critical Rehab Potential: Critical I certify that the patient requires SNF services: No Overall status at discharge: patient is not back to baseline
== END 2017-04-19 14:38 | disposition other institution (70) | DRG 469 ==
LOC: ED 07:46 → MEDSUR 11:35 → SUATTDRO 11:35 → MEDSUR 13:53
PROVIDERS: ADMIT Internal Medicine; ATTEND Internal Medicine
PROC: HEMIHIP (2017-03-29 16:25)

== ENCOUNTER 2017-04-19 14:35 | Inpatient (IN) ==
[2017-04-19] MEDS ORDERED: ALBUTEROL SULFATE 2.5 MG/3 ML NEBULIZER NEB PRN (16:21)
[2017-04-19] MEDS ORDERED: LACTOPEROXI/GLUC OXID/POT THIO 1 EACH GEL..EA. TOPICAL PRN (16:21)
[2017-04-19] MEDS ORDERED: ONDANSETRON 4 MG/2 ML VIAL IV PRN (16:21)
[2017-04-19] MEDS: LORazepam 2 MG/ML VIAL IV PRN (17:42)
[2017-04-19] MEDS: diphenhydrAMINE 50 MG/ML VIAL IV SCH ×2 (17:43→23:45)
[2017-04-19] MEDS: 0.9 % SODIUM CHLORIDE 10 ML SYRINGE IV SCH (23:45)
[2017-04-20] MEDS: diphenhydrAMINE 50 MG/ML VIAL IV SCH (07:00)
[2017-04-20] MEDS: 0.9 % SODIUM CHLORIDE 10 ML SYRINGE IV SCH ×3 (07:00→20:38)
[2017-04-20] MEDS: LORazepam 2 MG/ML VIAL IV PRN (12:28)
[2017-04-20] MEDS ORDERED: fentaNYL 50 MCG PATCH TOPICAL ONE (14:36)
[2017-04-20] MEDS: morphine 20 MG/ML ORAL.CONC PO PRN ×3 (15:14→23:54)
[2017-04-20] MEDS ORDERED: diphenhydrAMINE 50 MG/ML VIAL IV PRN (15:30)
--- NOTE | 2017-04-20 15:42 | Internal Med History&Physical ---
Medical - H&P: [facility] Patient information: Note initiated : 04/20/17 at 3:39 pm Service Date, if different from initiated Date: [] Patient: Oliver Miles 81 y/o M admitted on 04/19/17 for L Hip Fracture. Chief Complaint: [] History of present illness: Mr. Miles is a 81 year old male with history of Parkinson's disease, possible dementia, multiple medical issues initially presented to the hospital after the fall and fracture of the left hip. The patient was altered at the time of admission. The patient underwent fracture repair however, in the postop period , the patient remained delirious and agitated. The patient wants dislocated the placed hip joint, which was reduced. The patient developed acute renal failure and multiple episodes of aspiration pneumonia while in the hospital. The aspiration pneumonia was treated with antibiotics. Renal failure treated with IV fluids and had resolved. The patient had not eaten much since the time of admission. He would spit out his medications and be aggressive towards the caretakers. After a prolonged stay in the hospital The family was made aware of the overall poor prognosis of the patient The family decided to choose comfort care measures for the patient. The patient was discharged from inpatient status to swing bed status. The patient remains nonverbal, responds to pain, isnot in distress at this point in time. Family is at bedside. He's been given medications to keep him comfortable as per comfort care protocol. ROS unobtainable: due to mental status Medical - H&P: [facility] Medical history: Medical History (Last Updated 04/07/17 @ 17:40 by Vikas Martinez MD) Dehydration (Acute) Clavicle fracture (Acute) Rib fracture (Acute) Trigeminal neuralgia of left side of face (Acute) Acute vestibular neuronitis (Acute) Orthostatic hypotension (Acute) Viral syndrome (Acute) Pneumonia (Acute) Autonomic dysfunction (Acute) Parkinson disease (Acute) History of aspiration pneumonia (Acute) Family history: reviewed and not pertinent Medical - H&P: Meds Home Medications Medication Instructions Recorded Confirmed Type RX: 0.9 % Sodium Chloride [Saline 10 ml IV Q8 04/19/17 04/19/17 Rx Flush] RX: Albuterol Sulfate [Ventolin] 2.5 mg NEB Q2HP PRN 04/19/17 04/19/17 Rx RX: Benzocaine/Menthol [Cepacol] 1 lozenge PO PRN PRN lozenge 04/19/17 Rx RX: LORazepam [Ativan] 2 mg IV Q2HP PRN vial 04/19/17 04/19/17 Rx RX: Lactoperoxi/Gluc Oxid/Pot Thio 1 each TOPICAL PRN PRN 04/19/17 04/19/17 Rx [Biotene] RX: Ondansetron [Zofran] 4 mg IV Q4HP PRN vial 04/19/17 04/19/17 Rx RX: diphenhydrAMINE [Benadryl] 50 mg IV Q4-6HP PRN vial 04/19/17 04/19/17 Rx RX: morphine 4 mg NEB Q4HP PRN 04/19/17 04/19/17 Rx RX: morphine 5 mg IV Q1HP PRN 04/19/17 04/19/17 Rx RX: morphine 10 mg PO Q4-6HP PRN 04/19/17 04/19/17 Rx Allergies Allergy/AdvReac Type Severity Reaction Status Date / Time No Known Drug Allergies Allergy Verified 04/19/17 15:47 Medical - H&P: Exam - Constitutional Vitals: Temp Resp BP Pulse Ox 99.0 F H 10 L 200/94 96 04/20/17 12:38 04/20/17 12:38 04/20/17 12:38 04/20/17 12:38 Exam: Constitutional; rowsy, responds to pain, Eyes- No icterus, , Ears- Ext ear normal, Neck- Midline trachea, supple Respiratory system: Air Entry equal on both sides, ibasilar crackles. CVS- Rate rhythm regular, S1,S2 heard, no gallop, no rub. 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 Extremities no random. Patient is drowsy only responds to pain stimulus. At this point. Skin-shows rash, multiple, likely allergic versus drug reaction. Medical - H&P: A/P - Narrative A/P Narrative: A/P Comfort care aspiraton pna hip fracture parkinsons disease the patient is currently being kept comfortable with morphine, Ativan, rashes, being treated with Benadryl. Family is at bedside, no concerns reported. Oxygen is being given for comfort Measures. Patient's home medications have been stopped. No unnecessary labs are being done.anticipatethat at this visit. Medical - H&P: Qual - VTE Deep Vein Thrombosis/Pulmonary Embolism Present on Admission: No Social History - Tobacco smoking status: Unknown if ever smoked
[2017-04-20] MEDS: diphenhydrAMINE 12.5 MG/5 ML ORAL.SOL PO SCH ×2 (15:50→19:42)
[2017-04-20] MEDS: LORazepam 1 MG TABLET SL PRN (21:16)
[2017-04-21] MEDS: diphenhydrAMINE 12.5 MG/5 ML ORAL.SOL PO SCH ×3 (02:09→10:33)
[2017-04-21] MEDS: 0.9 % SODIUM CHLORIDE 10 ML SYRINGE IV SCH (04:46)
[2017-04-21] MEDS: LORazepam 1 MG TABLET SL PRN (06:56)
[2017-04-21] MEDS: morphine 20 MG/ML ORAL.CONC PO PRN (06:56)
--- NOTE | 2017-04-21 14:39 | Death Note ---
Discharge Sum: Prov - Provider Patient information: Note initiated : 04/21/17 at 2:37 pm Service Date, if different from initiated Date: [] Patient: Oliver Miles 81 y/o M admitted on 04/19/17 for L Hip Fracture. Chief Complaint: [] Primary care physician: Jewels Arambula MD Admitting clinician: Go Shukla Discharge Sum: Diag - PCOD Cause of : Pneumonia Discharge Sum: Summary - Date and Time Date of admission: 04/19/17 14:39 Date of : 04/21/17 Time of : 08:50 - Summary Details: Mr. Miles is a 81 year old male with history of Parkinson's disease, possible dementia, multiple medical issues initially presented to the hospital after the fall and fracture of the left hip. The patient was altered at the time of admission. The patient underwent fracture repair however, in the postop period , the patient remained delirious and agitated. The patient wants dislocated the placed hip joint, which was reduced. The patient developed acute renal failure and multiple episodes of aspiration pneumonia while in the hospital. The aspiration pneumonia was treated with antibiotics. Renal failure treated with IV fluids and had resolved. The patient had not eaten much since the time of admission. He would spit out his medications and be aggressive towards the caretakers. After a prolonged stay in the hospital The family was made aware of the overall poor prognosis of the patient The family decided to choose comfort care measures for the patient. The patient was discharged from inpatient status to swing bed status, the patients care continued with morphine and ativan for comfort. The patient remained non verbal and did not exhibit much signs of distress. The family was present at bedside at all times. The patient this morning at 0845. [place] of : Aspiration pneumonia - Additional Data Confirmation of as documented by pronouncing clinician: no pulse, no respirations, no heart sounds Family: at bedside Additional persons at bedside: jaida Attending/PCP notified?: Yes Attending physician: Go Shukla Hospice patient?: Yes
== END 2017-04-21 08:50 | disposition expired | DRG 535 ==
LOC: MEDSUR 14:39
PROVIDERS: ADMIT Internal Medicine; ATTEND Internal Medicine